=== PATIENT | female | born 1935 | race African-American/Black ===

== ENCOUNTER 2017-03-17 10:36 | Emergency (ER) | payer MEDICARE, MEDICAID ==
[2017-03-17] MEDS ORDERED: PREDNISONE 20 MG TABLET PO ONE (11:19)
[2017-03-17] MEDS ORDERED: IPRATROPIUM/ALBUTEROL 0.5-2.5 MG/3 ML AMPUL NEB ONE (11:19)
--- NOTE | 2017-03-17 11:47 | RADIOLOGY REPORT (SQ) ---
EXAM DESCRIPTION: CHEST SINGLE VIEW COMPLETED DATE/TIME: 03/17/2017 11:31 am REASON FOR STUDY: db bed 10 COMPARISON: AP chest 08/16/2015, 08/10/2015 EXAM PARAMETERS: NUMBER OF VIEWS: One view. TECHNIQUE: Single frontal radiographic view of the chest acquired. RADIATION DOSE: NA LIMITATIONS: Obese patient, lordotic portable technique, EKG leads over the chest FINDINGS: LUNGS AND PLEURA: No opacities, masses or pneumothorax. No pleural effusion. MEDIASTINUM AND HILAR STRUCTURES: No masses. Contour normal. HEART AND VASCULAR STRUCTURES: Stable cardiomegaly BONES: No acute findings. HARDWARE: None in the chest. OTHER: No other significant finding. IMPRESSION: Cardiomegaly without acute infiltrates, pneumothorax, or pleural effusion TECHNICAL DOCUMENTATION: JOB ID: [id number] [employer]- All Rights Reserved
[2017-03-17 12:32] LABS: VENOUS BLOOD BASE EXCESS -0.6 mmol/L; VENOUS BLOOD HCO3 25.2 mmol/L (20-32); VENOUS BLOOD PH 7.36 (7.30-7.42)
[2017-03-17 12:34] LABS: ABSOLUTE LYMPHOCYTES (AUTO) 0.5 10^3/uL (0.5-4.7); ABSOLUTE MONOCYTES (AUTO) 0.2 10^3/uL (0.1-1.4); ABSOLUTE NEUT (AUTO) 2.3 10^3/uL (1.7-8.2); BASOPHILS % (AUTO) 0.2 % (0-2); EOSINOPHILS % (AUTO) 0.2 % (0-6); HEMATOCRIT 37.9 % (36.0-47.0); HEMOGLOBIN 12.3 g/dL (12.0-15.5); LYMPHOCYTES % (AUTO) 16.3 % (13-45); MEAN CORPUSCULAR HEMOGLOBIN 29.3 pg (27.0-33.4); MEAN CORPUSCULAR HGB CONC 32.6 g/dL (32.0-36.0); MEAN CORPUSCULAR VOLUME 90 fl (80-97); PLATELET COUNT 102 10^3/uL (150-450); RED BLOOD COUNT 4.22 10^6/uL (3.72-5.28); RED CELL DISTRIBUTION WIDTH 15.8 % (11.5-14.0); SEGMENTED NEUTROPHILS % (AUTO) 75.3 % (42-78); TOTAL CELLS COUNTED % (AUTO) 100 %; WHITE BLOOD COUNT 3.1 10^3/uL (4.0-10.5)
[2017-03-17 12:50] LABS: ALANINE AMINOTRANSFERASE 28 U/L (9-52); ALBUMIN 3.6 g/dL (3.5-5.0); ALKALINE PHOSPHATASE 166 U/L (38-126); ANION GAP 14 (5-19); ASPARTATE AMINO TRANSFERASE 30 U/L (14-36); BILIRUBIN,DIRECT 0.5 mg/dL (0.0-0.4); BILIRUBIN,TOTAL 0.8 mg/dL (0.2-1.3); BLOOD UREA NITROGEN 33 mg/dL (7-20); CALCIUM 8.8 mg/dL (8.4-10.2); CARBON DIOXIDE 22 mmol/L (22-30); CHLORIDE 104 mmol/L (98-107); CREATINE KINASE 210 U/L (30-135); GLUCOSE 117 mg/dL (75-110); SODIUM 140.4 mmol/L (137-145); TOTAL PROTEIN 7.2 g/dL (6.3-8.2)
[2017-03-17 13:02] LABS: CREATINE KINASE MB 1.74 ng/mL (<4.55); TROPONIN I 0.02 ng/mL
--- NOTE | 2017-03-17 13:13 | EKG REPORT ---
SEVERITY:- ABNORMAL ECG - ATRIAL FLUTTER, A-RATE 294 NONSPECIFIC T ABNORMALITIES, INFERIOR LEADS : Confirmed by: Brionna Vallecillo MD 17-Mar-2017 13:12:19
--- NOTE | 2017-03-17 14:09 | ER Document Report ---
ED General - General Chief Complaint: Shortness Of Breath Stated Complaint: SHORTNESS OF BREATH Time Seen by Provider: 03/17/17 10:48 TRAVEL OUTSIDE OF THE [place] IN LAST 30 DAYS: No - HPI Patient complains to provider of: Shortness of breath Notes: Patient coming in from [facility] facility for shortness of breath. Patient had wheezing the facility patient currently is on Tamiflu. Patient states she was not diagnosed with flu. Denies fever chills nausea vomiting diarrhea denies any cough. Patient resting company upon my evaluation on oxygen no signs of hypoxia. - Related Data Allergies/Adverse Reactions: morphine [Morphine] Adverse Reaction (Mild, Verified 04/20/13 11:42) Dizziness Past Medical History - Social History Smoking Status: Unknown if Ever Smoked Family History: Reviewed & Not Pertinent Patient has suicidal ideation: No Patient has homicidal ideation: No - Past Medical History Cardiac Medical History: Reports: Hx Hypertension, Hx Peripheral Vascular Disease Denies: Hx Coronary Artery Disease, Hx Heart Attack Pulmonary Medical History: Denies: Hx Asthma, Hx Bronchitis, Hx COPD, Hx Pneumonia, Hx Tuberculosis Neurological Medical History: Denies: Hx Cerebrovascular Accident, Hx Seizures Endocrine Medical History: Reports: Hx Diabetes Mellitus Type 2 Renal/ Medical History: Reports: Hx Kidney Stones, Hx Renal Insufficiency. Denies: Hx Peritoneal Dialysis GI Medical History: Reports: Hx Gastroesophageal Reflux Disease. Denies: Hx Hepatitis, Hx Hiatal Hernia, Hx Ulcer Musculoskeltal Medical History: Denies Hx Arthritis Skin Medical History: Reports Hx Cellulitis Infectious Medical History: Denies: Hx Hepatitis Past Surgical History: Reports: Hx Cholecystectomy, Hx Genitourinary Surgery - bladder. Denies: Hx Mastectomy, Hx Open Heart Surgery, Hx Pacemaker - Immunizations Hx Diphtheria, Pertussis, Tetanus Vaccination: Yes Hx Pneumococcal Vaccination: 11/24/11 Review of Systems - Review of Systems Constitutional: No symptoms reported EENT: No symptoms reported Cardiovascular: No symptoms reported Respiratory: Short of breath, Wheezing Gastrointestinal: No symptoms reported Genitourinary: No symptoms reported Female Genitourinary: No symptoms reported Musculoskeletal: No symptoms reported Skin: No symptoms reported Hematologic/Lymphatic: No symptoms reported Neurological/Psychological: No symptoms reported Physical Exam - Vital signs Vitals: BP Pulse Ox 126/69 H 98 03/17/17 11:04 03/17/17 11:04 Interpretation: Normal - General General appearance: Appears well, Alert - HEENT Head: Normocephalic, Atraumatic Eyes: Normal Pupils: PERRL - Respiratory Respiratory status: No respiratory distress Chest status: Nontender Breath sounds: Wheezing Chest palpation: Normal - Cardiovascular Rhythm: Regular Heart sounds: Normal auscultation Murmur: No - Abdominal Inspection: Normal Distension: No distension Bowel sounds: Normal Tenderness: Nontender Organomegaly: No organomegaly - Back Back: Normal, Nontender - Extremities General upper extremity: Normal inspection, Nontender, Normal color, Normal ROM , Normal temperature General lower extremity: Normal inspection, Nontender, Normal color, Normal ROM , Normal temperature, Normal weight bearing. No: Torin's sign - Neurological Neuro grossly intact: Yes Cognition: Normal Orientation: AAOx4 [place] Coma Scale Eye Opening: Spontaneous [place] Coma Scale Verbal: Oriented Gem Coma Scale Motor: Obeys Commands Gem Coma Scale Total: 15 Speech: Normal Motor strength normal: LUE, RUE, LLE, RLE Sensory: Normal - Psychological Associated symptoms: Normal affect, Normal mood - Skin Skin Temperature: Warm Skin Moisture: Dry Skin Color: Normal Course - Re-evaluation Re-evalutation: 03/17/17 15:38 Laboratory studies not show acute pathology. Patient's wheezing resolved with nebulous treatments. Patient refused her flu testing here in the ER. Patient has remained off oxygen so no signs of hypoxia. Chest x-ray is negative for infection will discharge patient home follow-up with her PCP. - Vital Signs Vital signs: Temp Pulse Resp BP Pulse Ox 97.9 F 18 142/84 H 98 03/17/17 14:47 03/17/17 14:02 03/17/17 14:02 03/17/17 14:02 - Laboratory Result Diagrams: 03/17/17 12:16 03/17/17 12:16 Laboratory results interpreted by me: 03/17/17 03/17/17 12:16 12:16 WBC 3.1 L RDW 15.8 H Plt Count 102 L BUN 33 H Creatinine 2.66 H Est GFR ( Amer) 21 L Est GFR (Non-Af Amer) 17 L Glucose 117 H Direct Bilirubin 0.5 H Alkaline Phosphatase 166 H Creatine Kinase 210 H Discharge - Discharge Clinical Impression: Bronchitis Disposition: HOME-SNF (ED ONLY) Instructions: Bronchitis With Bronchospasm (Wheezing) (OM) Additional Instructions: Patient was seen and evaluated for shortness of breath. No hypoxia while here in the ER. Patient is not requiring oxygen. Chest x-ray does not show any signs of pneumonia. Wheezing improved with breathing treatments will continue steroids recommend albuterol treatments every 2-4 hours for shortness of breath patient should follow-up with physician in 3-5 days Prescriptions: Prednisone [Deltasone 20 mg Tablet] 2 tab PO DAILY 5 Days tablet
[2017-03-17 14:20] VITALS: BP 142/84
[2017-03-17 14:57] LABS: A TYPE INFLUENZA AG NEGATIVE (NEGATIVE); B INFLUENZA AG NEGATIVE (NEGATIVE)
== END 2017-03-17 14:47 ==
LOC: ER 10:36
DX: J40 Bronchitis, not specified as acute or chronic (principal); R06.02 Shortness of breath; R06.2 Wheezing
CPT/HCPCS: 93005; 94640; 99285; 36415; 82553; 82550; 85025; 80053; 84484; 82803; 87804; 71045; 93010; A9270 ×2; J7512; J7620

== ENCOUNTER 2017-03-18 18:59 | Inpatient (IN) | payer MEDICARE, MEDICAID ==
[2017-03-18] MEDS ORDERED: ONDANSETRON HCL INJ/PF 4 MG/2 ML SDV IV ONE (19:43)
[2017-03-18] MEDS ORDERED: IPRATROPIUM/ALBUTEROL 0.5-2.5 MG/3 ML AMPUL NEB ONE ×2 (19:44→20:58)
[2017-03-18] MEDS ORDERED: FUROSEMIDE INJ/PF 40 MG/4 ML SDV IV ONE ×2 (19:44→20:58)
--- NOTE | 2017-03-18 19:47 | ER Document Report ---
ED General - General Chief Complaint: Respiratory Distress Stated Complaint: WEAKNESS Time Seen by Provider: 03/18/17 19:34 Mode of Arrival: Medic Information source: Patient, Transfer Record Notes: This is an 81-year-old female with a history of morbid obesity, chronic kidney disease, hypertension, VT E (on Coumadin), diabetes. The patient was brought in by EMS because of shortness of breath. The patient was apparently in the ER yesterday for similar symptoms. It was reported that she has been treated for Tamiflu but it is had a negative flu test. TRAVEL OUTSIDE OF THE [place] IN LAST 30 DAYS: No - HPI Onset: Just prior to arrival Onset/Duration: Gradual Quality of pain: No pain Severity: None Associated symptoms: Shortness of breath. denies: Chest pain, Fever Exacerbated by: Denies Relieved by: Denies Similar symptoms previously: Yes Recently seen / treated by doctor: Yes - Related Data Allergies/Adverse Reactions: morphine [Morphine] Adverse Reaction (Mild, Verified 04/20/13 11:42) Dizziness Past Medical History - General Information source: Patient - Social History Smoking Status: Never Smoker Cigarette use (# per day): No Chew tobacco use (# tins/day): No Frequency of alcohol use: None Drug Abuse: None Lives with: Family Family History: Reviewed & Not Pertinent Patient has suicidal ideation: No Patient has homicidal ideation: No - Past Medical History Cardiac Medical History: Reports: Hx Hypertension, Hx Peripheral Vascular Disease Denies: Hx Coronary Artery Disease, Hx Heart Attack Pulmonary Medical History: Denies: Hx Asthma, Hx Bronchitis, Hx COPD, Hx Pneumonia, Hx Tuberculosis Neurological Medical History: Denies: Hx Cerebrovascular Accident, Hx Seizures Endocrine Medical History: Reports: Hx Diabetes Mellitus Type 2 Renal/ Medical History: Reports: Hx Kidney Stones, Hx Renal Insufficiency. Denies: Hx Peritoneal Dialysis GI Medical History: Reports: Hx Gastroesophageal Reflux Disease. Denies: Hx Hepatitis, Hx Hiatal Hernia, Hx Ulcer Musculoskeltal Medical History: Denies Hx Arthritis Skin Medical History: Reports Hx Cellulitis Infectious Medical History: Denies: Hx Hepatitis Past Surgical History: Reports: Hx Cholecystectomy, Hx Genitourinary Surgery - bladder. Denies: Hx Mastectomy, Hx Open Heart Surgery, Hx Pacemaker - Immunizations Hx Diphtheria, Pertussis, Tetanus Vaccination: Yes Hx Pneumococcal Vaccination: 11/24/11 Review of Systems - Review of Systems Constitutional: denies: Chills, Fever EENT: No symptoms reported Cardiovascular: No symptoms reported Respiratory: See HPI Gastrointestinal: No symptoms reported Genitourinary: No symptoms reported Female Genitourinary: No symptoms reported Musculoskeletal: No symptoms reported Skin: No symptoms reported Hematologic/Lymphatic: No symptoms reported Neurological/Psychological: No symptoms reported Physical Exam - Vital signs Vitals: Resp Pulse Ox 24 H 97 03/18/17 19:07 03/18/17 19:07 Notes: Physical exam: GENERAL: 81-year-old female, alert and oriented 3, appears tachypneic. She is morbidly obese. HEAD: Atraumatic, normocephalic. EYES: Pupils equal round and reactive to light, extraocular movements intact, sclera anicteric, conjunctiva are normal. ENT: TMs normal, nares patent, oropharynx clear without exudates. Moist mucous membranes. NECK: Normal range of motion, supple without obvious mass or JVD. LUNGS: She has wheezing bilaterally, with audible crackles HEART: Regular rate and rhythm without murmurs, rubs or gallops. ABDOMEN: Soft, normoactive bowel sounds. No tenderness to palpation. No guarding, no rebound. No masses appreciated. EXTREMITIES: She has chronic edema to the upper and lower extremities NEUROLOGICAL: Cranial nerves II through XII grossly intact. Normal speech, moving all extremities. PSYCH: Normal mood, normal affect. SKIN: Warm, Dry, normal turgor, no rashes or lesions noted. Course - Vital Signs Vital signs: Temp Pulse Resp BP Pulse Ox 98.9 F 115 H 19 159/105 H 98 03/19/17 02:01 03/18/17 23:40 03/19/17 02:01 03/19/17 02:01 03/19/17 02:01 - Laboratory Result Diagrams: 03/18/17 19:15 03/18/17 19:15 Laboratory results interpreted by me: 03/18/17 03/18/17 03/18/17 19:15 19:15 19:15 RDW 16.0 H Plt Count 116 L Seg Neutrophils % 81.4 H Lymphocytes % 8.9 L PT 30.3 H Carbon Dioxide 20 L BUN 41 H Creatinine 2.53 H Est GFR ( Amer) 22 L Est GFR (Non-Af Amer) 18 L Glucose 143 H Direct Bilirubin 0.5 H Alkaline Phosphatase 159 H Creatine Kinase 218 H NT-Pro-B Natriuret Pep Urine Blood Urine Urobilinogen Ur Leukocyte Esterase 03/18/17 03/18/17 19:15 20:50 RDW Plt Count Seg Neutrophils % Lymphocytes % PT Carbon Dioxide BUN Creatinine Est GFR ( Amer) Est GFR (Non-Af Amer) Glucose Direct Bilirubin Alkaline Phosphatase Creatine Kinase NT-Pro-B Natriuret Pep 4730 H Urine Blood MODERATE H Urine Urobilinogen 2.0 H Ur Leukocyte Esterase LARGE H - Diagnostic Test Radiology reviewed: Image reviewed - Cardiomegaly with cephalization - EKG Interpretation by Me Rate: Normal Rhythm: A.Fib - EKG shows atrial fibrillation with a ventricular rate of 101, no acute ST-T wave changes Critical Care Note - Critical Care Note Total time excluding time spent on procedures (mins): 60 Discharge - Discharge Clinical Impression: CHF, Reactive airway disease, Vomiting with nausea Condition: Stable Disposition: ADMITTED INPATIENT Admitting Provider: Hospitalist - Dr. Murry Unit Admitted: Telemetry
[2017-03-18 20:12] LABS: ALANINE AMINOTRANSFERASE 31 U/L (9-52); ALBUMIN 3.8 g/dL (3.5-5.0); ALKALINE PHOSPHATASE 159 U/L (38-126); ANION GAP 14 (5-19); ASPARTATE AMINO TRANSFERASE 36 U/L (14-36); BILIRUBIN,DIRECT 0.5 mg/dL (0.0-0.4); BILIRUBIN,TOTAL 0.8 mg/dL (0.2-1.3); BLOOD UREA NITROGEN 41 mg/dL (7-20); CALCIUM 9.5 mg/dL (8.4-10.2); CARBON DIOXIDE 20 mmol/L (22-30); CHLORIDE 106 mmol/L (98-107); CREATINE KINASE 218 U/L (30-135); GLUCOSE 143 mg/dL (75-110); POTASSIUM 4.6 mmol/L (3.6-5.0); SODIUM 139.5 mmol/L (137-145); TOTAL PROTEIN 7.6 g/dL (6.3-8.2)
[2017-03-18 20:16] LABS: INTERNATIONAL RATION (INR) 2.73; PROTHROMBIN TIME 30.3 SEC (11.4-15.4)
--- NOTE | 2017-03-18 20:18 | RADIOLOGY REPORT (SQ) ---
EXAM DESCRIPTION: CHEST SINGLE VIEW COMPLETED DATE/TIME: 03/18/2017 8:08 pm REASON FOR STUDY: sob COMPARISON: 03/17/2017 EXAM PARAMETERS: NUMBER OF VIEWS: One view. TECHNIQUE: Single frontal radiographic view of the chest acquired. RADIATION DOSE: NA LIMITATIONS: None. FINDINGS: LUNGS AND PLEURA: No acute opacities, masses or pneumothorax. No pleural effusion. MEDIASTINUM AND HILAR STRUCTURES: Stable. HEART AND VASCULAR STRUCTURES: Stable. BONES: No acute findings. HARDWARE: None in the chest. OTHER: No other significant finding. IMPRESSION: NO ACUTE RADIOGRAPHIC FINDING IN THE CHEST. TECHNICAL DOCUMENTATION: JOB ID: [id number] [id number] [employer]- All Rights Reserved
[2017-03-18 20:19] LABS: ABSOLUTE LYMPHOCYTES (AUTO) 0.6 10^3/uL (0.5-4.7); ABSOLUTE MONOCYTES (AUTO) 0.6 10^3/uL (0.1-1.4); ABSOLUTE NEUT (AUTO) 5.5 10^3/uL (1.7-8.2); BASOPHILS % (AUTO) 0.1 % (0-2); HEMATOCRIT 39.8 % (36.0-47.0); HEMOGLOBIN 13.1 g/dL (12.0-15.5); LYMPHOCYTES % (AUTO) 8.9 % (13-45); MEAN CORPUSCULAR HEMOGLOBIN 29.5 pg (27.0-33.4); MEAN CORPUSCULAR VOLUME 89 fl (80-97); MONOCYTES % (AUTO) 9.6 % (3-13); PLATELET COUNT 116 10^3/uL (150-450); RED BLOOD COUNT 4.46 10^6/uL (3.72-5.28); SEGMENTED NEUTROPHILS % (AUTO) 81.4 % (42-78); TOTAL CELLS COUNTED % (AUTO) 100 %
[2017-03-18 20:20] LABS: WHITE BLOOD COUNT 6.8 10^3/uL (4.0-10.5)
[2017-03-18 20:23] LABS: CREATINE KINASE MB 3.34 ng/mL (<4.55); TROPONIN I 0.026 ng/mL
[2017-03-18 21:11] LABS: APPEARANCE,URINE SLIGHTLY-CLOUDY; BILIRUBIN,URINE NEGATIVE (NEGATIVE); COLOR,URINE YELLOW; GLUCOSE, URINE NEGATIVE (NEGATIVE); KETONES,URINE NEGATIVE (NEGATIVE); LEUKOCYTE ESTERASE,URINE LARGE (NEGATIVE); NITRITE,URINE NEGATIVE (NEGATIVE); PROTEIN,URINE NEGATIVE (NEGATIVE); URINE SPECIFIC GRAVITY 1.011
[2017-03-18 21:40] LABS: A TYPE INFLUENZA AG NEGATIVE (NEGATIVE); B INFLUENZA AG NEGATIVE (NEGATIVE)
[2017-03-18] MEDS ORDERED: ONDANSETRON HCL INJ/PF 4 MG/2 ML SDV IV PRN (22:48)
[2017-03-18] MEDS ORDERED: ZOLPIDEM TARTRATE 5 MG TABLET PO PRN (22:48)
[2017-03-18] MEDS ORDERED: ALBUTEROL SULFATE 0.083% NEB 2.5 MG/3 ML AMPUL NEB PRN (22:48)
[2017-03-18 23:33] LABS: ARTERIAL BLOOD H2CO3 1.06 mmol/L (1.05-1.35); ARTERIAL BLOOD HCO3 21.9 mmol/L (20-26); ARTERIAL BLOOD O2 SATURATION 98.2 % (94-98); ARTERIAL BLOOD PCO2 35.1 mmHg (35-45); ARTERIAL BLOOD PH 7.41 (7.35-7.45); ARTERIAL BLOOD PO2 113.2 mmHg (80-100)
--- NOTE | 2017-03-18 23:57 | PDOC H&P ---
History of Present Illness Admission Date/PCP: 03/18/17 21:22 Patient complains of: Not feeling well History of Present Illness: ANTHONY PELLETIER is a 81 year old femaleWho had been seen in our emergency room yesterday. At that time she was felt to have an exacerbation of underlying COPD andWas discharged back to her long-term care facility with the addition of prednisone. Apparently the prednisone was not started and the patient did not feel well and she requested that she be sent back to the emergency room for reevaluation. Evaluation today reveals the presence the patient to be in atrial flutter with 3 -1 block. She also has significant pyuria. Patient will be started on antibiotics and admitted for further management Past Medical History Cardiac Medical History: Reports: Hypertension, Peripheral Vascular Disease Denies: Coronary Artery Disease, Myocardial Infarction Pulmonary Medical History: Denies: Asthma, Bronchitis, Chronic Obstructive Pulmonary Disease (COPD), Pneumonia, Tuberculosis Neurological Medical History: Denies: Seizures Endocrine Medical History: Reports: Obesity Renal/ Medical History: Reports: Chronic Kidney Disease GI Medical History: Reports: Gastroesophageal Reflux Disease Denies: Hepatitis, Hiatal Hernia Musculoskeltal Medical History: Denies: Arthritis Hematology: Denies: Anemia, Sickle Cell Disease Past Surgical History Past Surgical History: Reports: Cholecystectomy Denies: Amputation, Mastectomy, Pacemaker Social History Information Source: Patient Lives with: Long Term Smoking Status: Never Smoker Frequency of Alcohol Use: None Hx Recreational Drug Use: No Hx Prescription Drug Abuse: No - Advance Directive Resuscitation Status: Full Code Family History Family History: Reviewed & Not Pertinent Parental Family History Reviewed: Yes Children Family History Reviewed: Yes Sibling(s) Family History Reviewed.: Yes Medication/Allergy Home Medications: Allopurinol [Zyloprim 100 mg Tablet] 100 mg PO DAILY 03/18/17 Furosemide [Lasix 40 mg Tablet] 40 mg PO QAM 03/18/17 Ipratropium/Albuterol Sulfate [Duoneb 3 ml Ampul] 3 ml NEB [id number] PRN 03/18/17 Midodrine HCl [Proamatine 5 Mg Tablet] 5 mg PO DAILY 03/18/17 Omeprazole 20 mg PO DAILY 03/18/17 Polyethylene Glycol 3350 [Miralax Powder 17 gm/Packet] 1 packet PO DAILY Sennosides [Senna] 8.6 mg PO DAILY 03/18/17 Sodium Bicarbonate [Sodium Bicarbonate 650 mg Tablet] 650 mg PO BID 03/18/17 Warfarin Sodium [Coumadin 1 mg Tablet] 3.5 mg PO WE@219903/18/17 Warfarin Sodium [Coumadin 3 mg Tablet] 3 mg PO OZ@219903/18/17 Allergies/Adverse Reactions: morphine [Morphine] Adverse Reaction (Mild, Verified 04/20/13 11:42) Dizziness Review of Systems Constitutional: PRESENT: weakness. ABSENT: chills, fatigue, night sweats Eyes: ABSENT: visual disturbances Ears: ABSENT: hearing changes Nose, Mouth, and Throat: ABSENT: mouth pain, sore throat Cardiovascular: ABSENT: chest pain, orthropnea, palpitations Respiratory: ABSENT: cough, hemoptysis Gastrointestinal: PRESENT: constipation. ABSENT: abdominal pain Genitourinary: PRESENT: difficulty urinating, other - Chronic indwelling Arambula Integumentary: PRESENT: rash - Stasis dermatitis both lower extremities Neurological: ABSENT: convulsions, focal weakness, syncope Psychiatric: ABSENT: depression, hallucinations, suicidal ideation Physical Exam Vital Signs: Temp Pulse Resp BP Pulse Ox 98.8 F 22 H 168/148 H 98 03/18/17 23:01 03/18/17 23:01 03/18/17 23:01 03/18/17 23:01 Intake & Output 03/17/17 03/18/17 03/19/17 06:59 06:59 06:59 Output Total 200 Balance -200 General appearance: PRESENT: no acute distress, cooperative, morbidly obese Head exam: PRESENT: atraumatic, normocephalic Eye exam: PRESENT: EOMI, PERRLA. ABSENT: nystagmus Ear exam: PRESENT: normal external ear exam Teeth exam: PRESENT: poor dentation Neck exam: ABSENT: carotid bruit, JVD, meningismus Respiratory exam: PRESENT: clear to auscultation mariama, decreased breath sounds, symmetrical, unlabored. ABSENT: accessory muscle use, chest wall tenderness Cardiovascular exam: PRESENT: tachycardia. ABSENT: diastolic murmur, irregular rhythm, systolic murmur GI/Abdominal exam: PRESENT: normal bowel sounds, soft. ABSENT: organolmegaly Rectal exam: PRESENT: deferred Gentrourinary exam: PRESENT: indwelling catheter Extremities exam: PRESENT: +1 edema Musculoskeletal exam: ABSENT: ambulatory Neurological exam: PRESENT: alert, awake, oriented to person, oriented to place , oriented to time, oriented to situation, other - Dysarthric Skin exam: PRESENT: dry, intact, warm, other - Hyperkeratosis of both lower extremities. ABSENT: cyanosis, rash Results Laboratory Results: 03/18/17 03/18/17 03/18/17 19:15 19:15 19:15 WBC 6.8 D Hgb 13.1 Hct 39.8 Plt Count 116 L PT 30.3 H INR 2.73 BUN 41 H Creatinine 2.53 H Glucose 143 H Creatine Kinase 218 H CK-MB (CK-2) Troponin I NT-Pro-B Natriuret Pep Albumin 3.8 Ur Leukocyte Esterase Influenza A (Rapid) Influenza B (Rapid) 03/18/17 03/18/17 03/18/17 19:15 20:50 21:05 WBC Hgb Hct Plt Count PT INR BUN Creatinine Glucose Creatine Kinase CK-MB (CK-2) 3.34 Troponin I 0.026 NT-Pro-B Natriuret Pep 4730 H Albumin Ur Leukocyte Esterase LARGE H Influenza A (Rapid) NEGATIVE Influenza B (Rapid) NEGATIVE EKG Comments: Atrial flutter Impressions: Chest X-Ray 03/18/17 19:42 IMPRESSION: NO ACUTE RADIOGRAPHIC FINDING IN THE CHEST. Assessment & Plan - Diagnosis (1) Atrial flutter Qualifiers: Atrial flutter type: typical Qualified Code(s): I48.3 - Typical atrial flutter Is this a current diagnosis for this admission?: Yes (2) COPD (chronic obstructive pulmonary disease) with acute bronchitis Is this a current diagnosis for this admission?: Yes (3) UTI (urinary tract infection) Qualifiers: Urinary tract infection type: site unspecified Hematuria presence: without hematuria Qualified Code(s): N39.0 - Urinary tract infection, site not specified Is this a current diagnosis for this admission?: Yes (4) Anticoagulated on Coumadin Is this a current diagnosis for this admission?: Yes (5) CKD (chronic kidney disease), stage IV Is this a current diagnosis for this admission?: Yes - Time Time Spent: 30 to 50 Minutes - Inpatient Certification Based on my medical assessment, after consideration of the patient's comorbidities, presenting symptoms, or acuity I expect that the services needed warrant INPATIENT care.: Yes I certify that my determination is in accordance with my understanding of Medicare's requirements for reasonable and necessary INPATIENT services [42 CFR 412.3e].: Yes Medical Necessity: Need For Continuous Telemetry Monitoring, Need for IV Antibiotics - Plan Summary Plan Summary: Patient will be admitted to our service and started on intravenous antibiotics. Urine culture will be obtained. Patient is already anticoagulated and therefore does not need DVT prophylaxis. She will continue Coumadin. We will consult with cardiology about possible cardioversion. She will need thyroid studies and a repeat echo as well prior to this Her chronic kidney disease has remained stable. Anticipated length of stay is greater than 2 midnights
[2017-03-18] MEDS ORDERED: DOCUSATE SODIUM 100 MG CAPSULE PO ONE (23:59)
[2017-03-18] MEDS ORDERED: CEFTRIAXONE 1 GM/D5W RTU 1 GM/50 ML RTUPB IV ONE (23:59)
[2017-03-18] MEDS ORDERED: CEFTRIAXONE INJ 1000 MG VIAL ONE (23:59)
[2017-03-19] MEDS ORDERED: IPRATROPIUM/ALBUTEROL 0.5-2.5 MG/3 ML AMPUL NEB SCH
[2017-03-19 00:02] LABS: ARTERIAL BLOOD FIO2 2L
[2017-03-19 00:26] LABS: CREATINE KINASE MB 3.09 ng/mL (<4.55); TROPONIN I 0.024 ng/mL
[2017-03-19 05:24] LABS: ABSOLUTE LYMPHOCYTES (AUTO) 0.6 10^3/uL (0.5-4.7); ABSOLUTE MONOCYTES (AUTO) 0.8 10^3/uL (0.1-1.4); ABSOLUTE NEUT (AUTO) 7.2 10^3/uL (1.7-8.2); HEMATOCRIT 40.6 % (36.0-47.0); HEMOGLOBIN 13.4 g/dL (12.0-15.5); INTERNATIONAL RATION (INR) 2.89; LYMPHOCYTES % (AUTO) 6.4 % (13-45); MEAN CORPUSCULAR HEMOGLOBIN 29.5 pg (27.0-33.4); MEAN CORPUSCULAR HGB CONC 33.1 g/dL (32.0-36.0); MEAN CORPUSCULAR VOLUME 89 fl (80-97); MONOCYTES % (AUTO) 9.5 % (3-13); PLATELET COUNT 131 10^3/uL (150-450); PROTHROMBIN TIME 31.7 SEC (11.4-15.4); RED BLOOD COUNT 4.55 10^6/uL (3.72-5.28); RED CELL DISTRIBUTION WIDTH 15.8 % (11.5-14.0); SEGMENTED NEUTROPHILS % (AUTO) 84.1 % (42-78); TOTAL CELLS COUNTED % (AUTO) 100 %; WHITE BLOOD COUNT 8.6 10^3/uL (4.0-10.5)
[2017-03-19 05:53] LABS: ANION GAP 17 (5-19); BLOOD UREA NITROGEN 45 mg/dL (7-20); CALCIUM 9.3 mg/dL (8.4-10.2); CARBON DIOXIDE 19 mmol/L (22-30); CHLORIDE 108 mmol/L (98-107); CHOLESTEROL 144.55 mg/dL (0-200); CREATINE KINASE 187 U/L (30-135); GLUCOSE 137 mg/dL (75-110); MAGNESIUM 2.1 mg/dL (1.6-2.3); PHOSPHORUS 4.5 mg/dL (2.5-4.5); POTASSIUM 4.7 mmol/L (3.6-5.0); SODIUM 143.7 mmol/L (137-145); TRIGLYCERIDES 83 mg/dL (<150)
[2017-03-19 06:04] LABS: CREATINE KINASE MB 2.84 ng/mL (<4.55); TROPONIN I 0.028 ng/mL
[2017-03-19 06:05] LABS: DIRECT LDL 55 mg/dL (<100)
[2017-03-19 06:53] LABS: FREE T3 2.93 pg/mL (2.77-5.27); FREE T4 (FREE THYROXINE) 2.24 ng/dL (0.78-2.19)
[2017-03-19 07:07] LABS: THYROID STIMULATING HORMONE 1.11 uIU/mL (0.47-4.68)
[2017-03-19] MEDS ORDERED: FUROSEMIDE INJ/PF 40 MG/4 ML SDV IV ONE (09:01)
--- NOTE | 2017-03-19 09:46 | PROGRESS NOTE E ---
Progress Note NAME: ANTHONY PELLETIER : 1935 AGE: 81Y DATE: 03/19/2017 ROOM: ED16 SUBJECTIVE: The patient is lying in bed. The patient states that she feels a little better compared to yesterday. The patient still admits to shortness of breath. She denies any nausea or vomiting. No diarrhea, dizziness, or chest pain. The patient also admits to some wheezing. The patient has been afebrile. Blood pressure has been in a good range. The patient remains in AFib/flutter, and the patient does not voice any other concerns at this time. REVIEW OF SYSTEMS: Rest of the review of systems negative. MEDICATIONS: Have been reviewed. OBJECTIVE: GENERAL: The patient is an 81-year-old -[place] female who is awake, alert, and oriented to person, place, time, and situation. She is verbal, conversational, and does not appear to be in any acute distress. VITAL SIGNS: Temperature 98.6, pulse 103, respirations 15, blood pressure is 157/96, oxygen saturation is 99% on room air. SKIN: Warm and dry. No rash. She is not diaphoretic. HEENT: Pupils equal, round, reactive to light and accommodation. Conjunctivae are pink. There is no evidence of JVP. CARDIOVASCULAR: Heart is irregularly irregular. No rub. CHEST: The patient does have bilateral crackles, symmetrical, mildly labored. ABDOMEN: Obese, soft. Bowel sounds are present. EXTREMITIES: The patient does have chronic changes of lymphedema and peripheral vascular disease. PSYCHIATRIC: Appropriate affect. Pleasant mood. GENITOURINARY: Arambula is draining clear yellow urine. DIAGNOSTICS: Lab values are as follows: Hematology obtained on 03/19/2017: WBCs are 8.6, hemoglobin is 13.4, hematocrit is 40.6, platelet count is 131,000. Coagulation obtained on 03/19/2017: PT is 31.7, INR is 2.89. Chemistry obtained on 03/19/2017: Sodium is 142, potassium 4.7, chloride is 108, carbon dioxide 92, BUN 45, creatinine is 2.64, glucose 137, lactic acid 0.9, calcium is 9.3, phosphorus 4.5, magnesium is 2.1. Triglycerides are 83, cholesterol 144, LDL 55, VLDL of 17,HDL of 56. IMPRESSION AND PLAN: 1. AFIB/ATRIAL FLUTTER. Will consult Cardiology. Cannot find any documentation as to this as it does appear the patient has a 3:1 block. Will continue current medications. The patient is anticoagulated with Coumadin. Will obtain echocardiogram to monitor for evidence of change. 2. 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 The patient's INR is therapeutic. 3. CHRONIC OBSTRUCTIVE PULMONARY DISEASE WITH ACUTE BRONCHITIS. Continue the patient's home medication. 4. ABNORMAL URINALYSIS. Will await for culture and sensitivity. Continue antibiotics in the interim given the patient does have a new arrhythmia. 5. CHRONIC KIDNEY DISEASE STAGE 4. The patient's creatinine does not appear to be too far from baseline. 6. MORBID OBESITY WITH A BMI OF 62. Have encouraged weight reduction. DISPOSITION: The patient is a DO NOT RESUSCITATE/DO NOT INTUBATE. Pending patient's symptomatology and diagnostic findings, will reevaluate in the a.m. Time spent on this followup including assessment, plan, physical examination, patient education, and review of records is 25 minutes. ADVANCED CARE PLANNING: Did have a discussion with the patient regarding advanced care planning. 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 The patient does require chronic Arambula as well and has had episodes of DVT as well as COPD. The patient has had multiple hospital contacts due to her chronic disease. In discussing the patient's medical condition, the patient states that "I don't want to ." Did discuss the process of natural versus all life support measures. The patient states that she does not feel she is about to , am agreeable to this. The patient feels relieved that this does not appear imminent for her, however, the patient elaborates that if the time should come she would want a peaceful passing, a natural and would not want measures that include heroic measures such as being fully resuscitated. Will proceed with a DO NOT RESUSCITATE order as this appears to be the patient's final decision. Did reach out to the patient's son, Stephen, to discuss this with him as well, however, he was unavailable. Time spent on this advanced care planning visit is 25 minutes. DICTATING PHYSICIAN: JOB LEWIS NP [id number] PHY#: [id number] ID: [id number] JOB#: [id number] ACCT: [id number] cc: >
[2017-03-19] MEDS ORDERED: (PENDING PHARMACY ID) (Sennosides [Senna] 8.6 MG) PO SCH (10:00)
[2017-03-19] MEDS ORDERED: FAMOTIDINE 20 MG TABLET PO SCH (10:00)
[2017-03-19] MEDS: POLYETHYLENE GLYCOL 3350 POWDER 17 GM/1 PACKET PO SCH (10:56)
[2017-03-19] MEDS: FUROSEMIDE 40 MG TABLET PO SCH (10:57)
[2017-03-19] MEDS: ALLOPURINOL 100 MG TABLET PO SCH (10:57)
[2017-03-19] MEDS: SODIUM BICARBONATE 650 MG TABLET PO SCH ×2 (10:57→17:46)
[2017-03-19] MEDS: DOCUSATE SODIUM 100 MG CAPSULE PO SCH (10:58)
[2017-03-19] MEDS: MIDODRINE HCL 5 MG TABLET PO SCH (10:58)
[2017-03-19] MEDS: FAMOTIDINE 20 MG TABLET PO SCH (10:58)
[2017-03-19] MEDS: SENNOSIDES/DOCUSATE 8.6-50 MG 1 EACH TABLET PO SCH (10:58)
--- NOTE | 2017-03-19 11:54 | EKG REPORT ---
SEVERITY:- ABNORMAL ECG - ATRIAL FLUTTER, A-RATE 306 NONSPECIFIC T ABNORMALITIES, LATERAL LEADS : Confirmed by: Chacorta Garland 19-Mar-2017 11:54:02
--- NOTE | 2017-03-19 11:54 | EKG REPORT ---
SEVERITY:- ABNORMAL ECG - ATRIAL FLUTTER/FIBRILLATION, A-RATE 306 VENTRICULAR PREMATURE COMPLEX BORDERLINE PROLONGED QT INTERVAL : Confirmed by: Chacorta Garland 19-Mar-2017 11:53:46
[2017-03-19 12:27] LABS: CREATINE KINASE MB 2.98 ng/mL (<4.55)
[2017-03-19 12:32] LABS: TROPONIN I 0.038 ng/mL
[2017-03-19] MEDS: CEFTRIAXONE SODIUM 1,000 MG in NORMAL SALINE 50 ML IV SCH (21:41)
[2017-03-19] MEDS ORDERED: WARFARIN SODIUM 3 MG TABLET PO SCH (22:00)
[2017-03-19] MEDS ORDERED: CEFTRIAXONE 1 GM/D5W RTU 1 GM/50 ML RTUPB IV SCH (22:00)
[2017-03-20 06:39] LABS: ABSOLUTE LYMPHOCYTES (AUTO) 0.6 10^3/uL (0.5-4.7); ABSOLUTE MONOCYTES (AUTO) 0.7 10^3/uL (0.1-1.4); ABSOLUTE NEUT (AUTO) 7.9 10^3/uL (1.7-8.2); HEMATOCRIT 38.4 % (36.0-47.0); HEMOGLOBIN 12.5 g/dL (12.0-15.5); LYMPHOCYTES % (AUTO) 6.1 % (13-45); MEAN CORPUSCULAR HEMOGLOBIN 29.3 pg (27.0-33.4); MEAN CORPUSCULAR HGB CONC 32.7 g/dL (32.0-36.0); MEAN CORPUSCULAR VOLUME 90 fl (80-97); PLATELET COUNT 109 10^3/uL (150-450); RED BLOOD COUNT 4.28 10^6/uL (3.72-5.28); RED CELL DISTRIBUTION WIDTH 16.1 % (11.5-14.0); SEGMENTED NEUTROPHILS % (AUTO) 85.9 % (42-78); TOTAL CELLS COUNTED % (AUTO) 100 %; WHITE BLOOD COUNT 9.2 10^3/uL (4.0-10.5)
[2017-03-20 06:41] LABS: INTERNATIONAL RATION (INR) 3.76; PROTHROMBIN TIME 38.8 SEC (11.4-15.4)
[2017-03-20 06:57] LABS: ANION GAP 15 (5-19); BLOOD UREA NITROGEN 47 mg/dL (7-20); CALCIUM 8.9 mg/dL (8.4-10.2); CARBON DIOXIDE 20 mmol/L (22-30); CHLORIDE 106 mmol/L (98-107); GLUCOSE 97 mg/dL (75-110); POTASSIUM 4.4 mmol/L (3.6-5.0); SODIUM 141.2 mmol/L (137-145)
--- NOTE | 2017-03-20 07:37 | EKG REPORT ---
SEVERITY:- ABNORMAL ECG - ECTOPIC ATRIAL TACHYCARDIA NONSPECIFIC T ABNORMALITIES, DIFFUSE LEADS : Confirmed by: Brionna Vallecillo MD 20-Mar-2017 07:37:29
[2017-03-20] MEDS: POLYETHYLENE GLYCOL 3350 POWDER 17 GM/1 PACKET PO SCH (09:42)
[2017-03-20] MEDS: DOCUSATE SODIUM 100 MG CAPSULE PO SCH (09:42)
[2017-03-20] MEDS: SENNOSIDES/DOCUSATE 8.6-50 MG 1 EACH TABLET PO SCH (09:43)
[2017-03-20] MEDS: MIDODRINE HCL 5 MG TABLET PO SCH (09:43)
[2017-03-20] MEDS: FAMOTIDINE 20 MG TABLET PO SCH (09:43)
[2017-03-20] MEDS: ALLOPURINOL 100 MG TABLET PO SCH (09:45)
[2017-03-20] MEDS: SODIUM BICARBONATE 650 MG TABLET PO SCH ×2 (09:45→18:30)
[2017-03-20] MEDS ORDERED: PROMETHAZINE HCL 25 MG TABLET PO PRN (09:55)
--- NOTE | 2017-03-20 11:11 | PDOC CONSULTATION ---
Consultation Consult Date: 03/19/17 Attending physician:: CHANA ZHU Consult reason:: Atrial flutter fibrillation and CHF History of Present Illness Admission Date/PCP: 03/18/17 21:22 Patient complains of: Shortness of breath and leg swelling History of Present Illness: ANTHONY PELLETIER is a 81 year old female, Who had been seen in our emergency room yesterday. At that time she was felt to have an exacerbation of underlying COPD and Was discharged back to her long-term care facility with the addition of prednisone. Apparently the prednisone was not started and the patient did not feel well and she requested that she be sent back to the emergency room for reevaluation. Evaluation today reveals the presence the patient to be in atrial flutter with 3 -1 block. She also has significant pyuria. Patient will be started on antibiotics and admitted for further management. This history was reviewed and confirmed. Patient has also noted some shortness of breath and some chronic pedal edema. She was noted to be congested by the family. Patient was therefore brought to the emergency room. I was consulted because of atrial flutter fibrillation being noted. Past Medical History Cardiac Medical History: Reports: Hypertension, Peripheral Vascular Disease Denies: Coronary Artery Disease, Myocardial Infarction Pulmonary Medical History: Denies: Asthma, Bronchitis, Chronic Obstructive Pulmonary Disease (COPD), Pneumonia, Tuberculosis Neurological Medical History: Denies: Seizures Endocrine Medical History: Reports: Diabetes Mellitus Type 2, Obesity Renal/ Medical History: Reports: Chronic Kidney Disease GI Medical History: Reports: Gastroesophageal Reflux Disease Denies: Hepatitis, Hiatal Hernia Musculoskeltal Medical History: Denies: Arthritis Hematology: Denies: Anemia, Sickle Cell Disease Past Surgical History Past Surgical History: Reports: Cholecystectomy Denies: Amputation, Mastectomy, Pacemaker Social History Information Source: Relative Lives with: Family Smoking Status: Never Smoker Frequency of Alcohol Use: None Hx Recreational Drug Use: No Drugs: None Hx Prescription Drug Abuse: No - Advance Directive Resuscitation Status: Do Not Resuscitate Surrogate healthcare decision maker:: Patient's 2 sons at the surrogate decision-maker Family History Family History: Hypertension Parental Family History Reviewed: Yes Children Family History Reviewed: Yes Sibling(s) Family History Reviewed.: Yes Medication/Allergy Home Medications: Allopurinol [Zyloprim 100 mg Tablet] 100 mg PO DAILY 03/18/17 Furosemide [Lasix 40 mg Tablet] 40 mg PO QAM 03/18/17 Ipratropium/Albuterol Sulfate [Duoneb 3 ml Ampul] 3 ml NEB [id number] PRN 03/18/17 Midodrine HCl [Proamatine 5 Mg Tablet] 5 mg PO DAILY 03/18/17 Omeprazole 20 mg PO DAILY 03/18/17 Polyethylene Glycol 3350 [Miralax Powder 17 gm/Packet] 1 packet PO DAILY Sennosides [Senna] 8.6 mg PO DAILY 03/18/17 Sodium Bicarbonate [Sodium Bicarbonate 650 mg Tablet] 650 mg PO BID 03/18/17 Warfarin Sodium [Coumadin 1 mg Tablet] 3.5 mg PO WE@219903/18/17 Warfarin Sodium [Coumadin 3 mg Tablet] 3 mg PO SUMOTUTHFRSA@219903/18/17 Allergies/Adverse Reactions: morphine [Morphine] Adverse Reaction (Mild, Verified 03/19/17 04:36) Dizziness Review of Systems Review of Systems: Please see history of present illness and past medical history as wall. Constitutional: Low-grade fever reported. Head : No recent chronic headaches, recent head injury. Eyes: No recent eye pain, diplopia, redness, discharge, acute visual changes. Ears: No recent chronic ear pain, acute hearing loss, ear discharge. Oral cavity: No recent ulcerations, bleeding, oral cavity discomfort. Neck: No recent acute neck pain reported. Hematologic: No recent easy bruising or bleeding or hematologic malignancy reported. Lymphatic: No recent lymphatic malignancy, chronic lymphadenopathy reported yet Cardiovascular system review: See history of present illness. No chest pain, sustained palpitations, syncope, near syncope. Patient on chronic Coumadin therapy. Respiratory system review: No recent chronic cough, hemoptysis, blood clots in the lungs reported. Shortness of breath on exertion Gastrointestinal system review: Negative for any recent acute or chronic abdominal pain, hematemesis, melena, recent change in bowel habits. Genitourinary system review: No recent acute or chronic hematuria, flank pain, UTI etc. reported. Patient was actually noted to have UTI by test. Skin system review: Negative for any recent abnormal bruising, no rash, no pruritus reported. Neurologic: No prior history of strokes, mini strokes, seizure disorder. Psychologic: No history of major psychosis or major depression reported. Musculoskeletal: Minor aches and pains reported. No acute joint swelling reported. Patient's mobility is limited. Endocrine: No recent polyuria, polydipsia, recent heat or cold intolerance. Physical Exam Vital Signs: Temp Pulse Resp BP Pulse Ox 98.5 F 104 H 14 131/83 H 100 03/19/17 12:00 03/19/17 15:00 03/19/17 15:00 03/19/17 15:00 03/19/17 17:29 Intake & Output 03/18/17 03/19/17 03/20/17 06:59 06:59 06:59 Intake Total 243 Output Total 925 950 Balance -925 -707 Weight 165.2 kg 160.4 kg Exam: GENERAL: well-nourished and in no acute distress. Alert and oriented x3 HEAD: Atraumatic, normocephalic. EYES: Pupils equal round and reactive to light, extraocular movements intact, sclera anicteric, conjunctiva are normal. ENT: TMs normal, nares patent, oropharynx clear without exudates. Moist mucous membranes. No oral ulcerations or bleeding gums noted NECK: supple without lymphadenopathy. Trachea is central. No cervical or axillary lymphadenopathy noted. Carotids are 2+, JVD 8-10 cm LUNGS: Respiration seems nonlabored, no significant accessory muscle action noted. Bibasilar fine crackles noted no significant dullness noted on percussion. CHEST: Palpation of the chest wall shows no significant chest wall tenderness. No other significant abnormalities noted. 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 ABDOMEN: Soft, no significant tenderness appreciated, normoactive bowel sounds. No guarding, no rebound. No rigidity noted . No masses appreciated. EXTREMITIES: Pedal pulses are 1-2+, no calf tenderness noted. No clubbing or cyanosis. Bilateral 1-2 + pedal edema noted. Chronic dermatitis changes noted. NEUROLOGICAL: Focused neurological exam showed no significant neurologic deficit. Normal speech, no focal weakness appreciated. PSYCH: Normal mood, normal affect. Judgment and insight within normal limits. SKIN: No significant ecchymosis, rash, chronic dermatitis changes noted. No active pruritus noted. MUSCULOSKELETAL EXAM: No significant joint swelling noted. Results Laboratory Results: 03/19/17 04:55 03/19/17 04:55 03/18/17 03/19/17 03/19/17 23:13 00:15 04:55 WBC RBC Hgb Hct MCV MCH MCHC RDW Plt Count Seg Neutrophils % Lymphocytes % Monocytes % Eosinophils % Basophils % Absolute Neutrophils Absolute Lymphocytes Absolute Monocytes Absolute Eosinophils Absolute Basophils Carbonic Acid 1.06 HCO3/H2CO3 Ratio 20:1 ABG pH 7.41 ABG pCO2 35.1 ABG pO2 113.2 H ABG HCO3 21.9 ABG O2 Saturation 98.2 H ABG Base Excess -2.0 FiO2 2L Sodium 143.7 Potassium 4.7 Chloride 108 H Carbon Dioxide 19 L Anion Gap 17 BUN 45 H Creatinine 2.64 H Est GFR ( Amer) 21 L Est GFR (Non-Af Amer) 17 L Glucose 137 H Lactic Acid 0.9 Calcium 9.3 Phosphorus 4.5 Magnesium 2.1 Triglycerides 83 Cholesterol 144.55 LDL Cholesterol Direct 55 VLDL Cholesterol 17.0 HDL Cholesterol 56 TSH Free T4 Free T3 pg/mL 03/19/17 03/19/17 04:55 04:55 WBC 8.6 RBC 4.55 Hgb 13.4 Hct 40.6 MCV 89 MCH 29.5 MCHC 33.1 RDW 15.8 H Plt Count 131 L Seg Neutrophils % 84.1 H Lymphocytes % 6.4 L Monocytes % 9.5 Eosinophils % 0.0 Basophils % 0.0 Absolute Neutrophils 7.2 Absolute Lymphocytes 0.6 Absolute Monocytes 0.8 Absolute Eosinophils 0.0 Absolute Basophils 0.0 Carbonic Acid HCO3/H2CO3 Ratio ABG pH ABG pCO2 ABG pO2 ABG HCO3 ABG O2 Saturation ABG Base Excess FiO2 Sodium Potassium Chloride Carbon Dioxide Anion Gap BUN Creatinine Est GFR ( Amer) Est GFR (Non-Af Amer) Glucose Lactic Acid Calcium Phosphorus Magnesium Triglycerides Cholesterol LDL Cholesterol Direct VLDL Cholesterol HDL Cholesterol TSH 1.11 Free T4 2.24 H Free T3 pg/mL 2.93 03/18/17 03/18/17 03/19/17 23:20 23:20 04:55 Creatine Kinase 204 H 187 H CK-MB (CK-2) 3.09 Troponin I 0.024 03/19/17 03/19/17 03/19/17 04:55 11:47 11:47 Creatine Kinase 159 H CK-MB (CK-2) 2.84 2.98 Troponin I 0.028 0.038 EKG Comments: Twelve-lead EKG reviewed. Shows atrial fibrillation, minor nonspecific T-wave changes but no acute ST-T wave changes noted. Impressions: Chest X-Ray 03/18/17 19:42 IMPRESSION: NO ACUTE RADIOGRAPHIC FINDING IN THE CHEST. Assessment & Plan - Diagnosis (1) Atrial fibrillation and flutter Is this a current diagnosis for this admission?: Yes (2) CHF, chronic Qualifiers: Congestive heart failure type: unspecified Qualified Code(s): I50.9 - Heart failure, unspecified Is this a current diagnosis for this admission?: Yes (3) COPD (chronic obstructive pulmonary disease) with acute bronchitis Is this a current diagnosis for this admission?: Yes (4) UTI (urinary tract infection) Qualifiers: Urinary tract infection type: site unspecified Hematuria presence: without hematuria Qualified Code(s): N39.0 - Urinary tract infection, site not specified Is this a current diagnosis for this admission?: Yes (5) Anticoagulated on Coumadin Is this a current diagnosis for this admission?: Yes (6) CKD (chronic kidney disease), stage IV Is this a current diagnosis for this admission?: Yes - Notes Notes: Atrial fibrillation/flutter: Duration not known. Previous EKGs from 2016 had shown sinus rhythm. Last E[facility] in [facility] records shows atrial fibrillation on the of this month. At this point will recommend rate control and chronic anticoagulation. Patient already on chronic Coumadin therapy which would need to be continued. INR range recommended is 2-3. CHF: Patient seems to have chronic CHF. There may be some fluid overload. Continue Lasix therapy. A 2D echo is being obtained to evaluate CHF further and further adjustment in medication will be made at that point. COPD: Patient has known history of COPD. Patient does have lung findings indicative of ongoing acute bronchitis. Continue antibiotic therapy and bronchodilator therapy as noted. UTI: Currently stable continue antibiotic therapy. Chronic kidney disease: Patient being adequately managed. Will continue to follow patient. - Time Time Spent: 30 to 50 Minutes - CODE STATUS : was discussed, patient remains DO NOT RESUSCITATE. Surrogate decision-maker unchanged. Multiple medical problems were addressed. More than 50% of the time spent coordinating care, discussing management plans with involved caregivers. Management plans discussed with involved personnels. Medical decision making was of moderate to high complexity, patient's has multiple comorbidities. Medications reviewed and adjusted accordingly: Yes
--- NOTE | 2017-03-20 11:54 | PROGRESS NOTE E ---
Progress Note NAME: ANTHONY PELLETIER : 1935 AGE: 81Y DATE: 03/20/2017 ROOM: 405 SUBJECTIVE: The patient is currently lying in bed. The patient states that she feels ok. The patient is quite sleepy and groggy today, but is able to answer simple questions and goes right back to sleep. The patient denies any nausea. The patient has had no reported episodes of vomiting nor diarrhea. The patient has been afebrile. Her blood pressure has been in a good range. She remains in flutter and the patient does not voice any other concerns at this time. REVIEW OF SYSTEMS: The rest of the review of systems is negative. MEDICATIONS: Medications have been reviewed. OBJECTIVE: GENERAL: The patient is an 81-year-old, -[place] female who is awake, alert, but sleepy, does not appear to be in distress. VITAL SIGNS: As follows: Temperature is 98.3, pulse 104, respirations 20, blood pressure 142/79, oxygen saturation 99% on room air. SKIN: Warm and dry. She is not diaphoretic. HEENT: Pupils are reactive. No evidence of JVP. CHEST: Diminished. Very difficult to auscultate given body habitus, symmetrical, unlabored. ABDOMEN: Obese. No area of focal tenderness. EXTREMITIES: The patient has chronic, bilateral lower extremity lymphedema. GENITOURINARY: Arambula is draining clear, yellow urine. PSYCHIATRIC: The patient is sleepy at this time. DIAGNOSTICS: Lab values are as follows: Hematology obtained on 03/20/2017: WBCs 9.3, hemoglobin 12.5, hematocrit 38.4, platelet count 109,000. Coagulation obtained on 03/20/2017: Posterior tibial 38.8, INR 3.76. Chemistry obtained on 03/20/2017: Sodium 141, potassium 4.1, chloride 106, carbon dioxide 20, BUN 47, creatinine 2.67, glucose 97. Calcium is 8.9. IMPRESSION AND PLAN: 1. A FIB/A FLUTTER. The patient appears to have episodes of 3:1. Do appreciate Cardiology's input on this. The patient does have a decent blood pressure. Will start the patient on metoprolol. She is already anticoagulated with Coumadin. 2. 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 The patient's INR is supratherapeutic. Will hold tonight's dose of Coumadin. Overall, adjust the dose to 3 and follow. 3. CHRONIC OBSTRUCTIVE PULMONARY DISEASE WITH ACUTE BRONCHITIS. Continue home medication. 4. ABNORMAL URINALYSIS. Will continue Rocephin for now, but do believe that this may be colonization, given the patient has a chronic Arambula. 5. CHRONIC KIDNEY DISEASE, STAGE 4. The patient's creatinine appears to be at baseline. 6. MORBID OBESITY WITH BODY MASS INDEX OF 47. Encouraged weight reduction. DISPOSITION: 1. The patient is DO NOT RESUSCITATE, DO NOT INTUBATE. Pending patient's symptomatology and diagnostic findings, will reevaluate in the a.m. TIME SPENT: On this followup including assessment, plan, physical examination, patient education, and review of records, was 25 minutes. DICTATING PHYSICIAN: JOB [place]IS [id number] PHY#: [id number] ID: [id number] JOB#: [id number] ACCT: [id number] cc: > MTDD
[2017-03-20] MEDS ORDERED: METOPROLOL SUCCINATE 50 MG TAB.SR.24H PO ONE (12:00)
[2017-03-20] MEDS ORDERED: PREDNISONE 20 MG TABLET PO ONE (12:00)
[2017-03-20] MEDS: PREDNISONE 20 MG TABLET PO SCH (18:29)
[2017-03-20] MEDS: ACETAMINOPHEN 325 MG TABLET PO PRN (20:01)
--- NOTE | 2017-03-20 20:07 | XCELERA REPORT ---
[address] [address] Transthoracic Echocardiogram Report Name: ANTHONY PELLETIER Age: 81 yrs Gender: Female : 1935 Patient Status: Inpatient Patient Location: [address] [place], [place] [address]A Study Date: 03/20/2017 10:04 AM Height: 60 in Weight: 320 lb BSA: 2.3 m2 Procedure: A two-dimensional transthoracic echocardiogram with color flow and Doppler was performed in limited views only. The study was technically limited with all images being suboptimal in quality. Reason For Study: Sepsis, endocarditis Ordering Physician: CHACORTA GLEZ Performed By: Abigail Morris Interpretation Summary The study was technically limited with all images being suboptimal in quality. Consider additional methods to assess LVEF such as MUGA scan, CTA heart, cardiac MRI, FRANCA, etc. if clinically indicated. The left ventricular ejection fraction is probably well preserved. LV diastolic function not assessed. The left ventricle is not well visualized. Not all wall segments were well visualized. The right ventricle is not well visualized secondary to technical limitations Right atrium not well visualized secondary to technical limitations The left atrium is not well visualized secondary to technical limitations There is no mitral valve stenosis. can not comment on mitral regurgitation. There is no aortic valve stenosis can not comment on aortic regurgitation is present. The tricuspid valve is not well visualized secondary to technical limitations The aortic root is not well visualized. The inferior vena cava was not well visualized There is no significant pericardial effusion. Consider alternative methods to evaluate LVEF such as MUGA scan, cardiac MRI, or cardiac CTA. Doppler Measurements & Calculations PA V2 max: 95.8 cm/sec PA max P.7 mmHg Left Ventricle The left ventricle is not well visualized. Consider additional methods to assess LVEF such as MUGA scan, CTA heart, cardiac MRI, FRANCA, etc. if clinically indicated. The left ventricular ejection fraction is preserved. LV diastolic function not assessed. Not all wall segments were well visualized. Right Ventricle The right ventricle is not well visualized secondary to technical limitations. Atria Right atrium not well visualized secondary to technical limitations. The left atrium is not well visualized secondary to technical limitations. Mitral Valve There is no mitral valve stenosis. Aortic Valve The aortic valve opens well. There is no aortic valve stenosis. No aortic regurgitation is present. Tricuspid Valve The tricuspid valve is not well visualized secondary to technical limitations. Pulmonic Valve The pulmonic valve is not well visualized. Great Vessels The aortic root is not well visualized. The inferior vena cava was not well visualized. Effusions There is no pericardial effusion. Incidental Findings Consider alternative methods to evaluate LVEF such as MUGA scan, cardiac MRI, or cardiac CTA. : CHACORTA GLEZ > Chacorta Glez
--- NOTE | 2017-03-20 20:32 | PDOC PROGRESS REPORT ---
Subjective Progress Note for:: 03/20/17 Subjective:: Patient seems to be doing better with gradual improvement. Pt is denying any chest arm or neck discomfort. Patient denying any PND, orthopnea. Patient denied any sustained palpitations, dizziness, syncope, near syncope. Patient denying any fever chills. Patient denying any other significant discomfort. Patient is maintaining atrial flutter fibrillation with predominantly 3-1 conduction. Heart rate around 100. Review of systems: Rest review of systems negative. Medications: Medications have been reviewed. Reason For Visit: A FLUTTER,UTI Physical Exam Vital Signs: Temp Pulse Resp BP Pulse Ox 97.4 F 102 H 20 144/97 H 100 03/20/17 15:35 03/20/17 15:35 03/20/17 15:35 03/20/17 15:35 03/20/17 16:15 Intake & Output 03/19/17 03/20/17 03/21/17 06:59 06:59 06:59 Intake Total 731 505 Output Total 925 1800 650 Balance -925 -1069 -145 Weight 165.2 kg 1060.9 kg 160.9 kg Exam: GENERAL: well-nourished and in no acute distress. Alert and oriented x3 HEAD: Atraumatic, normocephalic. EYES: Pupils equal round and reactive to light, extraocular movements intact, sclera anicteric, conjunctiva are normal. ENT: TMs normal, nares patent, oropharynx clear without exudates. Moist mucous membranes. No oral ulcerations or bleeding gums noted NECK: supple without lymphadenopathy. Trachea is central. No cervical or axillary lymphadenopathy noted. Carotids are 2+, JVD 8-10 cm LUNGS: Respiration seems nonlabored, no significant accessory muscle action noted. Bibasilar fine crackles noted no significant dullness noted on percussion. CHEST: Palpation of the chest wall shows no significant chest wall tenderness. No other significant abnormalities noted. 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 ABDOMEN: Soft, no significant tenderness appreciated, normoactive bowel sounds. No guarding, no rebound. No rigidity noted . No masses appreciated. EXTREMITIES: Pedal pulses are 1-2+, no calf tenderness noted. No clubbing or cyanosis. Bilateral 1-2 + pedal edema noted. Chronic dermatitis changes noted. NEUROLOGICAL: Focused neurological exam showed no significant neurologic deficit. Normal speech, no focal weakness appreciated. PSYCH: Normal mood, normal affect. Judgment and insight within normal limits. SKIN: No significant ecchymosis, rash, chronic dermatitis changes noted. No active pruritus noted. MUSCULOSKELETAL EXAM: No significant joint swelling noted. Results Laboratory Results: 03/20/17 05:31 03/20/17 05:31 03/20/17 03/20/17 05:31 05:31 WBC 9.2 RBC 4.28 Hgb 12.5 Hct 38.4 MCV 90 MCH 29.3 MCHC 32.7 RDW 16.1 H Plt Count 109 L Seg Neutrophils % 85.9 H Lymphocytes % 6.1 L Monocytes % 8.0 Eosinophils % 0.0 Basophils % 0.0 Absolute Neutrophils 7.9 Absolute Lymphocytes 0.6 Absolute Monocytes 0.7 Absolute Eosinophils 0.0 Absolute Basophils 0.0 Sodium 141.2 Potassium 4.4 Chloride 106 Carbon Dioxide 20 L Anion Gap 15 BUN 47 H Creatinine 2.69 H Est GFR ( Amer) 21 L Est GFR (Non-Af Amer) 17 L Glucose 97 Calcium 8.9 03/18/17 03/18/17 03/19/17 23:20 23:20 04:55 Creatine Kinase 204 H 187 H CK-MB (CK-2) 3.09 Troponin I 0.024 03/19/17 03/19/17 03/19/17 04:55 11:47 11:47 Creatine Kinase 159 H CK-MB (CK-2) 2.84 2.98 Troponin I 0.028 0.038 EKG Comments: Shows atrial flutter fibrillation with heart rate around 100. No significant ventricular dysrhythmia noted. Impressions: Chest X-Ray 03/18/17 19:42 IMPRESSION: NO ACUTE RADIOGRAPHIC FINDING IN THE CHEST. Assessment & Plan - Diagnosis (1) Atrial fibrillation and flutter Is this a current diagnosis for this admission?: Yes (2) CHF, chronic Qualifiers: Congestive heart failure type: unspecified Qualified Code(s): I50.9 - Heart failure, unspecified Is this a current diagnosis for this admission?: Yes (3) COPD (chronic obstructive pulmonary disease) with acute bronchitis Is this a current diagnosis for this admission?: Yes (4) UTI (urinary tract infection) Qualifiers: Urinary tract infection type: site unspecified Hematuria presence: without hematuria Qualified Code(s): N39.0 - Urinary tract infection, site not specified Is this a current diagnosis for this admission?: Yes (5) Anticoagulated on Coumadin Is this a current diagnosis for this admission?: Yes (6) CKD (chronic kidney disease), stage IV Is this a current diagnosis for this admission?: Yes - Notes Notes: 2D echo was noted to be technically difficult but LVEF is felt to be relatively well-preserved. No significant stenotic or regurgitant lesions noted. Atrial fibrillation/flutter: Duration not known. Previous EKGs from 2016 had shown sinus rhythm. Last EKG in [facility] records shows atrial fibrillation on the of this month. At this point will recommend rate control and chronic anticoagulation. Patient already on chronic Coumadin therapy which would need to be continued. INR range recommended is 2-3. CHF: Patient seems to have chronic CHF. There may be some fluid overload. Continue Lasix therapy. 2D echo results reviewed. Recommend continuation of diuretic therapy and other rate related agents. COPD: Patient has known history of COPD. Patient does have lung findings indicative of ongoing acute bronchitis. Continue antibiotic therapy and bronchodilator therapy as noted. UTI: Currently stable continue antibiotic therapy. Chronic kidney disease: Patient being adequately managed. Will continue to follow patient. - Time Time with patient: 15-25 minutes - CODE STATUS : was discussed, patient remains DO NOT RESUSCITATE. Surrogate decision-maker unchanged. Multiple medical problems were addressed. More than 50% of the time spent coordinating care, discussing management plans with involved caregivers. Management plans discussed with involved personnels. Medical decision making was of moderate to high complexity, patient's has multiple comorbidities.
[2017-03-20] MEDS: CEFTRIAXONE SODIUM 1,000 MG in NORMAL SALINE 50 ML IV SCH (21:03)
[2017-03-20] MEDS: WARFARIN SODIUM 3 MG TABLET PO SCH (21:03)
[2017-03-21 07:09] LABS: ABSOLUTE LYMPHOCYTES (AUTO) 0.7 10^3/uL (0.5-4.7); ABSOLUTE MONOCYTES (AUTO) 0.4 10^3/uL (0.1-1.4); ABSOLUTE NEUT (AUTO) 6.4 10^3/uL (1.7-8.2); HEMATOCRIT 37.6 % (36.0-47.0); HEMOGLOBIN 12.3 g/dL (12.0-15.5); LYMPHOCYTES % (AUTO) 9.5 % (13-45); MEAN CORPUSCULAR HEMOGLOBIN 29.2 pg (27.0-33.4); MEAN CORPUSCULAR HGB CONC 32.7 g/dL (32.0-36.0); MEAN CORPUSCULAR VOLUME 89 fl (80-97); MONOCYTES % (AUTO) 5.7 % (3-13); PLATELET COUNT 113 10^3/uL (150-450); RED BLOOD COUNT 4.21 10^6/uL (3.72-5.28); RED CELL DISTRIBUTION WIDTH 15.6 % (11.5-14.0); SEGMENTED NEUTROPHILS % (AUTO) 84.8 % (42-78); TOTAL CELLS COUNTED % (AUTO) 100 %; WHITE BLOOD COUNT 7.6 10^3/uL (4.0-10.5)
[2017-03-21 07:18] LABS: INTERNATIONAL RATION (INR) 3.57; PROTHROMBIN TIME 37.3 SEC (11.4-15.4)
[2017-03-21 07:30] LABS: ANION GAP 17 (5-19); BLOOD UREA NITROGEN 55 mg/dL (7-20); CALCIUM 8.7 mg/dL (8.4-10.2); CARBON DIOXIDE 19 mmol/L (22-30); CHLORIDE 105 mmol/L (98-107); GLUCOSE 90 mg/dL (75-110); POTASSIUM 4.6 mmol/L (3.6-5.0); SODIUM 141.3 mmol/L (137-145)
[2017-03-21] MEDS: FUROSEMIDE 40 MG TABLET PO SCH (08:54)
[2017-03-21] MEDS: DOCUSATE SODIUM 100 MG CAPSULE PO SCH (09:38)
[2017-03-21] MEDS: SENNOSIDES/DOCUSATE 8.6-50 MG 1 EACH TABLET PO SCH (09:38)
[2017-03-21] MEDS: METOPROLOL SUCCINATE 50 MG TAB.SR.24H PO SCH (09:38)
[2017-03-21] MEDS: SODIUM BICARBONATE 650 MG TABLET PO SCH ×2 (09:38→17:53)
[2017-03-21] MEDS: PREDNISONE 20 MG TABLET PO SCH ×2 (09:38→17:53)
[2017-03-21] MEDS: POLYETHYLENE GLYCOL 3350 POWDER 17 GM/1 PACKET PO SCH (09:39)
[2017-03-21] MEDS: FAMOTIDINE 20 MG TABLET PO SCH (09:39)
[2017-03-21] MEDS: ALLOPURINOL 100 MG TABLET PO SCH (09:39)
[2017-03-21] MEDS: MIDODRINE HCL 5 MG TABLET PO SCH (09:43)
[2017-03-21] MEDS: ERTAPENEM SODIUM 0.5 GM in NORMAL SALINE 50 ML IV SCH (12:54)
--- NOTE | 2017-03-21 13:15 | PDOC PROGRESS REPORT ---
Subjective Progress Note for:: 03/21/17 Subjective:: Patient seems to be doing better with gradual improvement. Pt is denying any chest arm or neck discomfort. Patient denying any PND, orthopnea. Patient denied any sustained palpitations, dizziness, syncope, near syncope. Patient denying any fever chills. Patient denying any other significant discomfort. Patient is maintaining atrial flutter fibrillation with predominantly 3-1 conduction. Heart rate around 100. Review of systems: Rest review of systems negative. Medications: Medications have been reviewed. Reason For Visit: A FLUTTER,UTI Physical Exam Vital Signs: Temp Pulse Resp BP Pulse Ox 98.1 F 99 21 H 126/76 H 100 03/21/17 11:39 03/21/17 11:39 03/21/17 11:39 03/21/17 11:39 03/21/17 11:39 Intake & Output 03/20/17 03/21/17 03/22/17 06:59 06:59 06:59 Intake Total 731 805 Output Total 1800 1050 Balance -1069 -245 Weight 1060.9 kg 167.5 kg Exam: GENERAL: well-nourished and in no acute distress. Alert and oriented x3 HEAD: Atraumatic, normocephalic. EYES: Pupils equal round and reactive to light, extraocular movements intact, sclera anicteric, conjunctiva are normal. ENT: TMs normal, nares patent, oropharynx clear without exudates. Moist mucous membranes. No oral ulcerations or bleeding gums noted NECK: supple without lymphadenopathy. Trachea is central. No cervical or axillary lymphadenopathy noted. Carotids are 2+, JVD WNL LUNGS: Respiration seems nonlabored, no significant accessory muscle action noted. Breath sounds clear to auscultation bilaterally and equal noted. No wheezes rales or rhonchi noted. No significant dullness noted on percussion. CHEST: Palpation of the chest wall shows no significant chest wall tenderness. No other significant abnormalities noted. 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 ABDOMEN: Soft, no significant tenderness appreciated, normoactive bowel sounds. No guarding, no rebound. No rigidity noted . No masses appreciated. EXTREMITIES: Pedal pulses are 1-2+, no calf tenderness noted. No clubbing or cyanosis.1+ pedal edema noted NEUROLOGICAL: Focused neurological exam showed no significant neurologic deficit. Normal speech, no focal weakness appreciated. PSYCH: Normal mood, normal affect. Judgment and insight within normal limits. SKIN: No significant ecchymosis, chronic dermatitis changes noted both lower extremity. MUSCULOSKELETAL EXAM: No significant joint swelling noted. Results Laboratory Results: 03/21/17 06:10 03/21/17 06:10 03/21/17 03/21/17 06:10 06:10 WBC 7.6 RBC 4.21 Hgb 12.3 Hct 37.6 MCV 89 MCH 29.2 MCHC 32.7 RDW 15.6 H Plt Count 113 L Seg Neutrophils % 84.8 H Lymphocytes % 9.5 L Monocytes % 5.7 Eosinophils % 0.0 Basophils % 0.0 Absolute Neutrophils 6.4 Absolute Lymphocytes 0.7 Absolute Monocytes 0.4 Absolute Eosinophils 0.0 Absolute Basophils 0.0 Sodium 141.3 Potassium 4.6 Chloride 105 Carbon Dioxide 19 L Anion Gap 17 BUN 55 H Creatinine 2.66 H Est GFR ( Amer) 21 L Est GFR (Non-Af Amer) 17 L Glucose 90 Calcium 8.7 03/18/17 03/18/17 03/19/17 23:20 23:20 04:55 Creatine Kinase 204 H 187 H CK-MB (CK-2) 3.09 Troponin I 0.024 03/19/17 03/19/17 03/19/17 04:55 11:47 11:47 Creatine Kinase 159 H CK-MB (CK-2) 2.84 2.98 Troponin I 0.028 0.038 Impressions: Chest X-Ray 03/18/17 19:42 IMPRESSION: NO ACUTE RADIOGRAPHIC FINDING IN THE CHEST. Assessment & Plan - Diagnosis (1) Atrial fibrillation and flutter Is this a current diagnosis for this admission?: Yes (2) CHF, chronic Qualifiers: Congestive heart failure type: unspecified Qualified Code(s): I50.9 - Heart failure, unspecified Is this a current diagnosis for this admission?: Yes (3) COPD (chronic obstructive pulmonary disease) with acute bronchitis Is this a current diagnosis for this admission?: Yes (4) UTI (urinary tract infection) Qualifiers: Urinary tract infection type: site unspecified Hematuria presence: without hematuria Qualified Code(s): N39.0 - Urinary tract infection, site not specified Is this a current diagnosis for this admission?: Yes (5) Anticoagulated on Coumadin Is this a current diagnosis for this admission?: Yes (6) CKD (chronic kidney disease), stage IV Is this a current diagnosis for this admission?: Yes - Notes Notes: Atrial fibrillation/flutter: Duration not known. At this point will recommend rate control and chronic anticoagulation. Patient already on chronic Coumadin therapy which would need to be continued. INR range recommended is 2-3. CHF: Patient seems to have chronic CHF. There may be some fluid overload. Continue Lasix therapy. 2D echocardiogram shows well-preserved LVEF but the study was technically difficult and limited. COPD: Patient has known history of COPD. Patient does have lung findings indicative of ongoing acute bronchitis. Continue antibiotic therapy and bronchodilator therapy as noted. UTI: Currently stable continue antibiotic therapy. Chronic kidney disease: Patient being adequately managed. Will continue to follow this patient. - Time Time with patient: 15-25 minutes - CODE STATUS : was discussed, patient remains DO NOT RESUSCITATE. Surrogate decision-maker unchanged. Multiple medical problems were addressed. More than 50% of the time spent coordinating care, discussing management plans with involved caregivers. Management plans discussed with involved personnels. Medical decision making was of moderate to high complexity, patient's has multiple comorbidities. Medications reviewed and adjusted accordingly: Yes
--- NOTE | 2017-03-21 16:54 | PROGRESS NOTE E ---
Progress Note NAME: ANTHONY PELLETIER : 1935 AGE: 81Y DATE: 03/21/2017 ROOM: 405 SUBJECTIVE: The patient is lying in bed. The patient is awake and alert, appears much more alert in comparison to previous contacts. The patient states that she feels great today. She denies any nausea or vomiting. No diarrhea, shortness of breath, dizziness, chest pain. No fevers, chills. The patient has been afebrile. Her blood pressures have been in a good range, and the patient does not voice any other concerns at this time. REVIEW OF SYSTEMS: Rest of review of systems is negative. MEDICATIONS: Medications have been reviewed. OBJECTIVE: GENERAL: The patient is an 81-year-old -[place] female who is awake, alert and oriented to person, place, time and situation, just a little delayed. She does not appear to be distressed. VITAL SIGNS FOLLOWS: Temperature is 98.1. Pulse 99. Respirations 21. Blood pressure is 126/76. Oxygen saturation is 100% on room air. SKIN: Warm and dry. No rash. She is not diaphoretic. HEENT: Pupils equal, round and reactive to light and accommodation. Conjunctivae are pink. NECK: No evidence of JVP. CARDIOVASCULAR SYSTEM: Heart is irregularly irregular. No rub. CHEST: Diminished. Symmetrical. Unlabored. ABDOMEN: Obese. Soft. No area of focal tenderness. EXTREMITIES: The patient has chronic bilateral lower extremity lymphedema. DIAGNOSTICS: Lab values are as follows. Hematology obtained on 03/21/2017: WBCs are 7.6; hemoglobin is 12.5; hematocrit 37.6; platelet count is 113,000. Chemistry obtained on 03/21/2017: Sodium is 141, potassium 4.6, chloride is 105, carbon dioxide 19. BUN 55, creatinine is 2.66, glucose 90. Calcium is 8.7. IMPRESSION AND PLAN: 1. ESBL URINARY TRACT INFECTION SECONDARY TO INDWELLING URINARY CATHETER. The patient has been covered with ertapenem, and the patient's mentation improved significantly after this. Therefore do not believe this is a colonization but active infection. The patient has been quite responsive. 2. AFIB/A-FLUTTER. This may have been triggered by underlying infection. Do appreciate Cardiology's input. The patient's rate is very well controlled. She is already anticoagulated with Coumadin. 3. CHRONIC ANTICOAGULATION DUE TO THROMBOEMBOLISM AND PERIPHERAL VASCULAR DISEASE. The patient's INR is slightly supratherapeutic. Will hold tonight's dose of Coumadin and follow. 4. CHRONIC OBSTRUCTIVE PULMONARY DISEASE WITH ACUTE BRONCHITIS. Continue current regimen. 5. CHRONIC KIDNEY DISEASE STAGE 4. The patient's creatinine is at baseline. 6. MORBID OBESITY WITH A BMI OF 41. Encourage weight reduction. DISPOSITION: The patient is a DNR/DNI. Pending patient's symptomatology and diagnostic findings, will reevaluate in the a.m. for possible discharge. TIME SPENT: Time spent on this followup including assessment, plan, physical examination, patient education, review of records was 25 minutes. DICTATING PHYSICIAN: JOB LEWIS NP [id number] PHY#: [id number] ID: [id number] JOB#: [id number] ACCT: [id number] cc: >
[2017-03-22] MEDS: LEVALBUTEROL HCL NEB 1.25 MG/3 ML AMPUL NEB PRN ×2 (06:18→12:38)
[2017-03-22] MEDS: FUROSEMIDE 40 MG TABLET PO SCH (08:34)
[2017-03-22] MEDS: FAMOTIDINE 20 MG TABLET PO SCH (09:48)
[2017-03-22] MEDS: DOCUSATE SODIUM 100 MG CAPSULE PO SCH (09:48)
[2017-03-22] MEDS: SODIUM BICARBONATE 650 MG TABLET PO SCH ×2 (09:48→17:19)
[2017-03-22] MEDS: PREDNISONE 20 MG TABLET PO SCH ×2 (09:48→17:19)
[2017-03-22] MEDS: SENNOSIDES/DOCUSATE 8.6-50 MG 1 EACH TABLET PO SCH (09:48)
[2017-03-22] MEDS: METOPROLOL SUCCINATE 50 MG TAB.SR.24H PO SCH (09:48)
[2017-03-22] MEDS: MIDODRINE HCL 5 MG TABLET PO SCH (09:48)
[2017-03-22] MEDS: ALLOPURINOL 100 MG TABLET PO SCH (09:49)
[2017-03-22] MEDS: POLYETHYLENE GLYCOL 3350 POWDER 17 GM/1 PACKET PO SCH (09:50)
--- NOTE | 2017-03-22 11:52 | EKG REPORT ---
SEVERITY:- ABNORMAL ECG - ATRIAL FLUTTER, A-RATE 294 NONSPECIFIC T ABNORMALITIES, LATERAL LEADS : Confirmed by: Brionna Vallecillo MD 22-Mar-2017 11:51:57
--- NOTE | 2017-03-22 11:53 | EKG REPORT ---
SEVERITY:- OTHERWISE NORMAL ECG - SINUS OR ECTOPIC ATRIAL TACHYCARDIA : Confirmed by: Brionna Vallecillo MD 22-Mar-2017 11:52:00
[2017-03-22] MEDS: ERTAPENEM SODIUM 0.5 GM in NORMAL SALINE 50 ML IV SCH (12:22)
--- NOTE | 2017-03-22 12:40 | PDOC PROGRESS REPORT ---
Subjective Progress Note for:: 03/22/17 Subjective:: Patient seems to be doing better with gradual improvement. Pt is denying any chest arm or neck discomfort. Patient denying any PND, orthopnea. Patient denied any sustained palpitations, dizziness, syncope, near syncope. Patient denying any fever chills. Patient denying any other significant discomfort. Patient is maintaining atrial flutter fibrillation with predominantly 3-1 alternating 4-1 conduction. Review of systems: Rest review of systems negative. Medications: Medications have been reviewed. Reason For Visit: A FLUTTER,UTI Physical Exam Vital Signs: Temp Pulse Resp BP Pulse Ox 98.2 F 81 18 118/67 99 03/22/17 04:20 03/22/17 07:00 03/22/17 06:20 03/22/17 04:20 03/22/17 04:20 Intake & Output 03/21/17 03/22/17 03/23/17 06:59 06:59 06:59 Intake Total 805 1159 Output Total 1050 1200 Balance -245 -41 Weight 167.5 kg 167.5 kg Exam: GENERAL: well-nourished and in no acute distress. Alert and oriented x3 HEAD: Atraumatic, normocephalic. EYES: Pupils equal round and reactive to light, extraocular movements intact, sclera anicteric, conjunctiva are normal. ENT: TMs normal, nares patent, oropharynx clear without exudates. Moist mucous membranes. No oral ulcerations or bleeding gums noted NECK: supple without lymphadenopathy. Trachea is central. No cervical or axillary lymphadenopathy noted. Carotids are 2+, JVD WNL LUNGS: Respiration seems nonlabored, no significant accessory muscle action noted. Breath sounds clear to auscultation bilaterally and equal noted. No wheezes rales or rhonchi noted. No significant dullness noted on percussion. CHEST: Palpation of the chest wall shows no significant chest wall tenderness. No other significant abnormalities noted. 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 ABDOMEN: Soft, no significant tenderness appreciated, normoactive bowel sounds. No guarding, no rebound. No rigidity noted . No masses appreciated. EXTREMITIES: Pedal pulses are 1-2+, no calf tenderness noted. No clubbing or cyanosis.1+ pedal edema noted NEUROLOGICAL: Focused neurological exam showed no significant neurologic deficit. Normal speech, no focal weakness appreciated. PSYCH: Normal mood, normal affect. Judgment and insight within normal limits. SKIN: No significant ecchymosis, chronic dermatitis changes noted both lower extremity. MUSCULOSKELETAL EXAM: No significant joint swelling noted. Results Laboratory Results: 03/21/17 06:10 03/21/17 06:10 03/18/17 03/18/17 03/19/17 23:20 23:20 04:55 Creatine Kinase 204 H 187 H CK-MB (CK-2) 3.09 Troponin I 0.024 03/19/17 03/19/17 03/19/17 04:55 11:47 11:47 Creatine Kinase 159 H CK-MB (CK-2) 2.84 2.98 Troponin I 0.028 0.038 EKG Comments: Shows atrial flutter with controlled ventricular response. Impressions: Chest X-Ray 03/18/17 19:42 IMPRESSION: NO ACUTE RADIOGRAPHIC FINDING IN THE CHEST. Assessment & Plan - Diagnosis (1) Atrial fibrillation and flutter Is this a current diagnosis for this admission?: Yes (2) CHF, chronic Qualifiers: Congestive heart failure type: unspecified Qualified Code(s): I50.9 - Heart failure, unspecified Is this a current diagnosis for this admission?: Yes (3) COPD (chronic obstructive pulmonary disease) with acute bronchitis Is this a current diagnosis for this admission?: Yes (4) UTI (urinary tract infection) Qualifiers: Urinary tract infection type: site unspecified Hematuria presence: without hematuria Qualified Code(s): N39.0 - Urinary tract infection, site not specified Is this a current diagnosis for this admission?: Yes (5) Anticoagulated on Coumadin Is this a current diagnosis for this admission?: Yes (6) CKD (chronic kidney disease), stage IV Is this a current diagnosis for this admission?: Yes - Notes Notes: Atrial fibrillation/flutter: Duration not known, heart rate currently well controlled.. At this point will recommend rate control and chronic anticoagulation. Patient already on chronic Coumadin therapy which would need to be continued. INR range recommended is 2-3. CHF: Patient seems to have chronic CHF. There may be some fluid overload. Continue Lasix therapy. 2D echocardiogram shows well-preserved LVEF but the study was technically difficult and limited. Currently seems adequately compensated. COPD: Patient has known history of COPD. Patient does have lung findings indicative of ongoing acute bronchitis. Continue antibiotic therapy and bronchodilator therapy as noted. Patient is improved. UTI: Currently stable continue antibiotic therapy. Chronic kidney disease: Patient being adequately managed. - Time Time with patient: 15-25 minutes - CODE STATUS : was discussed, patient remains DO NOT RESUSCITATE. Surrogate decision-maker unchanged. Multiple medical problems were addressed. More than 50% of the time spent coordinating care, discussing management plans with involved caregivers. Management plans discussed with involved personnels. Medical decision making was of moderate to high complexity, patient's has multiple comorbidities. Medications reviewed and adjusted accordingly: Yes
--- NOTE | 2017-03-22 12:44 | PROGRESS NOTE E ---
Progress Note NAME: ANTHONY PELLETIER : 1935 AGE: 81Y DATE: 03/22/2017 ROOM: 405 SUBJECTIVE: The patient is lying in bed. She states that she feels better today. She has improved throughout the week. She denies any nausea, vomiting, diarrhea. The patient does admit to some wheezing but no shortness of breath, dizziness, chest pain. No fevers, chills. The patient has been afebrile. Blood pressures has been in a good range, and the patient does not voice any other concerns at this time. BRIEF HISTORY: The patient is an 81-year-old -[place] female that is chronically debilitated, bedbound and resides at a [facility] with a chronic Arambula. The patient presented to the emergency department where she was found to be wheezing, shortness of breath and with new findings of AFib/aflutter. The patient has been rate controlled. She was chronically anticoagulated to begin with with Coumadin and her INR was therapeutic. She is anticoagulated for previous DVT and then significant peripheral vascular disease. The patient has been afebrile. Her blood pressures have been in a good range. The patient's urine culture did reveal and ESBL E. coli. Fortunately, it is sensitive to tetracycline; therefore will treat with 3 days of IV ertapenem and then transition to oral tetracycline as the patient's symptoms are significantly improved. REVIEW OF SYSTEMS: Rest of review of systems is negative. MEDICATIONS: Medications have been reviewed. OBJECTIVE: GENERAL: The patient is an 81-year-old -[place] female who is awake, alert. She is oriented to person, place, not fully oriented to situation, just a little delayed. She does not appear to be distressed. VITAL SIGNS FOLLOWS: Temperature is 98.2. Pulse 100. Respirations 17. Blood pressure is 118/67. Oxygen saturation is 99% on room air. SKIN: Warm and dry. No rash. She is not diaphoretic. HEENT: Pupils equal, round and reactive to light and accommodation. Conjunctivae are pink. NECK: There is no evidence of JVP. CARDIOVASCULAR SYSTEM: Heart is irregularly irregular. No rub. CHEST: Symmetrical. Unlabored. Patient does have some upper airway wheezing. It does improve with cough. ABDOMEN: Obese. EXTREMITIES: The patient has changes of chronic lymphedema and peripheral vascular disease. GENITOURINARY: Arambula is draining clear, yellow urine. PSYCHIATRIC: The patient is at her baseline. Appropriate and pleasant. DIAGNOSTICS: Lab values are as follows. Hematology obtained on 03/21/2017: WBCs are 7.6; hemoglobin is 12.3; hematocrit 37.6; platelet count is 113,000. Chemistry obtained on 03/21/2017: Sodium is 141, potassium 4.6, chloride is 105, carbon dioxide 19. BUN 55, creatinine is 2.66, glucose 90. Calcium is 8.7. IMPRESSION AND PLAN: 1. ESBL URINARY TRACT INFECTION SECONDARY TO INDWELLING URINARY CATHETER. The patient has been covered with ertapenem. Tomorrow will make day number 3. Patient's mentation has improved significantly and given the patient's mental status changes I have treated as an active infection versus a colonization. The patient fortunately is able to tolerate doxycycline and this is sensitive to this. 2. AFIB/A-FLUTTER. May be it was triggered by underlying infection. Regardless, the patient is now rate controlled. She is already chronically anticoagulated with Coumadin. 3. CHRONIC ANTICOAGULATION DUE TO THROMBOEMBOLISM AND PERIPHERAL VASCULAR DISEASE. The patient's INR is just slightly supratherapeutic. The patient's Coumadin has been held. Overall decreased her dose from 3.5 to 3. 4. CHRONIC OBSTRUCTIVE PULMONARY DISEASE WITH ACUTE BRONCHITIS. Continue current regimen. 5. CHRONIC KIDNEY DISEASE STAGE 4. The patient's creatinine is at baseline. 6. MORBID OBESITY WITH A BMI OF 41. Encourage weight reduction. 7. METABOLIC ENCEPHALOPATHY. Resolved. DISPOSITION: The patient is a DNR/DNI. Pending patient's symptomatology and diagnostic findings, will reevaluate in the a.m. for possible transfer back to [facility]. TIME SPENT: Time spent on this followup including assessment, plan, physical examination, patient education, review of records was 25 minutes. DICTATING PHYSICIAN: JOB LEWIS NP [id number] PHY#: [id number] ID: [id number] JOB#: [id number] ACCT: [id number] cc: > MTDD
[2017-03-23 05:50] LABS: HEMATOCRIT 37.9 % (36.0-47.0); HEMOGLOBIN 12.6 g/dL (12.0-15.5); MEAN CORPUSCULAR HEMOGLOBIN 29.1 pg (27.0-33.4); MEAN CORPUSCULAR HGB CONC 33.1 g/dL (32.0-36.0); MEAN CORPUSCULAR VOLUME 88 fl (80-97); PLATELET COUNT 111 10^3/uL (150-450); RED BLOOD COUNT 4.31 10^6/uL (3.72-5.28); RED CELL DISTRIBUTION WIDTH 15.6 % (11.5-14.0); WHITE BLOOD COUNT 6.2 10^3/uL (4.0-10.5)
[2017-03-23 05:57] LABS: ANION GAP 14 (5-19); BLOOD UREA NITROGEN 59 mg/dL (7-20); CALCIUM 8.6 mg/dL (8.4-10.2); CARBON DIOXIDE 22 mmol/L (22-30); CHLORIDE 102 mmol/L (98-107); GLUCOSE 152 mg/dL (75-110); MAGNESIUM 2.1 mg/dL (1.6-2.3); POTASSIUM 4.5 mmol/L (3.6-5.0); SODIUM 137.9 mmol/L (137-145)
[2017-03-23 06:08] LABS: INTERNATIONAL RATION (INR) 3.47; PROTHROMBIN TIME 36.5 SEC (11.4-15.4)
[2017-03-23] MEDS: LEVALBUTEROL HCL NEB 1.25 MG/3 ML AMPUL NEB PRN (10:08)
[2017-03-23] MEDS: POLYETHYLENE GLYCOL 3350 POWDER 17 GM/1 PACKET PO SCH (10:39)
[2017-03-23] MEDS: PREDNISONE 20 MG TABLET PO SCH ×2 (10:40→17:26)
[2017-03-23] MEDS: SODIUM BICARBONATE 650 MG TABLET PO SCH ×2 (10:40→17:26)
[2017-03-23] MEDS: METOPROLOL SUCCINATE 50 MG TAB.SR.24H PO SCH (10:40)
[2017-03-23] MEDS: FAMOTIDINE 20 MG TABLET PO SCH (10:40)
[2017-03-23] MEDS: SENNOSIDES/DOCUSATE 8.6-50 MG 1 EACH TABLET PO SCH (10:40)
[2017-03-23] MEDS: DOCUSATE SODIUM 100 MG CAPSULE PO SCH (10:41)
[2017-03-23] MEDS: ALLOPURINOL 100 MG TABLET PO SCH (10:41)
[2017-03-23] MEDS: FUROSEMIDE 40 MG TABLET PO SCH (10:41)
[2017-03-23] MEDS: ERTAPENEM SODIUM 0.5 GM in NORMAL SALINE 50 ML IV SCH (14:00)
[2017-03-23] MEDS: MIDODRINE HCL 5 MG TABLET PO SCH (14:00)
--- NOTE | 2017-03-23 15:20 | PDOC PROGRESS REPORT ---
Subjective Progress Note for:: 03/23/17 Subjective:: The patient is resting in her bed. She states that overall she is slowly improving. She denies fever chills overnight. No chest pain, shortness of breath or heart palpitations. She remains in atrial fibrillation but her rate is controlled. She is already on chronic anticoagulation for DVT. She has had no nausea, vomiting or diarrhea. In fact she had eaten her entire lunch tray. She has no voiding complaints. Reason For Visit: A FLUTTER,UTI Physical Exam Vital Signs: Temp Pulse Resp BP Pulse Ox 97.6 F 74 16 148/88 H 95 03/23/17 04:00 03/23/17 10:08 03/23/17 10:08 03/23/17 04:00 03/23/17 10:08 Intake & Output 03/22/17 03/23/17 03/24/17 06:59 06:59 06:59 Intake Total 1159 960 Output Total 1200 1475 Balance -41 -515 Weight 167.5 kg 167.8 kg General appearance: PRESENT: no acute distress, morbidly obese, well-developed, well-nourished Head exam: PRESENT: atraumatic, normocephalic Mouth exam: PRESENT: moist, tongue midline Respiratory exam: PRESENT: clear to auscultation mariama, decreased breath sounds - She is diminished in the lower bases bilaterally. ABSENT: rales, rhonchi, wheezes Cardiovascular exam: PRESENT: irregular rhythm, other - She is rate controlled Pulses: PRESENT: normal dorsalis pedis pul GI/Abdominal exam: PRESENT: normal bowel sounds, soft, other - I could not assess for organomegaly due to the patient's body habitus. ABSENT: distended, guarding, mass, rebound, tenderness Rectal exam: PRESENT: deferred Extremities exam: PRESENT: full ROM. ABSENT: calf tenderness, clubbing, pedal edema Musculoskeletal exam: ABSENT: ambulatory Neurological exam: PRESENT: alert, awake, oriented to person, oriented to place , oriented to time, oriented to situation, CN II-XII grossly intact. ABSENT: motor sensory deficit Psychiatric exam: PRESENT: appropriate affect, normal mood. ABSENT: homicidal ideation, suicidal ideation Skin exam: PRESENT: other - She has venous stasis changes to both of her lower extremities bilaterally Results Laboratory Results: 03/23/17 04:42 03/23/17 04:42 03/23/17 03/23/17 04:42 04:42 WBC 6.2 RBC 4.31 Hgb 12.6 Hct 37.9 MCV 88 MCH 29.1 MCHC 33.1 RDW 15.6 H Plt Count 111 L Sodium 137.9 Potassium 4.5 Chloride 102 Carbon Dioxide 22 Anion Gap 14 BUN 59 H Creatinine 2.14 H Est GFR ( Amer) 27 L Est GFR (Non-Af Amer) 22 L Glucose 152 H Calcium 8.6 Magnesium 2.1 03/18/17 03/18/17 03/19/17 23:20 23:20 04:55 Creatine Kinase 204 H 187 H CK-MB (CK-2) 3.09 Troponin I 0.024 03/19/17 03/19/17 03/19/17 04:55 11:47 11:47 Creatine Kinase 159 H CK-MB (CK-2) 2.84 2.98 Troponin I 0.028 0.038 Impressions: Chest X-Ray 03/18/17 19:42 IMPRESSION: NO ACUTE RADIOGRAPHIC FINDING IN THE CHEST. Assessment & Plan - Diagnosis (1) UTI (urinary tract infection) Qualifiers: Urinary tract infection type: site unspecified Hematuria presence: without hematuria Qualified Code(s): N39.0 - Urinary tract infection, site not specified Is this a current diagnosis for this admission?: Yes Plan: She has an ESBL E. coli urinary tract infection. She will continue IV meropenem. Fortunately there are some oral choices for antibiotics when she improves. (2) Atrial fibrillation with rapid ventricular response Is this a current diagnosis for this admission?: Yes Plan: She is now rate controlled. Continue anticoagulation. Cardiology is following and we certainly appreciate their assistance. (3) Anticoagulated on Coumadin Is this a current diagnosis for this admission?: Yes Plan: According to Dr. Garland her INR goal is 2-3. Currently 3.47. Pharmacy is dosing her Coumadin. She will have an INR drawn in the morning. (4) History of DVT (deep vein thrombosis) Is this a current diagnosis for this admission?: Yes Plan: Continue Coumadin (5) CKD (chronic kidney disease), stage IV Is this a current diagnosis for this admission?: Yes Plan: Stable (6) Morbid obesity Is this a current diagnosis for this admission?: Yes Plan: Dietary discretion is advised. (7) Do not resuscitate Is this a current diagnosis for this admission?: Yes - Time Time Spent with patient: 25-34 minutes - Inpatient Certification Medical Necessity: Other - Inpatient hospitalization remains necessary. Patient has an ESBL E. coli urinary tract infection requiring parenteral antibiotics. She has had issues with atrial fibrillation with rapid rates and continues to need monitoring in the hospital. Fortunately after she receives a few days of parenteral antibiotics there are some oral choices for antibiotics she could go back to her facility with.
--- NOTE | 2017-03-23 18:57 | PDOC PROGRESS REPORT ---
Subjective Progress Note for:: 03/23/17 Subjective:: Patient seems to be doing better with gradual improvement. Pt is denying any chest arm or neck discomfort. Patient denying any PND, orthopnea. Patient denied any sustained palpitations, dizziness, syncope, near syncope. Patient denying any fever chills. Patient denying any other significant discomfort. Patient noted to have good appetite. Patient is maintaining atrial flutter fibrillation with predominantly 3-1 alternating 4-1 conduction. Predominantly 4-1 conduction noted. Review of systems: Rest review of systems negative. Medications: Medications have been reviewed. Reason For Visit: A FLUTTER,UTI Physical Exam Vital Signs: Temp Pulse Resp BP Pulse Ox 98.2 F 74 20 124/67 100 03/23/17 16:14 03/23/17 16:14 03/23/17 13:06 03/23/17 16:14 03/23/17 16:14 Intake & Output 03/22/17 03/23/17 03/24/17 06:59 06:59 06:59 Intake Total 1159 960 113 Output Total 1200 1475 Balance -41 -515 113 Weight 167.5 kg 167.8 kg Results Laboratory Results: 03/23/17 04:42 03/23/17 04:42 03/23/17 03/23/17 04:42 04:42 WBC 6.2 RBC 4.31 Hgb 12.6 Hct 37.9 MCV 88 MCH 29.1 MCHC 33.1 RDW 15.6 H Plt Count 111 L Sodium 137.9 Potassium 4.5 Chloride 102 Carbon Dioxide 22 Anion Gap 14 BUN 59 H Creatinine 2.14 H Est GFR ( Amer) 27 L Est GFR (Non-Af Amer) 22 L Glucose 152 H Calcium 8.6 Magnesium 2.1 03/18/17 03/18/17 03/19/17 23:20 23:20 04:55 Creatine Kinase 204 H 187 H CK-MB (CK-2) 3.09 Troponin I 0.024 03/19/17 03/19/17 03/19/17 04:55 11:47 11:47 Creatine Kinase 159 H CK-MB (CK-2) 2.84 2.98 Troponin I 0.028 0.038 Impressions: Chest X-Ray 03/18/17 19:42 IMPRESSION: NO ACUTE RADIOGRAPHIC FINDING IN THE CHEST. Assessment & Plan - Diagnosis (1) Atrial fibrillation and flutter Is this a current diagnosis for this admission?: Yes (2) CHF, chronic Qualifiers: Congestive heart failure type: unspecified Qualified Code(s): I50.9 - Heart failure, unspecified Is this a current diagnosis for this admission?: Yes (3) COPD (chronic obstructive pulmonary disease) with acute bronchitis Is this a current diagnosis for this admission?: Yes (4) UTI (urinary tract infection) Qualifiers: Urinary tract infection type: site unspecified Hematuria presence: without hematuria Qualified Code(s): N39.0 - Urinary tract infection, site not specified Is this a current diagnosis for this admission?: Yes (5) Anticoagulated on Coumadin Is this a current diagnosis for this admission?: Yes (6) CKD (chronic kidney disease), stage IV Is this a current diagnosis for this admission?: Yes - Notes Notes: Atrial fibrillation/flutter: Duration not known, heart rate currently well controlled.. At this point will recommend rate control and chronic anticoagulation. Patient already on chronic Coumadin therapy which would need to be continued. INR range recommended is 2-3. CHF: Patient seems to have chronic CHF. There may be some fluid overload. Continue Lasix therapy. 2D echocardiogram shows well-preserved LVEF but the study was technically difficult and limited. Currently seems adequately compensated. COPD: Patient has known history of COPD. Patient does have lung findings indicative of ongoing acute bronchitis. Continue antibiotic therapy and bronchodilator therapy as noted. Patient is improved. UTI: Currently stable continue antibiotic therapy. Chronic kidney disease: Patient being adequately managed. Patient has remained stable from cardiovascular standpoint for last several days. At this point will sign off. Please reconsult if needed. - Time Time with patient: 15-25 minutes - CODE STATUS : was discussed, patient remains DO NOT RESUSCITATE. Surrogate decision-maker unchanged. Multiple medical problems were addressed. More than 50% of the time spent coordinating care, discussing management plans with involved caregivers. Management plans discussed with involved personnels. Medical decision making was of moderate to high complexity, patient's has multiple comorbidities. Medications reviewed and adjusted accordingly: Yes
[2017-03-23] MEDS: WARFARIN SODIUM 3 MG TABLET PO SCH (23:27)
[2017-03-24 04:35] LABS: HEMOGLOBIN 13.2 g/dL (12.0-15.5); MEAN CORPUSCULAR HEMOGLOBIN 29.2 pg (27.0-33.4); MEAN CORPUSCULAR HGB CONC 32.9 g/dL (32.0-36.0); MEAN CORPUSCULAR VOLUME 89 fl (80-97); PLATELET COUNT 119 10^3/uL (150-450); RED BLOOD COUNT 4.51 10^6/uL (3.72-5.28); RED CELL DISTRIBUTION WIDTH 15.6 % (11.5-14.0); WHITE BLOOD COUNT 6.9 10^3/uL (4.0-10.5)
[2017-03-24 04:54] LABS: ANION GAP 11 (5-19); BLOOD UREA NITROGEN 53 mg/dL (7-20); CALCIUM 9.1 mg/dL (8.4-10.2); CARBON DIOXIDE 24 mmol/L (22-30); CHLORIDE 101 mmol/L (98-107); GLUCOSE 139 mg/dL (75-110); MAGNESIUM 2.2 mg/dL (1.6-2.3); POTASSIUM 4.9 mmol/L (3.6-5.0)
[2017-03-24 05:08] LABS: ABSOLUTE LYMPHOCYTES# (MANUAL) 0.8 10^3/uL (0.5-4.7); ABSOLUTE MONOCYTES # (MANUAL) 0.3 10^3/uL (0.1-1.4); ABSOLUTE NEUTROPHILS# (MANUAL) 5.9 10^3/uL (1.7-8.2); BAND NEUTROPHILS % (MANUAL) 1 % (3-5); BASOPHILS % (MANUAL) 0 % (0-2); EOSINOPHILS % (MANUAL) 0 % (0-6); LYMPHOCYTES % (MANUAL) 11 % (13-45); MONOCYTES % (MANUAL) 4 % (3-13); SEGMENTED NEUTROPHILS % (MAN) 84 % (42-78); TOTAL CELLS COUNTED 100; TOXIC VACUOLATION PRESENT
[2017-03-24 05:09] LABS: ANISOCYTOSIS SLIGHT; POLYCHROMASIA SLIGHT
[2017-03-24 05:10] LABS: OVALOCYTES 1+
[2017-03-24 05:13] LABS: PLATELET COMMENT ADEQUATE; PLATELET LARGE PRESENT
[2017-03-24] MEDS: FUROSEMIDE 40 MG TABLET PO SCH (08:56)
[2017-03-24] MEDS: SENNOSIDES/DOCUSATE 8.6-50 MG 1 EACH TABLET PO SCH (09:00)
[2017-03-24] MEDS: SODIUM BICARBONATE 650 MG TABLET PO SCH ×2 (09:00→17:18)
[2017-03-24] MEDS: MIDODRINE HCL 5 MG TABLET PO SCH (09:01)
[2017-03-24] MEDS: PREDNISONE 20 MG TABLET PO SCH ×2 (09:01→17:18)
[2017-03-24] MEDS: DOCUSATE SODIUM 100 MG CAPSULE PO SCH (09:01)
[2017-03-24] MEDS: ALLOPURINOL 100 MG TABLET PO SCH (09:01)
[2017-03-24] MEDS: METOPROLOL SUCCINATE 50 MG TAB.SR.24H PO SCH (09:01)
[2017-03-24] MEDS: FAMOTIDINE 20 MG TABLET PO SCH (09:01)
[2017-03-24] MEDS: POLYETHYLENE GLYCOL 3350 POWDER 17 GM/1 PACKET PO SCH (09:02)
[2017-03-24 12:05] LABS: HEMATOCRIT 38.2 % (36.0-47.0); HEMOGLOBIN 12.8 g/dL (12.0-15.5); MEAN CORPUSCULAR HEMOGLOBIN 29.6 pg (27.0-33.4); MEAN CORPUSCULAR HGB CONC 33.6 g/dL (32.0-36.0); MEAN CORPUSCULAR VOLUME 88 fl (80-97); PLATELET COUNT 124 10^3/uL (150-450); RED BLOOD COUNT 4.34 10^6/uL (3.72-5.28); RED CELL DISTRIBUTION WIDTH 15.1 % (11.5-14.0); WHITE BLOOD COUNT 6.7 10^3/uL (4.0-10.5)
[2017-03-24] MEDS: ERTAPENEM SODIUM 0.5 GM in NORMAL SALINE 50 ML IV SCH (12:11)
[2017-03-24] MEDS ORDERED: FUROSEMIDE INJ/PF 20 MG/2 ML SDV IV ONE (14:16)
--- NOTE | 2017-03-24 14:32 | PDOC PROGRESS REPORT ---
Subjective Progress Note for:: 03/24/17 Subjective:: The patient is an 81-year-old -[place] female who is chronically debilitated and bedbound. She resides at a local group home with a chronic indwelling Arambula catheter. Patient presented to the emergency room with shortness of breath and wheezing. She was found to have new onset atrial fibrillation/flutter. The patient has been rate controlled. She was already chronically anticoagulated with Coumadin and her INR was therapeutic. She was anticoagulated for previous DVT and then significant peripheral vascular disease. Overall the patient has been doing well. Her urine culture did reveal an ESBL E. coli. Currently on IV ertapenem and then she can be transitioned over to an oral regimen at discharge. Initially I was considering discharging her today. However when I went into the room she told me that her chest feels tight and she feels like she is having a hard time breathing. On exam the patient is wheezing. She is not the best at describing her symptoms but states that her breathing just is not right. She denies fever chills. She states that she is not having chest pain. No nausea vomiting or diarrhea. She is tolerating her diet. She remains with a Arambula catheter in place. Reason For Visit: A FLUTTER,UTI Physical Exam Vital Signs: Temp Pulse Resp BP Pulse Ox 97.7 F 59 L 20 121/70 98 03/24/17 11:02 03/24/17 11:02 03/24/17 11:02 03/24/17 11:02 03/24/17 11:02 Intake & Output 03/23/17 03/24/17 03/25/17 06:59 06:59 06:59 Intake Total 960 1332 Output Total 1475 1625 Balance -515 -293 Weight 167.8 kg 168.6 kg General appearance: PRESENT: no acute distress, morbidly obese Head exam: PRESENT: atraumatic, normocephalic Mouth exam: PRESENT: moist, tongue midline Respiratory exam: PRESENT: crackles, wheezes Cardiovascular exam: PRESENT: irregular rhythm. ABSENT: diastolic murmur, rubs , systolic murmur GI/Abdominal exam: PRESENT: normal bowel sounds, soft. ABSENT: distended, guarding, mass, organolmegaly, rebound, tenderness Rectal exam: PRESENT: deferred Neurological exam: PRESENT: alert, awake, oriented to person, oriented to place , oriented to time, oriented to situation, CN II-XII grossly intact. ABSENT: motor sensory deficit Psychiatric exam: PRESENT: appropriate affect, normal mood. ABSENT: homicidal ideation, suicidal ideation Skin exam: PRESENT: dry, intact, warm. ABSENT: cyanosis, rash Results Laboratory Results: 03/24/17 11:58 03/24/17 04:12 03/24/17 03/24/17 03/24/17 04:12 04:12 09:20 WBC 6.9 Cancelled RBC 4.51 Cancelled Hgb 13.2 Cancelled Hct 40.0 Cancelled MCV 89 Cancelled MCH 29.2 Cancelled MCHC 32.9 Cancelled RDW 15.6 H Cancelled Plt Count 119 L Cancelled Seg Neutrophils % Not Reportable Lymphocytes % Not Reportable Monocytes % Not Reportable Eosinophils % Not Reportable Basophils % Not Reportable Absolute Neutrophils Not Reportable Absolute Lymphocytes Not Reportable Absolute Monocytes Not Reportable Absolute Eosinophils Not Reportable Absolute Basophils Not Reportable Sodium 136.0 L Potassium 4.9 Chloride 101 Carbon Dioxide 24 Anion Gap 11 BUN 53 H Creatinine 2.08 H Est GFR ( Amer) 28 L Est GFR (Non-Af Amer) 23 L Glucose 139 H Calcium 9.1 Magnesium 2.2 03/24/17 11:58 WBC 6.7 RBC 4.34 Hgb 12.8 Hct 38.2 MCV 88 MCH 29.6 MCHC 33.6 RDW 15.1 H Plt Count 124 L Seg Neutrophils % Lymphocytes % Monocytes % Eosinophils % Basophils % Absolute Neutrophils Absolute Lymphocytes Absolute Monocytes Absolute Eosinophils Absolute Basophils Sodium Potassium Chloride Carbon Dioxide Anion Gap BUN Creatinine Est GFR ( Amer) Est GFR (Non-Af Amer) Glucose Calcium Magnesium 03/19/17 02:03 Blood Blood Culture - Final NO GROWTH IN 5 DAYS 03/19/17 00:15 Blood Blood Culture - Final NO GROWTH IN 5 DAYS 03/18/17 03/18/17 03/19/17 23:20 23:20 04:55 Creatine Kinase 204 H 187 H CK-MB (CK-2) 3.09 Troponin I 0.024 03/19/17 03/19/17 03/19/17 04:55 11:47 11:47 Creatine Kinase 159 H CK-MB (CK-2) 2.84 2.98 Troponin I 0.028 0.038 Impressions: Chest X-Ray 03/18/17 19:42 IMPRESSION: NO ACUTE RADIOGRAPHIC FINDING IN THE CHEST. Assessment & Plan - Diagnosis (1) UTI (urinary tract infection) Qualifiers: Urinary tract infection type: site unspecified Hematuria presence: without hematuria Qualified Code(s): N39.0 - Urinary tract infection, site not specified Is this a current diagnosis for this admission?: Yes Plan: She has an ESBL E. coli urinary tract infection. She will continue IV meropenem while she is in the hospital. Fortunately there are some oral choices for antibiotics when she improves. (2) Acute on chronic diastolic (congestive) heart failure Is this a current diagnosis for this admission?: Yes Plan: At the time of admission the patient had an echocardiogram which was of very poor quality. Cardiology believe she has preserved LV function. I do believe she is volume overloaded today. I am going to get a stat BNP added on to this morning's blood work. I also going to give her a dose of IV Lasix and we will obtain a chest x-ray. She is having a sensation of tightness in her chest and the sensation that she is wheezing. We will follow up with all of these results. (3) Atrial fibrillation with rapid ventricular response Is this a current diagnosis for this admission?: Yes Plan: She is now rate controlled. Continue anticoagulation. Cardiology is following and we certainly appreciate their assistance. (4) Anticoagulated on Coumadin Is this a current diagnosis for this admission?: Yes Plan: According to Dr. Garland her INR goal is 2-3. Currently 3.47. I was under the impression that pharmacy was dosing her Coumadin but realized that she has not had an INR in a couple of days. I am going to get an INR stat today. We will see if we need to make any adjustments to her regimen. (5) History of DVT (deep vein thrombosis) Is this a current diagnosis for this admission?: Yes (6) CKD (chronic kidney disease), stage IV Is this a current diagnosis for this admission?: Yes Plan: Stable (7) Morbid obesity Is this a current diagnosis for this admission?: Yes Plan: Dietary discretion is advised. (8) Do not resuscitate Is this a current diagnosis for this admission?: Yes - Time Time Spent with patient: 15-24 minutes - Inpatient Certification Medical Necessity: Other - Inpatient hospitalization remains necessary. I believe the patient has some mild volume overload requiring parenteral diuresis today. I am hopeful that she will respond quite well to this and hopefully can be sent back to her facility within the next couple of days.
--- NOTE | 2017-03-24 15:43 | RADIOLOGY REPORT (SQ) ---
EXAM DESCRIPTION: CHEST SINGLE VIEW COMPLETED DATE/TIME: 03/24/2017 2:55 pm REASON FOR STUDY: sob COMPARISON: 03/18/2017. NUMBER OF VIEWS: One view. TECHNIQUE: Single frontal radiographic view of the chest acquired. LIMITATIONS: None. FINDINGS: LUNGS AND PLEURA: Low lung volumes. No opacities. No evidence of pneumonia or failure. MEDIASTINUM AND HILAR STRUCTURES: No masses. Contour normal. HEART AND VASCULAR STRUCTURES: Heart size is likely accentuated by technique and low volumes. Stable appearance, however. BONES: No acute findings. HARDWARE: None in the chest. OTHER: No other significant finding. IMPRESSION: Stable chest, findings as above. TECHNICAL DOCUMENTATION: JOB ID: [id number] [employer]- All Rights Reserved
[2017-03-24] MEDS: WARFARIN SODIUM 3 MG TABLET PO SCH (22:39)
[2017-03-25 05:33] LABS: ANION GAP 12 (5-19); BLOOD UREA NITROGEN 57 mg/dL (7-20); CARBON DIOXIDE 25 mmol/L (22-30); CHLORIDE 100 mmol/L (98-107); GLUCOSE 121 mg/dL (75-110); MAGNESIUM 2.1 mg/dL (1.6-2.3); POTASSIUM 5.2 mmol/L (3.6-5.0); SODIUM 136.5 mmol/L (137-145)
[2017-03-25] MEDS: ACETAMINOPHEN 325 MG TABLET PO PRN (08:54)
[2017-03-25] MEDS: FUROSEMIDE 40 MG TABLET PO SCH (08:55)
[2017-03-25] MEDS: SODIUM BICARBONATE 650 MG TABLET PO SCH ×2 (09:13→17:16)
[2017-03-25] MEDS: FAMOTIDINE 20 MG TABLET PO SCH (09:14)
[2017-03-25] MEDS: METOPROLOL SUCCINATE 50 MG TAB.SR.24H PO SCH (09:14)
[2017-03-25] MEDS: PREDNISONE 20 MG TABLET PO SCH ×2 (09:14→17:17)
[2017-03-25] MEDS: MIDODRINE HCL 5 MG TABLET PO SCH (09:14)
[2017-03-25] MEDS: ALLOPURINOL 100 MG TABLET PO SCH (09:14)
[2017-03-25] MEDS: DOCUSATE SODIUM 100 MG CAPSULE PO SCH (09:41)
[2017-03-25] MEDS: POLYETHYLENE GLYCOL 3350 POWDER 17 GM/1 PACKET PO SCH (09:41)
[2017-03-25] MEDS: SENNOSIDES/DOCUSATE 8.6-50 MG 1 EACH TABLET PO SCH (09:41)
[2017-03-25] MEDS: ERTAPENEM SODIUM 0.5 GM in NORMAL SALINE 50 ML IV SCH (12:12)
--- NOTE | 2017-03-25 17:49 | EKG REPORT ---
SEVERITY:- ABNORMAL ECG - ATRIAL FLUTTER, A-RATE 294 NONSPECIFIC T ABNORMALITIES INFEROLATERAL LEADS : Confirmed by: Sher Sharif MD 25-Mar-2017 17:49:07
--- NOTE | 2017-03-25 17:50 | EKG REPORT ---
SEVERITY:- ABNORMAL ECG - ATRIAL FIB / FLUTTER W CVR NONSPECIFIC ST-T CHANGES- INFERIOR-LATERAL LEADS : Confirmed by: Sher Sharif MD 25-Mar-2017 17:50:39
--- NOTE | 2017-03-25 18:32 | PDOC PROGRESS REPORT ---
Subjective Progress Note for:: 03/25/17 Subjective:: Was admitted with difficult breathing and shortness of breath. She has an indwelling Arambula catheter, chronic. She was found to have atrial fibrillation/flutter. She is currently rate controlled. She had been on Coumadin with a therapeutic INR due to a previous DVT. Patient currently denies any chest pain. She feels better today and breathing better. Reason For Visit: A FLUTTER,UTI Physical Exam Vital Signs: Temp Pulse Resp BP Pulse Ox 97.5 F 72 18 109/62 100 03/25/17 16:19 03/25/17 16:19 03/25/17 16:19 03/25/17 16:19 03/25/17 16:19 Intake & Output 03/24/17 03/25/17 03/26/17 06:59 06:59 06:59 Intake Total 1332 1116 100 Output Total 1625 2770 Balance -293 -1654 100 Weight 168.6 kg 166.7 kg General appearance: PRESENT: no acute distress, well-developed, well-nourished Head exam: PRESENT: atraumatic, normocephalic Eye exam: PRESENT: conjunctiva pink, EOMI, PERRLA. ABSENT: scleral icterus Ear exam: PRESENT: normal external ear exam Mouth exam: PRESENT: moist, tongue midline Neck exam: ABSENT: carotid bruit, JVD, lymphadenopathy, thyromegaly Respiratory exam: PRESENT: clear to auscultation mariama. ABSENT: rales, rhonchi, wheezes Cardiovascular exam: PRESENT: RRR. ABSENT: diastolic murmur, rubs, systolic murmur Pulses: PRESENT: normal dorsalis pedis pul Vascular exam: PRESENT: normal capillary refill GI/Abdominal exam: PRESENT: normal bowel sounds, soft. ABSENT: distended, guarding, mass, organolmegaly, rebound, tenderness Rectal exam: PRESENT: deferred Extremities exam: PRESENT: full ROM. ABSENT: calf tenderness, clubbing, pedal edema Neurological exam: PRESENT: alert, awake, oriented to person, oriented to place , oriented to time, oriented to situation, CN II-XII grossly intact. ABSENT: motor sensory deficit Psychiatric exam: PRESENT: appropriate affect, normal mood. ABSENT: homicidal ideation, suicidal ideation Skin exam: PRESENT: dry, intact, warm. ABSENT: cyanosis, rash Results Laboratory Results: 03/24/17 11:58 03/25/17 04:31 03/25/17 04:31 Sodium 136.5 L Potassium 5.2 H Chloride 100 Carbon Dioxide 25 Anion Gap 12 BUN 57 H Creatinine 1.96 H Est GFR ( Amer) 30 L Est GFR (Non-Af Amer) 24 L Glucose 121 H Calcium 9.0 Magnesium 2.1 03/18/17 03/18/17 03/19/17 23:20 23:20 04:55 Creatine Kinase 204 H 187 H CK-MB (CK-2) 3.09 Troponin I 0.024 NT-Pro-B Natriuret Pep 03/19/17 03/19/17 03/19/17 04:55 11:47 11:47 Creatine Kinase 159 H CK-MB (CK-2) 2.84 2.98 Troponin I 0.028 0.038 NT-Pro-B Natriuret Pep 03/24/17 15:34 Creatine Kinase CK-MB (CK-2) Troponin I NT-Pro-B Natriuret Pep 4630 H Impressions: Chest X-Ray 03/24/17 00:00 IMPRESSION: Stable chest, findings as above. Assessment & Plan - Time Time Spent with patient: 15-24 minutes - Inpatient Certification Medical Necessity: Need Close Monitoring Due to Risk of Patient Decompensation - Plan Summary Plan Summary: Patient admitted with difficulty with an shortness of breath. She apparently has influenza. She has been started on Tamiflu. Patient reports feeling somewhat better today. Assessment and plan Current diagnosis being treated during this admission influenza A infection-she is currently on Tamiflu. Patient states that she feels symptomatically better. #2 COPD with acute exacerbation currently on parenteral steroids as well as empiric Levaquin. Will taper Solu-Medrol as per her clinical response. 3. Anxiety-we will set unconscious benzodiazepines . 4 history of anal fissure-she apparently had some bleeding from it. Hemoglobin remained stable #4 Stable coronary artery disease status post stent placement #5 hypertension stable she is currently on verapamil 6. Type 2 diabetes mellitus we will continue sliding scale insulin #7 dyslipidemia currently on statin 8. Tobacco abuse disorder patient has been counseled on need to stop smoking
[2017-03-25] MEDS ORDERED: WARFARIN SODIUM 1 MG TABLET PO SCH (22:00)
[2017-03-25] MEDS ORDERED: WARFARIN SODIUM 2.5 MG TABLET PO SCH (22:00)
[2017-03-26 06:57] LABS: INTERNATIONAL RATION (INR) 2.94; PROTHROMBIN TIME 32.1 SEC (11.4-15.4)
[2017-03-26 07:06] LABS: ANION GAP 11 (5-19); BLOOD UREA NITROGEN 59 mg/dL (7-20); CALCIUM 8.8 mg/dL (8.4-10.2); CARBON DIOXIDE 24 mmol/L (22-30); CHLORIDE 100 mmol/L (98-107); GLUCOSE 112 mg/dL (75-110); POTASSIUM 4.9 mmol/L (3.6-5.0); SODIUM 134.9 mmol/L (137-145)
[2017-03-26] MEDS: FUROSEMIDE 40 MG TABLET PO SCH (08:47)
[2017-03-26] MEDS: DOCUSATE SODIUM 100 MG CAPSULE PO SCH (09:21)
[2017-03-26] MEDS: METOPROLOL SUCCINATE 50 MG TAB.SR.24H PO SCH (09:21)
[2017-03-26] MEDS: POLYETHYLENE GLYCOL 3350 POWDER 17 GM/1 PACKET PO SCH (09:21)
[2017-03-26] MEDS: FAMOTIDINE 20 MG TABLET PO SCH (09:22)
[2017-03-26] MEDS: SODIUM BICARBONATE 650 MG TABLET PO SCH ×2 (09:22→17:41)
[2017-03-26] MEDS: ALLOPURINOL 100 MG TABLET PO SCH (09:22)
[2017-03-26] MEDS: PREDNISONE 20 MG TABLET PO SCH (09:22)
[2017-03-26] MEDS: SENNOSIDES/DOCUSATE 8.6-50 MG 1 EACH TABLET PO SCH (09:22)
[2017-03-26] MEDS: MIDODRINE HCL 5 MG TABLET PO SCH (09:23)
[2017-03-26] MEDS: ERTAPENEM SODIUM 0.5 GM in NORMAL SALINE 50 ML IV SCH (11:08)
--- NOTE | 2017-03-26 18:10 | PDOC PROGRESS REPORT ---
Subjective Progress Note for:: 03/26/17 Subjective:: Was admitted with difficult breathing and shortness of breath. She has an indwelling Arambula catheter, chronic. She was found to have atrial fibrillation/flutter. She is currently rate controlled. She had been on Coumadin with a therapeutic INR due to a previous DVT. Patient currently denies any chest pain. She feels better today and breathing better. Reason For Visit: A FLUTTER,UTI Physical Exam Vital Signs: Temp Pulse Resp BP Pulse Ox 97.4 F 72 20 127/70 H 100 03/26/17 13:08 03/26/17 14:00 03/26/17 13:08 03/26/17 13:08 03/26/17 13:08 Intake & Output 03/25/17 03/26/17 03/27/17 06:59 06:59 06:59 Intake Total 1116 2412 Output Total 2770 1775 Balance -1654 637 Weight 166.7 kg 168.4 kg General appearance: PRESENT: no acute distress, well-developed, well-nourished Head exam: PRESENT: atraumatic, normocephalic Eye exam: PRESENT: conjunctiva pink, EOMI, PERRLA. ABSENT: scleral icterus Ear exam: PRESENT: normal external ear exam Mouth exam: PRESENT: moist, tongue midline Neck exam: ABSENT: carotid bruit, JVD, lymphadenopathy, thyromegaly Respiratory exam: PRESENT: clear to auscultation mariama. ABSENT: rales, rhonchi, wheezes Cardiovascular exam: PRESENT: RRR. ABSENT: diastolic murmur, rubs, systolic murmur Pulses: PRESENT: normal dorsalis pedis pul Vascular exam: PRESENT: normal capillary refill GI/Abdominal exam: PRESENT: normal bowel sounds, soft. ABSENT: distended, guarding, mass, organolmegaly, rebound, tenderness Rectal exam: PRESENT: deferred Extremities exam: PRESENT: full ROM. ABSENT: calf tenderness, clubbing, pedal edema Neurological exam: PRESENT: alert, awake, oriented to person, oriented to place , oriented to time, oriented to situation, CN II-XII grossly intact. ABSENT: motor sensory deficit Psychiatric exam: PRESENT: appropriate affect, normal mood. ABSENT: homicidal ideation, suicidal ideation Skin exam: PRESENT: dry, intact, warm. ABSENT: cyanosis, rash Results Laboratory Results: 03/24/17 11:58 03/26/17 06:38 03/26/17 06:38 Sodium 134.9 L Potassium 4.9 Chloride 100 Carbon Dioxide 24 Anion Gap 11 BUN 59 H Creatinine 1.91 H Est GFR ( Amer) 30 L Est GFR (Non-Af Amer) 25 L Glucose 112 H Calcium 8.8 03/18/17 03/18/17 03/19/17 23:20 23:20 04:55 Creatine Kinase 204 H 187 H CK-MB (CK-2) 3.09 Troponin I 0.024 NT-Pro-B Natriuret Pep 03/19/17 03/19/17 03/19/17 04:55 11:47 11:47 Creatine Kinase 159 H CK-MB (CK-2) 2.84 2.98 Troponin I 0.028 0.038 NT-Pro-B Natriuret Pep 03/24/17 03/26/17 15:34 06:38 Creatine Kinase CK-MB (CK-2) Troponin I NT-Pro-B Natriuret Pep 4630 H 3700 H Impressions: Chest X-Ray 03/24/17 00:00 IMPRESSION: Stable chest, findings as above. Assessment & Plan - Time Time Spent with patient: 15-24 minutes - Inpatient Certification Medical Necessity: Need Close Monitoring Due to Risk of Patient Decompensation - Plan Summary Plan Summary: Assessment and plan Urinary tract infection secondary to ESBL E. coli. Continue current, Carbapenem #2 acute on chronic diastolic congestive heart failure currently on Lasix. We will continue to diurese as indicated 3. Atrial fibrillation with rapid ventricular response currently rate controlled. She is on anticoagulation. 4. Anticoagulated on Coumadin with goal INR of 2.3. Coumadin was held yesterday as her INR was 3.57 5. History of DVT currently on anticoagulant 6. Chronic kidney disease stage IV kidney function is stable 7. Morbid obesity chronic 8. Patient is a DO NOT RESUSCITATE
[2017-03-27] MEDS: PREDNISONE 20 MG TABLET PO SCH (10:51)
[2017-03-27] MEDS: SODIUM BICARBONATE 650 MG TABLET PO SCH ×2 (10:51→18:50)
[2017-03-27] MEDS: ALLOPURINOL 100 MG TABLET PO SCH (10:51)
[2017-03-27] MEDS: FAMOTIDINE 20 MG TABLET PO SCH (10:51)
[2017-03-27] MEDS: METOPROLOL SUCCINATE 50 MG TAB.SR.24H PO SCH (10:53)
[2017-03-27] MEDS: FUROSEMIDE 40 MG TABLET PO SCH (10:53)
[2017-03-27] MEDS: MIDODRINE HCL 5 MG TABLET PO SCH (10:54)
[2017-03-27] MEDS: DOCUSATE SODIUM 100 MG CAPSULE PO SCH (10:55)
[2017-03-27] MEDS: SENNOSIDES/DOCUSATE 8.6-50 MG 1 EACH TABLET PO SCH (10:55)
[2017-03-27] MEDS: POLYETHYLENE GLYCOL 3350 POWDER 17 GM/1 PACKET PO SCH (10:55)
[2017-03-27] MEDS ORDERED: PREDNISONE 20 MG TABLET PO SCH (14:05)
--- NOTE | 2017-03-27 14:10 | PDOC PROGRESS REPORT ---
Subjective Progress Note for:: 03/27/17 Subjective:: Was admitted with difficult breathing and shortness of breath. She has an indwelling Arambula catheter, chronic. She was found to have atrial fibrillation/flutter. She is currently rate controlled. She had been on Coumadin with a therapeutic INR due to a previous DVT. Patient currently denies any chest pain. Patient is a little subdued today Reason For Visit: A FLUTTER,UTI Physical Exam Vital Signs: Temp Pulse Resp BP Pulse Ox 98.2 F 70 18 138/86 H 100 03/27/17 11:44 03/27/17 11:44 03/27/17 11:44 03/27/17 11:44 03/27/17 11:44 Intake & Output 03/26/17 03/27/17 03/28/17 06:59 06:59 06:59 Intake Total 2412 1908 Output Total 1775 1630 Balance 637 278 Weight 168.4 kg 170 kg General appearance: PRESENT: no acute distress Head exam: PRESENT: atraumatic Ear exam: PRESENT: normal external ear exam Mouth exam: PRESENT: moist, tongue midline Neck exam: ABSENT: carotid bruit, JVD, lymphadenopathy, thyromegaly Respiratory exam: PRESENT: decreased breath sounds, rhonchi Cardiovascular exam: PRESENT: RRR. ABSENT: diastolic murmur, rubs, systolic murmur Pulses: PRESENT: normal dorsalis pedis pul Musculoskeletal exam: PRESENT: other - Bilat skin changes, lower extremities swelling Neurological exam: PRESENT: alert, awake, oriented to person, oriented to place Psychiatric exam: PRESENT: flat affect Results Laboratory Results: 03/24/17 11:58 03/26/17 06:38 03/18/17 03/18/17 03/19/17 23:20 23:20 04:55 Creatine Kinase 204 H 187 H CK-MB (CK-2) 3.09 Troponin I 0.024 NT-Pro-B Natriuret Pep 03/19/17 03/19/17 03/19/17 04:55 11:47 11:47 Creatine Kinase 159 H CK-MB (CK-2) 2.84 2.98 Troponin I 0.028 0.038 NT-Pro-B Natriuret Pep 03/24/17 03/26/17 15:34 06:38 Creatine Kinase CK-MB (CK-2) Troponin I NT-Pro-B Natriuret Pep 4630 H 3700 H Impressions: Chest X-Ray 03/24/17 00:00 IMPRESSION: Stable chest, findings as above. Assessment & Plan - Plan Summary Plan Summary: Assessment and plan Urinary tract infection secondary to ESBL E. coli. Continue Ertapenem until tomorrow. #2 acute on chronic diastolic congestive heart failure currently on Lasix. We will continue to diurese as indicated. She is compensated 3. Atrial fibrillation with rapid ventricular response currently rate controlled. She is on anticoagulation. Will check INR in am. 4. Anticoagulated on Coumadin with goal INR of 2-3. 5. History of DVT currently on anticoagulant 6. Chronic kidney disease stage IV kidney function is stable 7. Morbid obesity chronic 8. Patient is a DO NOT RESUSCITATE 9. Chronic kidney disease stage III. Kidney function is actually improving. We will continue judicious Lasix. 10. Acidosis presumed from acute infection and admission. She is still on oral bicarb we may need to discontinue that once her CO2 is acceptable. It is currently about 24.
[2017-03-27] MEDS: ERTAPENEM SODIUM 0.5 GM in NORMAL SALINE 50 ML IV SCH (14:26)
[2017-03-28] MEDS: POLYETHYLENE GLYCOL 3350 POWDER 17 GM/1 PACKET PO SCH (09:31)
[2017-03-28] MEDS: METOPROLOL SUCCINATE 50 MG TAB.SR.24H PO SCH (09:31)
[2017-03-28] MEDS: SENNOSIDES/DOCUSATE 8.6-50 MG 1 EACH TABLET PO SCH (09:31)
[2017-03-28] MEDS: SODIUM BICARBONATE 650 MG TABLET PO SCH ×2 (09:31→17:20)
[2017-03-28] MEDS: MIDODRINE HCL 5 MG TABLET PO SCH (09:31)
[2017-03-28] MEDS: FUROSEMIDE 40 MG TABLET PO SCH (09:31)
[2017-03-28] MEDS: DOCUSATE SODIUM 100 MG CAPSULE PO SCH (09:31)
[2017-03-28] MEDS: PREDNISONE 10 MG TABLET PO SCH (09:31)
[2017-03-28] MEDS: ALLOPURINOL 100 MG TABLET PO SCH (09:31)
[2017-03-28] MEDS: FAMOTIDINE 20 MG TABLET PO SCH (09:31)
--- NOTE | 2017-03-28 15:34 | PDOC PROGRESS REPORT ---
Subjective Progress Note for:: 03/28/17 Subjective:: Was admitted with difficult breathing and shortness of breath. She has an indwelling Arambula catheter, chronic. She was found to have atrial fibrillation/flutter. She is currently rate controlled. She had been on Coumadin with a therapeutic INR due to a previous DVT. Patient currently denies any chest pain. Patient is a little subdued today Reason For Visit: A FLUTTER,UTI Physical Exam Vital Signs: Temp Pulse Resp BP Pulse Ox 98.8 F 63 16 123/62 100 03/28/17 11:38 03/28/17 14:00 03/28/17 11:38 03/28/17 11:38 03/28/17 11:38 Intake & Output 03/27/17 03/28/17 03/29/17 06:59 06:59 06:59 Intake Total 1908 1285 Output Total 1630 3400 Balance 278 -2115 Weight 170 kg 170.5 kg General appearance: PRESENT: no acute distress, well-developed, well-nourished Head exam: PRESENT: atraumatic, normocephalic Eye exam: PRESENT: conjunctiva pink, EOMI, PERRLA. ABSENT: scleral icterus Ear exam: PRESENT: normal external ear exam Mouth exam: PRESENT: moist, tongue midline Neck exam: ABSENT: carotid bruit, JVD, lymphadenopathy, thyromegaly Respiratory exam: PRESENT: decreased breath sounds, rhonchi. ABSENT: rales, tachypnea, wheezes Cardiovascular exam: PRESENT: RRR. ABSENT: diastolic murmur, rubs, systolic murmur Pulses: PRESENT: normal dorsalis pedis pul Vascular exam: PRESENT: normal capillary refill GI/Abdominal exam: PRESENT: normal bowel sounds, soft. ABSENT: distended, guarding, mass, organolmegaly, rebound, tenderness Rectal exam: PRESENT: deferred Extremities exam: PRESENT: full ROM. ABSENT: calf tenderness, clubbing, pedal edema Neurological exam: PRESENT: alert, awake, oriented to person, oriented to place , oriented to time, oriented to situation, CN II-XII grossly intact. ABSENT: motor sensory deficit Psychiatric exam: PRESENT: appropriate affect, normal mood. ABSENT: homicidal ideation, suicidal ideation Skin exam: PRESENT: dry, intact, warm. ABSENT: cyanosis, rash Results Laboratory Results: 03/24/17 11:58 03/26/17 06:38 03/18/17 03/18/17 03/19/17 23:20 23:20 04:55 Creatine Kinase 204 H 187 H CK-MB (CK-2) 3.09 Troponin I 0.024 NT-Pro-B Natriuret Pep 03/19/17 03/19/17 03/19/17 04:55 11:47 11:47 Creatine Kinase 159 H CK-MB (CK-2) 2.84 2.98 Troponin I 0.028 0.038 NT-Pro-B Natriuret Pep 03/24/17 03/26/17 15:34 06:38 Creatine Kinase CK-MB (CK-2) Troponin I NT-Pro-B Natriuret Pep 4630 H 3700 H Impressions: Chest X-Ray 03/24/17 00:00 IMPRESSION: Stable chest, findings as above. Assessment & Plan - Time Time Spent with patient: 15-24 minutes Medications reviewed and adjusted accordingly: Yes Within: within 72 hours - Inpatient Certification Medical Necessity: Need for IV Antibiotics, Risk of Complication if Not Cared For in Hospital - Plan Summary Plan Summary: Urinary tract infection secondary to ESBL E. coli. Continue Ertapenem through today #2 acute on chronic diastolic congestive heart failure currently on Lasix. We will continue to diurese as indicated. 3. Atrial fibrillation with rapid ventricular response currently rate controlled. She is on anticoagulation. Check INR in am 4. Anticoagulated on Coumadin with goal INR of 2-3. 5. History of DVT currently on anticoagulant 6. Chronic kidney disease stage IV kidney function is stable 7. Morbid obesity chronic 8. Patient is a DO NOT RESUSCITATE 9. Acidosis presumed from acute infection and admission. She is still on oral bicarb we may need to discontinue that once her CO2 is acceptable. It is currently about 24.
[2017-03-29 09:17] LABS: INTERNATIONAL RATION (INR) 1.78; PROTHROMBIN TIME 21.7 SEC (11.4-15.4)
[2017-03-29] MEDS: ALLOPURINOL 100 MG TABLET PO SCH (09:19)
[2017-03-29] MEDS: MIDODRINE HCL 5 MG TABLET PO SCH (09:19)
[2017-03-29] MEDS: FUROSEMIDE 40 MG TABLET PO SCH (09:19)
[2017-03-29] MEDS: SODIUM BICARBONATE 650 MG TABLET PO SCH ×2 (09:20→17:16)
[2017-03-29] MEDS: METOPROLOL SUCCINATE 50 MG TAB.SR.24H PO SCH (09:20)
[2017-03-29] MEDS: PREDNISONE 10 MG TABLET PO SCH (09:20)
[2017-03-29] MEDS: FAMOTIDINE 20 MG TABLET PO SCH (09:21)
[2017-03-29] MEDS: SENNOSIDES/DOCUSATE 8.6-50 MG 1 EACH TABLET PO SCH (09:21)
[2017-03-29] MEDS: POLYETHYLENE GLYCOL 3350 POWDER 17 GM/1 PACKET PO SCH (09:21)
[2017-03-29] MEDS: DOCUSATE SODIUM 100 MG CAPSULE PO SCH (09:21)
[2017-03-29 09:32] LABS: ANION GAP 9 (5-19); BLOOD UREA NITROGEN 59 mg/dL (7-20); CALCIUM 9.2 mg/dL (8.4-10.2); CARBON DIOXIDE 25 mmol/L (22-30); CHLORIDE 101 mmol/L (98-107); GLUCOSE 109 mg/dL (75-110); POTASSIUM 4.6 mmol/L (3.6-5.0)
[2017-03-29 09:55] LABS: ABSOLUTE LYMPHOCYTES (AUTO) 1.6 10^3/uL (0.5-4.7); ABSOLUTE MONOCYTES (AUTO) 0.9 10^3/uL (0.1-1.4); ABSOLUTE NEUT (AUTO) 4.5 10^3/uL (1.7-8.2); BASOPHILS % (AUTO) 0.3 % (0-2); EOSINOPHILS % (AUTO) 0.2 % (0-6); HEMOGLOBIN 13.2 g/dL (12.0-15.5); LYMPHOCYTES % (AUTO) 22.4 % (13-45); MEAN CORPUSCULAR HEMOGLOBIN 29.4 pg (27.0-33.4); MEAN CORPUSCULAR VOLUME 89 fl (80-97); MONOCYTES % (AUTO) 12.9 % (3-13); PLATELET COUNT 124 10^3/uL (150-450); RED BLOOD COUNT 4.48 10^6/uL (3.72-5.28); RED CELL DISTRIBUTION WIDTH 16.4 % (11.5-14.0); SEGMENTED NEUTROPHILS % (AUTO) 64.2 % (42-78); TOTAL CELLS COUNTED % (AUTO) 100 %
--- NOTE | 2017-03-29 16:10 | PDOC PROGRESS REPORT ---
Subjective Progress Note for:: 03/29/17 Subjective:: Was admitted with difficult breathing and shortness of breath. She has an indwelling Arambula catheter, chronic. She was found to have atrial fibrillation/flutter. She is currently rate controlled. She had been on Coumadin with a therapeutic INR due to a previous DVT. Patient currently denies any chest pain. Patient says she feels well andwants to know when to be dc Reason For Visit: A FLUTTER,UTI Physical Exam Vital Signs: Temp Pulse Resp BP Pulse Ox 97.4 F 70 20 112/62 100 03/29/17 11:37 03/29/17 14:00 03/29/17 11:37 03/29/17 11:37 03/29/17 11:37 Intake & Output 03/28/17 03/29/17 03/30/17 06:59 06:59 06:59 Intake Total 1285 995 Output Total 3400 3400 Balance -2115 -2405 Weight 170.5 kg 167.2 kg General appearance: PRESENT: no acute distress, well-developed, well-nourished Head exam: PRESENT: atraumatic, normocephalic Eye exam: PRESENT: conjunctiva pink, EOMI, PERRLA. ABSENT: scleral icterus Ear exam: PRESENT: normal external ear exam Mouth exam: PRESENT: tongue midline Neck exam: ABSENT: carotid bruit, JVD, lymphadenopathy, thyromegaly Respiratory exam: PRESENT: clear to auscultation mariama. ABSENT: rales, rhonchi, wheezes Cardiovascular exam: PRESENT: RRR. ABSENT: diastolic murmur, rubs, systolic murmur Pulses: PRESENT: normal dorsalis pedis pul Vascular exam: PRESENT: normal capillary refill GI/Abdominal exam: PRESENT: normal bowel sounds, soft. ABSENT: distended, guarding, mass, organolmegaly, rebound, tenderness Rectal exam: PRESENT: deferred Extremities exam: PRESENT: calf tenderness, clubbing, full ROM, pedal edema, +2 edema - Chronic venous stasis and dermatitis lower extremities Neurological exam: PRESENT: alert, awake, oriented to place, motor sensory deficit Psychiatric exam: PRESENT: appropriate affect. ABSENT: homicidal ideation, suicidal ideation Skin exam: PRESENT: dry, rash - lower extremities, warm. ABSENT: cyanosis Results Laboratory Results: 03/29/17 09:00 03/29/17 09:00 03/29/17 03/29/17 09:00 09:00 WBC 7.0 RBC 4.48 Hgb 13.2 Hct 40.0 MCV 89 MCH 29.4 MCHC 33.0 RDW 16.4 H Plt Count 124 L Seg Neutrophils % 64.2 Lymphocytes % 22.4 Monocytes % 12.9 Eosinophils % 0.2 Basophils % 0.3 Absolute Neutrophils 4.5 Absolute Lymphocytes 1.6 Absolute Monocytes 0.9 Absolute Eosinophils 0.0 Absolute Basophils 0.0 Sodium 135.0 L Potassium 4.6 Chloride 101 Carbon Dioxide 25 Anion Gap 9 BUN 59 H Creatinine 1.82 H Est GFR ( Amer) 32 L Est GFR (Non-Af Amer) 27 L Glucose 109 Calcium 9.2 03/18/17 03/18/17 03/19/17 23:20 23:20 04:55 Creatine Kinase 204 H 187 H CK-MB (CK-2) 3.09 Troponin I 0.024 NT-Pro-B Natriuret Pep 03/19/17 03/19/17 03/19/17 04:55 11:47 11:47 Creatine Kinase 159 H CK-MB (CK-2) 2.84 2.98 Troponin I 0.028 0.038 NT-Pro-B Natriuret Pep 03/24/17 03/26/17 15:34 06:38 Creatine Kinase CK-MB (CK-2) Troponin I NT-Pro-B Natriuret Pep 4630 H 3700 H Impressions: Chest X-Ray 03/24/17 00:00 IMPRESSION: Stable chest, findings as above. Assessment & Plan - Time Time Spent with patient: 15-24 minutes Medications reviewed and adjusted accordingly: Yes Anticipated discharge: SNF Within: within 24 hours - Inpatient Certification Medical Necessity: Need for IV Antibiotics - Plan Summary Plan Summary: Urinary tract infection secondary to ESBL E. coli. Completed course of Ertapenem #2 acute on chronic diastolic congestive heart failure currently on Lasix. continue to diurese as indicated. 3. Atrial fibrillation with rapid ventricular response currently rate controlled. She is on anticoagulation. INR 1.78, increase Coumadin, recheck in am 4. Anticoagulated on Coumadin with goal INR of 2-3. 5. History of DVT currently on anticoagulant 6. Chronic kidney disease stage IV kidney function is stable 7. Morbid obesity chronic 8. Patient is a DO NOT RESUSCITATE 9. Acidosis presumed from acute infection and admission. She is still on oral bicarb. CO2 is 25 10. Possible dc in am if stable.
[2017-03-29] MEDS ORDERED: WARFARIN SODIUM 5 MG TABLET PO SCH (22:00)
[2017-03-29] MEDS: ACETAMINOPHEN 325 MG TABLET PO PRN (22:24)
[2017-03-30] MEDS: FUROSEMIDE 40 MG TABLET PO SCH (09:23)
[2017-03-30] MEDS: METOPROLOL SUCCINATE 50 MG TAB.SR.24H PO SCH (09:23)
[2017-03-30] MEDS: DOCUSATE SODIUM 100 MG CAPSULE PO SCH (09:23)
[2017-03-30] MEDS: POLYETHYLENE GLYCOL 3350 POWDER 17 GM/1 PACKET PO SCH (09:23)
[2017-03-30] MEDS: ALLOPURINOL 100 MG TABLET PO SCH (09:23)
[2017-03-30] MEDS: SODIUM BICARBONATE 650 MG TABLET PO SCH ×2 (09:24→17:35)
[2017-03-30] MEDS: FAMOTIDINE 20 MG TABLET PO SCH (09:24)
[2017-03-30] MEDS: SENNOSIDES/DOCUSATE 8.6-50 MG 1 EACH TABLET PO SCH (09:24)
[2017-03-30] MEDS: MIDODRINE HCL 5 MG TABLET PO SCH (09:24)
[2017-03-30 11:29] LABS: INTERNATIONAL RATION (INR) 1.73; PROTHROMBIN TIME 21.3 SEC (11.4-15.4)
[2017-03-30 11:46] LABS: ANION GAP 11 (5-19); BLOOD UREA NITROGEN 58 mg/dL (7-20); CALCIUM 9.1 mg/dL (8.4-10.2); CARBON DIOXIDE 24 mmol/L (22-30); CHLORIDE 100 mmol/L (98-107); GLUCOSE 127 mg/dL (75-110); POTASSIUM 4.4 mmol/L (3.6-5.0); SODIUM 135.2 mmol/L (137-145)
--- NOTE | 2017-03-30 13:45 | PDOC DISCHARGE SUMMARY ---
General - Admit/Disc Date/PCP Admission Date/Primary Care Provider: 03/18/17 21:22 Discharge Date: 03/30/17 - Discharge Diagnosis (1) Atrial fibrillation and flutter Is this a current diagnosis for this admission?: Yes (2) History of DVT (deep vein thrombosis) Is this a current diagnosis for this admission?: Yes (3) Morbid obesity Is this a current diagnosis for this admission?: Yes (4) UTI (urinary tract infection) Is this a current diagnosis for this admission?: Yes Summary: Secondary to ESBL E. coli. 10 day treatment of intravenous antibiotics has been completed (5) Anticoagulated on Coumadin Is this a current diagnosis for this admission?: Yes (6) Acute on chronic diastolic (congestive) heart failure Is this a current diagnosis for this admission?: Yes (7) COPD (chronic obstructive pulmonary disease) with acute bronchitis Is this a current diagnosis for this admission?: Yes Summary: Patient was treated with bronchodilators and steroids which has been tapered off (8) Do not resuscitate Is this a current diagnosis for this admission?: Yes (9) CKD (chronic kidney disease), stage IV Is this a current diagnosis for this admission?: Yes - Additional Information Resuscitation Status: Do Not Resuscitate Discharge Diet: Cardiac Discharge Activity: Activity As Tolerated Prescriptions: Metoprolol Succinate [Toprol Xl 50 mg Tab.sr] 50 mg PO DAILY #30 tab.sr.24h Home Medications: Allopurinol [Zyloprim 100 mg Tablet] 100 mg PO DAILY 03/18/17 Furosemide [Lasix 40 mg Tablet] 40 mg PO QAM 03/18/17 Ipratropium/Albuterol Sulfate [Duoneb 3 ml Ampul] 3 ml NEB [id number] PRN 03/18/17 Midodrine HCl [Proamatine 5 mg Tablet] 5 mg PO DAILY 03/18/17 Omeprazole 20 mg PO DAILY 03/18/17 Polyethylene Glycol 3350 [Miralax Powder 17 gm/Packet] 1 packet PO DAILY Sennosides [Senna] 8.6 mg PO DAILY 03/18/17 Sodium Bicarbonate [Sodium Bicarbonate 650 mg Tablet] 650 mg PO BID 03/18/17 Docusate Sodium [Colace 100 mg Capsule] 100 mg PO DAILY capsule 03/30/17 Metoprolol Succinate [Toprol Xl 50 mg Tab.sr] 50 mg PO DAILY #30 tab.sr.24h 07/10 Warfarin Sodium [Coumadin 5 mg Tablet] 5 mg PO QHS tablet 03/30/17 History of Present Illness History of Present Illness: ANTHONY PELLETIER is a 81 year old female was admitted with generalized malaise and not feeling well and found to have a a urinary tract infection in addition to atrial flutter fibrillation with a rapid ventricular response. She was seen by the optician manager to help manage the atrial flutter Hospital Course Hospital Course: Coumadin was continued with INR range advised to be between 2-3. It is currently 1.7 and has Coumadin has been slightly adjusted up but follow-up PT and INR suggested with further Coumadin adjustments as needed. Patient was continued on oral bicarb due to acidosis and I will suggest follow- up of the BMP and adjustment of discontinuing the BiPAP if indicated. She was also treated with Lasix due to a slightly decompensated CHF. Echocardiogram revealed probably well-preserved left ventricular ejection fraction although the study was technically limited due to suboptimal quality. She was started on intravenous antibiotics for the urinary tract infection and subsequent urine culture did not yield ESBL E. coli. Patient has completed her antibiotics in hospital. She has been hemodynamically stable with no further interventions then planned with her continue antibiotics as she has been discharged back to [facility] Patient is on ProAmatine but she was also started on metoprolol for atrial fibrillation. Currently her blood pressure is acceptable but I would suggest reevaluation of the combination and adjustment as needed. Physical Exam Vital Signs: Temp Pulse Resp BP Pulse Ox 97.6 F 68 18 103/59 L 100 03/30/17 11:56 03/30/17 11:56 03/30/17 11:56 03/30/17 11:56 03/30/17 11:56 Intake & Output 03/29/17 03/30/17 03/31/17 06:59 06:59 06:59 Intake Total 995 1165 Output Total 3400 2650 Balance -2405 -1485 Weight 167.2 kg 163.2 kg General appearance: PRESENT: no acute distress, well-developed, well-nourished Head exam: PRESENT: atraumatic, normocephalic Eye exam: PRESENT: conjunctiva pink, EOMI, PERRLA. ABSENT: scleral icterus Ear exam: PRESENT: normal external ear exam Mouth exam: PRESENT: moist, tongue midline Neck exam: ABSENT: carotid bruit, JVD, lymphadenopathy, thyromegaly Respiratory exam: PRESENT: clear to auscultation mariama. ABSENT: rales, rhonchi, wheezes Cardiovascular exam: PRESENT: RRR. ABSENT: diastolic murmur, rubs, systolic murmur Pulses: PRESENT: normal dorsalis pedis pul Vascular exam: PRESENT: normal capillary refill GI/Abdominal exam: PRESENT: normal bowel sounds, soft. ABSENT: distended, guarding, mass, organolmegaly, rebound, tenderness Rectal exam: PRESENT: deferred Extremities exam: PRESENT: full ROM. ABSENT: calf tenderness, clubbing, pedal edema Musculoskeletal exam: PRESENT: other - Chronic bilat venous stasis with skin changes Neurological exam: PRESENT: alert, awake, oriented to person, oriented to place. ABSENT: motor sensory deficit Psychiatric exam: PRESENT: appropriate affect, normal mood. ABSENT: homicidal ideation, suicidal ideation Skin exam: PRESENT: dry, intact, warm. ABSENT: cyanosis, rash Results Laboratory Results: 03/29/17 09:00 03/30/17 10:59 03/30/17 10:59 Sodium 135.2 L Potassium 4.4 Chloride 100 Carbon Dioxide 24 Anion Gap 11 BUN 58 H Creatinine 1.82 H Est GFR ( Amer) 32 L Est GFR (Non-Af Amer) 27 L Glucose 127 H Calcium 9.1 03/18/17 03/18/17 03/19/17 23:20 23:20 04:55 Creatine Kinase 204 H 187 H CK-MB (CK-2) 3.09 Troponin I 0.024 NT-Pro-B Natriuret Pep 03/19/17 03/19/17 03/19/17 04:55 11:47 11:47 Creatine Kinase 159 H CK-MB (CK-2) 2.84 2.98 Troponin I 0.028 0.038 NT-Pro-B Natriuret Pep 03/24/17 03/26/17 03/30/17 15:34 06:38 10:59 Creatine Kinase CK-MB (CK-2) Troponin I NT-Pro-B Natriuret Pep 4630 H 3700 H 1960 H Impressions: Chest X-Ray 03/24/17 00:00 IMPRESSION: Stable chest, findings as above.
[2017-03-30 16:53] VITALS: BP 96/58
== END 2017-03-30 20:00 | DRG 308 ==
LOC: ER 18:59 → EH 21:22 → 4N 03-19 13:50
PROVIDERS: ADMIT Internal Medicine; ATTEND Internal Medicine
PROC: 3E0F73Z Introduction of Anti-inflammatory into Respiratory Tract, Via Natural or Artificial Opening (ICD-10-PCS; principal; 2017-03-18)
PROC: 5A09457 Assistance with Respiratory Ventilation, 24-96 Consecutive Hours, Continuous Positive Airway Pressure (ICD-10-PCS; 2017-03-22)
DX: I48.92 Unspecified atrial flutter (principal); I50.33 Acute on chronic diastolic (congestive) heart failure; J44.0 Chronic obstructive pulmonary disease with (acute) lower respiratory infection; T83.511A Infection and inflammatory reaction due to indwelling urethral catheter, initial encounter; I13.0 Hypertensive heart and chronic kidney disease with heart failure and stage 1 through stage 4 chronic kidney disease, or unspecified chronic kidney disease; N18.4 Chronic kidney disease, stage 4 (severe); E87.2 Acidosis; Z68.41 Body mass index [BMI] 40.0-44.9, adult; N39.0 Urinary tract infection, site not specified; I48.91 Unspecified atrial fibrillation; J20.9 Acute bronchitis, unspecified; E66.01 Morbid (severe) obesity due to excess calories; B96.6 Bacteroides fragilis [B. fragilis] as the cause of diseases classified elsewhere; B96.20 Unspecified Escherichia coli [E. coli] as the cause of diseases classified elsewhere; E11.22 Type 2 diabetes mellitus with diabetic chronic kidney disease; E11.51 Type 2 diabetes mellitus with diabetic peripheral angiopathy without gangrene; K21.9 Gastro-esophageal reflux disease without esophagitis; L30.9 Dermatitis, unspecified; Y84.6 Urinary catheterization as the cause of abnormal reaction of the patient, or of later complication, without mention of misadventure at the time of the procedure; Z66 Do not resuscitate; Z90.49 Acquired absence of other specified parts of digestive tract; Z88.6 Allergy status to analgesic agent; Z79.01 Long term (current) use of anticoagulants; Z74.01 Bed confinement status; Z86.718 Personal history of other venous thrombosis and embolism
CPT/HCPCS: 36415; 51702; 71045; 80048; 80053; 80061; 81001; 82550; 82553; 82803; 82962; 83605; 83735; 83880; 84100; 84439; 84443; 84481; 84484; 85025; 85027; 85610; 87040; 87077; 87086; 87088; 87186; 87804; 93005; 93010; 93306; 94640; 94667; 94668; 94799; 96374; 96375; 99291; J0696; J1335; J1940; J2405; J3490; J7512; J7620

== ENCOUNTER 2017-06-28 10:32 | Emergency (ER) | payer MEDICARE, MEDICAID ==
--- NOTE | 2017-06-28 11:06 | ER Document Report ---
ED General - General Chief Complaint: Leg Swelling Stated Complaint: BILATERAL LEG SWELLING Time Seen by Provider: 06/28/17 10:45 Notes: Patient is an 81-year-old female who presents from her long-term nursing facility with a chief complaint of bilateral knee pain. Patient is nonambulatory due to severe obesity as well as dementia, generalized muscle weakness. Per documentation from the facility her pain is new and located on both knees. While speaking with the patient she states that it is from her knees down to her feet. Documentation also suggests swelling and redness but review of the chart shows that she has chronic edema due to CHF as well as peripheral vascular disease. No evidence of fever. Patient denies any chest pain, shortness of breath, dyspnea, orthopnea. History of a flutter/A. fib on Coumadin, end-stage renal disease, diabetes, previous DVT, hypertension, history of gout Primary care is with Dr. Lara TRAVEL OUTSIDE OF THE [place] IN LAST 30 DAYS: No - Related Data Allergies/Adverse Reactions: morphine [Morphine] Adverse Reaction (Mild, Verified 03/19/17 04:36) Dizziness Past Medical History - Social History Smoking Status: Never Smoker Chew tobacco use (# tins/day): No Frequency of alcohol use: None Drug Abuse: None Family History: Hypertension Patient has suicidal ideation: No Patient has homicidal ideation: No - Past Medical History Cardiac Medical History: Reports: Hx Hypertension, Hx Peripheral Vascular Disease Denies: Hx Coronary Artery Disease, Hx Heart Attack Pulmonary Medical History: Reports: Hx Asthma, Hx Bronchitis Denies: Hx COPD, Hx Pneumonia, Hx Tuberculosis Neurological Medical History: Denies: Hx Cerebrovascular Accident, Hx Seizures Endocrine Medical History: Reports: Hx Diabetes Mellitus Type 2 Renal/ Medical History: Reports: Hx End Stage Renal Disease, Hx Kidney Stones , Hx Renal Insufficiency. Denies: Hx Peritoneal Dialysis GI Medical History: Reports: Hx Gastroesophageal Reflux Disease. Denies: Hx Hepatitis, Hx Hiatal Hernia, Hx Ulcer Musculoskeltal Medical History: Reports Hx Arthritis Skin Medical History: Reports Hx Cellulitis Infectious Medical History: Denies: Hx Hepatitis Past Surgical History: Reports: Hx Cholecystectomy, Hx Genitourinary Surgery - bladder. Denies: Hx Mastectomy, Hx Open Heart Surgery, Hx Pacemaker - Immunizations Hx Diphtheria, Pertussis, Tetanus Vaccination: Yes Hx Pneumococcal Vaccination: 11/24/11 Review of Systems - Review of Systems Constitutional: No symptoms reported Cardiovascular: No symptoms reported Respiratory: No symptoms reported Gastrointestinal: No symptoms reported Musculoskeletal: See HPI Skin: See HPI -: Yes All other systems reviewed and negative Physical Exam - Vital signs Vitals: Temp Pulse Resp BP Pulse Ox 97.6 F 61 18 118/68 100 06/28/17 10:39 06/28/17 10:39 06/28/17 10:39 06/28/17 10:39 06/28/17 10:39 - Notes Notes: PHYSICAL EXAM GENERAL: Alert, interacts well. HEAD: Normocephalic, atraumatic. EYES: Pupils equal, round, and reactive to light. Extraocular movements intact. ENT: Oral mucosa moist, tongue midline. NECK: Full range of motion. Supple. Trachea midline. LUNGS: Clear to auscultation bilaterally, no evidence of wheezes, rales with presence of rhonchi. No respiratory distress. HEART: Regular rate and rhythm. No murmurs, gallops, or rubs. ABDOMEN: Obese, soft, nondistended, nontender. No guarding, rebound, or rigidity.. Bowel sounds present in all 4 quadrants. EXTREMITIES: Edema noted in bilateral lower extremities with chronic vascular changes nontender to palpation., radial pulses 2/4 bilaterally. No cyanosis. NEUROLOGICAL: Alert and oriented x4. Normal speech. PSYCH: Normal affect, normal mood. SKIN: Warm, dry, normal turgor. No rashes or lesions noted. Course - Re-evaluation Re-evalutation: 06/28/17 13:38 Patient is an 81-year-old female is hemodynamically stable, no acute distress and afebrile presentation of bilateral knee pain. Patient without evidence of cellulitis, gout. Dopplers of bilateral lower extremities negative for underlying DVT. Patient's presentation is consistent with her dependent edema due to underlying CHF and CKD. will give a dose of lasix. No evidence of a septic joint, gout flare, dislocation, on exam Vitals wnl. At this time, I do not see an indication for labs or further imaging. Will discharge with conservative measures, return precautions, and follow-up recommendations. - Vital Signs Vital signs: Temp Pulse Resp BP Pulse Ox 97.6 F 61 16 128/97 H 97 06/28/17 10:39 06/28/17 10:39 06/28/17 12:36 06/28/17 12:36 06/28/17 12:36 - Laboratory Result Diagrams: 06/28/17 11:30 06/28/17 11:30 Laboratory results interpreted by me: 06/28/17 06/28/17 06/28/17 11:30 11:30 11:30 WBC 3.6 L Hgb 11.5 L Hct 35.3 L RDW 15.9 H Plt Count 110 L PT 21.0 H APTT 45.9 H BUN 41 H Creatinine 2.27 H Est GFR ( Amer) 25 L Est GFR (Non-Af Amer) 21 L Alkaline Phosphatase 144 H NT-Pro-B Natriuret Pep Albumin 3.4 L 06/28/17 12:52 WBC Hgb Hct RDW Plt Count PT APTT BUN Creatinine Est GFR ( Amer) Est GFR (Non-Af Amer) Alkaline Phosphatase NT-Pro-B Natriuret Pep 4510 H Albumin - Diagnostic Test Radiology reviewed: Reports reviewed - EKG Interpretation by Me Rhythm: A.Fib When compared to previous EKG there are: No significant change Discharge - Discharge Clinical Impression: CHF, chronic, Morbid obesity, Edema Condition: Good Disposition: HOME-SNF (ED ONLY) Instructions: Edema, Peripheral ([facility]), Congestive Heart Failure ([facility]) Additional Instructions: As long as urine output is at her baseline, double up dose of lasix to BID for 3 days Referrals: GUNJAN LARA MD [ACTIVE STAFF] - Follow up as needed
--- NOTE | 2017-06-28 11:23 | RADIOLOGY REPORT (SQ) ---
EXAM DESCRIPTION: CHEST SINGLE VIEW COMPLETED DATE/TIME: 06/28/2017 11:13 am REASON FOR STUDY: rhonchi COMPARISON: 03/24/2017 EXAM PARAMETERS: NUMBER OF VIEWS: One view. TECHNIQUE: Single frontal radiographic view of the chest acquired. RADIATION DOSE: NA LIMITATIONS: None. FINDINGS: LUNGS AND PLEURA: No opacities, masses or pneumothorax. No pleural effusion. MEDIASTINUM AND HILAR STRUCTURES: No masses. Contour normal. HEART AND VASCULAR STRUCTURES: Heart stable in size. Normal vasculature. BONES: No acute findings. HARDWARE: None in the chest. OTHER: No other significant finding. IMPRESSION: STABLE CARDIOMEGALY. NO ACUTE CARDIOPULMONARY PROCESS. TECHNICAL DOCUMENTATION: JOB ID: [id number] [employer]- All Rights Reserved Reading location - IP/workstation name: [email or web address]
[2017-06-28 11:44] LABS: ABSOLUTE LYMPHOCYTES (AUTO) 1.1 10^3/uL (0.5-4.7); ABSOLUTE MONOCYTES (AUTO) 0.4 10^3/uL (0.1-1.4); BASOPHILS % (AUTO) 0.7 % (0-2); EOSINOPHILS % (AUTO) 0.9 % (0-6); HEMATOCRIT 35.3 % (36.0-47.0); HEMOGLOBIN 11.5 g/dL (12.0-15.5); LYMPHOCYTES % (AUTO) 30.2 % (13-45); MEAN CORPUSCULAR HEMOGLOBIN 29.9 pg (27.0-33.4); MEAN CORPUSCULAR HGB CONC 32.7 g/dL (32.0-36.0); MEAN CORPUSCULAR VOLUME 91 fl (80-97); MONOCYTES % (AUTO) 11.5 % (3-13); PLATELET COUNT 110 10^3/uL (150-450); RED BLOOD COUNT 3.86 10^6/uL (3.72-5.28); RED CELL DISTRIBUTION WIDTH 15.9 % (11.5-14.0); SEGMENTED NEUTROPHILS % (AUTO) 56.7 % (42-78); TOTAL CELLS COUNTED % (AUTO) 100 %; WHITE BLOOD COUNT 3.6 10^3/uL (4.0-10.5)
[2017-06-28 11:57] LABS: INTERNATIONAL RATION (INR) 1.72
[2017-06-28 11:58] LABS: PARTIAL THROMBOPLASTIN TIME 45.9 SEC (23.5-35.8)
[2017-06-28 12:02] LABS: ALANINE AMINOTRANSFERASE 15 U/L (9-52); ALBUMIN 3.4 g/dL (3.5-5.0); ALKALINE PHOSPHATASE 144 U/L (38-126); ANION GAP 11 (5-19); ASPARTATE AMINO TRANSFERASE 19 U/L (14-36); BILIRUBIN,DIRECT 0.4 mg/dL (0.0-0.4); BILIRUBIN,TOTAL 0.8 mg/dL (0.2-1.3); BLOOD UREA NITROGEN 41 mg/dL (7-20); CALCIUM 8.8 mg/dL (8.4-10.2); CARBON DIOXIDE 27 mmol/L (22-30); CHLORIDE 105 mmol/L (98-107); GLUCOSE 98 mg/dL (75-110); POTASSIUM 4.8 mmol/L (3.6-5.0); SODIUM 142.5 mmol/L (137-145); TOTAL PROTEIN 6.8 g/dL (6.3-8.2); URIC ACID 6.2 mg/dL (2.5-7.5)
--- NOTE | 2017-06-28 12:21 | RADIOLOGY REPORT (SQ) ---
EXAM DESCRIPTION: VENOUS BILATERAL LOWER COMPLETED DATE/TIME: 06/28/2017 12:10 pm REASON FOR STUDY: edema, pain COMPARISON: 04/20/2013 TECHNIQUE: Dynamic and static lovett scale and color images acquired of both lower extremity venous sy stems. Selected spectral images acquired with additional compression and augmentation maneuvers. Imag es stored on PACS. LIMITATIONS: BODY WALL ACOUSTICS. Right saphenous femoral junction, bilateral mid and distal superf icial femoral veins, bilateral peroneal veins, and bilateral small saphenous veins not visualized. FINDINGS: RIGHT LEG COMMON FEMORAL AND FEMORAL: Normal phasicity, compression and augmentation. No visualized echogenic m aterial on lovett scale. No defects on color images. POPLITEAL: Normal compression and augmentation. No visualized echogenic material on lovett scale. No de fects on color images. CALF VESSELS: Normal compression and augmentation. No visualized echogenic material on lovett scale. No defects on color image. GSV AND SSV: Normal compression. No visualized echogenic material on lovett scale. No defects on color images. ANY DEEP VENOUS INSUFFICIENCY: Not evaluated. ANY EVIDENCE OF POPLITEAL CYST: No. OTHER: No other significant finding. LEFT LEG COMMON FEMORAL AND FEMORAL: Normal phasicity, compression and augmentation. No visualized echogenic m aterial on lovett scale. No defects on color images. POPLITEAL: Normal compression and augmentation. No visualized echogenic material on lovett scale. No de fects on color images. CALF VESSELS: Normal compression and augmentation. No visualized echogenic material on lovett scale. No defects on color images. GSV AND SSV: Normal compression. No visualized echogenic material on lovett scale. No defects on color images. ANY DEEP VENOUS INSUFFICIENCY: Not evaluated. ANY EVIDENCE POPLITEAL CYST: No. OTHER: No other significant finding. IMPRESSION: NO EVIDENCE DVT OR SVT IN EITHER LEG. LIMITATIONS ABOVE. TECHNICAL DOCUMENTATION: JOB ID: [id number] [employer]- All Rights Reserved Reading location - IP/workstation name: [email or web address]
[2017-06-28 13:26] LABS: NT PRO BNP 4510 pg/mL (<450)
[2017-06-28 13:32] LABS: TROPONIN I < 0.012 ng/mL
[2017-06-28] MEDS ORDERED: FUROSEMIDE 40 MG TABLET PO ONE ×2 (13:38→19:50)
--- NOTE | 2017-06-28 19:07 | EKG REPORT ---
SEVERITY:- ABNORMAL ECG - ATRIAL FLUTTER, A-RATE 254 : Confirmed by: Chacrota Garland 28-Jun-2017 19:06:27
[2017-06-28 19:40] VITALS: BP 146/95
== END 2017-06-28 19:56 ==
LOC: ER 10:32
DX: I13.2 Hypertensive heart and chronic kidney disease with heart failure and with stage 5 chronic kidney disease, or end stage renal disease (principal); I50.9 Heart failure, unspecified; E11.22 Type 2 diabetes mellitus with diabetic chronic kidney disease; N18.6 End stage renal disease; E66.01 Morbid (severe) obesity due to excess calories; E11.51 Type 2 diabetes mellitus with diabetic peripheral angiopathy without gangrene; M25.561 Pain in right knee; M25.562 Pain in left knee; F03.90 Unspecified dementia, unspecified severity, without behavioral disturbance, psychotic disturbance, mood disturbance, and anxiety; R53.1 Weakness; I48.91 Unspecified atrial fibrillation; Z79.01 Long term (current) use of anticoagulants; Z86.718 Personal history of other venous thrombosis and embolism; J45.909 Unspecified asthma, uncomplicated
CPT/HCPCS: 93005; 99284; 36415; 84550; 85025; 85610; 85730; 80053; 84484; 83880; 93970; 71045; 93010; A9270

== ENCOUNTER 2018-08-07 12:04 | Emergency (ER) | payer MEDICARE, MEDICAID ==
[2018-08-07 12:55] LABS: ABSOLUTE LYMPHOCYTES (AUTO) 0.8 10^3/uL (0.5-4.7); ABSOLUTE MONOCYTES (AUTO) 0.4 10^3/uL (0.1-1.4); ABSOLUTE NEUT (AUTO) 3.1 10^3/uL (1.7-8.2); BASOPHILS % (AUTO) 0.5 % (0-2); EOSINOPHILS % (AUTO) 0.1 % (0-6); HEMOGLOBIN 15.8 g/dL (12.0-15.5); LYMPHOCYTES % (AUTO) 18.4 % (13-45); MEAN CORPUSCULAR HEMOGLOBIN 30.2 pg (27.0-33.4); MEAN CORPUSCULAR HGB CONC 32.8 g/dL (32.0-36.0); MEAN CORPUSCULAR VOLUME 92 fl (80-97); MONOCYTES % (AUTO) 9.3 % (3-13); RED BLOOD COUNT 5.22 10^6/uL (3.72-5.28); SEGMENTED NEUTROPHILS % (AUTO) 71.7 % (42-78); TOTAL CELLS COUNTED % (AUTO) 100 %; WHITE BLOOD COUNT 4.3 10^3/uL (4.0-10.5)
[2018-08-07 13:07] LABS: ALANINE AMINOTRANSFERASE 19 U/L (9-52); ALBUMIN 4.6 g/dL (3.5-5.0); ALKALINE PHOSPHATASE 143 U/L (38-126); ANION GAP 19 (5-19); ASPARTATE AMINO TRANSFERASE 31 U/L (14-36); BILIRUBIN,DIRECT 0.7 mg/dL (0.0-0.4); BILIRUBIN,TOTAL 1.4 mg/dL (0.2-1.3); BLOOD UREA NITROGEN 86 mg/dL (7-20); CARBON DIOXIDE 23 mmol/L (22-30); CHLORIDE 95 mmol/L (98-107); GLUCOSE 125 mg/dL (75-110); POTASSIUM 3.8 mmol/L (3.6-5.0); SODIUM 136.5 mmol/L (137-145); TOTAL PROTEIN 8.8 g/dL (6.3-8.2)
[2018-08-07 13:16] LABS: PLATELET COUNT 94 10^3/uL (150-450)
[2018-08-07] MEDS ORDERED: NORMAL SALINE 1000 ML 1,000 ML IV ONE ×2 (14:35→16:29)
[2018-08-07 14:43] LABS: AMORPHOUS SEDIMENT,URINE TRACE /HPF; APPEARANCE,URINE CLOUDY; BILIRUBIN,URINE NEGATIVE (NEGATIVE); COLOR,URINE YELLOW; GLUCOSE, URINE NEGATIVE (NEGATIVE); KETONES,URINE NEGATIVE (NEGATIVE); LEUKOCYTE ESTERASE,URINE LARGE (NEGATIVE); NITRITE,URINE NEGATIVE (NEGATIVE); PROTEIN,URINE NEGATIVE (NEGATIVE); URINE SPECIFIC GRAVITY 1.009; UROBILINOGEN,URINE NEGATIVE mg/dL (<2.0)
--- NOTE | 2018-08-07 16:09 | ER Document Report ---
ED GI/ - General Chief Complaint: Abdominal Pain Stated Complaint: ABDOMINAL PAIN Time Seen by Provider: 08/07/18 13:02 Primary Care Provider: GUNJAN LARA MD [Primary Care Provider] - Follow up as needed Notes: 82-year-old female patient emergency for chief complaint of abdominal pain and not feeling well. Patient is a longterm patient. States that she is having some achy lower abdominal pain. No fever. No other major issues. Uncertain whether she is having any pain with urination. TRAVEL OUTSIDE OF THE [place] IN LAST 30 DAYS: No - HPI Patient complains to provider of: Abdominal pain Timing/Duration: Gradual Quality of pain: Achy Severity at maximum: Mild Severity in ED: Mild - Related Data Allergies/Adverse Reactions: morphine [Morphine] Adverse Reaction (Mild, Verified 03/19/17 04:36) Dizziness Past Medical History - General Information source: Patient, Transfer Record - Social History Smoking Status: Former Smoker Frequency of alcohol use: None Drug Abuse: None Lives with: Retirement Family History: Hypertension Patient has suicidal ideation: No Patient has homicidal ideation: No - Past Medical History Cardiac Medical History: Reports: Hx Atrial Fibrillation - flutter, Hx Conge stive Heart Failure, Hx Hypertension, Hx Peripheral Vascular Disease Denies: Hx Coronary Artery Disease, Hx Heart Attack Pulmonary Medical History: Reports: Hx Asthma, Hx Bronchitis, Hx COPD Denies: Hx Pneumonia, Hx Tuberculosis Neurological Medical History: Denies: Hx Cerebrovascular Accident, Hx Seizures Endocrine Medical History: Reports: Hx Diabetes Mellitus Type 2 Renal/ Medical History: Reports: Hx End Stage Renal Disease, Hx Kidney Stones, Hx Renal Insufficiency. Denies: Hx Peritoneal Dialysis GI Medical History: Reports: Hx Gastroesophageal Reflux Disease. Denies: Hx Hepatitis, Hx Hiatal Hernia, Hx Ulcer Musculoskeletal Medical History: Reports Hx Arthritis Skin Medical History: Reports Hx Cellulitis Infectious Medical History: Denies: Hx Hepatitis Past Surgical History: Reports: Hx Cholecystectomy, Hx Genitourinary Surgery - bladder. Denies: Hx Mastectomy, Hx Open Heart Surgery, Hx Pacemaker - Immunizations Hx Diphtheria, Pertussis, Tetanus Vaccination: Yes Hx Pneumococcal Vaccination: 11/24/11 Review of Systems - Review of Systems Notes: Constitutional: denies: Chills, Diaphoresis, Fever, Malaise, Weakness EENT: denies: Eye discharge, Blurred vision, Tearing, Double vision, Nose congestion, Nose discharge, Throat swelling, Mouth pain Cardiovascular: denies: Palpitations, Heart racing, Orthopnea, Dyspnea, Chest pain Respiratory: denies: Cough, Hurts to breathe, Wheezing, Shortness of breath Gastrointestinal: +Abdominal pain, -Diarrhea, +Nausea, -Vomiting, Black stools, bright red blood in stool Genitourinary: denies: Burning, Dysuria, Discharge, Frequency, Flank pain, Hematuria Musculoskeletal: denies: Joint pain, Joint swelling, Muscle pain, Muscle stiffness, back pain Hematologic/Lymphatic: denies: Anemia, Easy bleeding, Easy bruising, Blood clots Neurological/Psychological: denies: Confusion, Dementia, Depression, Loss of consciousness Skin: No lesions, no masses, no skin breakdown, no abscesses Physical Exam - Vital signs Vitals: Temp Resp BP Pulse Ox 97.5 F 16 112/65 96 08/07/18 12:14 08/07/18 12:14 08/07/18 12:14 08/07/18 12:14 Interpretation: Normal - Notes Notes: Large morbidly obese -[place] female. - General General appearance: Appears well, Alert - HEENT Head: Normocephalic, Atraumatic Eyes: Normal Pupils: PERRL - Respiratory Respiratory status: No respiratory distress Chest status: Nontender Breath sounds: Normal Chest palpation: Normal - Cardiovascular Rhythm: Regular Heart sounds: Normal auscultation Murmur: No - Abdominal Inspection: Normal Distension: No distension Bowel sounds: Normal Tenderness: Nontender Organomegaly: No organomegaly - Back Back: Normal, Nontender - Extremities General upper extremity: Normal inspection, Nontender, Normal color, Normal ROM, Normal temperature General lower extremity: Normal inspection, Nontender, Edema, Normal color, Normal ROM, Normal temperature. No: Torin's sign - Neurological Neuro grossly intact: Yes Cognition: Normal Orientation: AAOx4 [place] Coma Scale Eye Opening: Spontaneous Gem Coma Scale Verbal: Oriented Gem Coma Scale Motor: Obeys Commands [place] Coma Scale Total: 15 Speech: Normal Motor strength normal: LUE, RUE, LLE, RLE Sensory: Normal - Psychological Associated symptoms: Normal affect, Normal mood - Skin Skin Temperature: Warm Skin Moisture: Dry Skin Color: Normal Course - Re-evaluation Re-evalutation: 08/07/18 16:13 Laboratory 08/07/18 08/07/18 08/07/18 12:30 12:30 12:30 WBC 4.3 RBC 5.22 Hgb 15.8 H Hct 48.0 H MCV 92 MCH 30.2 MCHC 32.8 RDW 16.0 H Plt Count 94 L Seg Neutrophils % 71.7 Lymphocytes % 18.4 Monocytes % 9.3 Eosinophils % 0.1 Basophils % 0.5 Absolute Neutrophils 3.1 Absolute Lymphocytes 0.8 Absolute Monocytes 0.4 Absolute Eosinophils 0.0 Absolute Basophils 0.0 Sodium 136.5 L Potassium 3.8 Chloride 95 L Carbon Dioxide 23 Anion Gap 19 BUN 86 H Creatinine 2.69 H Est GFR ( Amer) 20 L Est GFR (Non-Af Amer) 17 L Glucose 125 H Calcium 10.0 Total Bilirubin 1.4 H Direct Bilirubin 0.7 H Neonat Total Bilirubin Not Reportable Neonat Direct Bilirubin Not Reportable Neonat Indirect Bili Not Reportable AST 31 ALT 19 Alkaline Phosphatase 143 H Total Protein 8.8 H Albumin 4.6 Lipase 328.9 H Urine Color Urine Appearance Urine pH Ur Specific [place] Urine Protein Urine Glucose (UA) Urine Ketones Urine Blood Urine Nitrite Urine Bilirubin Urine Urobilinogen Ur Leukocyte Esterase Urine WBC (Auto) Urine RBC (Auto) Urine Bacteria (Auto) Urine WBC Clumps Squamous Epi Cells Auto Amorphous Sediment Auto Urine Ascorbic Acid 08/07/18 14:11 WBC RBC Hgb Hct MCV MCH MCHC RDW Plt Count Seg Neutrophils % Lymphocytes % Monocytes % Eosinophils % Basophils % Absolute Neutrophils Absolute Lymphocytes Absolute Monocytes Absolute Eosinophils Absolute Basophils Sodium Potassium Chloride Carbon Dioxide Anion Gap BUN Creatinine Est GFR ( Amer) Est GFR (Non-Af Amer) Glucose Calcium Total Bilirubin Direct Bilirubin Neonat Total Bilirubin Neonat Direct Bilirubin Neonat Indirect Bili AST ALT Alkaline Phosphatase Total Protein Albumin Lipase Urine Color YELLOW Urine Appearance CLOUDY Urine pH 6.0 Ur Specific [place] 1.009 Urine Protein NEGATIVE Urine Glucose (UA) NEGATIVE Urine Ketones NEGATIVE Urine Blood MODERATE H Urine Nitrite NEGATIVE Urine Bilirubin NEGATIVE Urine Urobilinogen NEGATIVE Ur Leukocyte Esterase LARGE H Urine WBC (Auto) 91 Urine RBC (Auto) 3 Urine Bacteria (Auto) 3+ Urine WBC Clumps MANY Squamous Epi Cells Auto 3 Amorphous Sediment Auto TRACE Urine Ascorbic Acid NEGATIVE She has evidence of UTI but no other pathology seen. Eating and drinking. Feels quite well. I did give her some oral liquid as her creatinine was up a little bit but she is able to tolerate p.o.'s and did not feel compelled to start an IV. Looking back at her urine cultures she has grown out Klebsiella as well as E. coli. Both of these are actually sensitive to Augmentin so we will discharge her on that. At this time for comfortable discharge in stable condition. 08/07/18 16:13 - Vital Signs Vital signs: Temp Pulse Resp BP Pulse Ox 97.5 F 16 112/65 96 08/07/18 12:14 08/07/18 12:14 08/07/18 12:14 08/07/18 12:14 - Laboratory Result Diagrams: 08/07/18 12:30 08/07/18 12:30 Laboratory results interpreted by me: 08/07/18 08/07/18 08/07/18 12:30 12:30 12:30 Hgb 15.8 H Hct 48.0 H RDW 16.0 H Plt Count 94 L Sodium 136.5 L Chloride 95 L BUN 86 H Creatinine 2.69 H Est GFR ( Amer) 20 L Est GFR (Non-Af Amer) 17 L Glucose 125 H Total Bilirubin 1.4 H Direct Bilirubin 0.7 H Alkaline Phosphatase 143 H Total Protein 8.8 H Lipase 328.9 H Urine Blood Ur Leukocyte Esterase 08/07/18 14:11 Hgb Hct RDW Plt Count Sodium Chloride BUN Creatinine Est GFR ( Amer) Est GFR (Non-Af Amer) Glucose Total Bilirubin Direct Bilirubin Alkaline Phosphatase Total Protein Lipase Urine Blood MODERATE H Ur Leukocyte Esterase LARGE H Discharge - Discharge Clinical Impression: UTI (urinary tract infection) Qualifiers: Urinary tract infection type: site unspecified Hematuria presence: without hematuria Qualified Code(s): N39.0 - Urinary tract infection, site not specified Condition: Good Disposition: HOME, SELF-CARE Instructions: Urinary Tract Infection ([facility]) Additional Instructions: Continue take in plenty of liquids. It appears that you may have a bladder infection. We are starting you on antibiotics at this time. If symptoms are getting worse than please return. Please follow-up with your primary care doctor for further evaluation. Prescriptions: Amox Tr/Potassium Clavulanate [Augmentin 875-125 Tablet] 1 tab PO BID 7 Days #14 tablet Referrals: GUNJAN LARA MD [Primary Care Provider] - Follow up as needed
[2018-08-07] MEDS ORDERED: AMOXICILLIN TR/POT CLAVULANATE 500-125 MG TAB PO ONE (16:16)
[2018-08-07 18:26] VITALS: BP 123/78
== END 2018-08-07 19:30 | disposition home or self-care (01) ==
LOC: ER 12:04
DX: N39.0 Urinary tract infection, site not specified (principal); R10.9 Unspecified abdominal pain; R30.9 Painful micturition, unspecified; Z87.891 Personal history of nicotine dependence; I50.9 Heart failure, unspecified; I11.0 Hypertensive heart disease with heart failure; J44.9 Chronic obstructive pulmonary disease, unspecified; E11.9 Type 2 diabetes mellitus without complications
CPT/HCPCS: 99284; 96360; 36415; 83690; 85025; 80053; 81001; A9270; J7030

== ENCOUNTER 2018-09-29 10:33 | Emergency (ER) | payer MEDICARE, MEDICAID ==
[2018-09-29 11:40] LABS: ABSOLUTE LYMPHOCYTES (AUTO) 1.1 10^3/uL (0.5-4.7); ABSOLUTE MONOCYTES (AUTO) 0.5 10^3/uL (0.1-1.4); ABSOLUTE NEUT (AUTO) 2.3 10^3/uL (1.7-8.2); BASOPHILS % (AUTO) 0.3 % (0-2); EOSINOPHILS % (AUTO) 0.1 % (0-6); HEMATOCRIT 41.6 % (36.0-47.0); LYMPHOCYTES % (AUTO) 28.3 % (13-45); MEAN CORPUSCULAR HEMOGLOBIN 30.9 pg (27.0-33.4); MEAN CORPUSCULAR HGB CONC 33.6 g/dL (32.0-36.0); MEAN CORPUSCULAR VOLUME 92 fl (80-97); MONOCYTES % (AUTO) 11.7 % (3-13); RED BLOOD COUNT 4.51 10^6/uL (3.72-5.28); RED CELL DISTRIBUTION WIDTH 16.2 % (11.5-14.0); SEGMENTED NEUTROPHILS % (AUTO) 59.6 % (42-78); TOTAL CELLS COUNTED % (AUTO) 100 %; WHITE BLOOD COUNT 3.9 10^3/uL (4.0-10.5)
[2018-09-29 11:45] LABS: INTERNATIONAL RATION (INR) 2.33
[2018-09-29 11:56] LABS: ALBUMIN 4.5 g/dL (3.5-5.0); ALKALINE PHOSPHATASE 121 U/L (38-126); ANION GAP 18 (5-19); ASPARTATE AMINO TRANSFERASE 46 U/L (14-36); BILIRUBIN,DIRECT 0.8 mg/dL (0.0-0.4); BILIRUBIN,TOTAL 1.5 mg/dL (0.2-1.3); BLOOD UREA NITROGEN 95 mg/dL (7-20); CALCIUM 9.9 mg/dL (8.4-10.2); CARBON DIOXIDE 23 mmol/L (22-30); CHLORIDE 90 mmol/L (98-107); GLUCOSE 127 mg/dL (75-110); POTASSIUM 3.6 mmol/L (3.6-5.0); TOTAL PROTEIN 8.1 g/dL (6.3-8.2)
--- NOTE | 2018-09-29 12:00 | ER Document Report ---
ED General - General Chief Complaint: Abnormal Lab Results Stated Complaint: ABNORMAL LABS Time Seen by Provider: 09/29/18 11:28 Primary Care Provider: GUNJAN LARA MD [Primary Care Provider] - Follow up as needed TRAVEL OUTSIDE OF THE [place] IN LAST 30 DAYS: No - HPI Notes: Patient is an 83-year-old female sent into the emergency department for evaluation of abnormal renal function. Patient cannot really offer me any history in regards to urine or other issues. She states that she has some pain in her left heel. She does not ambulate. She is unable to comment as to w hether or not she is urinating less than normal. Per EMS, patient's creatinine was 2.9 on September 20. Yesterday was found to be 4.02. - Related Data Allergies/Adverse Reactions: morphine [Morphine] Adverse Reaction (Mild, Verified 03/19/17 04:36) Dizziness Past Medical History - General Information source: Patient - Social History Smoking Status: Unknown if Ever Smoked Family History: Hypertension Patient has suicidal ideation: No Patient has homicidal ideation: No - Past Medical History Cardiac Medical History: Reports: Hx Atrial Fibrillation - flutter, Hx Congestive Heart Failure, Hx Hypertension, Hx Peripheral Vascular Disease Denies: Hx Coronary Artery Disease, Hx Heart Attack Pulmonary Medical History: Reports: Hx Asthma, Hx Bronchitis, Hx COPD Denies: Hx Pneumonia, Hx Tuberculosis Neurological Medical History: Denies: Hx Cerebrovascular Accident, Hx Seizures Endocrine Medical History: Reports: Hx Diabetes Mellitus Type 2 Renal/ Medical History: Reports: Hx End Stage Renal Disease, Hx Kidney Stones, Hx Renal Insufficiency. Denies: Hx Peritoneal Dialysis GI Medical History: Reports: Hx Gastroesophageal Reflux Disease. Denies: Hx Hepatitis, Hx Hiatal Hernia, Hx Ulcer Musculoskeletal Medical History: Reports Hx Arthritis Skin Medical History: Reports Hx Cellulitis Infectious Medical History: Denies: Hx Hepatitis Past Surgical History: Reports: Hx Cholecystectomy, Hx Genitourinary Surgery - bladder. Denies: Hx Mastectomy, Hx Open Heart Surgery, Hx Pacemaker - Immunizations Hx Diphtheria, Pertussis, Tetanus Vaccination: Yes Hx Pneumococcal Vaccination: 11/24/11 Physical Exam - Vital signs Vitals: Pulse Ox 97 09/29/18 11:21 Course - Re-evaluation Re-evalutation: 09/29/18 13:27 Patient presented to the emergency department for evaluation with a reported elevated creatinine. Laboratory investigations today revealed a mild increase in her creatinine, but not to the level that was reported. She is not uremic. Her electrolytes show signs of may be consistent with mild dehydration. She was given 500 cc of normal saline here. She does have large white blood cells in her urine, we will treat her for UTI. She is given a gram of Rocephin here. Her urine was sent for culture. We will send her back on Keflex. I spoke with Dr. Rueda. She agrees with some gentle hydration. She agrees that there is no need for more aggressive intervention by nephrology at this time, but does agree that she will require close follow-up with Dr. Sánchez. I will have a metabolic panel ordered as an outpatient for Thursday. She is to follow-up with Dr. Sánchez next week. Return to the ED with worsening or concerning symptoms of any sort. - Vital Signs Vital signs: Temp Pulse Resp BP Pulse Ox 97 09/29/18 11:21 - Laboratory Result Diagrams: 09/29/18 11:11 09/29/18 11:11 Laboratory results interpreted by me: 09/29/18 09/29/18 09/29/18 11:11 11:11 11:11 WBC 3.9 L RDW 16.2 H Plt Count 96 L PT 26.0 H Sodium 131.0 L Chloride 90 L BUN 95 H Creatinine 3.35 H Est GFR ( Amer) 16 L Est GFR (Non-Af Amer) 13 L Glucose 127 H Total Bilirubin 1.5 H Direct Bilirubin 0.8 H AST 46 H Urine Protein Urine Ketones Urine Blood Urine Urobilinogen Ur Leukocyte Esterase 09/29/18 12:49 WBC RDW Plt Count PT Sodium Chloride BUN Creatinine Est GFR ( Amer) Est GFR (Non-Af Amer) Glucose Total Bilirubin Direct Bilirubin AST Urine Protein 100 H Urine Ketones TRACE H Urine Blood LARGE H Urine Urobilinogen 2.0 H Ur Leukocyte Esterase LARGE H Discharge - Discharge Clinical Impression: UTI (urinary tract infection), Acute kidney injury superimposed on chronic kidney disease Condition: Stable Disposition: HOME-SNF (ED ONLY) Instructions: Cephalexin ([facility]), Kidney Function Abnormality ([facility]), Urinary Tract Infection ([facility]) Additional Instructions: Findings today were consistent with mild acute kidney injury as well as urinary tract infection. You were given IV antibiotics here, it is important that you take all the Keflex as directed until gone. Have metabolic panel repeated on October 04. Follow-up with Dr. Sánchez next week. Return to the emergency department with worsening or new concerning symptoms of any sort. Prescriptions: Cephalexin Monohydrate [Keflex 500 mg Capsule] 500 mg PO QID #20 capsule Referrals: GUNJAN LARA MD [Primary Care Provider] - Follow up as needed
[2018-09-29 12:07] LABS: PLATELET COUNT 96 10^3/uL (150-450)
[2018-09-29 13:03] LABS: APPEARANCE,URINE CLOUDY; BILIRUBIN,URINE NEGATIVE (NEGATIVE); COLOR,URINE AMBER; GLUCOSE, URINE NEGATIVE (NEGATIVE); KETONES,URINE TRACE mg/dL (NEGATIVE); LEUKOCYTE ESTERASE,URINE LARGE (NEGATIVE); NITRITE,URINE NEGATIVE (NEGATIVE); PROTEIN,URINE 100 mg/dL (NEGATIVE); URINE SPECIFIC GRAVITY 1.012
[2018-09-29] MEDS ORDERED: NORMAL SALINE 500 ML IV ONE (13:25)
[2018-09-29] MEDS ORDERED: CEFTRIAXONE 1 GM/D5W RTU 1 GM/50 ML RTUPB IV ONE (14:00)
[2018-09-29 19:51] VITALS: BP 151/99
== END 2018-09-29 20:31 ==
LOC: ER 10:33
DX: N39.0 Urinary tract infection, site not specified (principal); N17.9 Acute kidney failure, unspecified; I48.91 Unspecified atrial fibrillation; E11.22 Type 2 diabetes mellitus with diabetic chronic kidney disease; I13.2 Hypertensive heart and chronic kidney disease with heart failure and with stage 5 chronic kidney disease, or end stage renal disease; I50.9 Heart failure, unspecified; N18.6 End stage renal disease; Z88.6 Allergy status to analgesic agent; Z90.49 Acquired absence of other specified parts of digestive tract
CPT/HCPCS: 36415; 87086; 85025; 85610; 87088; 80053; 81001; J7040; J0696; 51702; 96360; 99284

== ENCOUNTER → 2018-10-12 | Outpatient (CLI) | payer MEDICARE, MEDICAID ==
--- NOTE | 2018-10-12 16:31 | RADIOLOGY REPORT (SQ) ---
EXAM DESCRIPTION: U/S NON-OB PELVIS W/O DOP COMPLETED DATE/TIME: 10/12/2018 4:21 pm REASON FOR STUDY: N85.8 OTHER SPECIFIED NONINFLAMMATORY DISORDERS OF UTERUS N85.8 OTHER SPECIFIED N ONINFLAMMATORY DISORDERS OF [id number] ENDOMETRIAL HYPERPLASIA, UNSPECIFIED COMPARISON: None. TECHNIQUE: Dynamic and static grayscale images acquired of the pelvis via transabdominal approach an d recorded on PACS. Additional selected color Doppler and spectral images recorded. LIMITATIONS: None. FINDINGS: UTERUS: Contour normal. No mass. ENDOMETRIAL STRIPE: No focal or generalized thickening. No masses. CERVIX: No nabothian cysts. RIGHT OVARY AND DOPPLER: Ovary not visualized. LEFT OVARY AND DOPPLER: Ovary not visualized. FREE FLUID: None noted. OTHER: No other significant finding. MEASUREMENTS: UTERUS: 8.0 x 4.8 x 3.5 cm. ENDOMETRIAL STRIPE: 2.0 mm. RIGHT OVARY: Not visualized. LEFT OVARY: Not visualized. IMPRESSION: Normal appearing uterus. The ovaries are not identified. TECHNICAL DOCUMENTATION: JOB ID: [id number] [employer] (now [employer])- All Rights Reserved Rev Reading location - IP/workstation name: [email or web address]
== END ==
LOC: RAD 15:27
PROVIDERS: ATTEND Internal Medicine
DX: N85.8 Other specified noninflammatory disorders of uterus (principal); N85.00 Endometrial hyperplasia, unspecified
CPT/HCPCS: 76856

== ENCOUNTER 2018-10-26 17:51 | Inpatient (IN) | payer MEDICARE, MEDICAID ==
[2018-10-26 18:25] LABS: ABSOLUTE LYMPHOCYTES (AUTO) 1.3 10^3/uL (0.5-4.7); ABSOLUTE MONOCYTES (AUTO) 0.4 10^3/uL (0.1-1.4); ABSOLUTE NEUT (AUTO) 2.5 10^3/uL (1.7-8.2); BASOPHILS % (AUTO) 0.7 % (0-2); EOSINOPHILS % (AUTO) 0.3 % (0-6); HEMATOCRIT 40.1 % (36.0-47.0); HEMOGLOBIN 13.4 g/dL (12.0-15.5); LYMPHOCYTES % (AUTO) 30.4 % (13-45); MEAN CORPUSCULAR HEMOGLOBIN 30.6 pg (27.0-33.4); MEAN CORPUSCULAR HGB CONC 33.3 g/dL (32.0-36.0); MEAN CORPUSCULAR VOLUME 92 fl (80-97); MONOCYTES % (AUTO) 9.9 % (3-13); PLATELET COUNT 100 10^3/uL (150-450); RED BLOOD COUNT 4.36 10^6/uL (3.72-5.28); SEGMENTED NEUTROPHILS % (AUTO) 58.7 % (42-78); TOTAL CELLS COUNTED % (AUTO) 100 %; WHITE BLOOD COUNT 4.2 10^3/uL (4.0-10.5)
[2018-10-26] MEDS ORDERED: NORMAL SALINE 1000 ML 1,000 ML IV ONE (18:40)
[2018-10-26 20:39] LABS: AMORPHOUS SEDIMENT,URINE TRACE /HPF; APPEARANCE,URINE CLOUDY; BILIRUBIN,URINE NEGATIVE (NEGATIVE); COLOR,URINE AMBER; GLUCOSE, URINE NEGATIVE (NEGATIVE); KETONES,URINE NEGATIVE (NEGATIVE); LEUKOCYTE ESTERASE,URINE LARGE (NEGATIVE); NITRITE,URINE NEGATIVE (NEGATIVE); PROTEIN,URINE NEGATIVE (NEGATIVE); URINE SPECIFIC GRAVITY 1.011
[2018-10-26 21:11] LABS: ALBUMIN 3.4 g/dL (3.5-5.0); ALKALINE PHOSPHATASE 144 U/L (38-126); ANION GAP 12 (5-19); ASPARTATE AMINO TRANSFERASE 22 U/L (14-36); BILIRUBIN,DIRECT 0.6 mg/dL (0.0-0.4); BILIRUBIN,TOTAL 0.9 mg/dL (0.2-1.3); BLOOD UREA NITROGEN 55 mg/dL (7-20); CALCIUM 9.2 mg/dL (8.4-10.2); CARBON DIOXIDE 19 mmol/L (22-30); CHLORIDE 100 mmol/L (98-107); GLUCOSE 108 mg/dL (75-110); POTASSIUM 3.9 mmol/L (3.6-5.0); TOTAL PROTEIN 6.6 g/dL (6.3-8.2)
[2018-10-26] MEDS ORDERED: CEFTRIAXONE 1 GM/D5W RTU 1 GM/50 ML RTUPB IV ONE (21:27)
--- NOTE | 2018-10-26 22:31 | ER Document Report ---
ED Dizziness/Weakness - General Chief Complaint: Altered Mental Status Stated Complaint: ABNORMAL LABS Time Seen by Provider: 10/26/18 18:28 Primary Care Provider: GUNJAN LARA MD [Primary Care Provider] - Follow up as needed Mode of Arrival: Medic Information source: Patient TRAVEL OUTSIDE OF THE [place] IN LAST 30 DAYS: No - HPI Notes: Patient is sent from [facility] with altered mental status. Apparently the altered mental status has been for today only. Most of the history was obtained from paramedics. Patient is oriented to place and name but is not a good historian. Patient does state that she felt confused this morning but does not feel confused now. Patient denies any pain. No shortness of ayla th. No known vomiting diarrhea or fevers. No known recent falls or trauma. Symptoms have been intermittent. Nothing known that makes them better or worse. No known radiation of the symptoms. Symptoms apparently have been moderate. - Related Data Allergies/Adverse Reactions: morphine [Morphine] Adverse Reaction (Mild, Verified 03/19/17 04:36) Dizziness Past Medical History - General Information source: Patient - Social History Smoking Status: Never Smoker Frequency of alcohol use: None Drug Abuse: None Family History: Reviewed & Not Pertinent, Hypertension Patient has suicidal ideation: No Patient has homicidal ideation: No - Past Medical History Cardiac Medical History: Reports: Hx Atrial Fibrillation - flutter, Hx Congestive Heart Failure, Hx Hypertension, Hx Peripheral Vascular Disease Denies: Hx Coronary Artery Disease, Hx Heart Attack Pulmonary Medical History: Reports: Hx Asthma, Hx Bronchitis, Hx COPD Denies: Hx Pneumonia, Hx Tuberculosis Neurological Medical History: Denies: Hx Cerebrovascular Accident, Hx Seizures Endocrine Medical History: Reports: Hx Diabetes Mellitus Type 2 Renal/ Medical History: Reports: Hx End Stage Renal Disease, Hx Kidney Stones, Hx Renal Insufficiency. Denies: Hx Peritoneal Dialysis GI Medical History: Reports: Hx Gastroesophageal Reflux Disease. Denies: Hx Hepatitis, Hx Hiatal Hernia, Hx Ulcer Musculoskeletal Medical History: Reports Hx Arthritis Skin Medical History: Reports Hx Cellulitis Infectious Medical History: Denies: Hx Hepatitis Past Surgical History: Reports: Hx Cholecystectomy, Hx Genitourinary Surgery - bladder. Denies: Hx Mastectomy, Hx Open Heart Surgery, Hx Pacemaker - Immunizations Hx Diphtheria, Pertussis, Tetanus Vaccination: Yes Hx Pneumococcal Vaccination: 11/24/11 Review of Systems - Review of Systems Constitutional: Malaise, Weakness Cardiovascular: denies: Chest pain, Palpitations Respiratory: denies: Cough, Short of breath Gastrointestinal: denies: Abdominal pain, Vomiting -: Yes All other systems reviewed and negative Physical Exam - Vital signs Vitals: Resp Pulse Ox 14 100 10/26/18 18:00 10/26/18 18:00 Interpretation: Normal - General General appearance: Appears well, Alert In distress: None - HEENT Head: Normocephalic, Atraumatic Eyes: Normal Pupils: PERRL - Respiratory Respiratory status: No respiratory distress Chest status: Nontender Breath sounds: Normal Chest palpation: Normal - Cardiovascular Rhythm: Regular Heart sounds: Normal auscultation Murmur: No - Abdominal Inspection: Normal Distension: No distension Bowel sounds: Normal Tenderness: Nontender Organomegaly: No organomegaly - Back Back: Normal, Nontender - Extremities General upper extremity: Normal inspection, Nontender, Normal color, Normal ROM, Normal temperature General lower extremity: Normal inspection, Nontender, Edema - 2+ pitting bilaterally, Normal color, Normal ROM, Normal temperature - Neurological Neuro grossly intact: Yes Cognition: Normal, Confused Orientation: Disoriented to time [place] Coma Scale Eye Opening: Spontaneous [place] Coma Scale Verbal: Confused [place] Coma Scale Motor: Obeys Commands [place] Coma Scale Total: 14 Speech: Normal Motor strength normal: LUE, RUE Sensory: Normal - Psychological Associated symptoms: Normal affect, Normal mood - Skin Skin Temperature: Warm Skin Moisture: Dry Skin Color: Normal Course - Vital Signs Vital signs: Temp Pulse Resp BP Pulse Ox 26 H 99/76 L 99 10/26/18 22:09 10/26/18 22:09 10/26/18 22:09 - Laboratory Result Diagrams: 10/26/18 18:08 10/26/18 19:58 Laboratory results interpreted by me: 10/26/18 10/26/18 10/26/18 18:08 19:58 20:12 RDW 17.0 H Plt Count 100 L Sodium 131.1 L Carbon Dioxide 19 L BUN 55 H Creatinine 2.21 H Est GFR ( Amer) 26 L Est GFR (MDRD) Non-Af 21 L Direct Bilirubin 0.6 H Alkaline Phosphatase 144 H Albumin 3.4 L Urine Blood SMALL H Urine Urobilinogen 2.0 H Ur Leukocyte Esterase LARGE H - EKG Interpretation by Me Rate: Normal - 90 Rhythm: A.Flutter [place]/QRS: No: RBBB, LBBB, IVCD Discharge - Discharge Clinical Impression: Altered mental status UTI (urinary tract infection) Qualifiers: Urinary tract infection type: acute cystitis Hematuria presence: without hematuria Qualified Code(s): N30.00 - Acute cystitis without hematuria Condition: Stable Disposition: ADMITTED INPATIENT Admitting Provider: Kaye (Hospitalist) Unit Admitted: Telemetry Referrals: GUNJAN LARA MD [Primary Care Provider] - Follow up as needed
[2018-10-26] MEDS ORDERED: NORMAL SALINE 1000 ML 1,000 ML IV PRN (22:39)
[2018-10-26] MEDS ORDERED: LEVALBUTEROL HCL NEB 0.63 MG/3 ML AMPUL NEB PRN (22:58)
[2018-10-26] MEDS ORDERED: ONDANSETRON HCL INJ/PF 4 MG/2 ML SDV IV PRN (22:58)
[2018-10-26] MEDS ORDERED: MAG HYDROX/AL HYDROX/SIMETH SUSP 30 ML UDCUP PO PRN (22:58)
[2018-10-26] MEDS ORDERED: MAGNESIUM HYDROXIDE SUSP 30 ML UDCUP PO PRN (22:58)
--- NOTE | 2018-10-26 23:03 | EKG REPORT ---
SEVERITY:- ABNORMAL ECG - A-FLUTTER W/ PREDOM 3:1 AV BLOCK, A-RATE 272 NONSPECIFIC T ABNORMALITIES, DIFFUSE LEADS : Confirmed by: Chacorta Garland 26-Oct-2018 23:03:04
[2018-10-26 23:40] LABS: FREE T3 2.1 pg/mL (2.77-5.27); FREE T4 (FREE THYROXINE) 1.24 ng/dL (0.78-2.19)
[2018-10-26 23:54] LABS: THYROID STIMULATING HORMONE 1.27 uIU/mL (0.47-4.68)
[2018-10-27 00:18] LABS: INTERNATIONAL RATION (INR) 1.24; PROTHROMBIN TIME 15.7 SEC (11.4-15.4)
[2018-10-27] MEDS ORDERED: WARFARIN SODIUM 5 MG TABLET PO ONE (00:45)
--- NOTE | 2018-10-27 01:25 | PDOC H&P ---
History of Present Illness Admission Date/PCP: 10/26/2018 22:28 GUNJAN LARA Patient complains of: Altered mental status History of Present Illness: ANTHONY PELLETIER is a 83 year old female who presented to the emergency room via EMS with acute changes in her mental status. Patient is a [place] [facility] resident and was transferred to the emergency room due to increased confusion. Patient is very pleasant and makes efforts at providing history but is not reliable due to her confusion. [facility] staff did not indicate any additional associated or accompanying signs or symptoms. Patient has suffered from similar symptoms in the past with infections. [facility] staff did not report any identified aggravating or ameliorating factors for patient's change in mental status. In the emergency room she was found to have pyuria consistent with a urinary tract infection and a slightly depressed serum bicarbonate at 19. Patient was subsequently admitted to hospital for further evaluation and treatment. Past Medical History Past Medical History: Past medical history, past surgical history, social history and family history are obtained from the best reliable sources due to the patient's confusion and unreliable answers. Cardiac Medical History: Reports: Atrial Fibrillation - flutter, Congestive Heart Failure, DVT, Hypertension, Peripheral Vascular Disease Denies: Coronary Artery Disease, Myocardial Infarction Pulmonary Medical History: Reports: Asthma, Bronchitis, Chronic Obstructive Pulmonary Disease (COPD) Denies: Pneumonia, Tuberculosis EENT Medical History: Denies: Cataracts, Ears - Hearing aids Neurological Medical History: Denies: Hemorrhagic CVA, Ischemic CVA, Seizures Endocrine Medical History: Reports: Diabetes Mellitus Type 2, Obesity Denies: Diabetes Mellitus Type 1 Renal/ Medical History: Reports: Chronic Kidney Disease Denies: Nephrolithiasis Malignancy Medical History: Reports: None GI Medical History: Reports: Gastroesophageal Reflux Disease, Other - Constipation Denies: Cirrhosis, Crohn's Disease, Hepatitis, Hiatal Hernia, Ulcerative Colitis Musculoskeltal Medical History: Reports: Arthritis, Gout Skin Medical History: Denies: Eczema, Psoriasis Psychiatric Medical History: Denies: Alcohol Dependency, Substance Abuse, Tobacco Dependency Traumatic Medical History: Reports: None Hematology: Reports: Anemia Denies: Bleeding Tendencies Infectious Medical History: Reports: None Past Surgical History Past Surgical History: Reports: Cholecystectomy Social History Information Source: Emergency Med Personnel, [facility], [facility] Records Lives with: Group Home Smoking Status: Never Smoker Frequency of Alcohol Use: None Hx Recreational Drug Use: No Drugs: None Hx Prescription Drug Abuse: No - Advance Directive Resuscitation Status: Full Code Surrogate healthcare decision maker:: Stephen Mikey Family History Family History: Hypertension Parental Family History Reviewed: Yes Children Family History Reviewed: No Sibling(s) Family History Reviewed.: Yes Medication/Allergy Home Medications: Allopurinol [Zyloprim 100 mg Tablet] 100 mg PO DAILY 03/18/17 Furosemide [Lasix 40 mg Tablet] 40 mg PO QAM 03/18/17 Ipratropium/Albuterol Sulfate [Duoneb 3 ml Ampul] 3 ml NEB [id number] PRN 03/18/17 Midodrine HCl [Proamatine 5 mg Tablet] 5 mg PO DAILY 03/18/17 Omeprazole 20 mg PO DAILY 03/18/17 Polyethylene Glycol 3350 [Miralax Powder 17 gm/Packet] 1 packet PO DAILY Sennosides [Senna] 8.6 mg PO DAILY 03/18/17 Sodium Bicarbonate [Sodium Bicarbonate 650 mg Tablet] 650 mg PO BID 03/18/17 Docusate Sodium [Colace 100 mg Capsule] 100 mg PO DAILY capsule 03/30/17 Metoprolol Succinate [Toprol Xl 50 mg Tab.sr] 50 mg PO DAILY #30 tab.sr.24h 03/30/17 Warfarin Sodium [Coumadin 5 mg Tablet] 5 mg PO QHS tablet 03/30/17 Amox Tr/Potassium Clavulanate [Augmentin 875-125 Tablet] 1 tab PO BID 7 Days #14 tablet 08/07/18 Cephalexin Monohydrate [Keflex 500 mg Capsule] 500 mg PO QID #20 capsule 09/29/18 Allergies/Adverse Reactions: morphine [Morphine] Adverse Reaction (Mild, Verified 03/19/17 04:36) Dizziness Review of Systems ROS unobtainable: Due to mental status Physical Exam Vital Signs: Temp Pulse Resp BP Pulse Ox 26 H 99/76 L 99 10/26/18 22:09 10/26/18 22:09 10/26/18 22:09 Intake & Output 10/24/18 10/25/18 10/26/18 23:59 23:59 23:59 Intake Total 1050 Balance 1050 General appearance: PRESENT: no acute distress, cooperative, morbidly obese Head exam: PRESENT: atraumatic, normocephalic Eye exam: PRESENT: conjunctiva pink. ABSENT: conjunctival injection, scleral icterus Ear exam: PRESENT: normal external ear exam. ABSENT: bleeding, drainage Mouth exam: PRESENT: dry mucosa, neck supple Teeth exam: PRESENT: poor dentation, other - chronic gingival disease Neck exam: ABSENT: JVD, thyromegaly, tracheal deviation Respiratory exam: PRESENT: clear to auscultation mariama, symmetrical, unlabored Cardiovascular exam: PRESENT: irregular rhythm - Rhythm is irregularly irregular with occasional longer periods of regularity followed by irregularly irregular rhythm.. ABSENT: clicks, gallop, rubs Pulses: PRESENT: normal radial pulses, normal dorsalis pedis pul GI/Abdominal exam: PRESENT: normal bowel sounds, soft Rectal exam: PRESENT: deferred Extremities exam: ABSENT: pedal edema, tenderness Musculoskeletal exam: ABSENT: deformity, dislocation Neurological exam: PRESENT: awake, oriented to person - Oriented only to self, CN II-XII grossly intact - Very limited exam. ABSENT: oriented to place, oriented to time, oriented to situation, motor sensory deficit - To gross exam only Psychiatric exam: PRESENT: appropriate affect, normal mood, other - Pleasant and affable but confused Skin exam: PRESENT: dry, intact, warm. ABSENT: jaundice, rash, urticaria Results Laboratory Results: 10/26/18 18:08 10/26/18 19:58 10/26/18 10/26/18 10/26/18 18:08 18:08 19:58 WBC 4.2 RBC 4.36 Hgb 13.4 Hct 40.1 MCV 92 MCH 30.6 MCHC 33.3 RDW 17.0 H Plt Count 100 L Seg Neutrophils % 58.7 Sodium Cancelled 131.1 L Potassium Cancelled 3.9 Chloride Cancelled 100 Carbon Dioxide Cancelled 19 L Anion Gap Cancelled 12 BUN Cancelled 55 H Creatinine Cancelled 2.21 H Est GFR ( Amer) Cancelled 26 L Est GFR (Non-Af Amer) Cancelled Glucose Cancelled 108 Calcium Cancelled 9.2 Total Bilirubin Cancelled 0.9 AST Cancelled 22 Alkaline Phosphatase Cancelled 144 H Total Protein Cancelled 6.6 Albumin Cancelled 3.4 L Urine Color Urine Appearance Urine pH Ur Specific [place] Urine Protein Urine Glucose (UA) Urine Ketones Urine Blood Urine Nitrite Ur Leukocyte Esterase Urine WBC (Auto) Urine RBC (Auto) 10/26/18 20:12 WBC RBC Hgb Hct MCV MCH MCHC RDW Plt Count Seg Neutrophils % Sodium Potassium Chloride Carbon Dioxide Anion Gap BUN Creatinine Est GFR ( Amer) Est GFR (Non-Af Amer) Glucose Calcium Total Bilirubin AST Alkaline Phosphatase Total Protein Albumin Urine Color HEATHER Urine Appearance CLOUDY Urine pH 5.0 Ur Specific [place] 1.011 Urine Protein NEGATIVE Urine Glucose (UA) NEGATIVE Urine Ketones NEGATIVE Urine Blood SMALL H Urine Nitrite NEGATIVE Ur Leukocyte Esterase LARGE H Urine WBC (Auto) 62 Urine RBC (Auto) 6 Assessment and Plan - Diagnosis (1) Acute metabolic encephalopathy Is this a current diagnosis for this admission?: Yes Plan: Patient's encephalopathy will be evaluated with close observation and neuro checks. As her urinary tract infection is treated it is expected that her encephalopathy will improve back to her baseline. (2) UTI (urinary tract infection) Qualifiers: Urinary tract infection type: acute cystitis Hematuria presence: without hematuria Qualified Code(s): N30.00 - Acute cystitis without hematuria Is this a current diagnosis for this admission?: Yes Plan: Patient's urinary tract infection will be treated with IV Rocephin 1 g IV every 24 hours. (3) CKD (chronic kidney disease), stage IV Is this a current diagnosis for this admission?: Yes Plan: Patient's renal status will be observed closely throughout her hospital stay with daily metabolic profiles and magnesium levels as well as CBCs. (4) Atrial fibrillation and flutter Is this a current diagnosis for this admission?: Yes Plan: Patient will be continued on her usual medication for rate control and treatment of her chronic atrial fibrillation/flutter. (5) Chronic diastolic congestive heart failure Is this a current diagnosis for this admission?: Yes Plan: Patient be continued on her usual medications during her hospital course. - Time Time Spent with patient: 15-24 minutes Anticipated discharge: SNF - Inpatient Certification Based on my medical assessment, after consideration of the patient's comorbidities, presenting symptoms, or acuity I expect that the services needed warrant INPATIENT care.: Yes I certify that my determination is in accordance with my understanding of Medicare's requirements for reasonable and necessary INPATIENT services [42 CFR 412.3e].: Yes Medical Necessity: Significant Comorbidiites Make Outpatient Treatment Too Risky, Need For IV Fluids, Need for Neurological Checks, Need for IV Antibiotics, Risk of Complication if Not Cared For in Hospital
[2018-10-27] MEDS: RINGERS SOLUTION,LACTATED 1,000 ML IV PRN ×2 (03:34→16:17)
[2018-10-27] MEDS ORDERED: WARFARIN SODIUM 5 MG TABLET ONE (05:23)
[2018-10-27] MEDS: PANTOPRAZOLE SODIUM 40 MG TABLET.DR PO SCH (05:34)
[2018-10-27] MEDS ORDERED: HEPARIN SOD (PORCINE) 5,000 UNIT/ML 1 ML VIAL SUBCUT SCH (06:00)
[2018-10-27 08:06] LABS: HEMATOCRIT 40.3 % (36.0-47.0); HEMOGLOBIN 13.3 g/dL (12.0-15.5); MEAN CORPUSCULAR HEMOGLOBIN 30.6 pg (27.0-33.4); MEAN CORPUSCULAR HGB CONC 32.9 g/dL (32.0-36.0); MEAN CORPUSCULAR VOLUME 93 fl (80-97); RED BLOOD COUNT 4.33 10^6/uL (3.72-5.28); RED CELL DISTRIBUTION WIDTH 16.9 % (11.5-14.0)
[2018-10-27 08:09] LABS: INTERNATIONAL RATION (INR) 1.24; PROTHROMBIN TIME 15.7 SEC (11.4-15.4)
[2018-10-27 08:27] LABS: ANION GAP 12 (5-19); BLOOD UREA NITROGEN 50 mg/dL (7-20); CALCIUM 8.9 mg/dL (8.4-10.2); CARBON DIOXIDE 18 mmol/L (22-30); CHLORIDE 102 mmol/L (98-107); GLUCOSE 109 mg/dL (75-110); POTASSIUM 3.4 mmol/L (3.6-5.0)
[2018-10-27 08:34] LABS: PLATELET COUNT 91 10^3/uL (150-450)
[2018-10-27 09:58] LABS: APPEARANCE,URINE SLIGHTLY-CLOUDY; BILIRUBIN,URINE NEGATIVE (NEGATIVE); COLOR,URINE YELLOW; GLUCOSE, URINE NEGATIVE (NEGATIVE); KETONES,URINE NEGATIVE (NEGATIVE); LEUKOCYTE ESTERASE,URINE LARGE (NEGATIVE); NITRITE,URINE NEGATIVE (NEGATIVE); PROTEIN,URINE NEGATIVE (NEGATIVE); URINE SPECIFIC GRAVITY 1.011; UROBILINOGEN,URINE NEGATIVE mg/dL (<2.0)
--- NOTE | 2018-10-27 10:54 | PDOC PROGRESS REPORT ---
Subjective Progress Note for:: 09/26/18 Subjective:: 83 year old female who presented to the emergency room via EMS with acute changes in her mental status. Patient is a [facility] resident and was transferred to the emergency room due to increased confusion. Patient is very pleasant and makes efforts at providing history but is not reliable due to her confusion. [facility] staff did not indicate any additional associated or accompanying signs or symptoms. Patient has suffered from similar symptoms in the past with infections. [facility] staff did not report any identified aggravating or ameliorating factors for patient's change in mental status. In the emergency room she was found to have pyuria consistent with a urinary tract infection and a slightly depressed serum bicarbonate at 19. Patient was subsequently admitted to hospital for further evaluation and treatment. 10/[id number]-kugi-old female admitted from the halfway for altered mental status. No acute events in the last 24 hours. Afebrile. Patient able to tell me she is in [facility] and she was able to give me her date of . Probably her mental status at baseline. Reason For Visit: ALTERED MENTAL STATUS Physical Exam Vital Signs: Temp Pulse Resp BP Pulse Ox 97.6 F 87 17 121/72 97 10/27/18 08:00 10/27/18 08:00 10/27/18 08:00 10/27/18 08:00 10/27/18 08:00 Intake & Output 10/26/18 10/27/18 10/28/18 06:59 06:59 06:59 Intake Total 2049 Balance 2049 Weight 128 kg General appearance: PRESENT: no acute distress, cooperative, morbidly obese Head exam: PRESENT: atraumatic Eye exam: PRESENT: PERRLA Mouth exam: PRESENT: neck supple Teeth exam: PRESENT: poor dentation Neck exam: ABSENT: carotid bruit, JVD, lymphadenopathy, thyromegaly Respiratory exam: PRESENT: decreased breath sounds Cardiovascular exam: PRESENT: RRR. ABSENT: diastolic murmur, rubs, systolic murmur GI/Abdominal exam: PRESENT: normal bowel sounds, soft. ABSENT: distended, guar ding, mass, organolmegaly, rebound, tenderness Rectal exam: PRESENT: deferred Gentrourinary exam: PRESENT: indwelling catheter Extremities exam: PRESENT: +2 edema Neurological exam: PRESENT: alert, awake, oriented to person, oriented to place, oriented to time, oriented to situation, CN II-XII grossly intact. ABSENT: motor sensory deficit Psychiatric exam: PRESENT: appropriate affect, normal mood. ABSENT: homicidal ideation, suicidal ideation Results Laboratory Results: 10/27/18 07:23 10/27/18 07:23 10/26/18 10/26/18 10/26/18 18:08 18:08 19:58 WBC 4.2 RBC 4.36 Hgb 13.4 Hct 40.1 MCV 92 MCH 30.6 MCHC 33.3 RDW 17.0 H Plt Count 100 L Seg Neutrophils % 58.7 Sodium Cancelled 131.1 L Potassium Cancelled 3.9 Chloride Cancelled 100 Carbon Dioxide Cancelled 19 L Anion Gap Cancelled 12 BUN Cancelled 55 H Creatinine Cancelled 2.21 H Est GFR ( Amer) Cancelled 26 L Est GFR (Non-Af Amer) Cancelled Glucose Cancelled 108 Calcium Cancelled 9.2 Magnesium Total Bilirubin Cancelled 0.9 AST Cancelled 22 Alkaline Phosphatase Cancelled 144 H Total Protein Cancelled 6.6 Albumin Cancelled 3.4 L TSH Free T4 Free T3 pg/mL Urine Color Urine Appearance Urine pH Ur Specific [place] Urine Protein Urine Glucose (UA) Urine Ketones Urine Blood Urine Nitrite Ur Leukocyte Esterase Urine WBC (Auto) Urine RBC (Auto) 10/26/18 10/26/18 10/27/18 19:58 20:12 07:23 WBC 3.0 L RBC 4.33 Hgb 13.3 Hct 40.3 MCV 93 MCH 30.6 MCHC 32.9 RDW 16.9 H Plt Count 91 L Seg Neutrophils % Sodium Potassium Chloride Carbon Dioxide Anion Gap BUN Creatinine Est GFR ( Amer) Est GFR (Non-Af Amer) Glucose Calcium Magnesium Total Bilirubin AST Alkaline Phosphatase Total Protein Albumin TSH 1.27 Free T4 1.24 Free T3 pg/mL 2.10 L Urine Color HEATHER Urine Appearance CLOUDY Urine pH 5.0 Ur Specific [place] 1.011 Urine Protein NEGATIVE Urine Glucose (UA) NEGATIVE Urine Ketones NEGATIVE Urine Blood SMALL H Urine Nitrite NEGATIVE Ur Leukocyte Esterase LARGE H Urine WBC (Auto) 62 Urine RBC (Auto) 6 10/27/18 10/27/18 07:23 09:35 WBC RBC Hgb Hct MCV MCH MCHC RDW Plt Count Seg Neutrophils % Sodium 132.1 L Potassium 3.4 L Chloride 102 Carbon Dioxide 18 L Anion Gap 12 BUN 50 H Creatinine 2.06 H Est GFR ( Amer) 28 L Est GFR (Non-Af Amer) Glucose 109 Calcium 8.9 Magnesium 2.4 H Total Bilirubin AST Alkaline Phosphatase Total Protein Albumin TSH Free T4 Free T3 pg/mL Urine Color YELLOW Urine Appearance SLIGHTLY-CLOUDY Urine pH 5.0 Ur Specific [place] 1.011 Urine Protein NEGATIVE Urine Glucose (UA) NEGATIVE Urine Ketones NEGATIVE Urine Blood SMALL H Urine Nitrite NEGATIVE Ur Leukocyte Esterase LARGE H Urine WBC (Auto) 39 Urine RBC (Auto) 3 Assessment and Plan - Diagnosis (1) Acute metabolic encephalopathy Is this a current diagnosis for this admission?: Yes Plan: Patient's encephalopathy will be evaluated with close observation and neuro checks. As her urinary tract infection is treated it is expected that her encephalopathy will improve back to her baseline. 10/[id number]-kbhm-old female admitted from the halfway for altered mental status. May be secondary to UTI. Looks like her mental status back to baseline. Plan is to continue to closely monitor her and probably may discharge her back to halfway tomorrow. (2) UTI (urinary tract infection) Qualifiers: Urinary tract infection type: acute cystitis Hematuria presence: without hematuria Qualified Code(s): N30.00 - Acute cystitis without hematuria Is this a current diagnosis for this admission?: Yes Plan: Patient's urinary tract infection will be treated with IV Rocephin 1 g IV every 24 hours. 10/27/2018-patient came in with abnormal urine culture is pending. On IV Rocephin 1 g daily. Waiting for the culture report. (3) Chronic diastolic congestive heart failure Is this a current diagnosis for this admission?: Yes Plan: Patient be continued on her usual medications during her hospital course. 10/27/2018-patient has a chronic diastolic heart failure. She has 2+ pedal edema present. Plan is to closely monitor her volume status. Blood pressure is 106/70. (4) Atrial fibrillation and flutter Is this a current diagnosis for this admission?: Yes Plan: Patient will be continued on her usual medication for rate control and treatment of her chronic atrial fibrillation/flutter. 10/27/2018-patient has history of chronic atrial fibrillation and atrial flutter. Presently on Coumadin at home. inr is 1.24. Plan is to recheck PT/INR tomorrow. (5) Morbid obesity Is this a current diagnosis for this admission?: Yes Plan: 10/27/2018-patient BMI is more than 47. Dietary complaints discussed with the patient. (6) CKD (chronic kidney disease), stage IV Is this a current diagnosis for this admission?: Yes Plan: Patient's renal status will be observed closely throughout her hospital stay with daily metabolic profiles and magnesium levels as well as CBCs. 10/27/2018-patient serum creatinine is 2.06. She has a stage IV kidney disease most likely secondary to hypertension. - Time Time Spent with patient: 25-34 minutes Medications reviewed and adjusted accordingly: Yes Anticipated discharge: SNF
[2018-10-27] MEDS: MIDODRINE HCL 5 MG TABLET PO SCH ×3 (11:18→18:40)
[2018-10-27] MEDS: DOCUSATE SODIUM 100 MG CAPSULE PO SCH ×2 (11:19→18:20)
[2018-10-27] MEDS: POTASSIUM CHLORIDE 10 MEQ CAPSULE.ER PO SCH (11:19)
[2018-10-27] MEDS: ALLOPURINOL 100 MG TABLET PO SCH (11:21)
[2018-10-27] MEDS: METOPROLOL SUCCINATE 50 MG TAB.SR.24H PO SCH (11:21)
[2018-10-27] MEDS: CALCITRIOL 0.25 MCG CAPSULE PO SCH (11:21)
[2018-10-27] MEDS: SENNOSIDES/DOCUSATE 8.6-50 MG 1 EACH TABLET PO SCH (14:31)
[2018-10-27] MEDS: PRENATAL VITAMIN W DHA CAPSULE PO SCH (16:22)
[2018-10-27] MEDS: SODIUM BICARBONATE 650 MG TABLET PO SCH (16:23)
[2018-10-27] MEDS ORDERED: WARFARIN SODIUM 5 MG TABLET PO SCH (22:00)
[2018-10-27] MEDS ORDERED: (PENDING PHARMACY ID) (Warfarin Sodium 2 MG) PO SCH (22:00)
[2018-10-27] MEDS: CEFTRIAXONE 1 GM/D5W RTU 1 GM/50 ML RTUPB IV SCH (23:35)
[2018-10-28] MEDS: MIRTAZAPINE 15 MG TABLET PO SCH ×2 (03:46→21:59)
[2018-10-28] MEDS: SODIUM BICARBONATE 650 MG TABLET PO SCH ×5 (03:48→21:59)
[2018-10-28] MEDS: WARFARIN SODIUM 3 MG TABLET PO SCH ×2 (05:59→21:58)
[2018-10-28] MEDS: PANTOPRAZOLE SODIUM 40 MG TABLET.DR PO SCH (06:00)
[2018-10-28 06:25] LABS: INTERNATIONAL RATION (INR) 1.33; PROTHROMBIN TIME 16.6 SEC (11.4-15.4)
[2018-10-28 06:43] LABS: ANION GAP 12 (5-19); BLOOD UREA NITROGEN 52 mg/dL (7-20); CALCIUM 8.9 mg/dL (8.4-10.2); CARBON DIOXIDE 19 mmol/L (22-30); CHLORIDE 102 mmol/L (98-107); GLUCOSE 102 mg/dL (75-110); POTASSIUM 3.4 mmol/L (3.6-5.0)
[2018-10-28 06:45] LABS: HEMATOCRIT 36.5 % (36.0-47.0); HEMOGLOBIN 12.2 g/dL (12.0-15.5); MEAN CORPUSCULAR HEMOGLOBIN 30.6 pg (27.0-33.4); MEAN CORPUSCULAR HGB CONC 33.4 g/dL (32.0-36.0); MEAN CORPUSCULAR VOLUME 92 fl (80-97); RED BLOOD COUNT 3.98 10^6/uL (3.72-5.28); RED CELL DISTRIBUTION WIDTH 16.5 % (11.5-14.0); WHITE BLOOD COUNT 4.3 10^3/uL (4.0-10.5)
[2018-10-28 07:15] LABS: PLATELET COUNT 80 10^3/uL (150-450)
[2018-10-28] MEDS ORDERED: (PENDING PHARMACY ID) (Sennosides [Senna] 8.6 MG) PO SCH (10:00)
[2018-10-28] MEDS ORDERED: (PENDING PHARMACY ID) (Multivitamin With Minerals [One Daily Plus Minerals] 1 EACH) PO SCH (10:00)
[2018-10-28] MEDS: DOCUSATE SODIUM 100 MG CAPSULE PO SCH ×2 (10:52→17:23)
[2018-10-28] MEDS: SENNOSIDES/DOCUSATE 8.6-50 MG 1 EACH TABLET PO SCH (10:52)
[2018-10-28] MEDS ORDERED: LORAZEPAM INJ 2 MG/1 ML VIAL IV PRN (10:53)
--- NOTE | 2018-10-28 10:58 | PDOC PROGRESS REPORT ---
Subjective Progress Note for:: 10/28/18 Subjective:: 83 year old female who presented to the emergency room via EMS with acute changes in her mental status. Patient is a [facility] resident and was transferred to the emergency room due to increased confusion. Patient is very pleasant and makes efforts at providing history but is not reliable due to her confusion. [facility] staff did not indicate any additional associated or accompanying signs or symptoms. Patient has suffered from similar symptoms in the past with infections. [facility] staff did not report any identified aggravating or ameliorating factors for patient's change in mental status. In the emergency room she was found to have pyuria consistent with a urinary tract infection and a slightly depressed serum bicarbonate at 19. Patient was subsequently admitted to hospital for further evaluation and treatment. 10/[id number]-mazq-old female admitted from the [facility] for altered mental status. No acute events in the last 24 hours. Afebrile. Patient able to tell me she is in [facility] and she was able to give me her date of . Probably her mental status at baseline. 10/28/[id number]-msuu-old female admitted from the [facility] for altered mental status most likely secondary to underlying dementia. Patient able to take her breakfast this morning but getting more agitated and not cooperative with staff and she is refusing to take her medications. To start her on Ativan 1 mg IV every 6 PRN for agitation. Reason For Visit: ALTERED MENTAL STATUS Physical Exam Vital Signs: Temp Pulse Resp BP Pulse Ox 97.4 F 75 17 143/51 H 100 10/28/18 07:52 10/28/18 07:52 10/28/18 07:52 10/28/18 07:52 10/28/18 07:52 Intake & Output 10/27/18 10/28/18 10/29/18 06:59 06:59 06:59 Intake Total 2049 241 Output Total 800 Balance 2049 161 Weight 128 kg 130.2 kg General appearance: PRESENT: no acute distress, cooperative, morbidly obese Head exam: PRESENT: atraumatic Eye exam: PRESENT: PERRLA Mouth exam: PRESENT: neck supple Teeth exam: PRESENT: poor dentation Neck exam: ABSENT: carotid bruit, JVD, lymphadenopathy, thyromegaly Respiratory exam: PRESENT: decreased breath sounds Cardiovascular exam: PRESENT: RRR. ABSENT: diastolic murmur, rubs, systolic murmur GI/Abdominal exam: PRESENT: normal bowel sounds, soft. ABSENT: distended, guarding, mass, organolmegaly, rebound, tenderness Rectal exam: PRESENT: deferred Gentrourinary exam: PRESENT: indwelling catheter Extremities exam: PRESENT: +2 edema Neurological exam: PRESENT: alert, awake, CN II-XII grossly intact. ABSENT: motor sensory deficit Psychiatric exam: PRESENT: agitated Results Laboratory Results: 10/28/18 05:59 10/28/18 05:59 10/28/18 10/28/18 05:59 05:59 WBC 4.3 RBC 3.98 Hgb 12.2 Hct 36.5 MCV 92 MCH 30.6 MCHC 33.4 RDW 16.5 H Plt Count 80 L Sodium 132.9 L Potassium 3.4 L Chloride 102 Carbon Dioxide 19 L Anion Gap 12 BUN 52 H Creatinine 2.24 H Est GFR ( Amer) 25 L Glucose 102 Calcium 8.9 Magnesium 2.3 Assessment and Plan - Diagnosis (1) Acute metabolic encephalopathy Is this a current diagnosis for this admission?: Yes Plan: Patient's encephalopathy will be evaluated with close observation and neuro checks. As her urinary tract infection is treated it is expected that her encephalopathy will improve back to her baseline. 10/27/[id number]-vkyo-old female admitted [facility] the [facility] for altered mental status. May be secondary to UTI. Looks like her mental status back to baseline. Plan is to continue to closely monitor her and probably may discharge her back to [facility] tomorrow. 10/28/2018-altered mental status/acute encephalopathy most likely secondary to underlying UTI and underlying advanced dementia. To start her on Ativan 1 mg IV every 6 PRN for agitation. Urine culture is positive for gram-positive cocci in chains. On ceftriaxone plan is to continue the antibiotic at this moment. (2) UTI (urinary tract infection) Qualifiers: Urinary tract infection type: acute cystitis Hematuria presence: without hematuria Qualified Code(s): N30.00 - Acute cystitis without hematuria Is this a current diagnosis for this admission?: Yes Plan: Patient's urinary tract infection will be treated with IV Rocephin 1 g IV every 24 hours. 10/27/2018-patient came in with abnormal urine culture is pending. On IV Rocephin 1 g daily. Waiting for the culture report. 10/28/2018-urine culture is positive for gram-positive cocci in chains on IV ceftriaxone plan is to continue the present management. (3) Chronic diastolic congestive heart failure Is this a current diagnosis for this admission?: Yes Plan: Patient be continued on her usual medications during her hospital course. 10/27/2018-patient has a chronic diastolic heart failure. She has 2+ pedal edema present. Plan is to closely monitor her volume status. Blood pressure is 106/70. 10/28/2018-patient has history of chronic diastolic heart failure she has 2+ pedal edema plan is to discontinue her IV fluids. To watch for the fluid overload. Latest blood pressure is 143/60. (4) Atrial fibrillation and flutter Is this a current diagnosis for this admission?: Yes Plan: Patient will be continued on her usual medication for rate control and treatment of her chronic atrial fibrillation/flutter. 10/27/2018-patient has history of chronic atrial fibrillation and atrial flutter. Presently on Coumadin at home. inr is 1.24. Plan is to recheck PT/INR tomorrow. 10/28/2018-patient has history of chronic atrial fibrillation on Coumadin. INR is 1.33 subtherapeutic. Coumadin dose is managed by the pharmacy. (5) Morbid obesity Is this a current diagnosis for this admission?: Yes Plan: 10/27/2018-patient BMI is more than 47. Dietary complaints discussed with the patient. (6) CKD (chronic kidney disease), stage IV Is this a current diagnosis for this admission?: Yes Plan: Patient's renal status will be observed closely throughout her hospital stay with daily metabolic profiles and magnesium levels as well as CBCs. 10/27/2018-patient serum creatinine is 2.06. She has a stage IV kidney disease most likely secondary to hypertension. 10/28/2018-patient has history of stage IV kidney disease most likely secondary to chronic hypertension creatinine today is 2.24. Plan is to continue to closely monitor the labs. - Time Time Spent with patient: 25-34 minutes Medications reviewed and adjusted accordingly: Yes Anticipated discharge: SNF
[2018-10-28] MEDS: ALLOPURINOL 100 MG TABLET PO SCH (10:59)
[2018-10-28] MEDS: PRENATAL VITAMIN W DHA CAPSULE PO SCH (10:59)
[2018-10-28] MEDS: METOPROLOL SUCCINATE 50 MG TAB.SR.24H PO SCH (10:59)
[2018-10-28] MEDS: CALCITRIOL 0.25 MCG CAPSULE PO SCH (10:59)
[2018-10-28] MEDS: POTASSIUM CHLORIDE 10 MEQ CAPSULE.ER PO SCH (10:59)
[2018-10-28] MEDS: MIDODRINE HCL 5 MG TABLET PO SCH ×4 (10:59→18:53)
[2018-10-28] MEDS ORDERED: NORMAL SALINE 1000 ML 1,000 ML IV PRN (12:45)
--- NOTE | 2018-10-28 13:55 | Progress Note ---
Provider Note Provider Note: 10/28/[id number]-vutx-old female admitted for altered mental status now the blood pressures are running low she received 1 L of normal saline bolus not on antihypertensives still systolic blood pressure in the 80s heart rates dropped to 40s. She did not receive any beta-blockers today. Plan is to move her to IMCU and started her on dopamine drip. Patient is still full code. If the patient's condition is not improved, to move her to ICU. I am going to get in touch with the family members and give them an update.
--- NOTE | 2018-10-28 14:28 | EKG REPORT ---
SEVERITY:- ABNORMAL ECG - ATRIAL FIBRILLATION NONSPECIFIC INTRAVENTRICULAR CONDUCTION DELAY : Confirmed by: Chacorta Garland 28-Oct-2018 14:28:08
[2018-10-28] MEDS ORDERED: DOPAMINE HCL/DEXTROSE 5%-WATER 800 MG/250 ML RTUINJ IV PRN (15:00)
[2018-10-28 20:19] LABS: TROPONIN I 0.025 ng/mL
[2018-10-28 20:23] LABS: CREATINE KINASE MB < 0.22 ng/mL (<4.55)
[2018-10-28] MEDS: CEFTRIAXONE 1 GM/D5W RTU 1 GM/50 ML RTUPB IV SCH (22:01)
[2018-10-29 02:24] LABS: TROPONIN I 0.029 ng/mL
[2018-10-29 02:29] LABS: CREATINE KINASE MB < 0.22 ng/mL (<4.55)
[2018-10-29] MEDS: PANTOPRAZOLE SODIUM 40 MG TABLET.DR PO SCH (05:13)
[2018-10-29] MEDS: SODIUM BICARBONATE 650 MG TABLET PO SCH ×4 (05:13→21:23)
[2018-10-29 08:09] LABS: ABSOLUTE LYMPHOCYTES (AUTO) 1.3 10^3/uL (0.5-4.7); ABSOLUTE MONOCYTES (AUTO) 0.4 10^3/uL (0.1-1.4); ABSOLUTE NEUT (AUTO) 2.4 10^3/uL (1.7-8.2); BASOPHILS % (AUTO) 0.4 % (0-2); EOSINOPHILS % (AUTO) 0.3 % (0-6); HEMATOCRIT 39.2 % (36.0-47.0); HEMOGLOBIN 12.9 g/dL (12.0-15.5); INTERNATIONAL RATION (INR) 1.31; LYMPHOCYTES % (AUTO) 31.8 % (13-45); MEAN CORPUSCULAR HEMOGLOBIN 30.4 pg (27.0-33.4); MEAN CORPUSCULAR VOLUME 92 fl (80-97); MONOCYTES % (AUTO) 9.2 % (3-13); PROTHROMBIN TIME 16.4 SEC (11.4-15.4); RED BLOOD COUNT 4.25 10^6/uL (3.72-5.28); RED CELL DISTRIBUTION WIDTH 16.9 % (11.5-14.0); SEGMENTED NEUTROPHILS % (AUTO) 58.3 % (42-78); TOTAL CELLS COUNTED % (AUTO) 100 %; WHITE BLOOD COUNT 4.1 10^3/uL (4.0-10.5)
[2018-10-29 08:26] LABS: ALBUMIN 3.3 g/dL (3.5-5.0); ALKALINE PHOSPHATASE 133 U/L (38-126); ANION GAP 13 (5-19); ASPARTATE AMINO TRANSFERASE 25 U/L (14-36); BILIRUBIN,DIRECT 0.5 mg/dL (0.0-0.4); BILIRUBIN,TOTAL 0.9 mg/dL (0.2-1.3); BLOOD UREA NITROGEN 51 mg/dL (7-20); CALCIUM 9.3 mg/dL (8.4-10.2); CARBON DIOXIDE 16 mmol/L (22-30); CHLORIDE 104 mmol/L (98-107); GLUCOSE 90 mg/dL (75-110); POTASSIUM 4.1 mmol/L (3.6-5.0); TOTAL PROTEIN 6.3 g/dL (6.3-8.2)
[2018-10-29 08:37] LABS: PLATELET COUNT 90 10^3/uL (150-450)
--- NOTE | 2018-10-29 08:52 | PDOC PROGRESS REPORT ---
Subjective Progress Note for:: 10/29/18 Subjective:: 83 year old female who presented to the emergency room via EMS with acute changes in her mental status. Patient is a assisted resident and was transferred to the emergency room due to increased confusion. Patient is very pleasant and makes efforts at providing history but is not reliable due to her confusion. intermediate staff did not indicate any additional associated or accompanying signs or symptoms. Patient has suffered from similar symptoms in the past with infections. intermediate staff did not report any identified aggravating or ameliorating factors for patient's change in mental status. In the emergency room she was found to have pyuria consistent with a urinary tract infection and a slightly depressed serum bicarbonate at 19. Patient was subsequently admitted to hospital for further evaluation and treatment. 10/27/[id number]-bmpt-old female admitted from the assisted for altered mental status. No acute events in the last 24 hours. Afebrile. Patient able to tell me she is in [facility] and she was able to give me her date of . Probably her mental status at baseline. 10/28/[id number]-vcok-old female admitted from the assisted for altered mental status most likely secondary to underlying dementia. Patient able to take her breakfast this morning but getting more agitated and not cooperative with staff and she is refusing to take her medications. To start her on Ativan 1 mg IV every 6 PRN for agitation. 10/29/[id number]-ixit-old female transferred from medical floor him to [facility] for hypotension and bradycardia. Initially on dopamine drip and blood pressure is improved heart rate went up to 130s dopamine drip was discontinued IV fluids are discontinued blood pressure this morning is 117/80. Mental status at her baseline. Heart rate is 88. Plan is to continue to closely monitor her in the IM. I spoke to the patient's son Stephen yesterday he is requesting for a full code. Reason For Visit: ALTERED MENTAL STATUS Physical Exam Vital Signs: Temp Pulse Resp BP Pulse Ox 97.5 F 87 12 117/79 98 10/29/18 03:28 10/29/18 07:00 10/29/18 03:28 10/29/18 03:28 10/29/18 03:28 Intake & Output 10/28/18 10/29/18 10/30/18 06:59 06:59 06:59 Intake Total 2410 1055 Output Total 800 265 Balance 1610 790 Weight 130.2 kg 130.4 kg General appearance: PRESENT: no acute distress, cooperative, morbidly obese Head exam: PRESENT: atraumatic Eye exam: PRESENT: PERRLA Mouth exam: PRESENT: moist, tongue midline Teeth exam: PRESENT: poor dentation Neck exam: ABSENT: carotid bruit, JVD, lymphadenopathy, thyromegaly Respiratory exam: PRESENT: decreased breath sounds Cardiovascular exam: PRESENT: irregular rhythm, RRR, systolic murmur. ABSENT: diastolic murmur, rubs GI/Abdominal exam: PRESENT: normal bowel sounds, soft. ABSENT: distended, guarding, mass, organolmegaly, rebound, tenderness Rectal exam: PRESENT: deferred Extremities exam: PRESENT: full ROM, +2 edema. ABSENT: calf tenderness, clubbing, pedal edema Neurological exam: PRESENT: alert, awake Psychiatric exam: PRESENT: appropriate affect, normal mood. ABSENT: homicidal ideation, suicidal ideation Results Laboratory Results: 10/29/18 07:53 10/29/18 07:53 10/28/18 10/29/18 10/29/18 12:43 07:53 07:53 WBC 4.1 RBC 4.25 Hgb 12.9 Hct 39.2 MCV 92 MCH 30.4 MCHC 33.0 RDW 16.9 H Plt Count 90 L Seg Neutrophils % 58.3 Sodium 133.4 L Potassium 4.1 Chloride 104 Carbon Dioxide 16 L Anion Gap 13 BUN 51 H Creatinine 2.19 H Est GFR ( Amer) 26 L Glucose 90 Lactic Acid 1.4 Calcium 9.3 Magnesium 2.4 H Total Bilirubin 0.9 AST 25 Alkaline Phosphatase 133 H Total Protein 6.3 Albumin 3.3 L 10/28/18 10/28/18 10/28/18 12:43 12:43 12:43 Creatine Kinase 27 L CK-MB (CK-2) < 0.22 Troponin I 0.026 Cancelled 10/28/18 10/28/18 10/29/18 19:45 19:45 01:46 Creatine Kinase 26 L 30 CK-MB (CK-2) < 0.22 Troponin I 0.025 10/29/18 01:46 Creatine Kinase CK-MB (CK-2) < 0.22 Troponin I 0.029 Assessment and Plan - Diagnosis (1) Acute metabolic encephalopathy Is this a current diagnosis for this admission?: Yes Plan: Patient's encephalopathy will be evaluated with close observation and neuro checks. As her urinary tract infection is treated it is expected that her encephalopathy will improve back to her baseline. 10/27/[id number]-ysly-old female admitted from the assisted for altered mental status. May be secondary to UTI. Looks like her mental status back to baseline. Plan is to continue to closely monitor her and probably may discharge her back to assisted tomorrow. 10/28/2018-altered mental status/acute encephalopathy most likely secondary to underlying UTI and underlying advanced dementia. To start her on Ativan 1 mg IV every 6 PRN for agitation. Urine culture is positive for gram-positive cocci in chains. On ceftriaxone plan is to continue the antibiotic at this moment. 10/29/2018-patient is alert and awake communicating okay in my opinion her mental status at baseline. (2) UTI (urinary tract infection) Qualifiers: Urinary tract infection type: acute cystitis Hematuria presence: without hematuria Qualified Code(s): N30.00 - Acute cystitis without hematuria Is this a current diagnosis for this admission?: Yes Plan: Patient's urinary tract infection will be treated with IV Rocephin 1 g IV every 24 hours. 10/27/2018-patient came in with abnormal urine culture is pending. On IV Rocephin 1 g daily. Waiting for the culture report. 10/28/2018-urine culture is positive for gram-positive cocci in chains on IV ceftriaxone plan is to continue the present management. 10/29/2018-urine culture is positive for gram-positive cocci in chains on IV Rocephin. Waiting for the sensitivity report. (3) Chronic diastolic congestive heart failure Is this a current diagnosis for this admission?: Yes Plan: Patient be continued on her usual medications during her hospital course. 10/27/2018-patient has a chronic diastolic heart failure. She has 2+ pedal edema present. Plan is to closely monitor her volume status. Blood pressure is 106/70. 10/28/2018-patient has history of chronic diastolic heart failure she has 2+ pedal edema plan is to discontinue her IV fluids. To watch for the fluid overload. Latest blood pressure is 143/60. 10/29/2018-patient has a chronic diastolic heart failure. She has a 2+ pedal edema with chronic skin changes. Blood pressure is 170/80 plan is to closely monitor her blood pressures and fluid status. (4) Atrial fibrillation and flutter Is this a current diagnosis for this admission?: Yes Plan: Patient will be continued on her usual medication for rate control and treatment of her chronic atrial fibrillation/flutter. 10/27/2018-patient has history of chronic atrial fibrillation and atrial flutter. Presently on Coumadin at home. inr is 1.24. Plan is to recheck PT/INR tomorrow. 10/28/2018-patient has history of chronic atrial fibrillation on Coumadin. INR is 1.33 subtherapeutic. Coumadin dose is managed by the pharmacy. 10/29/2018-patient has a chronic history of atrial fibrillation on Coumadin INR is 1.31. Pharmacy is managing the Coumadin doses. (5) Morbid obesity Is this a current diagnosis for this admission?: Yes (6) CKD (chronic kidney disease), stage IV Is this a current diagnosis for this admission?: Yes Plan: Patient's renal status will be observed closely throughout her hospital stay with daily metabolic profiles and magnesium levels as well as CBCs. 10/27/2018-patient serum creatinine is 2.06. She has a stage IV kidney disease most likely secondary to hypertension. 10/28/2018-patient has history of stage IV kidney disease most likely secondary to chronic hypertension creatinine today is 2.24. Plan is to continue to closely monitor the labs. 10/29/2018-serum creatinine today 2.19 stable. Nonoliguric. - Time Time Spent with patient: 25-34 minutes Medications reviewed and adjusted accordingly: Yes Anticipated discharge: SNF
[2018-10-29] MEDS: POTASSIUM CHLORIDE 10 MEQ CAPSULE.ER PO SCH (10:05)
[2018-10-29] MEDS: CALCITRIOL 0.25 MCG CAPSULE PO SCH (10:05)
[2018-10-29] MEDS: DOCUSATE SODIUM 100 MG CAPSULE PO SCH ×2 (10:05→17:27)
[2018-10-29] MEDS: SENNOSIDES/DOCUSATE 8.6-50 MG 1 EACH TABLET PO SCH (10:06)
[2018-10-29] MEDS: PRENATAL VITAMIN W DHA CAPSULE PO SCH (10:06)
[2018-10-29] MEDS: MIDODRINE HCL 5 MG TABLET PO SCH ×3 (10:06→17:35)
[2018-10-29] MEDS: CEFTRIAXONE 1 GM/D5W RTU 1 GM/50 ML RTUPB IV SCH (21:15)
[2018-10-29] MEDS: MIRTAZAPINE 15 MG TABLET PO SCH ×2 (21:18→21:21)
[2018-10-29] MEDS: WARFARIN SODIUM 5 MG TABLET PO SCH ×2 (21:18→21:21)
[2018-10-29] MEDS ORDERED: WARFARIN SODIUM 3 MG TABLET PO SCH (22:00)
[2018-10-30] MEDS: SODIUM BICARBONATE 650 MG TABLET PO SCH ×3 (05:08→21:20)
[2018-10-30] MEDS: PANTOPRAZOLE SODIUM 40 MG TABLET.DR PO SCH (05:08)
[2018-10-30 08:22] LABS: ABSOLUTE LYMPHOCYTES (AUTO) 1.3 10^3/uL (0.5-4.7); ABSOLUTE MONOCYTES (AUTO) 0.4 10^3/uL (0.1-1.4); ABSOLUTE NEUT (AUTO) 2.6 10^3/uL (1.7-8.2); BASOPHILS % (AUTO) 0.2 % (0-2); EOSINOPHILS % (AUTO) 0.2 % (0-6); HEMATOCRIT 39.9 % (36.0-47.0); HEMOGLOBIN 13.1 g/dL (12.0-15.5); LYMPHOCYTES % (AUTO) 29.1 % (13-45); MEAN CORPUSCULAR HEMOGLOBIN 30.8 pg (27.0-33.4); MEAN CORPUSCULAR HGB CONC 32.9 g/dL (32.0-36.0); MEAN CORPUSCULAR VOLUME 94 fl (80-97); MONOCYTES % (AUTO) 9.6 % (3-13); RED BLOOD COUNT 4.26 10^6/uL (3.72-5.28); RED CELL DISTRIBUTION WIDTH 16.7 % (11.5-14.0); SEGMENTED NEUTROPHILS % (AUTO) 60.9 % (42-78); TOTAL CELLS COUNTED % (AUTO) 100 %; WHITE BLOOD COUNT 4.3 10^3/uL (4.0-10.5)
[2018-10-30 08:24] LABS: INTERNATIONAL RATION (INR) 1.37
[2018-10-30 08:26] LABS: PLATELET COUNT 85 10^3/uL (150-450)
[2018-10-30 08:31] LABS: ALBUMIN 3.3 g/dL (3.5-5.0); ALKALINE PHOSPHATASE 134 U/L (38-126); ANION GAP 12 (5-19); ASPARTATE AMINO TRANSFERASE 24 U/L (14-36); BILIRUBIN,DIRECT 0.6 mg/dL (0.0-0.4); BLOOD UREA NITROGEN 53 mg/dL (7-20); CALCIUM 9.5 mg/dL (8.4-10.2); CARBON DIOXIDE 18 mmol/L (22-30); CHLORIDE 105 mmol/L (98-107); GLUCOSE 92 mg/dL (75-110); POTASSIUM 4.2 mmol/L (3.6-5.0); TOTAL PROTEIN 6.5 g/dL (6.3-8.2)
--- NOTE | 2018-10-30 09:23 | PDOC PROGRESS REPORT ---
Subjective Progress Note for:: 10/30/18 Subjective:: 83 year old female who presented to the emergency room via EMS with acute changes in her mental status. Patient is a residential resident and was transferred to the emergency room due to increased confusion. Patient is very pleasant and makes efforts at providing history but is not reliable due to her confusion. care home staff did not indicate any additional associated or accompanying signs or symptoms. Patient has suffered from similar symptoms in the past with infections. care home staff did not report any identified aggravating or ameliorating factors for patient's change in mental status. In the emergency room she was found to have pyuria consistent with a urinary tract infection and a slightly depressed serum bicarbonate at 19. Patient was subsequently admitted to hospital for further evaluation and treatment. 10/27/[id number]-kzaa-old female admitted from the residential for altered mental status. No acute events in the last 24 hours. Afebrile. Patient able to tell me she is in [facility] and she was able to give me her date of . Probably her mental status at baseline. 10/28/[id number]-wzfg-old female admitted from the residential for altered mental status most likely secondary to underlying dementia. Patient able to take her breakfast this morning but getting more agitated and not cooperative with staff and she is refusing to take her medications. To start her on Ativan 1 mg IV every 6 PRN for agitation. 10/29/[id number]-pybq-old female transferred from medical floor him to [facility] for hypotension and bradycardia. Initially on dopamine drip and blood pressure is improved heart rate went up to 130s dopamine drip was discontinued IV fluids are discontinued blood pressure this morning is 117/80. Mental status at her baseline. Heart rate is 88. Plan is to continue to closely monitor her in the IM. I spoke to the patient's son Stephen yesterday he is requesting for a full code. 10/30/[id number]-bxyk-old female admitted for altered mental status now her mental status at baseline. Blood pressures are stable 80s per patient is 108/72. Pulse ox is 100% on room air. Heart rate is around 89. Patient is comfortably in the bed communicating reasonably. Patient is a full code. Plan is to continue the present management at this time. Urine cultures are positive for gram-positive cocci on IV Rocephin. Reason For Visit: ALTERED MENTAL STATUS Physical Exam Vital Signs: Temp Pulse Resp BP Pulse Ox 98.4 F 91 16 102/76 100 10/30/18 03:22 10/30/18 06:53 10/30/18 03:22 10/30/18 03:22 10/30/18 03:22 Intake & Output 10/29/18 10/30/18 10/31/18 06:59 06:59 06:59 Intake Total 1055 340 Output Total 265 250 Balance 790 90 Weight 130.4 kg 128.6 kg General appearance: PRESENT: no acute distress, cooperative, morbidly obese Head exam: PRESENT: atraumatic Eye exam: PRESENT: PERRLA Mouth exam: PRESENT: moist, tongue midline Neck exam: ABSENT: carotid bruit, JVD, lymphadenopathy, thyromegaly Respiratory exam: PRESENT: decreased breath sounds GI/Abdominal exam: PRESENT: normal bowel sounds, soft. ABSENT: distended, guarding, mass, organolmegaly, rebound, tenderness Rectal exam: PRESENT: deferred Extremities exam: PRESENT: full ROM, +2 edema. ABSENT: calf tenderness, clubbing, pedal edema Neurological exam: PRESENT: alert, awake. ABSENT: oriented to person, oriented to place, oriented to time, oriented to situation Results Laboratory Results: 10/30/18 07:43 10/30/18 07:43 10/30/18 10/30/18 07:43 07:43 WBC 4.3 RBC 4.26 Hgb 13.1 Hct 39.9 MCV 94 MCH 30.8 MCHC 32.9 RDW 16.7 H Plt Count 85 L Seg Neutrophils % 60.9 Sodium 134.7 L Potassium 4.2 Chloride 105 Carbon Dioxide 18 L Anion Gap 12 BUN 53 H Creatinine 2.42 H Est GFR ( Amer) 23 L Glucose 92 Calcium 9.5 Magnesium 2.4 H Total Bilirubin 1.0 AST 24 Alkaline Phosphatase 134 H Total Protein 6.5 Albumin 3.3 L 10/28/18 10/28/18 10/28/18 12:43 12:43 12:43 Creatine Kinase 27 L CK-MB (CK-2) < 0.22 Troponin I 0.026 Cancelled 10/28/18 10/28/18 10/29/18 19:45 19:45 01:46 Creatine Kinase 26 L 30 CK-MB (CK-2) < 0.22 Troponin I 0.025 10/29/18 01:46 Creatine Kinase CK-MB (CK-2) < 0.22 Troponin I 0.029 Assessment and Plan - Diagnosis (1) Acute metabolic encephalopathy Is this a current diagnosis for this admission?: Yes Plan: Patient's encephalopathy will be evaluated with close observation and neuro checks. As her urinary tract infection is treated it is expected that her encephalopathy will improve back to her baseline. 10/27/20182314-30-zjue-old female admitted from the residential for altered mental status. May be secondary to UTI. Looks like her mental status back to baseline. Plan is to continue to closely monitor her and probably may discharge her back to residential tomorrow. 10/28/2018-altered mental status/acute encephalopathy most likely secondary to underlying UTI and underlying advanced dementia. To start her on Ativan 1 mg IV every 6 PRN for agitation. Urine culture is positive for gram-positive cocci in chains. On ceftriaxone plan is to continue the antibiotic at this moment. 10/29/2018-patient is alert and awake communicating okay in my opinion her mental status at baseline. 10/30/2018-patient has history of dementia and acute metabolic encephalopathy is resolving. Mental status at her baseline. (2) UTI (urinary tract infection) Qualifiers: Urinary tract infection type: acute cystitis Hematuria presence: without hematuria Qualified Code(s): N30.00 - Acute cystitis without hematuria Is this a current diagnosis for this admission?: Yes Plan: Patient's urinary tract infection will be treated with IV Rocephin 1 g IV every 24 hours. 10/27/2018-patient came in with abnormal urine culture is pending. On IV Rocephin 1 g daily. Waiting for the culture report. 10/28/2018-urine culture is positive for gram-positive cocci in chains on IV ceftr iaxone plan is to continue the present management. 10/29/2018-urine culture is positive for gram-positive cocci in chains on IV Rocephin. Waiting for the sensitivity report. 08/2018-urine cultures are positive for gram-positive cocci in chains presently on IV Rocephin. Afebrile. plan is to continue the antibiotics. (3) Chronic diastolic congestive heart failure Is this a current diagnosis for this admission?: Yes Plan: Patient be continued on her usual medications during her hospital course. 10/27/2018-patient has a chronic diastolic heart failure. She has 2+ pedal edema present. Plan is to closely monitor her volume status. Blood pressure is 106/70. 10/28/2018-patient has history of chronic diastolic heart failure she has 2+ pedal edema plan is to discontinue her IV fluids. To watch for the fluid overload. Latest blood pressure is 143/60. 10/29/2018-patient has a chronic diastolic heart failure. She has a 2+ pedal edema with chronic skin changes. Blood pressure is 170/80 plan is to closely monitor her blood pressures and fluid status. 10/30/2018-patient has history of chronic diastolic heart failure presently off the IV fluids. Latest blood pressure is around 108/72. Plan is to closely monitor her blood pressures and fluid status. (4) Atrial fibrillation and flutter Is this a current diagnosis for this admission?: Yes Plan: Patient will be continued on her usual medication for rate control and treatment of her chronic atrial fibrillation/flutter. 10/27/2018-patient has history of chronic atrial fibrillation and atrial flutter. Presently on Coumadin at home. inr is 1.24. Plan is to recheck PT/INR tomorrow. 10/28/2018-patient has history of chronic atrial fibrillation on Coumadin. INR is 1.33 subtherapeutic. Coumadin dose is managed by the pharmacy. 10/29/2018-patient has a chronic history of atrial fibrillation on Coumadin INR is 1.31. Pharmacy is managing the Coumadin doses. 10/30/2018-patient has history of atrial fibrillation now rate controlled in the 80s. On Coumadin. Coumadin dose was increased to 5 mg yesterday her INR today is 1.37. Plan is to continue to closely monitor her labs on daily basis. (5) Morbid obesity Is this a current diagnosis for this admission?: Yes Plan: 10/27/2018-patient BMI is more than 47. Dietary complaints discussed with the patient. (6) CKD (chronic kidney disease), stage IV Is this a current diagnosis for this admission?: Yes Plan: Patient's renal status will be observed closely throughout her hospital stay with daily metabolic profiles and magnesium levels as well as CBCs. 10/27/2018-patient serum creatinine is 2.06. She has a stage IV kidney disease most likely secondary to hypertension. 10/28/2018-patient has history of stage IV kidney disease most likely secondary to chronic hypertension creatinine today is 2.24. Plan is to continue to closely monitor the labs. 10/29/2018-serum creatinine today 2.19 stable. Nonoliguric. 10/30/2018-patient's latest creatinine is 2.19 improved from 2.2. Plan is closely monitor the creatinine on daily basis.
[2018-10-30] MEDS: MIDODRINE HCL 5 MG TABLET PO SCH ×3 (09:29→17:29)
[2018-10-30] MEDS: POTASSIUM CHLORIDE 10 MEQ CAPSULE.ER PO SCH (09:30)
[2018-10-30] MEDS: SENNOSIDES/DOCUSATE 8.6-50 MG 1 EACH TABLET PO SCH (09:33)
[2018-10-30] MEDS: DOCUSATE SODIUM 100 MG CAPSULE PO SCH ×2 (09:33→17:53)
[2018-10-30] MEDS: CALCITRIOL 0.25 MCG CAPSULE PO SCH (09:35)
[2018-10-30] MEDS: PRENATAL VITAMIN W DHA CAPSULE PO SCH (09:35)
[2018-10-30] MEDS: MIRTAZAPINE 15 MG TABLET PO SCH (21:21)
[2018-10-30] MEDS: CEFTRIAXONE 1 GM/D5W RTU 1 GM/50 ML RTUPB IV SCH ×2 (21:21→21:47)
[2018-10-30] MEDS: WARFARIN SODIUM 5 MG TABLET PO SCH (21:28)
[2018-10-31] MEDS: SODIUM BICARBONATE 650 MG TABLET PO SCH ×3 (07:07→22:04)
[2018-10-31] MEDS: PANTOPRAZOLE SODIUM 40 MG TABLET.DR PO SCH (07:07)
[2018-10-31] MEDS ORDERED: NORMAL SALINE 1000 ML 1,000 ML IV PRN (07:54)
[2018-10-31] MEDS: DOCUSATE SODIUM 100 MG CAPSULE PO SCH ×2 (09:00→17:42)
[2018-10-31] MEDS: SENNOSIDES/DOCUSATE 8.6-50 MG 1 EACH TABLET PO SCH (09:00)
[2018-10-31 09:08] LABS: INTERNATIONAL RATION (INR) 1.49; PROTHROMBIN TIME 18.2 SEC (11.4-15.4)
[2018-10-31] MEDS: PRENATAL VITAMIN W DHA CAPSULE PO SCH (09:22)
[2018-10-31] MEDS: CALCITRIOL 0.25 MCG CAPSULE PO SCH (09:22)
[2018-10-31] MEDS: MIDODRINE HCL 5 MG TABLET PO SCH ×3 (09:22→17:43)
[2018-10-31] MEDS: POTASSIUM CHLORIDE 10 MEQ CAPSULE.ER PO SCH (09:22)
--- NOTE | 2018-10-31 09:39 | PDOC PROGRESS REPORT ---
Subjective Progress Note for:: 10/31/18 Subjective:: 83 year old female who presented to the emergency room via EMS with acute changes in her mental status. Patient is a group home resident and was transferred to the emergency room due to increased confusion. Patient is very pleasant and makes efforts at providing history but is not reliable due to her confusion. [facility] staff did not indicate any additional associated or accompanying signs or symptoms. Patient has suffered from similar symptoms in the past with infections. [facility] staff did not report any identified aggravating or ameliorating factors for patient's change in mental status. In the emergency room she was found to have pyuria consistent with a urinary tract infection and a slightly depressed serum bicarbonate at 19. Patient was subsequently admitted to hospital for further evaluation and treatment. 10/27/[id number]-wids-old female admitted from the group home for altered mental status. No acute events in the last 24 hours. Afebrile. Patient able to tell me she is in [facility] and she was able to give me her date of . Probably her mental status at baseline. 10/28/[id number]-lsfs-old female admitted from the group home for altered mental status most likely secondary to underlying dementia. Patient able to take her breakfast this morning but getting more agitated and not cooperative with staff and she is refusing to take her medications. To start her on Ativan 1 mg IV every 6 PRN for agitation. 10/29/[id number]-xnir-old female transferred from medical floor him to [facility] for hypotension and bradycardia. Initially on dopamine drip and blood pressure is improved heart rate went up to 130s dopamine drip was discontinued IV fluids are discontinued blood pressure this morning is 117/80. Mental status at her baseline. Heart rate is 88. Plan is to continue to closely monitor her in the IM. I spoke to the patient's son Stephen yesterday he is requesting for a full code. 10/30/[id number]-rwjb-old female admitted for altered mental status now her mental status at baseline. Blood pressures are stable 80s per patient is 108/72. Pulse ox is 100% on room air. Heart rate is around 89. Patient is comfortably in the bed communicating reasonably. Patient is a full code. Plan is to continue the present management at this time. Urine cultures are positive for gram-positive cocci on IV Rocephin. 10/31/[id number]-psuz-old female admitted for altered mental status found to have a UTI IV antibiotic therapy. She is getting more agitated and cooperative. He tried to start her on IV access today with her IV fluid therapy she pulled off her IV line refusing her medications. I tried to reach patient's son Stephen unable to do so because the phone was disconnected. Reason For Visit: ALTERED MENTAL STATUS Physical Exam Vital Signs: Temp Pulse Resp BP Pulse Ox 97.5 F 122 H 18 104/68 100 10/30/18 18:22 10/31/18 06:49 10/30/18 18:22 10/30/18 18:22 10/30/18 08:07 Intake & Output 10/30/18 10/31/18 11/01/18 06:59 06:59 06:59 Intake Total 340 240 Output Total 250 300 Balance 90 -60 Weight 128.6 kg 134.3 kg General appearance: PRESENT: no acute distress, morbidly obese, other - Not cooperative Head exam: PRESENT: atraumatic Eye exam: PRESENT: PERRLA Mouth exam: PRESENT: moist, tongue midline Teeth exam: PRESENT: poor dentation Neck exam: ABSENT: carotid bruit, JVD, lymphadenopathy, thyromegaly Respiratory exam: PRESENT: decreased breath sounds Cardiovascular exam: PRESENT: RRR. ABSENT: diastolic murmur, rubs, systolic murmur GI/Abdominal exam: PRESENT: normal bowel sounds, soft. ABSENT: distended, guarding, mass, organolmegaly, rebound, tenderness Rectal exam: PRESENT: deferred Gentrourinary exam: PRESENT: indwelling catheter Neurological exam: PRESENT: alert, awake, CN II-XII grossly intact. ABSENT: oriented to person, oriented to place, oriented to time, oriented to situation, motor sensory deficit Psychiatric exam: PRESENT: agitated, anxious Results Laboratory Results: 10/30/18 07:43 10/30/18 07:43 10/26/18 20:12 Catheterized Urine Urine Culture - Final Enterococcus Faecalis(Group D) 10/28/18 10/28/18 10/28/18 12:43 12:43 12:43 Creatine Kinase 27 L CK-MB (CK-2) < 0.22 Troponin I 0.026 Cancelled 10/28/18 10/28/18 10/29/18 19:45 19:45 01:46 Creatine Kinase 26 L 30 CK-MB (CK-2) < 0.22 Troponin I 0.025 10/29/18 01:46 Creatine Kinase CK-MB (CK-2) < 0.22 Troponin I 0.029 Assessment and Plan - Diagnosis (1) Acute metabolic encephalopathy Is this a current diagnosis for this admission?: Yes Plan: Patient's encephalopathy will be evaluated with close observation and neuro checks. As her urinary tract infection is treated it is expected that her encephalopathy will improve back to her baseline. 10/27/[id number]-bvqm-old female admitted from the group home for altered mental status. May be secondary to UTI. Looks like her mental status back to baseline. Plan is to continue to closely monitor her and probably may discharge her back to group home tomorrow. 10/28/2018-altered mental status/acute encephalopathy most likely secondary to underlying UTI and underlying advanced dementia. To start her on Ativan 1 mg IV every 6 PRN for agitation. Urine culture is positive for gram-positive cocci in chains. On ceftriaxone plan is to continue the antibiotic at this moment. 10/29/2018-patient is alert and awake communicating okay in my opinion her mental status at baseline. 10/30/2018-patient has history of dementia and acute metabolic encephalopathy is resolving. Mental status at her baseline. 10/31/2018-patient is agitated and abusive to the nurses pulled off the IV line refusing to take p.o. medications today. May be secondary to advanced dementia. (2) UTI (urinary tract infection) Qualifiers: Urinary tract infection type: acute cystitis Hematuria presence: without hematuria Qualified Code(s): N30.00 - Acute cystitis without hematuria Is this a current diagnosis for this admission?: Yes Plan: Patient's urinary tract infection will be treated with IV Rocephin 1 g IV every 24 hours. 10/27/2018-patient came in with abnormal urine culture is pending. On IV Rocephin 1 g daily. Waiting for the culture report. 10/28/2018-urine culture is positive for gram-positive cocci in chains on IV ceftriaxone plan is to continue the present management. 10/29/2018-urine culture is positive for gram-positive cocci in chains on IV Roce phin. Waiting for the sensitivity report. 08/2018-urine cultures are positive for gram-positive cocci in chains presently on IV Rocephin. Afebrile. plan is to continue the antibiotics. 10/31/2018-culture is growing Enterococcus faecalis started on ampicillin 500 mg IV every 6 hours. (3) Chronic diastolic congestive heart failure Is this a current diagnosis for this admission?: Yes Plan: Patient be continued on her usual medications during her hospital course. 10/27/2018-patient has a chronic diastolic heart failure. She has 2+ pedal edema present. Plan is to closely monitor her volume status. Blood pressure is 106/70. 10/28/2018-patient has history of chronic diastolic heart failure she has 2+ pedal edema plan is to discontinue her IV fluids. To watch for the fluid overload. Latest blood pressure is 143/60. 10/29/2018-patient has a chronic diastolic heart failure. She has a 2+ pedal edema with chronic skin changes. Blood pressure is 170/80 plan is to closely monitor her blood pressures and fluid status. 10/30/2018-patient has history of chronic diastolic heart failure presently off the IV fluids. Latest blood pressure is around 108/72. Plan is to closely monitor her blood pressures and fluid status. 10/31/2018-patient has history of chronic diastolic heart failure has chronic pedal edema, refusing p.o. medications. (4) Atrial fibrillation and flutter Is this a current diagnosis for this admission?: Yes Plan: Patient will be continued on her usual medication for rate control and treatment of her chronic atrial fibrillation/flutter. 10/27/2018-patient has history of chronic atrial fibrillation and atrial flutter. Presently on Coumadin at home. inr is 1.24. Plan is to recheck PT/INR tomorrow. 10/28/2018-patient has history of chronic atrial fibrillation on Coumadin. INR is 1.33 subtherapeutic. Coumadin dose is managed by the pharmacy. 10/29/2018-patient has a chronic history of atrial fibrillation on Coumadin INR is 1.31. Pharmacy is managing the Coumadin doses. 10/30/2018-patient has history of atrial fibrillation now rate controlled in the 80s. On Coumadin. Coumadin dose was increased to 5 mg yesterday her INR today is 1.37. Plan is to continue to closely monitor her labs on daily basis. 10/31/2018-patient has history of atrial fibrillation on Coumadin but the patient is refusing to take the p.o. warfarin. (5) Morbid obesity Is this a current diagnosis for this admission?: Yes (6) CKD (chronic kidney disease), stage IV Is this a current diagnosis for this admission?: Yes Plan: Patient's renal status will be observed closely throughout her hospital stay with daily metabolic profiles and magnesium levels as well as CBCs. 10/27/2018-patient serum creatinine is 2.06. She has a stage IV kidney disease most likely secondary to hypertension. 10/28/2018-patient has history of stage IV kidney disease most likely secondary to chronic hypertension creatinine today is 2.24. Plan is to continue to closely monitor the labs. 10/29/2018-serum creatinine today 2.19 stable. Nonoliguric. 10/30/2018-patient's latest creatinine is 2.19 improved from 2.2. Plan is closely monitor the creatinine on daily basis. 10/31/2018-patient creatinine is at 2.42 today worsening prior to start her on IV fluids this morning but the patient pulled off the IV access refusing to cooperate with the nurses and refusing to take her p.o. medications. - Time Time Spent with patient: 25-34 minutes Medications reviewed and adjusted accordingly: Yes Anticipated discharge: Home
[2018-10-31] MEDS ORDERED: AMPICILLIN SOD INJ 2 GM VIAL IV SCH (10:00)
[2018-10-31] MEDS: AMPICILLIN SODIUM 500 MG in NORMAL SALINE 25 ML IV SCH ×2 (10:10→17:42)
[2018-10-31] MEDS: MIRTAZAPINE 15 MG TABLET PO SCH (22:02)
[2018-10-31] MEDS: WARFARIN SODIUM 5 MG TABLET PO SCH (22:02)
[2018-11-01] MEDS: LORAZEPAM INJ 2 MG/1 ML VIAL IM PRN (02:47)
[2018-11-01] MEDS: AMPICILLIN SODIUM 500 MG in NORMAL SALINE 25 ML IV SCH ×3 (04:27→17:05)
[2018-11-01] MEDS: SODIUM BICARBONATE 650 MG TABLET PO SCH ×3 (06:34→21:16)
[2018-11-01] MEDS: PANTOPRAZOLE SODIUM 40 MG TABLET.DR PO SCH (06:34)
[2018-11-01 07:46] LABS: INTERNATIONAL RATION (INR) 1.38
[2018-11-01 07:48] LABS: ABSOLUTE LYMPHOCYTES (AUTO) 1.8 10^3/uL (0.5-4.7); ABSOLUTE MONOCYTES (AUTO) 0.6 10^3/uL (0.1-1.4); ABSOLUTE NEUT (AUTO) 3.1 10^3/uL (1.7-8.2); BASOPHILS % (AUTO) 0.2 % (0-2); EOSINOPHILS % (AUTO) 0.2 % (0-6); HEMATOCRIT 36.5 % (36.0-47.0); HEMOGLOBIN 12.2 g/dL (12.0-15.5); LYMPHOCYTES % (AUTO) 31.8 % (13-45); MEAN CORPUSCULAR HEMOGLOBIN 30.9 pg (27.0-33.4); MEAN CORPUSCULAR HGB CONC 33.4 g/dL (32.0-36.0); MEAN CORPUSCULAR VOLUME 93 fl (80-97); MONOCYTES % (AUTO) 10.6 % (3-13); RED BLOOD COUNT 3.94 10^6/uL (3.72-5.28); RED CELL DISTRIBUTION WIDTH 17.1 % (11.5-14.0); SEGMENTED NEUTROPHILS % (AUTO) 57.2 % (42-78); TOTAL CELLS COUNTED % (AUTO) 100 %; WHITE BLOOD COUNT 5.5 10^3/uL (4.0-10.5)
[2018-11-01 08:08] LABS: ALBUMIN 3.2 g/dL (3.5-5.0); ALKALINE PHOSPHATASE 140 U/L (38-126); ANION GAP 12 (5-19); ASPARTATE AMINO TRANSFERASE 21 U/L (14-36); BILIRUBIN,DIRECT 0.5 mg/dL (0.0-0.4); BILIRUBIN,TOTAL 0.8 mg/dL (0.2-1.3); BLOOD UREA NITROGEN 50 mg/dL (7-20); CALCIUM 9.7 mg/dL (8.4-10.2); CARBON DIOXIDE 20 mmol/L (22-30); CHLORIDE 105 mmol/L (98-107); GLUCOSE 96 mg/dL (75-110); POTASSIUM 4.3 mmol/L (3.6-5.0); TOTAL PROTEIN 6.2 g/dL (6.3-8.2)
[2018-11-01 08:45] LABS: PLATELET COUNT 81 10^3/uL (150-450)
--- NOTE | 2018-11-01 09:26 | PDOC PROGRESS REPORT ---
Subjective Progress Note for:: 11/01/18 Subjective:: 83 year old female who presented to the emergency room via EMS with acute changes in her mental status. Patient is a senior living resident and was transferred to the emergency room due to increased confusion. Patient is very pleasant and makes efforts at providing history but is not reliable due to her confusion. half-way staff did not indicate any additional associated or accompanying signs or symptoms. Patient has suffered from similar symptoms in the past with infections. half-way staff did not report any identified aggravating or ameliorating factors for patient's change in mental status. In the emergency room she was found to have pyuria consistent with a urinary tract infection and a slightly depressed serum bicarbonate at 19. Patient was subsequently admitted to hospital for further evaluation and treatment. 10/27/[id number]-yjgl-old female admitted from the senior living for altered mental status. No acute events in the last 24 hours. Afebrile. Patient able to tell me she is in [facility] and she was able to give me her date of . Probably her mental status at baseline. 10/28/[id number]-rfrd-old female admitted from the senior living for altered mental status most likely secondary to underlying dementia. Patient able to take her breakfast this morning but getting more agitated and not cooperative with staff and she is refusing to take her medications. To start her on Ativan 1 mg IV every 6 PRN for agitation. 10/29/[id number]-zzie-old female transferred from medical floor him to [facility] for hypotension and bradycardia. Initially on dopamine drip and blood pressure is improved heart rate went up to 130s dopamine drip was discontinued IV fluids are discontinued blood pressure this morning is 117/80. Mental status at her baseline. Heart rate is 88. Plan is to continue to closely monitor her in the IM. I spoke to the patient's son Stephen yesterday he is requesting for a full code. 10/30/[id number]-ooih-old female admitted for altered mental status now her mental status at baseline. Blood pressures are stable 80s per patient is 108/72. Pulse ox is 100% on room air. Heart rate is around 89. Patient is comfortably in the bed communicating reasonably. Patient is a full code. Plan is to continue the present management at this time. Urine cultures are positive for gram-positive cocci on IV Rocephin. 10/31/[id number]-ifjp-old female admitted for altered mental status found to have a UTI IV antibiotic therapy. She is getting more agitated and cooperative. He tried to start her on IV access today with her IV fluid therapy she pulled off her IV line refusing her medications. I tried to reach patient's son Stephen unable to do so because the phone was disconnected. 11/01/2018-is patient is refusing to cooperate with the nurses she pulled out the remedial reading teacher, pulled out the IV fluids refused to take the p.o. medications she is not even letting the nurses to touch her son and [id number] at the bedside we tried to explain to them that we are not doing anything at all unable to provide any services to the patient and IV discussed about CODE STATUS as per patient's son he wants everything to be done he wants CPR to be done. He understood that after the CPR quality of life may be poor but he wants to try it. We respect his wishes. Reason For Visit: ALTERED MENTAL STATUS Physical Exam Vital Signs: Temp Pulse Resp BP Pulse Ox 98.7 F 86 16 110/66 94 11/01/18 00:00 11/01/18 00:00 11/01/18 00:00 11/01/18 00:00 11/01/18 00:00 Intake & Output 10/31/18 11/01/18 11/02/18 06:59 06:59 06:59 Intake Total 240 710 Output Total 300 775 Balance -60 -65 Weight 134.3 kg 132.6 kg General appearance: PRESENT: no acute distress, morbidly obese, other - Not cooperative Head exam: PRESENT: atraumatic Eye exam: PRESENT: PERRLA Mouth exam: PRESENT: moist, tongue midline Teeth exam: PRESENT: poor dentation Neck exam: ABSENT: carotid bruit, JVD, lymphadenopathy, thyromegaly Respiratory exam: PRESENT: decreased breath sounds GI/Abdominal exam: PRESENT: normal bowel sounds, soft. ABSENT: distended, guarding, mass, organolmegaly, rebound, tenderness Rectal exam: PRESENT: deferred Gentrourinary exam: PRESENT: indwelling catheter Extremities exam: PRESENT: +2 edema Neurological exam: PRESENT: altered Psychiatric exam: PRESENT: agitated, anxious Results Laboratory Results: 11/01/18 07:26 11/01/18 07:26 11/01/18 11/01/18 07:26 07:26 WBC 5.5 RBC 3.94 Hgb 12.2 Hct 36.5 MCV 93 MCH 30.9 MCHC 33.4 RDW 17.1 H Plt Count 81 L Seg Neutrophils % 57.2 Sodium 137.4 Potassium 4.3 Chloride 105 Carbon Dioxide 20 L Anion Gap 12 BUN 50 H Creatinine 2.79 H Est GFR ( Amer) 20 L Glucose 96 Calcium 9.7 Magnesium 2.3 Total Bilirubin 0.8 AST 21 Alkaline Phosphatase 140 H Total Protein 6.2 L Albumin 3.2 L 10/28/18 10/28/18 10/28/18 12:43 12:43 12:43 Creatine Kinase 27 L CK-MB (CK-2) < 0.22 Troponin I 0.026 Cancelled NT-Pro-B Natriuret Pep 10/28/18 10/28/18 10/29/18 19:45 19:45 01:46 Creatine Kinase 26 L 30 CK-MB (CK-2) < 0.22 Troponin I 0.025 NT-Pro-B Natriuret Pep 10/29/18 11/01/18 01:46 07:26 Creatine Kinase CK-MB (CK-2) < 0.22 Troponin I 0.029 NT-Pro-B Natriuret Pep 2950 H Assessment and Plan - Diagnosis (1) Acute metabolic encephalopathy Is this a current diagnosis for this admission?: Yes Plan: Patient's encephalopathy will be evaluated with close observation and neuro checks. As her urinary tract infection is treated it is expected that her encephalopathy will improve back to her baseline. 10/27/[id number]-zxss-old female admitted from the senior living for altered mental status. May be secondary to UTI. Looks like her mental status back to baseline. Plan is to continue to closely monitor her and probably may discharge her back to senior living tomorrow. 10/28/2018-altered mental status/acute encephalopathy most likely secondary to underlying UTI and underlying advanced dementia. To start her on Ativan 1 mg IV every 6 PRN for agitation. Urine culture is positive for gram-positive cocci in chains. On ceftriaxone plan is to continue the antibiotic at this moment. 10/29/2018-patient is alert and awake communicating okay in my opinion her mental status at baseline. 10/30/2018-patient has history of dementia and acute metabolic encephalopathy is resolving. Mental status at her baseline. 10/31/2018-patient is agitated and abusive to the nurses pulled off the IV line refusing to take p.o. medications today. May be secondary to advanced dementia. 11/01/2018-patient was agitated and abusive to the staff. Pulled out the remedial reading teacher pulled out the IV lines refusing to take the medications. Most likely this acute on chronic encephalopathy most likely secondary to advanced dementia. (2) UTI (urinary tract infection) Qualifiers: Urinary tract infection type: acute cystitis Hematuria presence: without hematuria Qualified Code(s): N30.00 - Acute cystitis without hematuria Is this a current diagnosis for this admission?: Yes Plan: Patient's urinary tract infection will be treated with IV Rocephin 1 g IV every 24 hours. 10/27/2018-patient came in with abnormal urine culture is pending. On IV Rocephin 1 g daily. Waiting for the culture report. 10/28/2018-urine culture is positive for gram-positive cocci in chains on IV ceftriaxone plan is to continue the present management. 10/29/2018-urine culture is positive for gram-positive cocci in chains on IV Rocephin. Waiting for the sensitivity report. 08/2018-urine cultures are positive for gram-positive cocci in chains presently on IV Rocephin. Afebrile. plan is to continue the antibiotics. 10/31/2018-culture is growing Enterococcus faecalis started on ampicillin 500 mg IV every 6 hours. 11/01/2018-urine culture came back positive for Enterococcus faecalis patient was started on ampicillin 500 mg IV every 6 hours patient pulled out the IV line refusing further IV accesses. (3) Chronic diastolic congestive heart failure Is this a current diagnosis for this admission?: Yes Plan: Patient be continued on her usual medications during her hospital course. 10/27/2018-patient has a chronic diastolic heart failure. She has 2+ pedal edema present. Plan is to closely monitor her volume status. Blood pressure is 106/70. 10/28/2018-patient has history of chronic diastolic heart failure she has 2+ pedal edema plan is to discontinue her IV fluids. To watch for the fluid overload. Latest blood pressure is 143/60. 10/29/2018-patient has a chronic diastolic heart failure. She has a 2+ pedal edema with chronic skin changes. Blood pressure is 170/80 plan is to closely monitor her blood pressures and fluid status. 10/30/2018-patient has history of chronic diastolic heart failure presently off the IV fluids. Latest blood pressure is around 108/72. Plan is to closely monitor her blood pressures and fluid status. 10/31/2018-patient has history of chronic diastolic heart failure has chronic pedal edema, refusing p.o. medications. 10/01/2018-patient has history of chronic diastolic heart failure with 2+ pedal edema. Patient is refusing to take p.o. medications. (4) Atrial fibrillation and flutter Is this a current diagnosis for this admission?: Yes Plan: Patient will be continued on her usual medication for rate control and treatment of her chronic atrial fibrillation/flutter. 10/27/2018-patient has history of chronic atrial fibrillation and atrial flutter. Presently on Coumadin at home. inr is 1.24. Plan is to recheck PT/INR tomorrow. 10/28/2018-patient has history of chronic atrial fibrillation on Coumadin. INR is 1.33 subtherapeutic. Coumadin dose is managed by the pharmacy. 10/29/2018-patient has a chronic history of atrial fibrillation on Coumadin INR is 1.31. Pharmacy is managing the Coumadin doses. 10/30/2018-patient has history of atrial fibrillation now rate controlled in the 80s. On Coumadin. Coumadin dose was increased to 5 mg yesterday her INR today is 1.37. Plan is to continue to closely monitor her labs on daily basis. 10/31/2018-patient has history of atrial fibrillation on Coumadin but the patient is refusing to take the p.o. warfarin. 11/01/18-pt has history of chronic atrial fib on coumadin.. refusing to take po meds. (5) Morbid obesity Is this a current diagnosis for this admission?: Yes (6) CKD (chronic kidney disease), stage IV Is this a current diagnosis for this admission?: Yes Plan: Patient's renal status will be observed closely throughout her hospital stay with daily metabolic profiles and magnesium levels as well as CBCs. 10/27/2018-patient serum creatinine is 2.06. She has a stage IV kidney disease most likely secondary to hypertension. 10/28/2018-patient has history of stage IV kidney disease most likely secondary to chronic hypertension creatinine today is 2.24. Plan is to continue to closely monitor the labs. 10/29/2018-serum creatinine today 2.19 stable. Nonoliguric. 10/30/2018-patient's latest creatinine is 2.19 improved from 2.2. Plan is closely monitor the creatinine on daily basis. 10/31/2018-patient creatinine is at 2.42 today worsening prior to start her on IV fluids this morning but the patient pulled off the IV access refusing to cooperate with the nurses and refusing to take her p.o. medications. 11/01/18-latest serum creatinine is 2.73 patient is refusing to take most of the p.o. medications including the fluids. Her appetite is very poor. Overall prognosis poor condition is critical family is aware of the poor prognosis but they still want a full code. - Time Time Spent with patient: 25-34 minutes Medications reviewed and adjusted accordingly: Yes Anticipated discharge: SNF
[2018-11-01] MEDS: DOCUSATE SODIUM 100 MG CAPSULE PO SCH ×2 (09:51→17:04)
[2018-11-01] MEDS: MIDODRINE HCL 5 MG TABLET PO SCH ×3 (10:03→17:05)
[2018-11-01] MEDS: CALCITRIOL 0.25 MCG CAPSULE PO SCH (10:05)
[2018-11-01] MEDS: PRENATAL VITAMIN W DHA CAPSULE PO SCH (10:09)
[2018-11-01] MEDS: SENNOSIDES/DOCUSATE 8.6-50 MG 1 EACH TABLET PO SCH (10:09)
[2018-11-01] MEDS: POTASSIUM CHLORIDE 10 MEQ CAPSULE.ER PO SCH (10:09)
[2018-11-01 18:40] LABS: AMORPHOUS SEDIMENT,URINE TRACE /HPF; APPEARANCE,URINE SLIGHTLY-CLOUDY; BILIRUBIN,URINE NEGATIVE (NEGATIVE); COLOR,URINE YELLOW; GLUCOSE, URINE NEGATIVE (NEGATIVE); KETONES,URINE NEGATIVE (NEGATIVE); LEUKOCYTE ESTERASE,URINE LARGE (NEGATIVE); NITRITE,URINE NEGATIVE (NEGATIVE); PROTEIN,URINE 100 mg/dL (NEGATIVE); URINE SPECIFIC GRAVITY 1.013
[2018-11-01] MEDS: WARFARIN SODIUM 5 MG TABLET PO SCH (21:15)
[2018-11-01] MEDS: MIRTAZAPINE 15 MG TABLET PO SCH (21:16)
[2018-11-02] MEDS: LORAZEPAM INJ 2 MG/1 ML VIAL IM PRN (01:55)
[2018-11-02] MEDS: AMPICILLIN SODIUM 500 MG in NORMAL SALINE 25 ML IV SCH (01:57)
[2018-11-02 02:16] VITALS: BP 100/50
[2018-11-02] MEDS: PANTOPRAZOLE SODIUM 40 MG TABLET.DR PO SCH (05:28)
[2018-11-02] MEDS: SODIUM BICARBONATE 650 MG TABLET PO SCH ×2 (05:29→13:24)
[2018-11-02] MEDS ORDERED: BUSPIRONE HCL 10 MG TABLET PO SCH ×2 (08:30→22:00)
[2018-11-02] MEDS: MIDODRINE HCL 5 MG TABLET PO SCH ×2 (09:54→14:30)
[2018-11-02] MEDS: PRENATAL VITAMIN W DHA CAPSULE PO SCH (09:59)
[2018-11-02] MEDS: DOCUSATE SODIUM 100 MG CAPSULE PO SCH (09:59)
[2018-11-02] MEDS: POTASSIUM CHLORIDE 10 MEQ CAPSULE.ER PO SCH (09:59)
[2018-11-02] MEDS: SENNOSIDES/DOCUSATE 8.6-50 MG 1 EACH TABLET PO SCH (09:59)
[2018-11-02] MEDS: CALCITRIOL 0.25 MCG CAPSULE PO SCH (09:59)
[2018-11-02] MEDS ORDERED: DIVALPROEX SODIUM 250 MG TABLET.DR PO SCH (10:00)
[2018-11-02] MEDS ORDERED: APIXABAN 2.5 MG TABLET PO SCH (10:00)
[2018-11-02] MEDS ORDERED: DAPTOMYCIN 500 MG in NORMAL SALINE 50 ML IV SCH ×4 (10:00)
--- NOTE | 2018-11-02 13:37 | PDOC TRANSFER SUMMARY ---
General - Admit/Disc Date/PCP Admission Date/Primary Care Provider: 10/26/18 22:51 GUNJAN LARA Discharge Date: 11/02/18 - Discharge Diagnosis (1) Acute metabolic encephalopathy Is this a current diagnosis for this admission?: Yes Summary: Resolved; secondary to UTI. Acute worsening of patient's mental status has resolved; now at her baseline. Patient with advanced dementia; orientated to self only. She is conversational and at time of assessment is socially appropriate; however, has had periods of agitation and aggressive behaviors. She has frequently refused oral medications, though did take a.m. medications today. She continues to have a good appetite with adequate p.o. intake. (2) Chronic diastolic congestive heart failure Is this a current diagnosis for this admission?: Yes Summary: Stable and without exacerbation. Recommend continued cardiac diet with daily weights. Continue outpatient regiment. (3) UTI (urinary tract infection) Is this a current diagnosis for this admission?: Yes Summary: Urinalysis positive for UTI. Urine culture grew E. faecalis sensitive to penicillin. Patient initially was treated with IV Rocephin; changed to Ampicillin based on sensitivity results. Today patient is complaint with oral medication; therefore, she is transitioned to oral amoxicillin for completion of antibiotic therapy post discharge. (4) Atrial fibrillation and flutter Is this a current diagnosis for this admission?: Yes Summary: Patient with history of chronic atrial fibrillation; previously on Coumadin. Patient was subtherapeutic on arrival. She is transitioned to renally dosed Eliquis for discharge to home. Remains rate controlled on home dose Toprol XL (5) Morbid obesity Is this a current diagnosis for this admission?: Yes Summary: BMI 49.0 Recommend dietary discretion and increased mobility. (6) CKD (chronic kidney disease), stage IV Is this a current diagnosis for this admission?: Yes Summary: Stable. Creatinine/BUN at baseline; 2.7/50 - Additional Information Resuscitation Status: Full Code Discharge Diet: Cardiac Discharge Activity: Activity As Tolerated, Balance Activity w/Rest, Supervised Activity Prescriptions: RX: Amoxicillin Trihydrate [Amoxil 500 mg Capsule] 500 mg PO Q8 #15 capsule RX: Buspirone HCl [Buspar 10 mg Tablet] 10 mg PO QHS #30 tablet RX: Buspirone HCl [Buspar 10 mg Tablet] 5 mg PO QAM #30 tablet RX: Apixaban [Eliquis 2.5 mg Tablet] 2.5 mg PO BID #60 tablet Home Medications: RX: Midodrine HCl [Proamatine 5 mg Tablet] 10 mg PO Q8 03/18/17 RX: Omeprazole 20 mg PO DAILY 03/18/17 RX: Metoprolol Succinate [Toprol Xl 50 mg Tab.sr] 50 mg PO DAILY #30 tab.sr.24h 03/30/17 RX: Calcitriol [Rocaltrol 0.25 mcg Capsule] 0.25 mcg PO DAILY 10/27/18 RX: Docusate Sodium [Colace 100 mg Capsule] 100 mg PO DAILY 10/27/18 RX: Mirtazapine 7.5 mg PO QHS 10/27/18 RX: Multivitamin with Minerals [One Daily Plus Minerals] 1 each PO DAILY 06/11 RX: Polyethylene Glycol 3350 [Miralax Powder 17 gm/Packet] 1 packet PO DAILY 10/27/18 RX: Potassium Chloride [Klor-Con 10 Meq Capsule ER] 10 meq PO DAILY 10/27/18 RX: Sennosides [Senna] 8.6 mg PO DAILY 10/27/18 RX: Sodium Bicarbonate [Sodium Bicarbonate 650 mg Tablet] 650 mg PO Q8 10/27/18 RX: Amoxicillin Trihydrate [Amoxil 500 mg Capsule] 500 mg PO Q8 #15 capsule 11/02/18 RX: Apixaban [Eliquis 2.5 mg Tablet] 2.5 mg PO BID #60 tablet 11/02/18 RX: Buspirone HCl [Buspar 10 mg Tablet] 5 mg PO QAM #30 tablet 11/02/18 RX: Buspirone HCl [Buspar 10 mg Tablet] 10 mg PO QHS #30 tablet 11/02/18 History of Present Illness Admission Date/PCP: 10/26/18 22:51 GUNJAN LARA History of Present Illness: Per H&P by Dr. Restrepo: ANTHONY PELLETIER is a 83 year old female who presented to the emergency room via EMS with acute changes in her mental status. Patient is a [facility] resident and was transferred to the emergency room due to increased confusion. Patient is very pleasant and makes efforts at providing history but is not reliable due to her confusion. snf staff did not indicate any additional associated or accompanying signs or symptoms. Patient has suffered from similar symptoms in the past with infections. snf staff did not report any identified aggravating or ameliorating factors for patient's change in mental status. In the emergency room she was found to have pyuria consistent with a urinary tract infection and a slightly depressed serum bicarbonate at 19. Patient was subsequently admitted to hospital for further evaluation and treatment. Physical Exam Vital Signs: Temp Pulse Resp BP Pulse Ox 97.8 F 93 18 100/50 L 97 11/01/18 23:04 11/01/18 23:04 11/01/18 23:04 11/01/18 23:04 11/01/18 23:04 Intake & Output 11/01/18 11/02/18 11/03/18 06:59 06:59 06:59 Intake Total 710 237 240 Output Total 775 150 175 Balance -65 87 65 Weight 132.6 kg 133.6 kg General appearance: PRESENT: no acute distress, morbidly obese, well-developed, well-nourished Head exam: PRESENT: atraumatic, normocephalic Eye exam: PRESENT: conjunctiva pink, EOMI, PERRLA. ABSENT: scleral icterus Ear exam: PRESENT: normal external ear exam Mouth exam: PRESENT: moist, tongue midline Neck exam: ABSENT: carotid bruit, JVD, lymphadenopathy, thyromegaly Respiratory exam: PRESENT: clear to auscultation mariama, decreased breath sounds - bibasilar; secondary to body habitus, poor inspiratory effort and positioning, symmetrical, unlabored. ABSENT: rales, rhonchi, wheezes Cardiovascular exam: PRESENT: RRR, +S1, +S2. ABSENT: diastolic murmur, rubs, systolic murmur Pulses: PRESENT: normal dorsalis pedis pul Vascular exam: PRESENT: normal capillary refill GI/Abdominal exam: PRESENT: normal bowel sounds, soft. ABSENT: distended, guarding, mass, organolmegaly, rebound, tenderness Rectal exam: PRESENT: deferred Extremities exam: PRESENT: full ROM. ABSENT: calf tenderness, clubbing, pedal edema Neurological exam: PRESENT: alert, awake, oriented to person, CN II-XII grossly intact, other - Conversational but confused. Intermittent aggressive behaviors.. ABSENT: oriented to place, oriented to time, oriented to situation, motor sensory deficit Psychiatric exam: PRESENT: appropriate affect, normal mood. ABSENT: homicidal ideation, suicidal ideation Skin exam: PRESENT: dry, intact, warm. ABSENT: cyanosis, rash Results Laboratory Results: 11/01/18 07:26 11/01/18 07:26 11/01/18 17:44 Urine Color YELLOW Urine Appearance SLIGHTLY-CLOUDY Urine pH 5.0 Ur Specific Arab 1.013 Urine Protein 100 H Urine Glucose (UA) NEGATIVE Urine Ketones NEGATIVE Urine Blood MODERATE H Urine Nitrite NEGATIVE Ur Leukocyte Esterase LARGE H Urine WBC (Auto) 79 Urine RBC (Auto) 24 10/28/18 10/28/18 10/28/18 12:43 12:43 12:43 Creatine Kinase 27 L CK-MB (CK-2) < 0.22 Troponin I 0.026 Cancelled NT-Pro-B Natriuret Pep 10/28/18 10/28/18 10/29/18 19:45 19:45 01:46 Creatine Kinase 26 L 30 CK-MB (CK-2) < 0.22 Troponin I 0.025 NT-Pro-B Natriuret Pep 10/29/18 11/01/18 01:46 07:26 Creatine Kinase CK-MB (CK-2) < 0.22 Troponin I 0.029 NT-Pro-B Natriuret Pep 2950 H Transfer Plan - Disposition Transfer Plan: Discharge to [facility] where patient is an established resident. - Time Spent with Patient Time spent with patient: Less than 30 Minutes Qualifiers - * PATIENT BEING DISCHARGED WITH ANY OF THE FOLLOWING DIAGNOSIS: No Acute Heart Failure - Is this a Heart Failure Patient?: Yes Documentation of LVEF assessment?: No, Document reason LVEF < 40%?: No- if no continue to question #3 a) Discharged on ACEI?: No, document contraindications Reason(s) not discharge on ACEI: Impaied/worsening renal function b) Discharges on ARB?: No-document contraindications Reason(s) not discharged on ARB: Impaired/worsening renal functions c) Discharged on ARNI?: No-Document Contraindications Reason(s) not discharged on ARNI: Impaired/worsening renal functions d) Discharged on evidence-based Beta pedro(carvedilol, sustained release metoprolol succinate, or bisoprolol)?: Yes e) For LVEF <35%, discharged on Aldosterone antagonist?: No-document contraincations Reason(s) not discharged on Aldosterone antagonist for LVEF < 35%: Renal dysfunction (creatinine >2.5 mg/dL in men or 2.0 mg/dL in women) 3. Anticoagulant therapy for permanect/persistent/paraoxysmal Afib or Aflutter: Yes Follow-up Appointment scheduled within 7 days?: Yes Plan Discharge Plan: Discharge to [facility] where patient is an established resident. Time Spent: Greater than 30 Minutes
[2018-11-02] MEDS ORDERED: AMOXICILLIN TRIHYDRATE 500 MG CAPSULE PO SCH (14:00)
== END 2018-11-02 17:19 | DRG 689 ==
LOC: ER 17:51 → EH 22:51 → 4N 10-27 00:10 → 3W 10-28 15:48 → 4N 10-30 14:49 → 3W 10-30 18:34
PROVIDERS: ADMIT Emergency Medicine; ATTEND Emergency Medicine
DX: N39.0 Urinary tract infection, site not specified (principal); G93.41 Metabolic encephalopathy; I13.0 Hypertensive heart and chronic kidney disease with heart failure and stage 1 through stage 4 chronic kidney disease, or unspecified chronic kidney disease; N18.4 Chronic kidney disease, stage 4 (severe); I50.32 Chronic diastolic (congestive) heart failure; Z68.42 Body mass index [BMI] 45.0-49.9, adult; E11.22 Type 2 diabetes mellitus with diabetic chronic kidney disease; B95.2 Enterococcus as the cause of diseases classified elsewhere; E66.01 Morbid (severe) obesity due to excess calories; I73.9 Peripheral vascular disease, unspecified; F03.90 Unspecified dementia, unspecified severity, without behavioral disturbance, psychotic disturbance, mood disturbance, and anxiety; I48.91 Unspecified atrial fibrillation; I95.9 Hypotension, unspecified; R00.1 Bradycardia, unspecified; K21.9 Gastro-esophageal reflux disease without esophagitis; Z79.01 Long term (current) use of anticoagulants; Z86.718 Personal history of other venous thrombosis and embolism; Z90.49 Acquired absence of other specified parts of digestive tract; Z82.49 Family history of ischemic heart disease and other diseases of the circulatory system; Z88.6 Allergy status to analgesic agent
CPT/HCPCS: 36415; 51701; 80048; 80053; 81001; 82272; 82550; 82553; 82962; 83605; 83735; 83880; 84439; 84443; 84481; 84484; 85025; 85027; 85610; 87040; 87070; 87086; 87088; 87186; 93005; 93010; 96361; 96365; 99285; J0696; J1265; J2060; J3490; J7030; J7120

== ENCOUNTER 2019-05-04 11:29 | Emergency (ER) | payer MEDICARE, MEDICAID ==
[2019-05-04 14:46] LABS: ALBUMIN 3.2 g/dL (3.5-5.0); ALKALINE PHOSPHATASE 110 U/L (38-126); ANION GAP 13 (5-19); ASPARTATE AMINO TRANSFERASE 22 U/L (14-36); BILIRUBIN,DIRECT 0.3 mg/dL (0.0-0.4); BILIRUBIN,TOTAL 0.4 mg/dL (0.2-1.3); BLOOD UREA NITROGEN 96 mg/dL (7-20); CALCIUM 8.7 mg/dL (8.4-10.2); CARBON DIOXIDE 18 mmol/L (22-30); CHLORIDE 105 mmol/L (98-107); CREATINE KINASE 89 U/L (30-135); GLUCOSE 93 mg/dL (75-110); POTASSIUM 4.8 mmol/L (3.6-5.0); TOTAL PROTEIN 7.4 g/dL (6.3-8.2)
[2019-05-04 14:57] LABS: CREATINE KINASE MB 2.26 ng/mL (<4.55); TROPONIN I 0.014 ng/mL
[2019-05-04 16:09] LABS: HEMATOCRIT 29.7 % (36.0-47.0); HEMOGLOBIN 9.9 g/dL (12.0-15.5); MEAN CORPUSCULAR HEMOGLOBIN 29.7 pg (27.0-33.4); MEAN CORPUSCULAR HGB CONC 33.4 g/dL (32.0-36.0); MEAN CORPUSCULAR VOLUME 89 fl (80-97); RED BLOOD COUNT 3.34 10^6/uL (3.72-5.28); RED CELL DISTRIBUTION WIDTH 14.9 % (11.5-14.0); WHITE BLOOD COUNT 4.4 10^3/uL (4.0-10.5)
[2019-05-04 16:10] LABS: ABSOLUTE LYMPHOCYTES (AUTO) 0.9 10^3/uL (0.5-4.7); ABSOLUTE MONOCYTES (AUTO) 0.3 10^3/uL (0.1-1.4); ABSOLUTE NEUT (AUTO) 3.1 10^3/uL (1.7-8.2); BASOPHILS % (AUTO) 0.5 % (0-2); EOSINOPHILS % (AUTO) 0.5 % (0-6); LYMPHOCYTES % (AUTO) 20.6 % (13-45); MONOCYTES % (AUTO) 7.9 % (3-13); PLATELET COUNT 86 10^3/uL (150-450); SEGMENTED NEUTROPHILS % (AUTO) 70.5 % (42-78); TOTAL CELLS COUNTED % (AUTO) 100 %
--- NOTE | 2019-05-04 17:23 | EKG REPORT ---
SEVERITY:- BORDERLINE ECG - WANDERING PACEMAKER : Confirmed by: Chacorta Garland 04-May-2019 17:22:22
--- NOTE | 2019-05-04 17:32 | ER Document Report ---
ED General - General Chief Complaint: Other Stated Complaint: BLOOD PRESSURE ISSUES Time Seen by Provider: 05/04/19 16:13 Primary Care Provider: GUNJAN LARA MD [Primary Care Provider] - Follow up as needed TRAVEL OUTSIDE OF THE [place] IN LAST 30 DAYS: No - HPI Notes: Patient is an 83-year-old female who was sent into the emergency department for evaluation. Patient is a poor historian. Evidently, the patient has gained 60 pounds over approximately 1 month. The patient denies any chest pain or shortness of breath. She states she has gained weight. She states has been taking her medications as prescribed. - Related Data Allergies/Adverse Reactions: morphine [Morphine] Adverse Reaction (Mild, Verified 03/19/17 04:36) Dizziness Past Medical History - General Information source: Patient, Emergency Med Personnel, Outside Facility Records - Social History Smoking Status: Never Smoker Family History: Hypertension Patient has suicidal ideation: No Patient has homicidal ideation: No - Past Medical History Cardiac Medical History: Reports: Hx Atrial Fibrillation - flutter, Hx Congestive Heart Failure, Hx DVT, Hx Hypertension, Hx Peripheral Vascular Disease Denies: Hx Coronary Artery Disease, Hx Heart Attack Pulmonary Medical History: Reports: Hx Asthma, Hx Bronchitis, Hx COPD Denies: Hx Pneumonia, Hx Tuberculosis Neurological Medical History: Denies: Hx Cerebrovascular Accident, Hx Seizures Endocrine Medical History: Reports: Hx Diabetes Mellitus Type 2. Denies: Hx Diabetes Mellitus Type 1 Renal/ Medical History: Reports: Hx End Stage Renal Disease, Hx Kidney Stones, Hx Renal Insufficiency. Denies: Hx Peritoneal Dialysis GI Medical History: Reports: Hx Gastroesophageal Reflux Disease. Denies: Hx Cirrhosis, Hx Crohn's Disease, Hx Hepatitis, Hx Hiatal Hernia, Hx Ulcer, Hx Ulcerative Colitis Musculoskeletal Medical History: Reports Hx Arthritis, Reports Hx Gout Skin Medical History: Reports Hx Cellulitis, Denies Hx Eczema, Denies Hx Psoriasis Infectious Medical History: Denies: Hx Hepatitis Past Surgical History: Reports: Hx Cholecystectomy, Hx Genitourinary Surgery - bladder. Denies: Hx Mastectomy, Hx Open Heart Surgery, Hx Pacemaker - Immunizations Hx Diphtheria, Pertussis, Tetanus Vaccination: Yes Hx Pneumococcal Vaccination: 11/24/11 Review of Systems - Review of Systems Constitutional: See HPI -: Yes All other systems reviewed and negative Physical Exam - Vital signs Vitals: Resp BP Pulse Ox 15 117/63 100 05/04/19 11:42 05/04/19 11:42 05/04/19 11:42 - Notes Notes: This is a morbidly obese 83-year-old female who appears her stated age in no acute distress. Head is normocephalic and atraumatic, pupils are equal round, active to light. Onychosis moist. Heart is irregularly irregular, lungs are clear to oscillation bilaterally. Abdomen is obese, nontender, normoactive bowel sounds. Extremities show +1 pitting edema and lymphedema with marked obe sity. She has chronic appearing skin changes to the lower extremities, from the distal calf down. Pulses are palpable. Sensation is intact. Course - Re-evaluation Re-evalutation: 05/04/19 17:30 Patient presents emergency department for evaluation. She evidently has had a 60 pound weight gain over about a month. Her vitals are normal. Her labs are normal. I did add a TSH, but she is not showing any signs of myxedema coma. I do not see any reason that she needs to wait in the emergency department for this evaluation to be completed. She is in a senior living, she can go back to the senior living and her primary care provider can follow-up in regards to this lab value. Otherwise, patient is stable and will be discharged. She is to return to the ED with worsening. - Vital Signs Vital signs: Temp Pulse Resp BP Pulse Ox 97.3 F 13 113/63 100 05/04/19 11:50 05/04/19 16:01 05/04/19 16:00 05/04/19 16:01 - Laboratory Result Diagrams: 05/04/19 15:21 05/04/19 13:58 Laboratory results interpreted by me: 05/04/19 05/04/19 05/04/19 13:58 13:58 15:21 RBC 3.34 L Hgb 9.9 L Hct 29.7 L RDW 14.9 H Plt Count 86 L Sodium 136.4 L Carbon Dioxide 18 L BUN 96 H Creatinine 2.24 H Est GFR ( Amer) 25 L Est GFR (MDRD) Non-Af 21 L NT-Pro-B Natriuret Pep 2420 H Albumin 3.2 L - EKG Interpretation by Me Additional EKG results interpreted by me: 05/04/19 17:31 Wandering pacemaker at 63 bpm. First-degree AV block. Nonspecific ST changes, but no acute changes concerning for ischemia or infarction. Discharge - Discharge Clinical Impression: Weight gain Condition: Stable Disposition: HOME, SELF-CARE Additional Instructions: No emergent cause was found for your weight gain today. You are oxygenating well. Her vital signs are normal. Your labs actually show some mild improvement. You should follow-up with primary care and Dr. Sánchez. We do have a TSH pending at this time. Please be sure that primary care follows up in regards to this laboratory value. Return to the emergency department with worsening or concerning symptoms of any sort. Referrals: GUNJAN LARA MD [Primary Care Provider] - Follow up as needed
[2019-05-04 18:17] VITALS: BP 102/65
== END 2019-05-04 18:29 | disposition home or self-care (01) ==
LOC: ER 11:29
DX: R63.5 Abnormal weight gain (principal); I48.91 Unspecified atrial fibrillation; I44.0 Atrioventricular block, first degree; I50.9 Heart failure, unspecified; E11.22 Type 2 diabetes mellitus with diabetic chronic kidney disease; I13.2 Hypertensive heart and chronic kidney disease with heart failure and with stage 5 chronic kidney disease, or end stage renal disease; N18.6 End stage renal disease; Z88.6 Allergy status to analgesic agent; Z86.718 Personal history of other venous thrombosis and embolism; Z87.442 Personal history of urinary calculi
CPT/HCPCS: 36415; 80053; 82550; 82553; 82962; 83880; 84443; 84484; 85025; 93005; 93010; 99284

== ENCOUNTER 2019-05-20 19:58 | Emergency (ER) | payer MEDICARE, MEDICAID ==
[2019-05-20 20:55] LABS: ABSOLUTE LYMPHOCYTES (AUTO) 0.9 10^3/uL (0.5-4.7); ABSOLUTE MONOCYTES (AUTO) 0.4 10^3/uL (0.1-1.4); ABSOLUTE NEUT (AUTO) 2.7 10^3/uL (1.7-8.2); BASOPHILS % (AUTO) 0.4 % (0-2); EOSINOPHILS % (AUTO) 0.6 % (0-6); HEMATOCRIT 31.5 % (36.0-47.0); HEMOGLOBIN 10.4 g/dL (12.0-15.5); LYMPHOCYTES % (AUTO) 22.6 % (13-45); MEAN CORPUSCULAR HEMOGLOBIN 29.1 pg (27.0-33.4); MEAN CORPUSCULAR HGB CONC 32.9 g/dL (32.0-36.0); MEAN CORPUSCULAR VOLUME 88 fl (80-97); MONOCYTES % (AUTO) 9.3 % (3-13); PLATELET COUNT 107 10^3/uL (150-450); RED BLOOD COUNT 3.56 10^6/uL (3.72-5.28); RED CELL DISTRIBUTION WIDTH 14.5 % (11.5-14.0); SEGMENTED NEUTROPHILS % (AUTO) 67.1 % (42-78); TOTAL CELLS COUNTED % (AUTO) 100 %
[2019-05-20 20:59] LABS: ANION GAP 10 (5-19); BLOOD UREA NITROGEN 109 mg/dL (7-20); CALCIUM 8.6 mg/dL (8.4-10.2); CARBON DIOXIDE 22 mmol/L (22-30); CHLORIDE 101 mmol/L (98-107); GLUCOSE 116 mg/dL (75-110); POTASSIUM 4.6 mmol/L (3.6-5.0)
[2019-05-20] MEDS ORDERED: NORMAL SALINE 1000 ML 1,000 ML IV ONE (22:18)
[2019-05-20] MEDS ORDERED: NORMAL SALINE 500 ML IV ONE (22:26)
[2019-05-20 22:32] LABS: APPEARANCE,URINE SLIGHTLY-CLOUDY; BILIRUBIN,URINE NEGATIVE (NEGATIVE); COLOR,URINE YELLOW; GLUCOSE, URINE NEGATIVE (NEGATIVE); KETONES,URINE NEGATIVE (NEGATIVE); PROTEIN,URINE NEGATIVE (NEGATIVE); URINE SPECIFIC GRAVITY 1.009; UROBILINOGEN,URINE NEGATIVE mg/dL (<2.0)
[2019-05-20] MEDS ORDERED: NITROFURANTOIN MONOHYD/M-CRYST 100 MG CAPSULE PO ONE (23:03)
--- NOTE | 2019-05-21 00:29 | ER Document Report ---
ED General - General Chief Complaint: Medical Clearance Stated Complaint: ABNORMAL LABS Time Seen by Provider: 05/20/19 22:06 Primary Care Provider: GUNJAN LARA MD [Primary Care Provider] - Follow up as needed TRAVEL OUTSIDE OF THE [place] IN LAST 30 DAYS: No - HPI Notes: Patient is an 83-year-old female, morbidly obese, with multiple medical issues, who was sent into the emergency department for evaluation because her BUN is over 100. The patient denies any acute complaints or concerns. She states she has some left leg pain that is been ongoing for some weeks. She states is in her proximal leg. Otherwise she is been eating and drinking normally. She states she has been taking her medications as they are given to her, she is unaware of any recent changes in her medications. She denies any melena or hematochezia. The patient is not ambulatory, denies any shortness of breath. - Related Data Allergies/Adverse Reactions: morphine [Morphine] Adverse Reaction (Mild, Verified 03/19/17 04:36) Dizziness Past Medical History - General Information source: Patient, [facility] Records, Outside Facility Records - Not boggy and itching she - Social History Smoking Status: Unknown if Ever Smoked Chew tobacco use (# tins/day): No Frequency of alcohol use: None Drug Abuse: None Family History: Hypertension Patient has suicidal ideation: No Patient has homicidal ideation: No - Past Medical History Cardiac Medical History: Reports: Hx Atrial Fibrillation - flutter, Hx Congestive Heart Failure, Hx DVT, Hx Hypertension, Hx Peripheral Vascular Disease Denies: Hx Coronary Artery Disease, Hx Heart Attack Pulmonary Medical History: Reports: Hx Asthma, Hx Bronchitis, Hx COPD Denies: Hx Pneumonia, Hx Tuberculosis Neurological Medical History: Denies: Hx Cerebrovascular Accident, Hx Seizures Endocrine Medical History: Reports: Hx Diabetes Mellitus Type 2. Denies: Hx Diabetes Mellitus Type 1 Renal/ Medical History: Reports: Hx End Stage Renal Disease, Hx Kidney Stones, Hx Renal Insufficiency. Denies: Hx Peritoneal Dialysis GI Medical History: Reports: Hx Gastroesophageal Reflux Disease. Denies: Hx C irrhosis, Hx Crohn's Disease, Hx Hepatitis, Hx Hiatal Hernia, Hx Ulcer, Hx Ulcerative Colitis Musculoskeletal Medical History: Reports Hx Arthritis, Reports Hx Gout Skin Medical History: Reports Hx Cellulitis, Denies Hx Eczema, Denies Hx Psoriasis Infectious Medical History: Denies: Hx Hepatitis Past Surgical History: Reports: Hx Cholecystectomy, Hx Genitourinary Surgery - bladder. Denies: Hx Mastectomy, Hx Open Heart Surgery, Hx Pacemaker - Immunizations Hx Diphtheria, Pertussis, Tetanus Vaccination: Yes Hx Pneumococcal Vaccination: 11/24/11 Review of Systems - Review of Systems Musculoskeletal: See HPI -: Yes All other systems reviewed and negative Physical Exam - Vital signs Vitals: Temp Pulse Resp BP Pulse Ox 97.7 F 70 16 104/60 98 05/20/19 19:58 05/20/19 19:58 05/20/19 19:58 05/20/19 19:58 05/20/19 19:58 - Notes Notes: This is an 83-year-old female who appears her stated age, no acute distress. She is lying comfortably in the bed. Head is normocephalic and atraumatic, pupils are equal round, reactive to light. Oral mucosa is moist. Dentition is extremely poor with significant decay noted. Heart is regular rate and rhythm, lungs show diminished breath sounds, likely secondary to body habitus. Abdomen is obese, nontender. Extremities show bilateral lymphedema, with seeping trans udate of fluid from the left proximal thigh. Peripheral pulses are equal. She has chronic appearing skin thickening to bilateral pretibial regions. Patient is awake, alert, cooperative examiner. She moves all 4 extremities spontaneously. Course - Re-evaluation Re-evalutation: 05/21/19 00:27 Patient presents to the emergency department for evaluation. She has no acute complaints or concerns. The patient has a history of chronic kidney disease, her creatinine is actually near baseline. She does have an elevated BUN to cre atinine ratio. She is not showing any active signs of heart failure, she is oxygenating well. My suspicion is that she is intravascular lead depleted. She is given a small amount of IV fluids. She has a mild anemia, but it is no worse than it has been in the past. She is not showing any signs of significant GI bleeding. Certainly this will require further evaluation, but I do not see that it needs to be done as an inpatient. Her urinalysis did reveal signs of a possible urinary tract infection. She is given a dose of Macrobid here, she has a history of ESBL in the past. I will go ahead and start her on Macrobid at home. She is to follow-up with primary care, return to the emergency department with worsening or new concerning symptoms of any sort. - Vital Signs Vital signs: Temp Pulse Resp BP Pulse Ox 97.7 F 68 14 116/63 100 05/21/19 03:16 05/21/19 03:16 05/21/19 03:16 05/21/19 03:16 05/21/19 03:16 - Laboratory Result Diagrams: 05/20/19 20:12 05/20/19 20:12 Laboratory results interpreted by me: 05/20/19 05/20/19 05/20/19 20:12 20:12 21:59 RBC 3.56 L Hgb 10.4 L Hct 31.5 L RDW 14.5 H Plt Count 107 L Sodium 132.9 L BUN 109 H Creatinine 2.39 H Est GFR ( Amer) 23 L Est GFR (MDRD) Non-Af 19 L Glucose 116 H Leukocyte Esterase Rfl LARGE H Discharge - Discharge Clinical Impression: Elevated BUN UTI (urinary tract infection) Qualifiers: Urinary tract infection type: site unspecified Hematuria presence: without hematuria Qualified Code(s): N39.0 - Urinary tract infection, site not specified Condition: Stable Disposition: HOME, SELF-CARE Instructions: Urinary Tract Infection ([facility]) Additional Instructions: Your BUN is elevated here, but you are not showing signs of significant worsened renal failure, heart failure, sepsis. You were given a small amount of IV fluids. Your blood work should be rechecked. You do have a urinary tract infection. You are given first dose of Macrobid here, you are sent home with a prescription for the same. Please take this as directed. Return to the emergency department for worsening or new concerning symptoms of any sort. Prescriptions: Nitrofurantoin Monohyd/M-Cryst [Macrobid 100 mg Capsule] 100 mg PO BID #14 cap Referrals: GUNJAN LARA MD [Primary Care Provider] - Follow up as needed
[2019-05-21 03:19] VITALS: BP 116/63
== END 2019-05-21 03:16 | disposition home or self-care (01) ==
LOC: ER 19:58
DX: R79.89 Other specified abnormal findings of blood chemistry (principal); N39.0 Urinary tract infection, site not specified; E66.01 Morbid (severe) obesity due to excess calories; M79.605 Pain in left leg; I10 Essential (primary) hypertension; J44.9 Chronic obstructive pulmonary disease, unspecified; E11.51 Type 2 diabetes mellitus with diabetic peripheral angiopathy without gangrene; D64.9 Anemia, unspecified; K02.9 Dental caries, unspecified; I89.0 Lymphedema, not elsewhere classified; Z79.899 Other long term (current) drug therapy
CPT/HCPCS: 99284; 96360; 36415; 87086; 85025; 87088; 80048; 81001; 87186; J7040; A9270; J8499

== ENCOUNTER 2019-06-14 11:52 | Inpatient (IN) | payer MEDICARE, MEDICAID ==
[2019-06-14 12:38] LABS: APPEARANCE,URINE CLEAR; BILIRUBIN,URINE NEGATIVE (NEGATIVE); COLOR,URINE STRAW; GLUCOSE, URINE NEGATIVE (NEGATIVE); KETONES,URINE NEGATIVE (NEGATIVE); LEUKOCYTE ESTERASE,URINE SMALL (NEGATIVE); NITRITE,URINE NEGATIVE (NEGATIVE); PROTEIN,URINE NEGATIVE (NEGATIVE); URINE SPECIFIC GRAVITY 1.008; UROBILINOGEN,URINE NEGATIVE mg/dL (<2.0)
[2019-06-14 12:51] LABS: ALKALINE PHOSPHATASE 75 U/L (38-126); ANION GAP 9 (5-19); ASPARTATE AMINO TRANSFERASE 28 U/L (14-36); BILIRUBIN,TOTAL 0.4 mg/dL (0.2-1.3); BLOOD UREA NITROGEN 119 mg/dL (7-20); CALCIUM 8.3 mg/dL (8.4-10.2); CARBON DIOXIDE 22 mmol/L (22-30); CHLORIDE 100 mmol/L (98-107); GLUCOSE 115 mg/dL (75-110); POTASSIUM 4.8 mmol/L (3.6-5.0); TOTAL PROTEIN 6.6 g/dL (6.3-8.2)
--- NOTE | 2019-06-14 13:00 | ER Document Report ---
ED General - General Chief Complaint: Abnormal Lab Results Stated Complaint: ABNORMAL LABS Time Seen by Provider: 06/14/19 12:05 Notes: Patient is an 83-year-old obese female with chronic medical problems who presents to the ED with and elevated BUN per outside labs. Patient is unable to give me much detail about how she is feeling. TRAVEL OUTSIDE OF THE [place] IN LAST 30 DAYS: No - Related Data Allergies/Adverse Reactions: morphine [Morphine] Adverse Reaction (Mild, Verified 03/19/17 04:36) Dizziness Past Medical History - Social History Smoking Status: Unknown if Ever Smoked Family History: Hypertension - Past Medical History Cardiac Medical History: Reports: Hx Atrial Fibrillation - flutter, Hx Congestive Heart Failure, Hx DVT, Hx Hypertension, Hx Peripheral Vascular Disease Denies: Hx Coronary Artery Disease, Hx Heart Attack Pulmonary Medical History: Reports: Hx Asthma, Hx Bronchitis, Hx COPD Denies: Hx Pneumonia, Hx Tuberculosis Neurological Medical History: Denies: Hx Cerebrovascular Accident, Hx Seizures Endocrine Medical History: Reports: Hx Diabetes Mellitus Type 2. Denies: Hx Diabetes Mellitus Type 1 Renal/ Medical History: Reports: Hx End Stage Renal Disease, Hx Kidney Stones, Hx Renal Insufficiency. Denies: Hx Peritoneal Dialysis GI Medical History: Reports: Hx Gastroesophageal Reflux Disease. Denies: Hx Cirrhosis, Hx Crohn's Disease, Hx Hepatitis, Hx Hiatal Hernia, Hx Ulcer, Hx Ulcerative Colitis Musculoskeletal Medical History: Reports Hx Arthritis, Reports Hx Gout Skin Medical History: Reports Hx Cellulitis, Denies Hx Eczema, Denies Hx Psoriasis Infectious Medical History: Denies: Hx Hepatitis Past Surgical History: Reports: Hx Cholecystectomy, Hx Genitourinary Surgery - bladder. Denies: Hx Mastectomy, Hx Open Heart Surgery, Hx Pacemaker - Immunizations Hx Diphtheria, Pertussis, Tetanus Vaccination: Yes Hx Pneumococcal Vaccination: 11/24/11 Review of Systems - Review of Systems -: Yes ROS unobtainable due to patient's medical condition Physical Exam - Vital signs Vitals: Resp Pulse Ox 17 98 06/14/19 12:13 06/14/19 12:13 - Notes Notes: PHYSICAL EXAMINATION: GENERAL: Appears obese, no acute distress. HEAD: Normocephalic, atraumatic. EYES: PERRL, conjunctiva normal, all extraocular movements intact, sclera nonicteric ENT: Dry mucous membranes. NECK: Supple, no noticeable swelling, redness, rash. Normal range of motion. LUNGS: Equal breath sounds bilaterally and clear to auscultation. No wheezes rales or rhonchi. CARDIOVASCULAR: S1-S2, regular rate, regular rhythm. Radial pulses 2+, normal. ABDOMEN: Normoactive bowel sounds. Soft, nontender, no guarding, no rebound tenderness, and no masses palpated. EXTREMITIES: Normal strength and range of motion, no pitting or edema. No c yanosis. NEUROLOGICAL: Moves all extremities upon command. Strength 5/5 in all extremities. PSYCH: Normal mood, normal affect. SKIN: Warm, dry. No rash, lesions, ulcerations noted. Normal skin turgor. Course - Re-evaluation Re-evalutation: 06/14/19 13:[address] Diaz. She state she is not the patient's primary care provider, but Sachin Elena the PA. 06/14/19 13:15 I spoke with Sachin Elena, the PA, who states that the patient has been having elevated BUNs for the past few months and is requesting admission. He states that the patient is becoming more confused. He is requesting that I speak with Dr. Sánchez, the on-call rail filler to discuss the patient's case. 06/14/19 13:[address] Sánchez. Awaiting call back. 06/14/19 13:[address] Sánchez, the rail filler and he would like to have the patient admitted due to her BUN steadily rising over time. 06/14/19 14:[address] Hahn, who states ELISE Robles will manage the patient. She states that she would like a chest x-ray, renal ultrasound and rectal exam for further management. 06/14/19 15:42 Rectal exam done with ELISE Robles at bedside. Guiac stool was negative. ELISE Robles to assess the patient at bedside. Patient will be admitted to [facility]. - Vital Signs Vital signs: Temp Pulse Resp BP Pulse Ox 97.7 F 12 98/57 L 100 06/14/19 12:20 06/14/19 15:01 06/14/19 15:00 06/14/19 15:01 - Laboratory Result Diagrams: 06/14/19 13:35 06/14/19 11:58 Laboratory results interpreted by me: 06/14/19 06/14/19 06/14/19 11:58 11:58 12:18 RBC Hgb Hct RDW Plt Count Sodium 131.2 L BUN 119 H Creatinine 2.09 H Est GFR ( Amer) 27 L Est GFR (MDRD) Non-Af 23 L Glucose 115 H Calcium 8.3 L NT-Pro-B Natriuret Pep 1690 H Albumin 3.0 L Prealbumin Ur Leukocyte Esterase SMALL H 06/14/19 06/14/19 13:35 14:15 RBC 3.15 L Hgb 9.2 L Hct 27.0 L RDW 14.4 H Plt Count 93 L Sodium BUN Creatinine Est GFR ( Amer) Est GFR (MDRD) Non-Af Glucose Calcium NT-Pro-B Natriuret Pep Albumin Prealbumin 14.9 L Ur Leukocyte Esterase Discharge - Discharge Clinical Impression: Elevated BUN CHF (congestive heart failure) Qualifiers: Heart failure type: other Qualified Code(s): I50.9 - Heart failure, unspecified Condition: Stable Disposition: ADMITTED INPATIENT Admitting Provider: Jovani (Hospitalist) Unit Admitted: [facility]
[2019-06-14 14:19] LABS: HEMOGLOBIN 9.2 g/dL (12.0-15.5); RED BLOOD COUNT 3.15 10^6/uL (3.72-5.28); WHITE BLOOD COUNT 4.6 10^3/uL (4.0-10.5)
[2019-06-14 14:20] LABS: ABSOLUTE EOSINOPHILS # (AUTO) 0.1 10^3/uL (0.0-0.6); ABSOLUTE MONOCYTES (AUTO) 0.4 10^3/uL (0.1-1.4); ABSOLUTE NEUT (AUTO) 3.1 10^3/uL (1.7-8.2); BASOPHILS % (AUTO) 0.3 % (0-2); EOSINOPHILS % (AUTO) 1.4 % (0-6); LYMPHOCYTES % (AUTO) 21.8 % (13-45); MEAN CORPUSCULAR HEMOGLOBIN 29.1 pg (27.0-33.4); MEAN CORPUSCULAR VOLUME 86 fl (80-97); MONOCYTES % (AUTO) 9.5 % (3-13); RED CELL DISTRIBUTION WIDTH 14.4 % (11.5-14.0); TOTAL CELLS COUNTED % (AUTO) 100 %
[2019-06-14 14:25] LABS: PLATELET COUNT 93 10^3/uL (150-450)
--- NOTE | 2019-06-14 14:37 | RADIOLOGY REPORT (SQ) ---
EXAM DESCRIPTION: U/S RETROPERITON (RENAL/AORTA) IMAGES COMPLETED DATE/TIME: 06/14/2019 2:24 pm REASON FOR STUDY: elevated BUN COMPARISON: None. TECHNIQUE: Dynamic and static grayscale images acquired of the kidneys and bladder and recorded on P ACS. Additional selected color Doppler and spectral images recorded. LIMITATIONS: Limited due to body habitus. FINDINGS: RIGHT KIDNEY: Right kidney measures 8.0 cm. Limited evaluation. No hydronephrosis. LEFT KIDNEY: Nonvisualized due to body habitus. BLADDER: Decompressed with catheter. Non visualized. OTHER FINDINGS: No other significant finding. IMPRESSION: Limited exam secondary to body habitus. Left kidney nonvisualized. Right kidney without hydronephrosis. TECHNICAL DOCUMENTATION: JOB ID: [id number] 2010 [employer]- All Rights Reserved Reading location - IP/workstation name: [email or web address]
--- NOTE | 2019-06-14 15:10 | RADIOLOGY REPORT (SQ) ---
EXAM DESCRIPTION: CHEST SINGLE VIEW IMAGES COMPLETED DATE/TIME: 06/14/2019 2:51 pm REASON FOR STUDY: elevated BNP COMPARISON: 08/16/2015 EXAM PARAMETERS: NUMBER OF VIEWS: One view. TECHNIQUE: Single frontal radiographic view of the chest acquired. RADIATION DOSE: NA LIMITATIONS: None. FINDINGS: LUNGS AND PLEURA: Low lung volumes. Retrocardiac opacity, likely hiatal hernia, stable. No pleural effusion or pneumothorax. MEDIASTINUM AND HILAR STRUCTURES: No masses. Contour normal. HEART AND VASCULAR STRUCTURES: Enlarged, stable. Vascular calcifications. BONES: No acute findings. HARDWARE: None in the chest. OTHER: Likely hiatal hernia. IMPRESSION: Low lung volumes without evidence of acute cardiopulmonary process. Stable retrocardiac opacity, likely hiatal hernia. TECHNICAL DOCUMENTATION: JOB ID: [id number] 2010 [employer]- All Rights Reserved Reading location - IP/workstation name: [email or web address]
[2019-06-14] MEDS ORDERED: MAG HYDROX/AL HYDROX/SIMETH SUSP 30 ML UDCUP PO PRN (15:48)
[2019-06-14] MEDS ORDERED: ACETAMINOPHEN 325 MG TABLET PO PRN (15:48)
[2019-06-14] MEDS ORDERED: MAGNESIUM HYDROXIDE SUSP 30 ML UDCUP PO PRN (15:48)
[2019-06-14] MEDS ORDERED: DOBUTAMINE HCL/D5W 500 MG/250 ML RTUINJ IV PRN (16:02)
--- NOTE | 2019-06-14 16:30 | PDOC PROGRESS REPORT ---
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 Her BUN has been increasing over the last several weeks despite increased diuresis at SNF. Creatinine remained stable. Evaluation in the emergency department is essentially unremarkable with hypotension (98/57), anemia (Hgb 9.2), mild hyponatremia 131.2, Baseline creatinine 2.09, BUN 119, proBNP 1690 (actually improved from previous visits), albumin 3.0. Prealbumin is pending. Urinalysis is unremarkable. Guaiac negative. Chest x-ray shows chronic changes; no acute CHF. Renal ultrasound shows normal right kidney, unable to visualize left. Attempted abdominal CT; unable to complete test due to body habitus. Last echocardiogram from 2018 was poor quality study due to body habitus with recommendation for MUGA scan. Will ask nuclear medicine to attempt, although, I doubt they will be successful either as the patient could not fit in the CT imaging. Have spoken with cardiovascular lab and requested an echocardiogram if unable to complete MUGA. She is referred to the hospitalist service for admission and management of the above-stated complaints and findings. Reason For Visit: ABNORMAL LABS Physical Exam Vital Signs: Temp Pulse Resp BP Pulse Ox 97.7 F 12 98/57 L 100 06/14/19 12:20 06/14/19 15:01 06/14/19 15:00 06/14/19 15:01 General appearance: PRESENT: no acute distress, cooperative, hard of hearing, morbidly obese, well-developed, well-nourished, other - gross anasarca; pitting edema to posterior chest wall Head exam: PRESENT: atraumatic, normocephalic Eye exam: PRESENT: conjunctiva pink, EOMI, PERRLA. ABSENT: scleral icterus Ear exam: PRESENT: normal external ear exam Mouth exam: PRESENT: moist, tongue midline Teeth exam: PRESENT: poor dentation Respiratory exam: PRESENT: clear to auscultation mariama, decreased breath sounds - Throughout secondary to body habitus, positioning, poor inspiratory effort, symmetrical, unlabored. ABSENT: rales, rhonchi, wheezes Cardiovascular exam: PRESENT: RRR, +S1, +S2. ABSENT: diastolic murmur, rubs, systolic murmur Pulses: PRESENT: +1 pedal pulses bilateral Vascular exam: PRESENT: normal capillary refill GI/Abdominal exam: PRESENT: soft, other - Rotund, pendulous;exam limited secondary to body habitus. ABSENT: distended, guarding, mass, rebound, tenderness Rectal exam: PRESENT: deferred Gentrourinary exam: PRESENT: indwelling catheter Extremities exam: PRESENT: +2 edema - BLE, other. ABSENT: calf tenderness, clubbing, full ROM - Range of motion limited secondary to body habitus, pedal edema Neurological exam: PRESENT: alert, awake, oriented to person, CN II-XII grossly intact, other - Conversational socially appropriate present; at baseline mentation. ABSENT: motor sensory deficit Psychiatric exam: PRESENT: appropriate affect, normal mood. ABSENT: homicidal ideation, suicidal ideation Skin exam: PRESENT: dry, intact, warm. ABSENT: cyanosis, rash Results Laboratory Results: 06/14/19 13:35 06/14/19 11:58 06/14/19 06/14/19 06/14/19 11:58 11:58 12:18 WBC Cancelled RBC Cancelled Hgb Cancelled Hct Cancelled MCV Cancelled MCH Cancelled MCHC Cancelled RDW Cancelled Plt Count Cancelled Seg Neutrophils % Cancelled Sodium 131.2 L Potassium 4.8 Chloride 100 Carbon Dioxide 22 Anion Gap 9 BUN 119 H Creatinine 2.09 H Est GFR ( Amer) 27 L Glucose 115 H Calcium 8.3 L Total Bilirubin 0.4 AST 28 Alkaline Phosphatase 75 Total Protein 6.6 Albumin 3.0 L Urine Color STRAW Urine Appearance CLEAR Urine pH 5.0 Ur Specific [place] 1.008 Urine Protein NEGATIVE Urine Glucose (UA) NEGATIVE Urine Ketones NEGATIVE Urine Blood NEGATIVE Urine Nitrite NEGATIVE Ur Leukocyte Esterase SMALL H Urine WBC (Auto) 6 Urine RBC (Auto) 2 06/14/19 13:35 WBC 4.6 RBC 3.15 L Hgb 9.2 L Hct 27.0 L MCV 86 MCH 29.1 MCHC 34.0 RDW 14.4 H Plt Count 93 L Seg Neutrophils % 67.0 Sodium Potassium Chloride Carbon Dioxide Anion Gap BUN Creatinine Est GFR ( Amer) Glucose Calcium Total Bilirubin AST Alkaline Phosphatase Total Protein Albumin Urine Color Urine Appearance Urine pH Ur Specific [place] Urine Protein Urine Glucose (UA) Urine Ketones Urine Blood Urine Nitrite Ur Leukocyte Esterase Urine WBC (Auto) Urine RBC (Auto) 06/14/19 11:58 NT-Pro-B Natriuret Pep 1690 H Impressions: Renal Ultrasound 06/14/19 13:44 IMPRESSION: Limited exam secondary to body habitus. Left kidney nonvisualized. Right kidney without hydronephrosis. Chest X-Ray 06/14/19 14:28 IMPRESSION: Low lung volumes without evidence of acute cardiopulmonary process. Stable retrocardiac opacity, likely hiatal hernia. Assessment and Plan - Diagnosis (1) Anasarca Is this a current diagnosis for this admission?: Yes Plan: Gross anasarca; pitting edema to BLE, sacrum/buttocks, extending proximally to posterior chest wall (+1 pitting edema to chest wall). None to BUE. Renal function appears to be at baseline with 2.09 and excellent urinary output upon insertion of Arambula catheter today. Evaluation of diastolic CHF as below. LFTs are unremarkable. Albumin 3.0; prealbumin pending. We will provide IV albumin followed by furosemide for diuresis. Registered dietitian is consulted. Follow up chemistry. Discharge planning and palliative care consultation. (2) Chronic diastolic congestive heart failure Is this a current diagnosis for this admission?: Yes Plan: Chest x-ray clear. proBNP 1690; decreased from last visit of 2400. Last echocardiogram 2018 was poor quality study; unable to assess LVEF or diastolic function; recommended MUGA. MUGA scan is pending. Have asked the noninvasive cardiovascular lab to follow-up with echocardiogram if the patient is unable to have muga completed. She is admitted to [facility] on continuous cardiac telemetry. Have started low-dose Lisinopril. Continue home dose Toprol. Begin furosemide 40 mg twice daily. Dobutamine drip for renal perfusion. Cardiac diet. Fluid restricted to 1200 Low threshold for cardiology consultation. Daily weights, strict NOAM's (3) Elevated BUN Is this a current diagnosis for this admission?: Yes Plan: Unclear etiology. No gross evidence of acute worsening of her baseline renal function. Patient does not appear to be in heart failure extremis, although, she does have some evidence of acute worsening of her chronic diastolic failure. Evaluation and management as above. Occult stool is negative. Patient does have gross anasarca; will manage as above. Cardiac/low protein diet. Follow-up chemistry. (4) CKD (chronic kidney disease), stage IV Is this a current diagnosis for this admission?: Yes Plan: Followed by Dr. Sánchez. Low threshold for consultation. Creatinine 2.09; at baseline. Excellent urine output today in ED. Arambula in place for strict monitoring. Avoid nephrotoxic medications as able. She will be receiving furosemide for aggressive diuresis. Follow-up chemistry. (5) Chronic a-fib Is this a current diagnosis for this admission?: Yes Plan: Continue home dose Eliquis and metoprolol. (6) Do not resuscitate Is this a current diagnosis for this admission?: Yes - Time Time Spent with patient: 35 or more minutes Medications reviewed and adjusted accordingly: Yes Anticipated discharge: SNF Within: within 48 hours
[2019-06-14] MEDS ORDERED: ALBUMIN HUMAN 12.5 GM/50 ML RTUINJ IV SCH (17:00)
--- NOTE | 2019-06-14 17:16 | PDOC H&P ---
History of Present Illness Admission Date/PCP: 06/14/19 16:11 GUNJAN LARA Patient complains of: abnormal labs History of Present Illness: ANTHONY PELLETIER is an 83-year-old female with a past medical history significant for advanced dementia (oriented to self only), bedbound status, super morbid obesity, chronic CHF, CKD 4, atrial fibrillation, COPD who was sent to the emergency department today by her idea man for abnormal labs. Her BUN has been increasing over the last several weeks despite increased diuresis at SNF. Creatinine remained stable. Evaluation in the emergency department is essentially unremarkable with hypotension (98/57), anemia (Hgb 9.2), mild hyponatremia 131.2, Baseline creatinine 2.09, BUN 119, proBNP 1690 (actually improved from previous visits), albumin 3.0. Prealbumin is pending. Urinalysis is unremarkable. Guaiac negative. Chest x-ray shows chronic changes; no acute CHF. Renal ultrasound shows normal right kidney, unable to visualize left. Attempted abdominal CT; unable to complete test due to body habitus. Last echocardiogram from 2018 was poor quality study due to body habitus with recommendation for MUGA scan. Will ask nuclear medicine to attempt, although, I doubt they will be successful either as the patient could not fit in the CT imaging. Have spoken with cardiovascular lab and requested an echocardiogram if unable to complete MUGA. She is referred to the hospitalist service for admission and management of the above-stated complaints and findings. Past Medical History Cardiac Medical History: Reports: Atrial Fibrillation - flutter, Congestive Heart Failure, DVT, Hypertension, Peripheral Vascular Disease Denies: Coronary Artery Disease, Myocardial Infarction Pulmonary Medical History: Reports: Asthma, Bronchitis, Chronic Obstructive Pulmonary Disease (COPD) Denies: Pneumonia, Tuberculosis Neurological Medical History: Denies: Seizures Endocrine Medical History: Reports: Diabetes Mellitus Type 2 Denies: Diabetes Mellitus Type 1 Renal/ Medical History: Reports: End Stage Renal Disease GI Medical History: Reports: Gastroesophageal Reflux Disease Denies: Cirrhosis, Crohn's Disease, Hepatitis, Hiatal Hernia, Ulcerative Colitis Musculoskeltal Medical History: Reports: Arthritis, Gout Skin Medical History: Denies: Eczema, Psoriasis Psychiatric Medical History: Reports: Dementia Hematology: Reports: Anemia Denies: Sickle Cell Disease, Bleeding Tendencies Past Surgical History Past Surgical History: Reports: Cholecystectomy Denies: Amputation, Mastectomy, Pacemaker Social History Information Source: [facility] Records Lives with: [facility] Smoking Status: Unknown if Ever Smoked Electronic Cigarette use?: No Frequency of Alcohol Use: None Hx Recreational Drug Use: No Drugs: None Hx Prescription Drug Abuse: No - Advance Directive Resuscitation Status: Do Not Resuscitate Family History Family History: Hypertension Parental Family History Reviewed: No - unable r/t mental status Children Family History Reviewed: Unknown Sibling(s) Family History Reviewed.: Unknown Medication/Allergy Home Medications: Midodrine HCl [Proamatine 5 mg Tablet] 10 mg PO Q8 03/18/17 Omeprazole 20 mg PO DAILY 03/18/17 Metoprolol Succinate [Toprol Xl 50 mg Tab.sr] 50 mg PO DAILY #30 tab.sr.24h 03/30/17 Calcitriol [Rocaltrol 0.25 mcg Capsule] 0.25 mcg PO DAILY 10/27/18 Docusate Sodium [Colace 100 mg Capsule] 100 mg PO DAILY 10/27/18 Mirtazapine 7.5 mg PO QHS 10/27/18 Multivitamin with Minerals [One Daily Plus Minerals] 1 each PO DAILY 10/27/18 Polyethylene Glycol 3350 [Miralax Powder 17 gm/Packet] 1 packet PO DAILY 10/27/18 Potassium Chloride [Klor-Con 10 Meq Tablet ER] 10 meq PO DAILY 10/27/18 Sennosides [Senna] 8.6 mg PO DAILY 10/27/18 Sodium Bicarbonate [Sodium Bicarbonate 650 mg Tablet] 650 mg PO Q8 10/27/18 Amoxicillin Trihydrate [Amoxil 500 mg Capsule] 500 mg PO Q8 #15 capsule 11/02/18 Apixaban [Eliquis 2.5 mg Tablet] 2.5 mg PO BID #60 tablet 11/02/18 Buspirone HCl [Buspar 10 mg Tablet] 5 mg PO QAM #30 tablet 11/02/18 Buspirone HCl [Buspar 10 mg Tablet] 10 mg PO QHS #30 tablet 11/02/18 Nitrofurantoin Monohyd/M-Cryst [Macrobid 100 mg Capsule] 100 mg PO BID #14 cap 05/21/19 Allergies/Adverse Reactions: morphine [Morphine] Adverse Reaction (Mild, Verified 03/19/17 04:36) Dizziness Review of Systems ROS unobtainable: Due to mental status - advanced dementia; denies all complaints Physical Exam Vital Signs: Temp Pulse Resp BP Pulse Ox 97.7 F 14 105/61 100 06/14/19 12:20 06/14/19 17:01 06/14/19 17:01 06/14/19 17:01 General appearance: PRESENT: no acute distress, cooperative, hard of hearing, morbidly obese - super, well-developed, other - gross anasarca; pitting edema to posterior chest wall Head exam: PRESENT: atraumatic, normocephalic Eye exam: PRESENT: conjunctiva pink, EOMI, PERRLA. ABSENT: scleral icterus Ear exam: PRESENT: normal external ear exam Mouth exam: PRESENT: moist, tongue midline Teeth exam: PRESENT: poor dentation Respiratory exam: PRESENT: clear to auscultation mariama, decreased breath sounds, symmetrical, unlabored - Throughout secondary to body habitus, positioning, poor inspiratory effort. ABSENT: rales, rhonchi, wheezes Cardiovascular exam: PRESENT: RRR, +S1, +S2. ABSENT: diastolic murmur, rubs, systolic murmur Pulses: PRESENT: normal dorsalis pedis pul Vascular exam: PRESENT: normal capillary refill GI/Abdominal exam: PRESENT: normal bowel sounds, soft, other - Rotund, pen dulous;exam limited secondary to body habitus. ABSENT: distended, guarding, rebound, tenderness Rectal exam: PRESENT: deferred Gentrourinary exam: PRESENT: indwelling catheter Extremities exam: PRESENT: +2 edema - BLE, other - chronic venous stasis changes. ABSENT: calf tenderness, clubbing, full ROM - Range of motion limited secondary to body habitus, pedal edema Neurological exam: PRESENT: alert, awake, oriented to person, CN II-XII grossly intact, other - Conversational/socially appropriate present; at baseline mentation. ABSENT: motor sensory deficit Psychiatric exam: PRESENT: appropriate affect, normal mood. ABSENT: homicidal ideation, suicidal ideation Skin exam: PRESENT: dry, intact, warm. ABSENT: cyanosis, rash Results Laboratory Results: 06/14/19 13:35 06/14/19 11:58 06/14/19 06/14/19 06/14/19 11:58 11:58 11:58 WBC Cancelled RBC Cancelled Hgb Cancelled Hct Cancelled MCV Cancelled MCH Cancelled MCHC Cancelled RDW Cancelled Plt Count Cancelled Seg Neutrophils % Cancelled Sodium 131.2 L Potassium 4.8 Chloride 100 Carbon Dioxide 22 Anion Gap 9 BUN 119 H Creatinine 2.09 H Est GFR ( Amer) 27 L Glucose 115 H Calcium 8.3 L Magnesium 2.4 H Total Bilirubin 0.4 AST 28 Alkaline Phosphatase 75 Total Protein 6.6 Albumin 3.0 L Prealbumin Urine Color Urine Appearance Urine pH Ur Specific [place] Urine Protein Urine Glucose (UA) Urine Ketones Urine Blood Urine Nitrite Ur Leukocyte Esterase Urine WBC (Auto) Urine RBC (Auto) 06/14/19 06/14/19 06/14/19 12:18 13:35 14:15 WBC 4.6 RBC 3.15 L Hgb 9.2 L Hct 27.0 L MCV 86 MCH 29.1 MCHC 34.0 RDW 14.4 H Plt Count 93 L Seg Neutrophils % 67.0 Sodium Potassium Chloride Carbon Dioxide Anion Gap BUN Creatinine Est GFR ( Amer) Glucose Calcium Magnesium Total Bilirubin AST Alkaline Phosphatase Total Protein Albumin Prealbumin 14.9 L Urine Color STRAW Urine Appearance CLEAR Urine pH 5.0 Ur Specific [place] 1.008 Urine Protein NEGATIVE Urine Glucose (UA) NEGATIVE Urine Ketones NEGATIVE Urine Blood NEGATIVE Urine Nitrite NEGATIVE Ur Leukocyte Esterase SMALL H Urine WBC (Auto) 6 Urine RBC (Auto) 2 06/14/19 11:58 NT-Pro-B Natriuret Pep 1690 H Impressions: Renal Ultrasound 06/14/19 13:44 IMPRESSION: Limited exam secondary to body habitus. Left kidney nonvisualized. Right kidney without hydronephrosis. Chest X-Ray 06/14/19 14:28 IMPRESSION: Low lung volumes without evidence of acute cardiopulmonary process. Stable retrocardiac opacity, likely hiatal hernia. Assessment and Plan - Diagnosis (1) Anasarca Is this a current diagnosis for this admission?: Yes Plan: Gross anasarca; pitting edema to BLE, sacrum/buttocks, extending proximally to posterior chest wall (+1 pitting edema to chest wall). None to BUE. Renal function appears to be at baseline with 2.09 and excellent urinary output upon insertion of Arambula catheter today. Evaluation of diastolic CHF as below. LFTs are unremarkable. Albumin 3.0; prealbumin slightly low at 14.9 We will provide IV albumin followed by furosemide for diuresis. Registered dietitian is consulted. Follow up chemistry. Discharge planning and palliative care consultation. (2) Chronic diastolic congestive heart failure Is this a current diagnosis for this admission?: Yes Plan: Chest x-ray clear. proBNP 1690; decreased from last visit of 2400. Last echocardiogram 2018 was poor quality study; unable to assess LVEF or diastolic function; recommended MUGA. MUGA scan is pending. Have asked the noninvasive cardiovascular lab to follow-up with echocardiogram if the patient is unable to have muga completed. She is admitted to [facility] on continuous cardiac telemetry. Have started low-dose Lisinopril. Continue home dose Toprol. Begin furosemide 40 mg twice daily. Dobutamine drip for renal perfusion. Cardiac diet. Fluid restricted to 1200 Low threshold for cardiology consultation. Daily weights, strict NOAM's (3) Elevated BUN Is this a current diagnosis for this admission?: Yes Plan: Unclear etiology. No gross evidence of acute worsening of her baseline renal function. Patient does not appear to be in heart failure extremis, although, she does have some evidence of acute worsening of her chronic diastolic failure. Evaluation and management as above. Occult stool is negative. Patient does have gross anasarca; will manage as above. Cardiac/low protein diet. Follow-up chemistry. (4) CKD (chronic kidney disease), stage IV Is this a current diagnosis for this admission?: Yes Plan: Followed by Dr. Sánchez. Low threshold for consultation. Creatinine 2.09; at baseline. Excellent urine output today in ED. Arambula in place for strict monitoring. Avoid nephrotoxic medications as able. She will be receiving furosemide for aggressive diuresis. Follow-up chemistry. (5) Chronic a-fib Is this a current diagnosis for this admission?: Yes Plan: Continue home dose Eliquis and metoprolol. (6) Do not resuscitate Is this a current diagnosis for this admission?: Yes - Time Time Spent with patient: 35 or more minutes Medications reviewed and adjusted accordingly: Yes Anticipated discharge: SNF Within: within 48 hours
[2019-06-14] MEDS: APIXABAN 2.5 MG TABLET PO SCH (17:59)
[2019-06-14] MEDS: ALBUMIN HUMAN 12.5 GM/50 ML RTUINJ IV SCH ×3 (20:56→23:29)
[2019-06-14] MEDS: DOPAMINE HCL/DEXTROSE 5%-WATER 800 MG/250 ML RTUINJ IV PRN (20:59)
[2019-06-14] MEDS: FUROSEMIDE INJ/PF 40 MG/4 ML SDV IV SCH (22:16)
[2019-06-14] MEDS: METOPROLOL SUCCINATE 25 MG TAB.SR.24H PO SCH (22:16)
[2019-06-14] MEDS: FAMOTIDINE 20 MG TABLET PO SCH (22:16)
[2019-06-15] MEDS: ALBUMIN HUMAN 12.5 GM/50 ML RTUINJ IV SCH (00:21)
[2019-06-15 05:47] LABS: ANION GAP 14 (5-19); BLOOD UREA NITROGEN 113 mg/dL (7-20); CALCIUM 8.9 mg/dL (8.4-10.2); CARBON DIOXIDE 19 mmol/L (22-30); CHLORIDE 99 mmol/L (98-107); GLUCOSE 106 mg/dL (75-110); POTASSIUM 5.1 mmol/L (3.6-5.0)
[2019-06-15] MEDS: FAMOTIDINE 20 MG TABLET PO SCH ×2 (09:19→21:58)
[2019-06-15] MEDS: DOCUSATE SODIUM 100 MG CAPSULE PO SCH (09:19)
[2019-06-15] MEDS: APIXABAN 2.5 MG TABLET PO SCH ×2 (09:19→17:37)
[2019-06-15] MEDS: ASPIRIN 81 MG TABLET, ENT COATED PO SCH (09:19)
[2019-06-15] MEDS: FUROSEMIDE INJ/PF 40 MG/4 ML SDV IV SCH (09:20)
[2019-06-15] MEDS: METOPROLOL SUCCINATE 25 MG TAB.SR.24H PO SCH ×2 (09:20→21:58)
[2019-06-15] MEDS ORDERED: LISINOPRIL 5 MG TABLET PO SCH (10:00)
[2019-06-15] MEDS ORDERED: DOBUTAMINE HCL/D5W 500 MG/250 ML RTUINJ IV PRN ×3 (10:11→11:05)
--- NOTE | 2019-06-15 11:54 | PDOC PROGRESS REPORT ---
Subjective Progress Note for:: 06/15/19 Subjective:: Patient is an 83-year-old female with a past medical history significant for advanced dementia (oriented to self only), bedbound status, super morbid obesity, chronic CHF, CKD 4, atrial fibrillation, COPD who was admitted 06/14/2019 for abnormal lab (BUN 119) and profound anasarca. Patient was seen on morning rounds. She was found resting in bed, comfortably, on room air. She is alert and oriented to self today. She is pleasantly confused, but socially appropriate and conversational. She denies all symptoms; specifically chest pain, dyspnea, abdominal pain, n ausea and vomiting. Patient has no questions or concerns. Reviewed plan of care with nursing. Reason For Visit: CHF (CONGESTIVE HEART FAILURE), ELEVATED BUN Physical Exam Vital Signs: Temp Pulse Resp BP Pulse Ox 98.2 F 66 22 H 103/48 L 99 06/15/19 07:49 06/15/19 11:00 06/15/19 07:49 06/15/19 11:00 06/15/19 07:49 Intake & Output 06/14/19 06/15/19 06/16/19 06:59 06:59 06:59 Intake Total 453 Output Total 2775 Balance -2322 Weight 117.6 kg 171.2 kg General appearance: PRESENT: no acute distress, cooperative, morbidly obese, well-developed, well-nourished, other - Profound anasarca Head exam: PRESENT: atraumatic, normocephalic Eye exam: PRESENT: conjunctiva pink, EOMI, PERRLA. ABSENT: scleral icterus Mouth exam: PRESENT: moist, tongue midline Teeth exam: PRESENT: poor dentation Respiratory exam: PRESENT: clear to auscultation mariama, decreased breath sounds - Difficult to assess secondary to body habitus, position, inspiratory effort, symmetrical, unlabored. ABSENT: rales, rhonchi, wheezes Cardiovascular exam: PRESENT: RRR. ABSENT: diastolic murmur, rubs, systolic murmur Vascular exam: PRESENT: normal capillary refill GI/Abdominal exam: PRESENT: normal bowel sounds, soft, other - Rotund, pendulous;exam limited secondary to body habitus. Decreased hard edema to pannus.. ABSENT: distended, guarding, rebound, tenderness Rectal exam: PRESENT: deferred Extremities exam: PRESENT: +2 edema - BLE, other - chronic venous stasis changes. Decreased edema to thighs. ABSENT: calf tenderness, clubbing Neurological exam: PRESENT: alert, awake, oriented to person, CN II-XII grossly intact, other - At baseline. ABSENT: motor sensory deficit Psychiatric exam: PRESENT: appropriate affect, normal mood. ABSENT: homicidal ideation, suicidal ideation Skin exam: PRESENT: dry, intact, warm. ABSENT: cyanosis, rash Results Laboratory Results: 06/14/19 13:35 06/15/19 05:00 06/14/19 06/14/19 06/14/19 11:58 11:58 11:58 WBC Cancelled RBC Cancelled Hgb Cancelled Hct Cancelled MCV Cancelled MCH Cancelled MCHC Cancelled RDW Cancelled Plt Count Cancelled Seg Neutrophils % Cancelled Sodium 131.2 L Potassium 4.8 Chloride 100 Carbon Dioxide 22 Anion Gap 9 BUN 119 H Creatinine 2.09 H Est GFR ( Amer) 27 L Glucose 115 H Calcium 8.3 L Magnesium 2.4 H Total Bilirubin 0.4 AST 28 Alkaline Phosphatase 75 Total Protein 6.6 Albumin 3.0 L Prealbumin Urine Color Urine Appearance Urine pH Ur Specific [place] Urine Protein Urine Glucose (UA) Urine Ketones Urine Blood Urine Nitrite Ur Leukocyte Esterase Urine WBC (Auto) Urine RBC (Auto) 06/14/19 06/14/19 06/14/19 12:18 13:35 14:15 WBC 4.6 RBC 3.15 L Hgb 9.2 L Hct 27.0 L MCV 86 MCH 29.1 MCHC 34.0 RDW 14.4 H Plt Count 93 L Seg Neutrophils % 67.0 Sodium Potassium Chloride Carbon Dioxide Anion Gap BUN Creatinine Est GFR ( Amer) Glucose Calcium Magnesium Total Bilirubin AST Alkaline Phosphatase Total Protein Albumin Prealbumin 14.9 L Urine Color STRAW Urine Appearance CLEAR Urine pH 5.0 Ur Specific [place] 1.008 Urine Protein NEGATIVE Urine Glucose (UA) NEGATIVE Urine Ketones NEGATIVE Urine Blood NEGATIVE Urine Nitrite NEGATIVE Ur Leukocyte Esterase SMALL H Urine WBC (Auto) 6 Urine RBC (Auto) 2 06/15/19 05:00 WBC RBC Hgb Hct MCV MCH MCHC RDW Plt Count Seg Neutrophils % Sodium 131.8 L Potassium 5.1 H Chloride 99 Carbon Dioxide 19 L Anion Gap 14 BUN 113 H Creatinine 2.32 H Est GFR ( Amer) 24 L Glucose 106 Calcium 8.9 Magnesium 2.4 H Total Bilirubin AST Alkaline Phosphatase Total Protein Albumin Prealbumin Urine Color Urine Appearance Urine pH Ur Specific [place] Urine Protein Urine Glucose (UA) Urine Ketones Urine Blood Urine Nitrite Ur Leukocyte Esterase Urine WBC (Auto) Urine RBC (Auto) 06/14/19 06/15/19 11:58 05:00 NT-Pro-B Natriuret Pep 1690 H 1730 H Impressions: Renal Ultrasound 06/14/19 13:44 IMPRESSION: Limited exam secondary to body habitus. Left kidney nonvisualized. Right kidney without hydronephrosis. Chest X-Ray 06/14/19 14:28 IMPRESSION: Low lung volumes without evidence of acute cardiopulmonary process. Stable retrocardiac opacity, likely hiatal hernia. Assessment and Plan - Diagnosis (1) Anasarca Is this a current diagnosis for this admission?: Yes Plan: Slight improvement today Profound anasarca; pitting edema to BLE, sacrum/buttocks, extending proximally to posterior chest wall (+1 pitting edema to chest wall). None to BUE. Renal function appears to be at baseline with 2.09 and excellent urinary output upon insertion of Arambula catheter today. Evaluation of diastolic CHF as below. LFTs are unremarkable. Albumin 3.0; prealbumin slightly low at 14.9 Received IV albumin yesterday. Continue IV furosemide for diuresis. Have discussed with nephrology and cardiology; will continue dopamine drip and add dobutamine drip. Registered dietitian is consulted. Follow up chemistry. Discharge planning and palliative care consultation. (2) Chronic diastolic congestive heart failure Is this a current diagnosis for this admission?: Yes Plan: Chest x-ray clear. proBNP 1690; decreased from last visit of 2400. Last echocardiogram 2018 was poor quality study; unable to assess LVEF or diastolic function; recommended MUGA. Have asked the noninvasive cardiovascular lab attempt echocardiogram She is admitted to [facility] on continuous cardiac telemetry. Holding lisinopril r/t renal function. Continue home dose Toprol. Continue furosemide 20 mg three times daily. Contineu Dobutamine drip for renal perfusion. Start Dopamine gtt. Cardiac diet. Fluid restricted to 1200 Daily weights, strict I&O's Cardiology consultation; discussed with Dr. Melara. Appreciate his assistance. (3) Elevated BUN Is this a current diagnosis for this admission?: Yes Plan: Minimal improvement today. Unclear etiology. No gross evidence of acute worsening of her baseline renal function. Patient does not appear to be in heart failure extremis, although, she does have some evidence of acute worsening of her chronic diastolic failure. Evaluation and management as above. Occult stool is negative. Patient does have gross anasarca; will manage as above. Cardiac/low protein diet. Nephrology is consulted. Discussed with AFSHAN Herrera and Dr. Sánchez today. Follow-up chemistry. (4) CKD (chronic kidney disease), stage IV Is this a current diagnosis for this admission?: Yes Plan: Followed by Dr. Sánchez; have consulted Creatinine 2.09; at baseline. Excellent urine output; ~2.3L Arambula in place for strict monitoring. Avoid nephrotoxic medications as able. She will be receiving furosemide for aggressive diuresis. Follow-up chemistry. (5) Chronic a-fib Is this a current diagnosis for this admission?: Yes Plan: Continue home dose Eliquis and metoprolol. (6) Do not resuscitate Is this a current diagnosis for this admission?: Yes - Time Time Spent with patient: 35 or more minutes Medications reviewed and adjusted accordingly: Yes Anticipated discharge: SNF - LTC at [facility] - Inpatient Certification Based on my medical assessment, after consideration of the patient's comorbidities, presenting symptoms, or acuity I expect that the services needed warrant INPATIENT care.: Yes I certify that my determination is in accordance with my understanding of Medicare's requirements for reasonable and necessary INPATIENT services [42 CFR 412.3e].: Yes Medical Necessity: Failure to Improve With Outpatient Therapy, Significant Comorbidiites Make Outpatient Treatment Too Risky, Need Close Monitoring Due to Risk of Patient Decompensation, Need For IV Fluids, Need For Continuous Telemetry Monitoring, Risk of Complication if Not Cared For in Hospital, Risk of Diagnosis Which Will Require Inpatient Eval/Care/Monitoring
[2019-06-15 13:34] LABS: ARTERIAL BLOOD BASE EXCESS -3.8 mmol/L; ARTERIAL BLOOD H2CO3 1.13 mmol/L (1.05-1.35); ARTERIAL BLOOD HCO3 21.1 mmol/L (20-24); ARTERIAL BLOOD O2 SATURATION 97.5 % (94-98); ARTERIAL BLOOD PCO2 37.6 mmHg (35-45); ARTERIAL BLOOD PH 7.37 (7.35-7.45); ARTERIAL BLOOD PO2 100.7 mmHg (80-100); ARTERIAL BLOOD TOTAL CO2 22.3 mmol/L (21-25)
[2019-06-15 13:35] LABS: ARTERIAL BLOOD FIO2 21%
[2019-06-15] MEDS: FUROSEMIDE INJ/PF 20 MG/2 ML SDV IV SCH ×2 (15:32→21:58)
--- NOTE | 2019-06-15 15:58 | PDOC CONSULTATION ---
Consultation Consult Date: 06/15/19 Provider Consulted: Dima MENDENHALL Consult reason:: elevated BUN History of Present Illness Admission Date/PCP: 06/15/19 11:53 GUNJAN LARA History of Present Illness: ANTHONY PELLETIER is a 83 year old female with a past medical history significant for bedbound status, super morbid obesity, chronic CHF, CKD 4, advanced dementia, atrial fibrillation, COPD who was sent to the ER from her chcf at [facility]. She was sent due to an elevated BUN in the 110s. For the past month her BUN has been found to be in the 100s. She was sent to the ER twice before this visit. Both times she was seen deemed to be dehydrated. She was given fluids and then sent back to the facility with a BUN still in the 100s. The nursing facility at the same time was saying that she was fluid overloaded with a 60+ weight gain in a couple of months. Patient was start ed on furosemide 20mg PO BID and metolazone 2.5mg qd and her weight started to come down from the 390s. At that time labs were drawn that still showed an elevated bun in the 100s, creatinine at baseline. [facility] then asked that we see the patient for further evaluation and treatment since the ER kept turning her away. In my office it was found that she was a slight bit more altered than usual and she had 2+ pitting anasarca. At that time I had the facility keeps a closer watch on her weight draw a bmp weekly for two weeks. I also had them get a UA with a culture that showed ESBL for which I had them treat with ertapenem, which was chosen according to the cultures. Also shortly after starting the antibiotics I had them place a posadas catheter for stricter I's&O's. Due to the BUN still not coming down and the weight staying about the same my office had the SNF send the patient to the ER. In the ER it was found that the creatinine was around 2.0 with a BUN still in the 110s. Patient at the time was admitted to the hospital. A renal ultrasound was done that could only show a slightly decreased right kidney. Due to body habitus nothing further could be seen and she could not get a CT. She was started on furosemide 20mg q8, given 50g of albumin and started on dopamine at mcg/kg/min. This morning there was a slight improvement but not much. The scenery builder was consulted for further examination her heart and nephrology was consulted to help bring down the BUN and improve the anasarca. Today she is less altered than she was a couple weeks ago in the office. She no longer had asterixis. She claims to be feeling pretty well. She denies SOB, N/V, or decreased appetite. Past Medical History Cardiac Medical History: Reports: Atrial Fibrillation - flutter, DVT, Peripheral Vascular Disease Denies: Coronary Artery Disease, Myocardial Infarction Pulmonary Medical History: Reports: Asthma, Bronchitis, Chronic Obstructive Pulmonary Disease (COPD) Denies: Pneumonia, Tuberculosis Neurological Medical History: Denies: Seizures Endocrine Medical History: Reports: Diabetes Mellitus Type 2 Denies: Diabetes Mellitus Type 1 Renal/ Medical History: Reports: End Stage Renal Disease Denies: Hematuria GI Medical History: Reports: Gastroesophageal Reflux Disease Denies: Cirrhosis, Crohn's Disease, Hepatitis, Hiatal Hernia, Ulcerative Colitis Musculoskeltal Medical History: Reports: Arthritis, Gout Skin Medical History: Denies: Eczema, Psoriasis Psychiatric Medical History: Reports: Dementia Past Surgical History Past Surgical History: Reports: Cholecystectomy Denies: Mastectomy, Pacemaker Social History Lives with: [facility] Smoking Status: Unknown if Ever Smoked Electronic Cigarette use?: No Frequency of Alcohol Use: None Hx Recreational Drug Use: No Drugs: None Hx Prescription Drug Abuse: No - Advance Directive Resuscitation Status: Do Not Resuscitate Family History Parental Family History Reviewed: No - patient was unable to answer Children Family History Reviewed: Unknown Sibling(s) Family History Reviewed.: Unknown Medication/Allergy Home Medications: Midodrine HCl [Proamatine 5 mg Tablet] 10 mg PO Q8 03/18/17 Omeprazole 20 mg PO QHS 03/18/17 Metoprolol Succinate [Toprol Xl 50 mg Tab.sr] 50 mg PO DAILY #30 tab.sr.24h 03/30/17 Calcitriol [Rocaltrol 0.25 mcg Capsule] 0.25 mcg PO QAM 10/27/18 Docusate Sodium [Colace 100 mg Capsule] 100 mg PO QHS 10/27/18 Multivitamin with Minerals [One Daily Plus Minerals] 1 tab PO QAM 10/27/18 Polyethylene Glycol 3350 [Miralax Powder 17 gm/Packet] 17 gm PO QAM 10/27/18 Potassium Chloride [Klor-Con 10 Meq Tablet ER] 10 meq PO Q6AM 10/27/18 Sennosides [Senna] 8.6 mg PO QAM 10/27/18 Sodium Bicarbonate [Sodium Bicarbonate 650 mg Tablet] 1,300 mg PO Q8 10/27/18 Apixaban [Eliquis 2.5 mg Tablet] 2.5 mg PO Q12 06/14/19 Endit Cream 1 applic PO ASDIR MDD APPLY EVERY SHIFT 06/14/19 Ertapenem Sodium [Invanz] 500 mg IM QAM MDD X10 DAYS 06/14/19 Furosemide [Lasix 20 mg Tablet] 20 mg PO Q8 06/14/19 Guaifenesin/Dextromethorphan [Guaifenesin-Dm 100-10 mg/5 ml] 10 ml PO Q4HP PRN 06/14/19 Loperamide HCl [Imodium A-D] 2 mg PO Q2HP PRN 06/14/19 Loperamide HCl [Imodium A-D] 4 mg PO DAILYP PRN 06/14/19 Lorazepam [Ativan 0.5 mg Tablet] 0.5 mg PO Q12HP PRN 06/14/19 Metolazone [Zaroxolyn 5 mg Tablet] 5 mg PO QAM 06/14/19 Risperidone Microspheres [Risperdal Consta Inj 50 mg/2 ml Disp.syrin] 50 mg IM [id number] 06/14/19 Trazodone HCl 50 mg PO QHS 06/14/19 Allergies/Adverse Reactions: morphine [Morphine] Adverse Reaction (Mild, Verified 03/19/17 04:36) Dizziness Review of Systems Constitutional: ABSENT: chills, fatigue, fever(s), weakness Cardiovascular: PRESENT: edema. ABSENT: chest pain, dyspnea on exertion, orthropnea Respiratory: PRESENT: dyspnea. ABSENT: cough, sputum Gastrointestinal: ABSENT: abdominal pain, constipation, diarrhea, nausea, vomiting Genitourinary: ABSENT: difficulty urinating, dysuria Musculoskeletal: ABSENT: muscle weakness Neurological: PRESENT: numbness. ABSENT: dizziness, weakness Physical Exam Vital Signs: Temp Pulse Resp BP Pulse Ox 97.7 F 80 16 112/95 H 100 06/15/19 11:55 06/15/19 12:00 06/15/19 11:55 06/15/19 12:00 06/15/19 11:55 Intake & Output 06/14/19 06/15/19 06/16/19 06:59 06:59 06:59 Intake Total 453 260 Output Total 9740 825 Balance -2322 -565 Weight 117.6 kg 171.2 kg General appearance: PRESENT: no acute distress, morbidly obese, well-developed, well-nourished Eye exam: PRESENT: PERRLA. ABSENT: scleral icterus Mouth exam: PRESENT: moist, neck supple Neck exam: PRESENT: other - unable to tell due to body habitus Respiratory exam: PRESENT: crackles, rales, wheezes. ABSENT: accessory muscle use, clear to auscultation mariama, rhonchi Cardiovascular exam: PRESENT: +S1, +S2 GI/Abdominal exam: PRESENT: distended. ABSENT: tenderness Extremities exam: PRESENT: pedal edema, +1 edema. ABSENT: tenderness Musculoskeletal exam: PRESENT: normal inspection. ABSENT: tenderness Neurological exam: PRESENT: alert, awake, oriented to person, oriented to place. ABSENT: oriented to time, oriented to situation Psychiatric exam: PRESENT: appropriate affect Skin exam: PRESENT: dry, intact, warm Results Laboratory Results: 06/14/19 13:35 06/15/19 05:00 06/14/19 06/14/19 06/15/19 11:58 14:15 05:00 Carbonic Acid HCO3/H2CO3 Ratio ABG pH ABG pCO2 ABG pO2 ABG HCO3 ABG O2 Saturation ABG Base Excess FiO2 Sodium 131.8 L Potassium 5.1 H Chloride 99 Carbon Dioxide 19 L Anion Gap 14 BUN 113 H Creatinine 2.32 H Est GFR ( Amer) 24 L Glucose 106 Calcium 8.9 Magnesium 2.4 H 2.4 H Prealbumin 14.9 L 06/15/19 13:09 Carbonic Acid 1.13 HCO3/H2CO3 Ratio 18:1 ABG pH 7.37 ABG pCO2 37.6 ABG pO2 100.7 H ABG HCO3 21.1 ABG O2 Saturation 97.5 ABG Base Excess -3.8 FiO2 21% Sodium Potassium Chloride Carbon Dioxide Anion Gap BUN Creatinine Est GFR ( Amer) Glucose Calcium Magnesium Prealbumin 06/14/19 06/15/19 11:58 05:00 NT-Pro-B Natriuret Pep 1690 H 1730 H Impressions: Renal Ultrasound 06/14/19 13:44 IMPRESSION: Limited exam secondary to body habitus. Left kidney nonvisualized. Right kidney without hydronephrosis. Chest X-Ray 06/14/19 14:28 IMPRESSION: Low lung volumes without evidence of acute cardiopulmonary process. Stable retrocardiac opacity, likely hiatal hernia. Assessment & Plan - Diagnosis (1) Anasarca Is this a current diagnosis for this admission?: Yes Plan: Likely right sided heart failure and a slightly low albumin. Continue on albumin, furosemide at 20mg q8, dopimine. Dobutamin is being added to help with the cardiac output. Continue with strict I's&O's. (2) Elevated BUN Is this a current diagnosis for this admission?: Yes Plan: Looks to not be from a GI bleed since hemoglobin is stable and stool occult blood test was negative. Likely from prerenal with her anasarca, chronic hypotension and CHF. Continue on pressors, furosemide and albumin. Will reassess tomorrow. Patient may need a light amount of normal saline to help keep bp up and keep her hydrated but not pull her into further fluid overload. (3) CKD (chronic kidney disease), stage IV Is this a current diagnosis for this admission?: Yes Plan: At baseline, creatinine is expected to increase some from dilution. (4) Anemia Plan: will look to get labs. There is a good chance that as fluid is removed the hemoglobin should come up some. (5) Acute on chronic diastolic (congestive) heart failure Plan: see jose, cardiology consulted (6) COPD (chronic obstructive pulmonary disease) with acute bronchitis Plan: per hospitalist
--- NOTE | 2019-06-15 23:19 | PDOC CONSULTATION ---
Consultation-Blank Consultation: CARDIOLOGY CONSULTATION by Dr. Brionna Vallecillo on 06/15/2019. Patient seen at 10 AM on 06/15/2019. 60 minutes spent as patient more than 50% time spent in direct patient care. REASON FOR CONSULTATION: Heart failure, and hypotension. CONSULT REQUESTING PROVIDER: Ms. Minda Campbell, nurse practitioner, [facility]. HISTORY OF PRESENT ILLNESS: Patient not very good historian also has dementia. Hence not a very reliable historian. As per chart patient has a history of chronic kidney disease stage IV morbid obesity, and anasarca history of anasarca and history of atrial fibrillation who was treated as an outpatient for increasing anasarca and leg edema. She was also treated for ESBL urinary tract infection. She also at present was treated for bronchitis and acute exacerbation of COPD which she seems to have overcome. The patient has no history of coronary artery disease. The patient was brought into the hospital and was found to be hypotensive and the patient is on dopamine drip which has brought her blood pressure up into the 100. It is also suspected that the deb ent has chronic diastolic heart failure and severe pulmonary hypertension and systolic heart failure have not been ruled out. The patient is awaiting to get an echo. At present she is lying flat on her back with no shortness of breath and no complaints of chest pain or discomfort. The patient does seem to be in atrial fibrillation which seems to be chronic the patient is on Eliquis for this. There is no prior history of coronary artery disease. There is no history of TIA CVA. Past Medical History Cardiac Medical History: Reports: Atrial Fibrillation - flutter, DVT, Peripheral Vascular Disease Denies: Coronary Artery Disease, Myocardial Infarction Pulmonary Medical History: Reports: Asthma, Bronchitis, Chronic Obstructive Pulmonary Disease (COPD) Denies: Pneumonia, Tuberculosis Neurological Medical History: Denies: Seizures Endocrine Medical History: Reports: Diabetes Mellitus Type 2 Denies: Diabetes Mellitus Type 1 Renal/ Medical History: Reports: End Stage Renal Disease Denies: Hematuria GI Medical History: Reports: Gastroesophageal Reflux Disease Denies: Cirrhosis, Crohn's Disease, Hepatitis, Hiatal Hernia, Ulcerative Colitis Musculoskeltal Medical History: Reports: Arthritis, Gout Skin Medical History: Denies: Eczema, Psoriasis Psychiatric Medical History: Reports: Dementia Past Surgical History Past Surgical History: Reports: Cholecystectomy Denies: Mastectomy, Pacemaker Social History Lives with: Long-Term Smoking Status: Unknown if Ever Smoked Electronic Cigarette use?: No Frequency of Alcohol Use: None Hx Recreational Drug Use: No Drugs: None Hx Prescription Drug Abuse: No - Advance Directive Resuscitation Status: Do Not Resuscitate Family History Parental Family History Reviewed: No - patient was unable to answer Children Family History Reviewed: Unknown Sibling(s) Family History Reviewed.: Unknown Medication/Allergy Home Medications: Midodrine HCl [Proamatine 5 mg Tablet] 10 mg PO Q8 03/18/17 Omeprazole 20 mg PO QHS 03/18/17 Metoprolol Succinate [Toprol Xl 50 mg Tab.sr] 50 mg PO DAILY #30 tab.sr.24h 03/30/17 Calcitriol [Rocaltrol 0.25 mcg Capsule] 0.25 mcg PO QAM 10/27/18 Docusate Sodium [Colace 100 mg Capsule] 100 mg PO QHS 10/27/18 Multivitamin with Minerals [One Daily Plus Minerals] 1 tab PO QAM 10/27/18 Polyethylene Glycol 3350 [Miralax Powder 17 gm/Packet] 17 gm PO QAM 10/27/18 Potassium Chloride [Klor-Con 10 Meq Tablet ER] 10 meq PO Q6AM 10/27/18 Sennosides [Senna] 8.6 mg PO QAM 10/27/18 Sodium Bicarbonate [Sodium Bicarbonate 650 mg Tablet] 1,300 mg PO Q8 10/27/18 Apixaban [Eliquis 2.5 mg Tablet] 2.5 mg PO Q12 06/14/19 Endit Cream 1 applic PO ASDIR MDD APPLY EVERY SHIFT 06/14/19 Ertapenem Sodium [Invanz] 500 mg IM QAM MDD X10 DAYS 06/14/19 Furosemide [Lasix 20 mg Tablet] 20 mg PO Q8 06/14/19 Guaifenesin/Dextromethorphan [Guaifenesin-Dm 100-10 mg/5 ml] 10 ml PO Q4HP PRN 06/14/19 Loperamide HCl [Imodium A-D] 2 mg PO Q2HP PRN 06/14/19 Loperamide HCl [Imodium A-D] 4 mg PO DAILYP PRN 06/14/19 Lorazepam [Ativan 0.5 mg Tablet] 0.5 mg PO Q12HP PRN 06/14/19 Metolazone [Zaroxolyn 5 mg Tablet] 5 mg PO QAM 06/14/19 Risperidone Microspheres [Risperdal Consta Inj 50 mg/2 ml Disp.syrin] 50 mg IM [id number] 06/14/19 Trazodone HCl 50 mg PO QHS 06/14/19 Allergies/Adverse Reactions: morphine [Morphine] Adverse Reaction (Mild, Verified 03/19/17 04:36) Dizziness RESUSCITATION STATUS: The patient is DNR. Her daughter is her surrogate healthcare decision maker. Review of Systems Constitutional: ABSENT: chills, fatigue, fever(s), weakness Cardiovascular: PRESENT: edema. ABSENT: chest pain, dyspnea on exertion, orthropnea Respiratory: PRESENT: dyspnea. ABSENT: cough, sputum Gastrointestinal: ABSENT: abdominal pain, constipation, diarrhea, nausea, vomiting Genitourinary: ABSENT: difficulty urinating, dysuria Musculoskeletal: ABSENT: muscle weakness Neurological: PRESENT: numbness. ABSENT: dizziness, weakness Current Medications Generic Name Dose Route Start Last Admin Trade Name Freq PRN Reason Stop Dose Admin Acetaminophen 650 mg 06/14/19 15:48 Tylenol 325 Mg Tablet PO 07/14/19 15:47 Q4HP PRN pain or temp greater than 101F Al Hydrox/Mg Hydrox/Simethicone 30 ml 06/14/19 15:48 Maalox Plus Susp 30 Udcup PO 07/14/19 15:47 Q4HP PRN HEARTBURN Apixaban 2.5 mg 06/14/19 18:00 06/15/19 17:37 Eliquis 2.5 Mg Tablet PO 07/14/19 17:59 2.5 mg BID JESSICA Administration Aspirin 81 mg 06/15/19 10:00 06/15/19 09:19 Ecotrin 81 Mg Ec Tablet PO 07/15/19 09:59 81 mg DAILY JESSICA Administration Docusate Sodium 100 mg 06/15/19 10:00 06/15/19 09:19 Colace 100 Mg Capsule PO 07/15/19 09:59 100 mg DAILY JESSICA Administration Famotidine 20 mg 06/14/19 22:00 06/15/19 21:58 Pepcid 20 Mg Tablet PO 07/14/19 21:59 20 mg Q12 JESSICA Administration Furosemide 20 mg 06/15/19 14:00 06/15/19 21:58 Lasix Inj/Pf 20 Mg/2 Ml Sdv IV 07/15/19 13:59 20 mg Q8 JESSICA Administration Dopamine HCl/Dextrose 800 mg in 250 mls @ 6.204 mls/hr 06/14/19 19:28 06/14/19 20:59 Dopamine Rtu 800 Mg-D5w 250 Ml (Adult) Premix IV 07/14/19 19:27 0.003 mg/kg/min CONTINUOUS PRN 6.2 mls/hr THIS MED IS NOT "PRN" Administration 0.003 MG/KG/MIN Lisinopril 2.5 mg 06/15/19 10:00 06/15/19 09:48 Prinivil 5 Mg Tablet PO 07/15/19 09:59 Not Given DAILY JESSICA Magnesium Hydroxide 30 ml 06/14/19 15:48 Milk Of Magnesia 30 Ml Udcup PO 07/14/19 15:47 HSP PRN FOR CONSTIPATION Metoprolol Succinate 25 mg 06/14/19 22:00 06/15/19 21:58 Toprol Xl 25 Mg Tab.Sr PO 07/14/19 21:59 25 mg Q12 JESSICA Administration Sodium Chloride 2.5 ml 06/14/19 22:00 06/15/19 21:59 Saline Flush 2.5 Ml Monoject Prefil Syrin IV 07/14/19 21:59 2.5 ml Q8 JESSICA Administration Discontinued Medications Generic Name Dose Route Start Last Admin Trade Name Freq PRN Reason Stop Dose Admin Furosemide 40 mg 06/14/19 22:00 06/15/19 09:20 Lasix Inj/Pf 40 Mg/4 Ml Sdv IV 07/14/19 21:59 40 mg Q12 JESSICA Administration Albumin Human 12.5 gm in 50 mls @ 50 mls/hr 06/14/19 17:00 Albuminar-25 Rtu Inj 12.5 Gm/50 Ml Premix IV 06/14/19 20:59 Q1H JESSICA Dobutamine HCl/Dextrose 500 mg in 250 mls @ 0 mls/hr 06/14/19 16:02 Dobutrex Rtu 500 Mg-D5w 250 Ml Premixed Bag IV 07/14/19 16:01 CONTINUOUS PRN THIS MED IS NOT "PRN" Protocol Titrate Albumin Human 12.5 gm in 50 mls @ 50 mls/hr 06/14/19 19:00 06/15/19 01:30 Albuminar-25 Rtu Inj 12.5 Gm/50 Ml Premix IV 06/14/19 22:59 Infused Q1H JESSICA Infusion Dobutamine HCl/Dextrose 500 mg in 250 mls @ 0 mls/hr 06/15/19 10:11 Dobutrex Rtu 500 Mg-D5w 250 Ml Premixed Bag IV 07/15/19 10:10 CONTINUOUS PRN THIS MED IS NOT "PRN" Protocol Titrate Dobutamine HCl/Dextrose 500 mg in 250 mls @ 8.82 mls/hr 06/15/19 10:41 Dobutrex Rtu 500 Mg-D5w 250 Ml Premixed Bag IV 07/15/19 10:40 CONTINUOUS PRN THIS MED IS NOT "PRN" Protocol 2.5 MCG/KG/MIN Dobutamine HCl/Dextrose 500 mg in 250 mls @ 12.84 mls/hr 06/15/19 11:05 06/15/19 19:37 Dobutrex Rtu 500 Mg-D5w 250 Ml Premixed Bag IV 07/15/19 11:04 Infused CONTINUOUS PRN Titration THIS MED IS NOT "PRN" Protocol 2.5 MCG/KG/MIN PHYSICAL EXAMINATION: The patient is morbidly obese. But in no acute distress. She is asymptomatic lying flat on her back. She seems to be is confused. But does answer questions. Selected Entries 06/15/19 06/15/19 06/15/19 07:49 10:00 10:36 Temperature 98.2 F Temperature Oral Source Pulse Rate 74 Heart Rate ( 67 Monitors) Respiratory 22 H Rate Blood Pressure 98/46 L 92/48 L Blood Pressure 63 62 Mean BP Location Right Arm BP Position Supine O2 Sat by Pulse 99 Oximetry Oxygen Delivery Room Air Method 06/15/19 11:00 Temperature Temperature Source Pulse Rate Heart Rate ( Monitors) Respiratory Rate Blood Pressure 103/48 L Blood Pressure Mean BP Location BP Position O2 Sat by Pulse Oximetry Oxygen Delivery Method General appearance: PRESENT: no acute distress, morbidly obese, well-developed, well-nourished Eye exam: PRESENT: PERRLA. ABSENT: scleral icterus Mouth exam: PRESENT: moist, neck supple Neck exam: PRESENT: other - unable to tell due to body habitus Respiratory exam: PRESENT: crackles, rales, wheezes. ABSENT: accessory muscle use, clear to auscultation mariama, rhonchi Cardiovascular exam: PRESENT: +S1, +S2. S1 is of variable intensity. There is no S3 gallop. There is no S4 gallop. There is systolic murmur left sternal border and the apex. There is no rub. GI/Abdominal exam: PRESENT: distended. ABSENT: tenderness Extremities exam: PRESENT: pedal edema, +1 edema. ABSENT: tenderness Musculoskeletal exam: PRESENT: normal inspection. ABSENT: tenderness Neurological exam: PRESENT: alert, awake, oriented x2 ABSENT: oriented to time, oriented to situation. Moves all 4 extremities. Psychiatric exam: PRESENT: appropriate affect Skin exam: PRESENT: dry, intact, warm Labs- Entire Visit 06/14/19 06/14/19 06/14/19 11:58 11:58 11:58 WBC Cancelled RBC Cancelled Hgb Cancelled Hct Cancelled MCV Cancelled MCH Cancelled MCHC Cancelled RDW Cancelled Plt Count Cancelled Lymph % (Auto) Cancelled [place] % (Auto) Cancelled Eos % (Auto) Cancelled Baso % (Auto) Cancelled Absolute Neuts (auto) Cancelled Absolute Lymphs (auto) Cancelled Absolute Monos (auto) Cancelled Absolute Eos (auto) Cancelled Absolute Basos (auto) Cancelled Seg Neutrophils % Cancelled Platelet Estimate Cancelled Carbonic Acid HCO3/H2CO3 Ratio ABG pH ABG pCO2 ABG pO2 ABG HCO3 ABG Total CO2 ABG O2 Saturation ABG Base Excess FiO2 Sodium 131.2 L Potassium 4.8 Chloride 100 Carbon Dioxide 22 Anion Gap 9 BUN 119 H Creatinine 2.09 H Est GFR ( Amer) 27 L Est GFR (MDRD) Non-Af 23 L Glucose 115 H Calcium 8.3 L Magnesium Total Bilirubin 0.4 Direct Bilirubin 0.0 Neonat Total Bilirubin Not Reportable Neonat Direct Bilirubin Not Reportable Neonat Indirect Bili Not Reportable AST 28 ALT 22 Alkaline Phosphatase 75 NT-Pro-B Natriuret Pep 1690 H Total Protein 6.6 Albumin 3.0 L Prealbumin Urine Color Urine Appearance Urine pH Ur Specific [place] Urine Protein Urine Glucose (UA) Urine Ketones Urine Blood Urine Nitrite Urine Bilirubin Urine Urobilinogen Ur Leukocyte Esterase Urine WBC (Auto) Urine RBC (Auto) Urine Bacteria (Auto) Squamous Epi Cells Auto Urine Mucus (Auto) Urine Ascorbic Acid POC Stool Occult Blood Slides for Path Review Cancelled 06/14/19 06/14/19 06/14/19 11:58 12:18 13:35 WBC 4.6 RBC 3.15 L Hgb 9.2 L Hct 27.0 L MCV 86 MCH 29.1 MCHC 34.0 RDW 14.4 H Plt Count 93 L Lymph % (Auto) 21.8 [place] % (Auto) 9.5 Eos % (Auto) 1.4 Baso % (Auto) 0.3 Absolute Neuts (auto) 3.1 Absolute Lymphs (auto) 1.0 Absolute Monos (auto) 0.4 Absolute Eos (auto) 0.1 Absolute Basos (auto) 0.0 Seg Neutrophils % 67.0 Platelet Estimate Carbonic Acid HCO3/H2CO3 Ratio ABG pH ABG pCO2 ABG pO2 ABG HCO3 ABG Total CO2 ABG O2 Saturation ABG Base Excess FiO2 Sodium Potassium Chloride Carbon Dioxide Anion Gap BUN Creatinine Est GFR ( Amer) Est GFR (MDRD) Non-Af Glucose Calcium Magnesium 2.4 H Total Bilirubin Direct Bilirubin Neonat Total Bilirubin Neonat Direct Bilirubin Neonat Indirect Bili AST ALT Alkaline Phosphatase NT-Pro-B Natriuret Pep Total Protein Albumin Prealbumin Urine Color STRAW Urine Appearance CLEAR Urine pH 5.0 Ur Specific [place] 1.008 Urine Protein NEGATIVE Urine Glucose (UA) NEGATIVE Urine Ketones NEGATIVE Urine Blood NEGATIVE Urine Nitrite NEGATIVE Urine Bilirubin NEGATIVE Urine Urobilinogen NEGATIVE Ur Leukocyte Esterase SMALL H Urine WBC (Auto) 6 Urine RBC (Auto) 2 Urine Bacteria (Auto) 1+ Squamous Epi Cells Auto 3 Urine Mucus (Auto) RARE Urine Ascorbic Acid NEGATIVE POC Stool Occult Blood Slides for Path Review 06/14/19 06/14/19 06/15/19 14:15 16:54 05:00 WBC RBC Hgb Hct MCV MCH MCHC RDW Plt Count Lymph % (Auto) [place] % (Auto) Eos % (Auto) Baso % (Auto) Absolute Neuts (auto) Absolute Lymphs (auto) Absolute Monos (auto) Absolute Eos (auto) Absolute Basos (auto) Seg Neutrophils % Platelet Estimate Carbonic Acid HCO3/H2CO3 Ratio ABG pH ABG pCO2 ABG pO2 ABG HCO3 ABG Total CO2 ABG O2 Saturation ABG Base Excess FiO2 Sodium 131.8 L Potassium 5.1 H Chloride 99 Carbon Dioxide 19 L Anion Gap 14 BUN 113 H Creatinine 2.32 H Est GFR ( Amer) 24 L Est GFR (MDRD) Non-Af 20 L Glucose 106 Calcium 8.9 Magnesium 2.4 H Total Bilirubin Direct Bilirubin Neonat Total Bilirubin Neonat Direct Bilirubin Neonat Indirect Bili AST ALT Alkaline Phosphatase NT-Pro-B Natriuret Pep Total Protein Albumin Prealbumin 14.9 L Urine Color Urine Appearance Urine pH Ur Specific [place] Urine Protein Urine Glucose (UA) Urine Ketones Urine Blood Urine Nitrite Urine Bilirubin Urine Urobilinogen Ur Leukocyte Esterase Urine WBC (Auto) Urine RBC (Auto) Urine Bacteria (Auto) Squamous Epi Cells Auto Urine Mucus (Auto) Urine Ascorbic Acid POC Stool Occult Blood NEGATIVE Slides for Path Review 06/15/19 06/15/19 05:00 13:09 WBC RBC Hgb Hct MCV MCH MCHC RDW Plt Count Lymph % (Auto) [place] % (Auto) Eos % (Auto) Baso % (Auto) Absolute Neuts (auto) Absolute Lymphs (auto) Absolute Monos (auto) Absolute Eos (auto) Absolute Basos (auto) Seg Neutrophils % Platelet Estimate Carbonic Acid 1.13 HCO3/H2CO3 Ratio 18:1 ABG pH 7.37 ABG pCO2 37.6 ABG pO2 100.7 H ABG HCO3 21.1 ABG Total CO2 22.3 ABG O2 Saturation 97.5 ABG Base Excess -3.8 FiO2 21% Sodium Potassium Chloride Carbon Dioxide Anion Gap BUN Creatinine Est GFR ( Amer) Est GFR (MDRD) Non-Af Glucose Calcium Magnesium Total Bilirubin Direct Bilirubin Neonat Total Bilirubin Neonat Direct Bilirubin Neonat Indirect Bili AST ALT Alkaline Phosphatase NT-Pro-B Natriuret Pep 1730 H Total Protein Albumin Prealbumin Urine Color Urine Appearance Urine pH Ur Specific [place] Urine Protein Urine Glucose (UA) Urine Ketones Urine Blood Urine Nitrite Urine Bilirubin Urine Urobilinogen Ur Leukocyte Esterase Urine WBC (Auto) Urine RBC (Auto) Urine Bacteria (Auto) Squamous Epi Cells Auto Urine Mucus (Auto) Urine Ascorbic Acid POC Stool Occult Blood Slides for Path Review Renal Ultrasound 06/14/19 13:44 IMPRESSION: Limited exam secondary to body habitus. Left kidney nonvisualized. Right kidney without hydronephrosis. Chest X-Ray 06/14/19 14:28 IMPRESSION: Low lung volumes without evidence of acute cardiopulmonary process. Stable retrocardiac opacity, likely hiatal hernia. IMPRESSION/RECOMMENDATION: 1. Anasarca: Whether this is secondary to acute on chronic diastolic heart failure versus acute on chronic combined systolic and diastolic heart failure. Will order an echo. In the meantime we will start the patient on dobutamine along with dopamine to see if this will improve. 2. Chronic kidney disease stage IV: Nephrology following the patient. The patient's urine output is adequate on IV Lasix. Patient has been recommended to be started on IV Lasix infusion. The patient's BUN is disproportionately elevated compared to the creatinine. 3. Atrial fibrillation with controlled ventricular spots: Continue current medications and Eliquis at renal failure doses. 4. COPD: At present no definite evidence of bronchitis. Next. Morbid obesity Addendum: The patient's echocardiogram was very limited and only parasternal views obtained. There is no apical views obtained. In the parasternal views the patient's LV ejection fraction is normal at 65%. There is no severe valvular disease. There is only trace tricuspid regurgitation with no definite evidence of any significant pulmonary hypertension. Unfortunately the patient is morbidly obese and cannot have a MUGA scan . Hence in view of this we will continue the patient's dopamine. We will discontinue the patient's dobutamine. Continue her current other medication including IV infusion of Lasix. Medical decision making is of high complexity. Medical decision making and management plan and medication discussed with attending provider on the case and the retail sales professional. 60 minutes spent as patient more than 50% time spent in direct patient care. Will follow.
[2019-06-15] MEDS: DOPAMINE HCL/DEXTROSE 5%-WATER 800 MG/250 ML RTUINJ IV PRN (23:48)
[2019-06-16] MEDS: FUROSEMIDE INJ/PF 20 MG/2 ML SDV IV SCH (05:14)
[2019-06-16 05:37] LABS: HEMATOCRIT 29.5 % (36.0-47.0); HEMOGLOBIN 10.1 g/dL (12.0-15.5); MEAN CORPUSCULAR HEMOGLOBIN 29.2 pg (27.0-33.4); MEAN CORPUSCULAR HGB CONC 34.4 g/dL (32.0-36.0); MEAN CORPUSCULAR VOLUME 85 fl (80-97); PLATELET COUNT 102 10^3/uL (150-450); RED BLOOD COUNT 3.48 10^6/uL (3.72-5.28); RED CELL DISTRIBUTION WIDTH 14.7 % (11.5-14.0)
[2019-06-16 06:09] LABS: ANION GAP 13 (5-19); CALCIUM 8.9 mg/dL (8.4-10.2); CARBON DIOXIDE 21 mmol/L (22-30); CHLORIDE 97 mmol/L (98-107); GLUCOSE 103 mg/dL (75-110); POTASSIUM 4.7 mmol/L (3.6-5.0)
[2019-06-16 06:19] LABS: BLOOD UREA NITROGEN 117 mg/dL (7-20)
[2019-06-16] MEDS ORDERED: NORMAL SALINE 1000 ML 500 ML IV PRN (08:27)
[2019-06-16] MEDS: FAMOTIDINE 20 MG TABLET PO SCH (09:36)
[2019-06-16] MEDS: DOCUSATE SODIUM 100 MG CAPSULE PO SCH (09:36)
[2019-06-16] MEDS: APIXABAN 2.5 MG TABLET PO SCH ×2 (09:37→17:23)
[2019-06-16] MEDS: METOPROLOL SUCCINATE 25 MG TAB.SR.24H PO SCH ×2 (09:37→21:44)
[2019-06-16] MEDS: ASPIRIN 81 MG TABLET, ENT COATED PO SCH (09:37)
--- NOTE | 2019-06-16 09:52 | EKG REPORT ---
SEVERITY:- ABNORMAL ECG - SINUS RHYTHM FIRST DEGREE AV BLOCK : Confirmed by: Chacorta Garland 16-Jun-2019 09:52:26
--- NOTE | 2019-06-16 11:16 | PDOC PROGRESS REPORT ---
Subjective Progress Note for:: 06/16/19 Subjective:: Patient is an 83-year-old female with a past medical history significant for advanced dementia (oriented to self only), bedbound status, super morbid obesity, chronic CHF, CKD 4, atrial fibrillation, COPD who was admitted 06/14/2019 for abnormal lab (BUN 119) and profound anasarca. Patient was seen on morning rounds. She was found resting in bed, comfortably, on room air. She is alert and oriented to self today. She is pleasantly confused, but socially appropriate and conversational. Fatigued and quickly falls back to sleep. She appears comfortable and is not noted to be in any acute distress. Reviewed plan of care with nursing. Reason For Visit: A/CKD, A/C CHF, ANASARCA Physical Exam Vital Signs: Temp Pulse Resp BP Pulse Ox 97.6 F 70 19 116/55 L 100 06/16/19 07:32 06/16/19 08:00 06/16/19 03:15 06/16/19 08:00 06/16/19 07:32 Intake & Output 06/15/19 06/16/19 06/17/19 06:59 06:59 06:59 Intake Total 453 1455 Output Total 2775 3375 Balance -2322 -1920 Weight 117.6 kg 169.6 kg General appearance: PRESENT: no acute distress, cooperative, morbidly obese, well-developed, well-nourished, other - Anasarca Head exam: PRESENT: atraumatic, normocephalic Eye exam: PRESENT: conjunctiva pink, EOMI, PERRLA. ABSENT: scleral icterus Mouth exam: PRESENT: moist, tongue midline Teeth exam: PRESENT: poor dentation Respiratory exam: PRESENT: clear to auscultation mariama, symmetrical, unlabored, other - Room air; Difficult to assess secondary to body habitus, position, inspiratory effort. ABSENT: rales, rhonchi, wheezes Cardiovascular exam: PRESENT: RRR, +S1, +S2. ABSENT: diastolic murmur, rubs, systolic murmur Pulses: PRESENT: normal dorsalis pedis pul Vascular exam: PRESENT: normal capillary refill GI/Abdominal exam: PRESENT: normal bowel sounds, soft, other - Pannus.Exam limited secondary to body habitus.. ABSENT: distended, guarding, rebound, tenderness Rectal exam: PRESENT: deferred Extremities exam: PRESENT: full ROM, +2 edema - BLE, other - Chronic venous stasis changes. ABSENT: calf tenderness, clubbing, pedal edema Neurological exam: PRESENT: alert, awake, oriented to person, CN II-XII grossly intact, other - Baseline mentation. ABSENT: motor sensory deficit Psychiatric exam: PRESENT: appropriate affect, normal mood. ABSENT: homicidal ideation, suicidal ideation Skin exam: PRESENT: dry, intact, warm. ABSENT: cyanosis, rash Results Laboratory Results: 06/16/19 05:02 06/16/19 05:02 06/15/19 06/16/19 06/16/19 13:09 05:02 05:02 WBC 4.0 RBC 3.48 L Hgb 10.1 L Hct 29.5 L MCV 85 MCH 29.2 MCHC 34.4 RDW 14.7 H Plt Count 102 L Carbonic Acid 1.13 HCO3/H2CO3 Ratio 18:1 ABG pH 7.37 ABG pCO2 37.6 ABG pO2 100.7 H ABG HCO3 21.1 ABG O2 Saturation 97.5 ABG Base Excess -3.8 FiO2 21% Sodium 131.4 L Potassium 4.7 Chloride 97 L Carbon Dioxide 21 L Anion Gap 13 BUN 117 H Creatinine 2.33 H Est GFR ( Amer) 24 L Glucose 103 Calcium 8.9 06/14/19 06/15/19 11:58 05:00 NT-Pro-B Natriuret Pep 1690 H 1730 H Impressions: Renal Ultrasound 06/14/19 13:44 IMPRESSION: Limited exam secondary to body habitus. Left kidney nonvisualized. Right kidney without hydronephrosis. Chest X-Ray 06/14/19 14:28 IMPRESSION: Low lung volumes without evidence of acute cardiopulmonary process. Stable retrocardiac opacity, likely hiatal hernia. Assessment and Plan - Diagnosis (1) Anasarca Is this a current diagnosis for this admission?: Yes Plan: Improved; decreased lower extremity edema, upper extremity edema has resolved, decreased dense edema to pannus Renal function appears to be at baseline with 2.09 and excellent urinary output upon insertion of Arambula catheter today. Slight elevation with diuresis, though overall stable 2.32-2.33 Evaluation of diastolic CHF as below. LFTs are unremarkable. Albumin 3.0; prealbumin slightly low at 14.9 Full-time IV albumin 25 g prior to each furosemide dose Continue IV furosemide for diuresis. Have discussed with nephrology and cardiology; will continue dopamine drip and add dobutamine drip. Registered dietitian is consulted. Follow up chemistry. Discharge planning and palliative care consultation. (2) Chronic diastolic congestive heart failure Is this a current diagnosis for this admission?: Yes Plan: Chest x-ray clear. proBNP 1690; decreased from last visit of 2400. Last echocardiogram 2018 was poor quality study; unable to assess LVEF or diastolic function; recommended MUGA. Echocardiogram completed; formal report pending. Spoke with Dr. Vallecillo who states patient has normal ejection fraction. She is admitted to [facility] on continuous cardiac telemetry. Holding lisinopril r/t renal function. Continue home dose Toprol. Continue furosemide 20 mg three times daily. Dobutamine discontinued per cardiology Continue dopamine gtt. Cardiac diet. Fluid restricted to 1200 Daily weights, strict I&O's Cardiology consultation; discussed with Dr. Melara. Appreciate his assistance. (3) Elevated BUN Is this a current diagnosis for this admission?: Yes Plan: Unchanged; 119-> 113-> 117 Unclear etiology. No gross evidence of acute worsening of her baseline renal function. Less inclined to believe this is related to CHF exacerbation. Evaluation and management as above. Occult stool is negative. Cardiac/low protein diet. Nephrology is consulted. Discussed with AFSHAN Herrera and Dr. Sánchez today. Follow-up chemistry. (4) CKD (chronic kidney disease), stage IV Is this a current diagnosis for this admission?: Yes Plan: Followed by Dr. Sánchez; have consulted Creatinine 2.09; at baseline. Excellent urine output; net output ~4.2L Arambula in place for strict monitoring. Avoid nephrotoxic medications as able. She will be receiving furosemide for diuresis. Follow-up chemistry. (5) Chronic a-fib Is this a current diagnosis for this admission?: Yes Plan: Continue home dose Eliquis and metoprolol. (6) Do not resuscitate Is this a current diagnosis for this admission?: Yes - Time Time Spent with patient: 25-34 minutes Medications reviewed and adjusted accordingly: Yes Anticipated discharge: SNF
[2019-06-16] MEDS ORDERED: ALBUMIN HUMAN 25 GM/100 ML RTUINJ IV SCH (13:00)
--- NOTE | 2019-06-16 13:20 | PDOC PROGRESS REPORT ---
Subjective Progress Note for:: 06/16/19 Subjective:: Patient was seen laying in her bed about to eat breakfast. At the time she denied any chest pain or SOB. She continues to produce a good amount of urine. Anasarca has improved. Patient denies n/v/d/c or s/s of uremia. Reason For Visit: A/CKD, A/C CHF, ANASARCA Physical Exam Vital Signs: Temp Pulse Resp BP Pulse Ox 97.3 F 68 19 98/65 L 100 06/16/19 11:13 06/16/19 12:00 06/16/19 03:15 06/16/19 12:00 06/16/19 11:13 Intake & Output 06/15/19 06/16/19 06/17/19 06:59 06:59 06:59 Intake Total 453 1455 Output Total 2775 5225 Balance -2321 Weight 117.6 kg 169.6 kg General appearance: PRESENT: no acute distress, morbidly obese, well-developed, well-nourished Mouth exam: PRESENT: dry mucosa, neck supple Respiratory exam: PRESENT: crackles. ABSENT: accessory muscle use, clear to auscultation mariama, rhonchi, wheezes Cardiovascular exam: PRESENT: +S1, +S2 GI/Abdominal exam: PRESENT: distended. ABSENT: tenderness Extremities exam: PRESENT: +1 edema. ABSENT: tenderness, +2 edema Neurological exam: PRESENT: alert, awake, oriented to person, oriented to place. ABSENT: oriented to time, oriented to situation Skin exam: PRESENT: dry, intact, warm. ABSENT: cyanosis Results Laboratory Results: 06/16/19 05:02 06/16/19 05:02 06/15/19 06/16/19 06/16/19 13:09 05:02 05:02 WBC 4.0 RBC 3.48 L Hgb 10.1 L Hct 29.5 L MCV 85 MCH 29.2 MCHC 34.4 RDW 14.7 H Plt Count 102 L Carbonic Acid 1.13 HCO3/H2CO3 Ratio 18:1 ABG pH 7.37 ABG pCO2 37.6 ABG pO2 100.7 H ABG HCO3 21.1 ABG O2 Saturation 97.5 ABG Base Excess -3.8 FiO2 21% Sodium 131.4 L Potassium 4.7 Chloride 97 L Carbon Dioxide 21 L Anion Gap 13 BUN 117 H Creatinine 2.33 H Est GFR ( Amer) 24 L Glucose 103 Calcium 8.9 06/14/19 06/15/19 11:58 05:00 NT-Pro-B Natriuret Pep 1690 H 1730 H Impressions: Renal Ultrasound 06/14/19 13:44 IMPRESSION: Limited exam secondary to body habitus. Left kidney nonvisualized. Right kidney without hydronephrosis. Chest X-Ray 06/14/19 14:28 IMPRESSION: Low lung volumes without evidence of acute cardiopulmonary process. Stable retrocardiac opacity, likely hiatal hernia. Assessment & Plan - Diagnosis (1) Anasarca Is this a current diagnosis for this admission?: Yes Plan: looks to have resolved, hold furosemide for now. (2) Elevated BUN Is this a current diagnosis for this admission?: Yes Plan: Started normal saline this morning. Cardiology then increased it to 100mL and hour. Will need to cautiously monitor fluids to prevent from fluid overloading her. Continue with furosemide on hold for now. No need for WEB APPLICATIONS DEVELOPER. reassess BUN tomorrow. (3) CKD (chronic kidney disease), stage IV Is this a current diagnosis for this admission?: Yes Plan: at baseline creatinine (4) Anemia Plan: improved with fluid removal. Ordering labs (5) Acute on chronic diastolic (congestive) heart failure Plan: stable (6) COPD (chronic obstructive pulmonary disease) with acute bronchitis Plan: stable
[2019-06-16] MEDS: NORMAL SALINE 1000 ML 1,000 ML IV PRN ×2 (13:59→23:56)
--- NOTE | 2019-06-16 18:25 | Progress Note ---
Provider Note Provider Note: CARDIOLOGY PROGRESS NOTE by Dr. Brionna Vallecillo on 06/16/2019. OBJECTIVE: The patient appears to be asymptomatic lying down flat. She is oriented x2. But denies chest pain or discomfort. She continues to be in atrial fibrillation with controlled ventricular response. She denies any chest pain or discomfort there is no shortness of breath. There is no PND orthopnea. With the current regimen the patient's BUN is worsened and the patient looks dehydrated. PHYSICAL EXAMINATION: The patient is morbidly obese, but in no acute distress Selected Entries 06/16/19 06/16/19 06/16/19 09:54 10:00 11:13 Temperature 97.3 F Pulse Rate 66 Blood Pressure 100/45 L O2 Sat by Pulse 100 Oximetry Oxygen Delivery Room Air Method ( includes room air) 06/16/19 12:00 Temperature Pulse Rate Blood Pressure 98/65 L O2 Sat by Pulse Oximetry Oxygen Delivery Method ( includes room air) General appearance: PRESENT: no acute distress, morbidly obese, well-developed, well-nourished Eye exam: PRESENT: PERRLA. ABSENT: scleral icterus Mouth exam: Mucous membranes of mouth is very dry. Tongue is very dry. Neck exam: PRESENT: other - unable to tell due to body habitus no definite JVD. Neck is supple. Respiratory exam: PRESENT: crackles, rales, wheezes. ABSENT: accessory muscle use, clear to auscultation mariama, rhonchi Cardiovascular exam: PRESENT: +S1, +S2. S1 is of normal intensity. There is no S3 gallop. There is no S4 gallop. There is systolic murmur left sternal border and the apex. There is no rub. GI/Abdominal exam: PRESENT: distended. ABSENT: tenderness Extremities exam: PRESENT: pedal edema, +1 edema. ABSENT: tenderness Musculoskeletal exam: PRESENT: normal inspection. ABSENT: tenderness Neurological exam: PRESENT: alert, awake, oriented x2 ABSENT: oriented to time, oriented to situation. Moves all 4 extremities. Psychiatric exam: PRESENT: appropriate affect Skin exam: PRESENT: dry, intact, warm. The patient's 24-hour intake is 1445 mL, and 24-hour output is 3375 mL. The patient is EKG: Shows sinus rhythm. Right bundle branch block pattern and left anterior fascicular block. Renal Ultrasound 04/21/20 13:44 IMPRESSION: Limited exam secondary to body habitus. Left kidney nonvisualized. Right kidney without hydronephrosis. Chest X-Ray 06/14/19 14:28 IMPRESSION: Low lung volumes without evidence of acute cardiopulmonary process. Stable retrocardiac opacity, likely hiatal hernia. Labs- All tests 24 hr 06/16/19 06/16/19 05:02 05:02 WBC 4.0 RBC 3.48 L Hgb 10.1 L Hct 29.5 L MCV 85 MCH 29.2 MCHC 34.4 RDW 14.7 H Plt Count 102 L Sodium 131.4 L Potassium 4.7 Chloride 97 L Carbon Dioxide 21 L Anion Gap 13 BUN 117 H Creatinine 2.33 H Est GFR ( Amer) 24 L Est GFR (MDRD) Non-Af 20 L Glucose 103 Calcium 8.9 IMPRESSION/RECOMMENDATION: 1. Anasarca and lymphedema: This is unlikely secondary to heart failure, given the fact that all bite limited use the LV ejection fraction is about 65%. There is no significant tricuspid regurgitation in the parasternal short axis view and hence there is no significant pulmonary hypertension. Also the fact that the patient's BUN keeps increasing with diuretics. Hence most likely this is secondary to dehydration. 2. Dehydration: Patient clinically appears to be dry. We will stop the patient's diuretics continue the patient's dopamine to keep the blood pressure up and start the patient on IV fluids in the form of normal saline. This has been discussed with nephrology and the attending provider on the case. We will follow the patient closely and watch for any development of heart failure. 3. Chronic kidney disease stage IV: There is element of acute on chronic kidney disease. This is most likely due to overdiuresis. Nephrology following the patient. Would recommend stopping the patient's Lasix as mentioned earlier. 4. Paroxysmal atrial fibrillation. At present patient in sinus rhythm: Continue current medications and Eliquis at renal failure doses. 5. COPD: At present no definite evidence of bronchitis. 6. Morbid obesity. Medications reviewed medications adjusted. Management plan is of high complexity. Medical regimen and management plan discussed at length with attending provider and the lawn mower sharpener on the case. 40 minutes spent on the patient with more than 50% of time spent in direct patient care. Will follow.
--- NOTE | 2019-06-16 21:41 | XCELERA REPORT ---
[address] [address] Transthoracic Echocardiogram Report Name: ANTHONY PELLETIER Age: 83 yrs Gender: Female : 1935 Patient Status: Inpatient Patient Location: [address] [place] [address] Study Date: 06/15/2019 11:15 AM Height: 64 in Weight: 377 lb BSA: 2.6 m2 Procedure: A two-dimensional transthoracic echocardiogram with color flow and Doppler was performed. Images were not obtained from all of the standard acoustic windows due to the limited scope of the study. The apical views were not obtained due to patient non cooperation. Reason For Study: CHF; please obtain if unable to complete MUGA History: CHF. Ordering Physician: DASH ARSHAD Performed By: Arash Valenzuela Interpretation Summary Images were not obtained from all of the standard acoustic windows due to the limited scope of the study. The apical views were not obtained due to patient non cooperation. Normal LV size.No LVH.In the parasternal views LV garcia contract normally.In limited views LVEF is greater than 65%. The right ventricle is not well visualized secondary to technical limitations There is no evidence of mitral valve prolapse. Visually no MS or MVO.Trace MR. There is no aortic valvular vegetation. Visually no or AR. There is a trace amount of tricuspid regurgitation Tricuspid regurgitation jet envelope not well defined to measure RV systolic pressure accurately. No pericardial effusion in the limited voews. MMode/2D Measurements & Calculations RVDd: 2.3 cm LVIDd: 5.0 cm FS: 42.2 % Ao root diam: 3.3 cm IVSd: 1.0 cm LVIDs: 2.9 cm EDV(Teich): 118.6 ml Ao root area: 8.5 cm2 LVPWd: 1.0 cm ESV(Teich): 32.0 ml LA dimension: 4.7 cm EF(Teich): 73.0 % Doppler Measurements & Calculations PA V2 max: 100.2 cm/sec PA max P.0 mmHg Left Ventricle Normal LV size.No LVH.In the parasternal views LV garcai contract normally.In limited views LVEF is greater than 65%. Right Ventricle The right ventricle is not well visualized secondary to technical limitations. Atria The left atrial size is normal. Mitral Valve There is no evidence of mitral valve prolapse. Visually no MS or MVO.Trace MR. Aortic Valve There is no aortic valvular vegetation. Visually no or AR. Tricuspid Valve There is a trace amount of tricuspid regurgitation. Tricuspid regurgitation jet envelope not well defined to measure RV systolic pressure accurately. Effusions No pericardial effusion in the limited voews. : DASH ARSHAD Lakshmi
--- NOTE | 2019-06-16 23:19 | CDI QUERY ---
CDI Query CDI Review: Dear Provider: To better reflect your patients severity of illness, morbidity, and resource utilization Please specify and document in the Progress Notes and Discharge Summary if you are monitoring / treating / evaluating any of the following conditions: Query Clinical indicators Please clarify the Principal Diagnosis which prompted this admission and include in your Progress Notes. Anasarca secondary to: Acute on chronic renal failure (CKD IV) Acute on chronic diastolic heart failure Dehydration Unable to determine Other Per H&P: Gross anasarca; pitting edema to BLE, sacrum/buttocks, extending proximally to posterior chest wall (+1 pitting edema to chest wall) Per Nephrology Consult: (1) Anasarca Likely right sided heart failure and a slightly low albumin Per Cardiology Consult: Anasarca and lymphedema: This is unlikely secondary to heart failure, given the fact that all bite limited use the LV ejection fraction is about 65%. There is no significant tricuspid regurgitation in the parasternal short axis view and hence there is no significant pulmonary hypertension. Also the fact that the patient's BUN keeps increasing with diuretics. Hence most likely this is secondary to dehydration. The terms probable, suspected, likely, possible or still to be ruled out may be used if you are unable to determine the exact nature of a condition. Thank you for your consideration, Clinical Documentation Physician Advisors ED Mata RN, BSN RN Office [phone] Office [phone]
[2019-06-17] MEDS: DOPAMINE HCL/DEXTROSE 5%-WATER 800 MG/250 ML RTUINJ IV PRN (01:35)
[2019-06-17 06:29] LABS: ANION GAP 12 (5-19); BLOOD UREA NITROGEN 116 mg/dL (7-20); CALCIUM 8.8 mg/dL (8.4-10.2); CARBON DIOXIDE 21 mmol/L (22-30); CHLORIDE 100 mmol/L (98-107); GLUCOSE 92 mg/dL (75-110); POTASSIUM 4.5 mmol/L (3.6-5.0)
[2019-06-17] MEDS: DOCUSATE SODIUM 100 MG CAPSULE PO SCH (09:13)
[2019-06-17] MEDS: METOPROLOL SUCCINATE 25 MG TAB.SR.24H PO SCH ×2 (09:21→21:38)
[2019-06-17] MEDS: APIXABAN 2.5 MG TABLET PO SCH ×2 (09:21→18:23)
[2019-06-17] MEDS: FAMOTIDINE 20 MG TABLET PO SCH (09:21)
[2019-06-17] MEDS: ASPIRIN 81 MG TABLET, ENT COATED PO SCH (09:21)
[2019-06-17] MEDS: NORMAL SALINE 1000 ML 1,000 ML IV PRN (12:05)
--- NOTE | 2019-06-17 12:24 | PDOC PROGRESS REPORT ---
Subjective Progress Note for:: 06/17/19 Subjective:: Patient is an 83-year-old female with a past medical history significant for advanced dementia (oriented to self only), bedbound status, super morbid obesity, chronic CHF, CKD 4, atrial fibrillation, COPD who was admitted 06/14/2019 for abnormal lab (BUN 119) and profound anasarca. Patient was seen on morning rounds. She was found resting in bed, comfortably, on room air. She is alert and oriented to self today. She is pleasantly confused, but socially appropriate and conversational. States she feels well; denies pain and shortness of breath. Does not answer any other questions and points at the television. She appears comfortable and is not noted to be in any acute distress. Reviewed plan of care with nursing. Reason For Visit: A/CKD, A/C CHF, ANASARCA Physical Exam Vital Signs: Temp Pulse Resp BP Pulse Ox 97.5 F 83 18 116/67 100 06/17/19 07:17 06/17/19 07:17 06/17/19 07:17 06/17/19 07:17 06/17/19 07:17 Intake & Output 06/16/19 06/17/19 06/18/19 06:59 06:59 06:59 Intake Total 1455 2515 1000 Output Total 3371 1936 -1919 1000 Weight 169.6 kg 169.6 kg General appearance: PRESENT: no acute distress, morbidly obese, well-developed, well-nourished, other - Anasarca Head exam: PRESENT: atraumatic, normocephalic Eye exam: PRESENT: conjunctiva pink, EOMI, PERRLA. ABSENT: scleral icterus Ear exam: PRESENT: normal external ear exam Mouth exam: PRESENT: moist, tongue midline Neck exam: ABSENT: carotid bruit, JVD, lymphadenopathy, thyromegaly Respiratory exam: PRESENT: clear to auscultation mariama, symmetrical, unlabored, other - Room air; Difficult to assess secondary to body habitus, position, inspiratory effort. ABSENT: rales, rhonchi, wheezes Cardiovascular exam: PRESENT: RRR. ABSENT: diastolic murmur, rubs, systolic murmur Vascular exam: PRESENT: normal capillary refill GI/Abdominal exam: PRESENT: normal bowel sounds, soft, other - Pannus.Exam limited secondary to body habitus. ABSENT: distended, guarding, rebound, tenderness Rectal exam: PRESENT: deferred Extremities exam: PRESENT: full ROM, +2 edema - BLE, other - Chronic venous stasis changes. ABSENT: calf tenderness, clubbing, pedal edema. ABSENT: calf tenderness, clubbing, pedal edema Neurological exam: PRESENT: alert, awake, oriented to person, CN II-XII grossly intact, other - Baseline mental status. ABSENT: motor sensory deficit Psychiatric exam: PRESENT: appropriate affect, normal mood. ABSENT: homicidal ideation, suicidal ideation Skin exam: PRESENT: dry, intact, warm. ABSENT: cyanosis, rash Results Laboratory Results: 06/16/19 05:02 06/17/19 05:30 06/17/19 05:30 Sodium 133.2 L Potassium 4.5 Chloride 100 Carbon Dioxide 21 L Anion Gap 12 BUN 116 H Creatinine 2.36 H Est GFR ( Amer) 24 L Glucose 92 Calcium 8.8 06/14/19 06/15/19 11:58 05:00 NT-Pro-B Natriuret Pep 1690 H 1730 H Impressions: Renal Ultrasound 06/14/19 13:44 IMPRESSION: Limited exam secondary to body habitus. Left kidney nonvisualized. Right kidney without hydronephrosis. Chest X-Ray 06/14/19 14:28 IMPRESSION: Low lung volumes without evidence of acute cardiopulmonary process. Stable retrocardiac opacity, likely hiatal hernia. Assessment and Plan - Diagnosis (1) Anasarca Is this a current diagnosis for this admission?: Yes Plan: Unable to determine etiology. Improved; decreased lower extremity edema, upper extremity edema has resolved, decreased dense edema to pannus Renal function appears to be at baseline with 2.09 and excellent urinary output upon insertion of Arambula catheter today. Slight elevation with diuresis, though overall stable 2.32-2.33 Evaluation of diastolic CHF as below. LFTs are unremarkable. Albumin 3.0; prealbumin slightly low at 14.9 Have discussed with nephrology and cardiology; will continue dopamine drip Frusemide has been discontinued; nephrology is started IV fluids. Registered dietitian is consulted. Follow up chemistry. Discharge planning and palliative care consultation. (2) Chronic diastolic congestive heart failure Is this a current diagnosis for this admission?: Yes Plan: Chest x-ray clear. proBNP 1690; decreased from last visit of 2400. Last echocardiogram 2018 was poor quality study; unable to assess LVEF or diastolic function; recommended MUGA. Echocardiogram shows LVEF 65% without significant tricuspid regurgitation and no significant pulmonary hypertension. She is admitted to [facility] on continuous cardiac telemetry. Holding lisinopril r/t renal function. Continue home dose Toprol. Continue dopamine gtt. Cardiac diet. Fluid restricted to 1200 Daily weights, strict I&O's Cardiology consultation; discussed with Dr. Melara. Appreciate his assistance. (3) Elevated BUN Is this a current diagnosis for this admission?: Yes Plan: Unchanged; 119-> 113-> 117->116 Unclear etiology. Did not improve with diuresis; likely unrelated to CHF. Evaluation and management as above. Occult stool is negative. Cardiac/low protein diet. Nephrology is consulted. Discussed with AFSHAN Herrera and Dr. Sánchez today. IV fluids per nephrology. Follow-up chemistry. (4) CKD (chronic kidney disease), stage IV Is this a current diagnosis for this admission?: Yes Plan: Followed by Dr. Sánchez; have consulted Creatinine 2.09 at baseline. Excellent urine output; net output ~6.3L Arambula in place for strict monitoring. Avoid nephrotoxic medications as able. Follow-up chemistry. (5) Chronic a-fib Is this a current diagnosis for this admission?: Yes Plan: Continue home dose Eliquis and metoprolol. (6) Do not resuscitate Is this a current diagnosis for this admission?: Yes - Time Time Spent with patient: 25-34 minutes Medications reviewed and adjusted accordingly: Yes Anticipated discharge: SNF
--- NOTE | 2019-06-17 12:26 | Progress Note ---
Provider Note Provider Note: CARDIOLOGY PROGRESS NOTE by Dr. Brionna Vallecillo on 06/17/2019. SUBJECTIVE: The patient appears to be in no acute distress she is lying flat. She denies any chest pain or discomfort. There is no recurrence of atrial fibrillation. There is no ventricular arrhythmia seen on the monitor. There is no chest pain or discomfort. There is no shortness of breath. There is no palpitations. The patient still has some degree of dementia. She moves all 4 extremities. There is no bleeding on Eliquis. PHYSICAL EXAMINATION: The patient is morbidly obese. But in no acute distress. Selected Entries 06/17/19 12:20 Temperature 97.3 F Temperature Axillary Source Pulse Rate 70 Respiratory 20 Rate Blood Pressure 102/50 L Blood Pressure 67 Mean BP Location Right Arm BP Position Supine O2 Sat by Pulse 97 Oximetry Oxygen Delivery Room Air Method General appearance: PRESENT: no acute distress, morbidly obese, well-developed, well-nourished Eye exam: PRESENT: PERRLA. ABSENT: scleral icterus Mouth exam: Mucous membranes of mouth is very dry. Tongue is very dry. Neck exam: PRESENT: other - unable to tell due to body habitus no definite JVD. Neck is supple. Respiratory exam: PRESENT: crackles, rales, wheezes. ABSENT: accessory muscle use, clear to auscultation mariama, rhonchi Cardiovascular exam: PRESENT: +S1, +S2. S1 is of normal intensity. There is no S3 gallop. There is no S4 gallop. There is systolic murmur left sternal border and the apex. There is no rub. GI/Abdominal exam: PRESENT: distended. ABSENT: tenderness Extremities exam: PRESENT: pedal edema, +1 edema. ABSENT: tenderness Musculoskeletal exam: PRESENT: normal inspection. ABSENT: tenderness Neurological exam: PRESENT: alert, awake, oriented x2 ABSENT: oriented to time, oriented to situation. Moves all 4 extremities. Psychiatric exam: PRESENT: appropriate affect Skin exam: PRESENT: dry, intact, warm. The patient's 24-hour intake is 2515 mL, and 24-hour output is 4525 mL Labs- All tests 24 hr 06/17/19 05:30 Sodium 133.2 L Potassium 4.5 Chloride 100 Carbon Dioxide 21 L Anion Gap 12 BUN 116 H Creatinine 2.36 H Est GFR ( Amer) 24 L Est GFR (MDRD) Non-Af 20 L Glucose 92 Calcium 8.8 Renal Ultrasound 06/14/19 13:44 IMPRESSION: Limited exam secondary to body habitus. Left kidney nonvisualized. Right kidney without hydronephrosis. Chest X-Ray 06/14/19 14:28 IMPRESSION: Low lung volumes without evidence of acute cardiopulmonary process. Stable retrocardiac opacity, likely hiatal hernia. IMPRESSION/RECOMMENDATION: 1. Anasarca and lymphedema: This is unlikely secondary to heart failure, given the fact that all bite limited use the LV ejection fraction is about 65%. There is no significant tricuspid regurgitation in the parasternal short axis view and hence there is no significant pulmonary hypertension. Also the fact that the patient's BUN keeps increasing with diuretics. Hence most likely this is secondary to dehydration. 2. Dehydration: Patient clinically appears to be dry. We will stop the patient's diuretics continue the patient's dopamine to keep the blood pressure up and start the patient on IV fluids in the form of normal saline. This has been discussed with nephrology and the attending provider on the case. We will follow the patient closely and watch for any development of heart failure. The patient is creatinine is stable. And static at 2.3. There is no evidence of heart failure the patient is tolerating IV fluids. 3. Chronic kidney disease stage IV: There is element of acute on chronic kidney disease. This is most likely due to overdiuresis. Nephrology following the patient. Would recommend stopping the patient's Lasix as mentioned earlier. 4. Paroxysmal atrial fibrillation. At present patient in sinus rhythm: Continue current medications and Eliquis at renal failure doses. 5. COPD: At present no definite evidence of bronchitis. 6. Morbid obesity. Medications reviewed medications adjusted. Management plan is of high complexity. Medical regimen and management plan discussed at length with attending provider and the video system repairer on the case. 40 minutes spent on the patient with more than 50% of time spent in direct patient care. Will follow.
--- NOTE | 2019-06-17 13:15 | PDOC PROGRESS REPORT ---
Subjective Progress Note for:: 06/17/19 Reason For Visit: This patient was seen today in the hospital. She is got underlying history of CKD stage IV in the background of hypertension and other comorbidities which includes severe morbid obesity progressive dementia and bed bound. She is not able to answer appropriately to her questions as she is rather demented. However she looks to be in no distress as she is laying flat in bed. Labs and medications were reviewed. Discussions were done with the treating nurse as well as with Crystal/hospitalist. Physical Exam Vital Signs: Temp Pulse Resp BP Pulse Ox 97.5 F 83 18 116/67 100 06/17/19 07:17 06/17/19 07:17 06/17/19 07:17 06/17/19 07:17 06/17/19 07:17 Intake & Output 06/16/19 06/17/19 06/18/19 06:59 06:59 06:59 Intake Total 1455 2515 1525 Output Total 3375 4525 1250 Balance -1919 275 Weight 169.6 kg 169.6 kg General appearance: PRESENT: no acute distress Respiratory exam: PRESENT: clear to auscultation mariama, decreased breath sounds. ABSENT: crackles Cardiovascular exam: PRESENT: +S1, +S2 GI/Abdominal exam: PRESENT: distended, normal bowel sounds, soft. ABSENT: ascites - She is got massive pendulous loose folds of skin over her abdomen, organomegaly, tenderness Extremities exam: PRESENT: pedal edema Neurological exam: PRESENT: altered Psychiatric exam: PRESENT: anxious Skin exam: PRESENT: mottled - Venous stasis changes of lower extremities.. ABSENT: cyanosis, dry, erythema, rash Results Laboratory Results: 06/16/19 05:02 06/17/19 05:30 06/17/19 05:30 Sodium 133.2 L Potassium 4.5 Chloride 100 Carbon Dioxide 21 L Anion Gap 12 BUN 116 H Creatinine 2.36 H Est GFR ( Amer) 24 L Glucose 92 Calcium 8.8 06/14/19 06/15/19 11:58 05:00 NT-Pro-B Natriuret Pep 1690 H 1730 H Impressions: Renal Ultrasound 06/14/19 13:44 IMPRESSION: Limited exam secondary to body habitus. Left kidney nonvisualized. Right kidney without hydronephrosis. Chest X-Ray 06/14/19 14:28 IMPRESSION: Low lung volumes without evidence of acute cardiopulmonary process. Stable retrocardiac opacity, likely hiatal hernia. Assessment & Plan - Diagnosis (1) Anasarca Is this a current diagnosis for this admission?: Yes Plan: The anasarca is more limited over the torso as well as lower extremities. This could be more from dependent edema along with associated element of lymphedema. (2) Elevated BUN Is this a current diagnosis for this admission?: Yes Plan: Differentials includes prerenal causes of dehydration/congestive heart failure patient poor renal perfusion another causes which can also include certain drugs and upper GI bleeds.So far evaluations of rule out any possibility of congestive heart failure as a cause. So we are in the process of doing gentle hydration over the next few days and see how she responds to that. Continue normal saline at 100 cc/h. (4) CKD (chronic kidney disease), stage IV Is this a current diagnosis for this admission?: Yes Plan: Baseline creatinine is 2.3 and she is static at that.
[2019-06-18] MEDS: DOPAMINE HCL/DEXTROSE 5%-WATER 800 MG/250 ML RTUINJ IV PRN (05:38)
[2019-06-18 05:54] LABS: HEMATOCRIT 31.6 % (36.0-47.0); HEMOGLOBIN 10.8 g/dL (12.0-15.5); MEAN CORPUSCULAR HEMOGLOBIN 29.1 pg (27.0-33.4); MEAN CORPUSCULAR HGB CONC 34.3 g/dL (32.0-36.0); MEAN CORPUSCULAR VOLUME 85 fl (80-97); PLATELET COUNT 110 10^3/uL (150-450); RED BLOOD COUNT 3.73 10^6/uL (3.72-5.28); RED CELL DISTRIBUTION WIDTH 14.7 % (11.5-14.0)
[2019-06-18 06:21] LABS: ANION GAP 14 (5-19); BLOOD UREA NITROGEN 110 mg/dL (7-20); CALCIUM 8.9 mg/dL (8.4-10.2); CARBON DIOXIDE 21 mmol/L (22-30); CHLORIDE 100 mmol/L (98-107); GLUCOSE 97 mg/dL (75-110); POTASSIUM 4.7 mmol/L (3.6-5.0)
[2019-06-18] MEDS: FAMOTIDINE 20 MG TABLET PO SCH (10:31)
[2019-06-18] MEDS: APIXABAN 2.5 MG TABLET PO SCH ×2 (10:31→17:48)
[2019-06-18] MEDS: METOPROLOL SUCCINATE 25 MG TAB.SR.24H PO SCH ×2 (10:31→21:14)
[2019-06-18] MEDS: DOCUSATE SODIUM 100 MG CAPSULE PO SCH (10:31)
[2019-06-18] MEDS: ASPIRIN 81 MG TABLET, ENT COATED PO SCH (10:31)
--- NOTE | 2019-06-18 15:39 | PDOC PROGRESS REPORT ---
Subjective Progress Note for:: 06/18/19 Subjective:: Patient is an 83-year-old female with a past medical history significant for advanced dementia (oriented to self only), bedbound status, super morbid obesity, chronic CHF, CKD 4, atrial fibrillation, COPD who was admitted 06/14/2019 for abnormal lab (BUN 119) and profound anasarca. Patient was seen on morning rounds. She was found resting in bed, comfortably, on room air. She is alert and oriented to self today. She is pleasantly confused, but socially appropriate and conversational. She complains of left knee pain today. She denies chest pain, palpitations, abdominal pain, nausea and vomiting. She appears comfortable and is not noted to be in any acute distress. Reviewed plan of care with nursing. Reason For Visit: A/CKD, A/C CHF, ANASARCA Physical Exam Vital Signs: Temp Pulse Resp BP Pulse Ox 97.7 F 54 L 20 110/61 96 06/18/19 11:17 06/18/19 14:00 06/18/19 11:17 06/18/19 11:17 06/18/19 11:17 Intake & Output 06/17/19 06/18/19 06/19/19 06:59 06:59 06:59 Intake Total 2515 2555 880 Output Total 4525 3850 700 Balance -2009 -5 180 Weight 169.6 kg 170.6 kg General appearance: PRESENT: no acute distress, hard of hearing, morbidly obese, well-developed, other - Anasarca; increased density/firmness to BLE and pannus Head exam: PRESENT: atraumatic, normocephalic Eye exam: PRESENT: conjunctiva pink, EOMI, PERRLA. ABSENT: scleral icterus Mouth exam: PRESENT: moist, tongue midline Teeth exam: PRESENT: poor dentation Respiratory exam: PRESENT: decreased breath sounds, symmetrical, unlabored, other. ABSENT: rales, rhonchi, wheezes Cardiovascular exam: PRESENT: RRR. ABSENT: diastolic murmur, rubs, systolic murmur Vascular exam: PRESENT: normal capillary refill Rectal exam: PRESENT: deferred Extremities exam: PRESENT: other - +3 edema BLE: Chronic venous stasis changes. ABSENT: calf tenderness, clubbing, pedal edema Neurological exam: PRESENT: alert, awake, oriented to person, CN II-XII grossly intact. ABSENT: motor sensory deficit Psychiatric exam: PRESENT: appropriate affect, normal mood. ABSENT: homicidal ideation, suicidal ideation Skin exam: PRESENT: dry, intact, warm. ABSENT: cyanosis, rash Results Laboratory Results: 06/18/19 05:20 06/18/19 05:20 06/18/19 06/18/19 05:20 05:20 WBC 4.0 RBC 3.73 Hgb 10.8 L Hct 31.6 L MCV 85 MCH 29.1 MCHC 34.3 RDW 14.7 H Plt Count 110 L Sodium 134.6 L Potassium 4.7 Chloride 100 Carbon Dioxide 21 L Anion Gap 14 BUN 110 H Creatinine 2.24 H Est GFR ( Amer) 25 L Glucose 97 Calcium 8.9 06/14/19 06/15/19 11:58 05:00 NT-Pro-B Natriuret Pep 1690 H 1730 H Impressions: Renal Ultrasound 06/14/19 13:44 IMPRESSION: Limited exam secondary to body habitus. Left kidney nonvisualized. Right kidney without hydronephrosis. Chest X-Ray 06/14/19 14:28 IMPRESSION: Low lung volumes without evidence of acute cardiopulmonary process. Stable retrocardiac opacity, likely hiatal hernia. Assessment and Plan - Diagnosis (1) Anasarca Is this a current diagnosis for this admission?: Yes Plan: Unable to determine etiology. Worsened today with increased firm edema to BLE and pannus Renal function appears to be at baseline with 2.09 and excellent urinary output upon insertion of Arambula catheter today. Slight elevation with diuresis, though overall stable 2.32-2.33 Evaluation of diastolic CHF as below. LFTs are unremarkable. Albumin 3.0; prealbumin slightly low at 14.9 Have discussed with nephrology and cardiology; will continue dopamine drip Frusemide has been discontinued; nephrology has started IV fluids. Registered dietitian is consulted. Follow up chemistry. Discharge planning and palliative care consultation. (2) Chronic diastolic congestive heart failure Is this a current diagnosis for this admission?: Yes Plan: Chest x-ray clear. proBNP 1690; decreased from last visit of 2400. Last echocardiogram 2018 was poor quality study; unable to assess LVEF or diastolic function; recommended MUGA. Echocardiogram shows LVEF 65% without significant tricuspid regurgitation and no significant pulmonary hypertension. She is admitted to [facility] on continuous cardiac telemetry. Holding lisinopril r/t renal function. Continue home dose Toprol. Continue dopamine gtt. Cardiac diet. Daily weights, strict I&O's Cardiology consultation. (3) Elevated BUN Is this a current diagnosis for this admission?: Yes Plan: Unchanged; 119-> 113-> 117->116 Unclear etiology. Did not improve with diuresis; likely unrelated to CHF. Evaluation and management as above. Occult stool is negative. Cardiac/low protein diet. Nephrology is consulted. Discussed with AFSHAN Herrera and Dr. Sánchez. IV fluids per nephrology. Follow-up chemistry. (4) CKD (chronic kidney disease), stage IV Is this a current diagnosis for this admission?: Yes Plan: Followed by Dr. Sánchez; have consulted Creatinine 2.09 at baseline. Excellent urine output; net output ~6.1L Arambula in place for strict monitoring. Avoid nephrotoxic medications as able. Follow-up chemistry. (5) Chronic a-fib Is this a current diagnosis for this admission?: Yes Plan: Continue home dose Eliquis and metoprolol. (6) Do not resuscitate Is this a current diagnosis for this admission?: Yes - Time Time Spent with patient: 25-34 minutes Medications reviewed and adjusted accordingly: Yes Anticipated discharge: SNF
[2019-06-19 06:25] LABS: ANION GAP 16 (5-19); BLOOD UREA NITROGEN 107 mg/dL (7-20); CALCIUM 9.1 mg/dL (8.4-10.2); CARBON DIOXIDE 19 mmol/L (22-30); CHLORIDE 99 mmol/L (98-107); GLUCOSE 102 mg/dL (75-110); POTASSIUM 4.9 mmol/L (3.6-5.0)
[2019-06-19] MEDS: DOPAMINE HCL/DEXTROSE 5%-WATER 800 MG/250 ML RTUINJ IV PRN (07:06)
[2019-06-19] MEDS: FAMOTIDINE 20 MG TABLET PO SCH (09:43)
[2019-06-19] MEDS: ASPIRIN 81 MG TABLET, ENT COATED PO SCH (09:43)
[2019-06-19] MEDS: METOPROLOL SUCCINATE 25 MG TAB.SR.24H PO SCH (09:43)
[2019-06-19] MEDS: DOCUSATE SODIUM 100 MG CAPSULE PO SCH (09:44)
[2019-06-19] MEDS: APIXABAN 2.5 MG TABLET PO SCH ×2 (09:44→18:00)
--- NOTE | 2019-06-19 11:39 | Progress Note ---
Provider Note Provider Note: Cardiology PROGRESS NOTE by Dr. Brionna Vallecillo on 06/19/2019. SUBJECTIVE: The patient appears to be stable with no chest pain or discomfort. She denies any shortness of breath. There is no PND orthopnea. There is no recurrence of atrial fibrillation. The patient is bradycardic but with this initially was stable blood pressure. But when the patient's dopamine drip was discontinued the patient's blood pressure dropped and hence the dopamine had to be restarted. There is no bleeding on Eliquis. There is no ventricular arrhythmias seen. There is no TIA CVA symptoms. There is no evidence of heart failure on examination. Due to lack of IV access the patient had triple-lumen catheter placed in the right internal jugular vein. There were no complications. PHYSICAL EXAMINATION: The patient is morbidly obese. In no acute distress. Selected Entries 06/19/19 12:45 Pulse Rate 85 Blood Pressure 115/86 H Blood Pressure 95 Mean Respirations 18/min O2 sats are 95% on room air. General appearance: PRESENT: no acute distress, morbidly obese, well-developed, well-nourished Eye exam: PRESENT: PERRLA. ABSENT: scleral icterus Mouth exam: Mucous membranes of mouth is very dry. Tongue is very dry. Neck exam: PRESENT: other - unable to tell due to body habitus no definite JVD. Neck is supple. Respiratory exam: PRESENT: crackles, rales, wheezes. ABSENT: accessory muscle use, clear to auscultation mariama, rhonchi Cardiovascular exam: PRESENT: +S1, +S2. S1 is of normal intensity. There is no S3 gallop. There is no S4 gallop. There is systolic murmur left sternal border and the apex. There is no rub. GI/Abdominal exam: PRESENT: distended. ABSENT: tenderness Extremities exam: PRESENT: pedal edema, +1 edema. ABSENT: tenderness Musculoskeletal exam: PRESENT: normal inspection. ABSENT: tenderness Neurological exam: PRESENT: alert, awake, oriented x2 ABSENT: oriented to time, oriented to situation. Moves all 4 extremities. Psychiatric exam: PRESENT: appropriate affect Skin exam: PRESENT: dry, intact, warm. The patient's 24-hour intake is 1497 mL, and 24-hour output is 3250 mL Labs- All tests 24 hr 06/19/19 04:51 Sodium 133.7 L Potassium 4.9 Chloride 99 Carbon Dioxide 19 L Anion Gap 16 BUN 107 H Creatinine 1.93 H Est GFR ( Amer) 30 L Est GFR (MDRD) Non-Af 25 L Glucose 102 Calcium 9.1 Renal Ultrasound 06/14/19 13:44 IMPRESSION: Limited exam secondary to body habitus. Left kidney nonvisualized. Right kidney without hydronephrosis. Chest X-Ray 06/14/19 14:28 IMPRESSION: Low lung volumes without evidence of acute cardiopulmonary process. Stable retrocardiac opacity, likely hiatal hernia. Chest X-Ray 06/19/19 00:00 IMPRESSION: PLACEMENT OF CENTRAL LINE IN SATISFACTORY POSITION WITH NO PNEUMOTHORAX. OTHERWISE NO CHANGE IN APPEARANCE OF THE CHEST. IMPRESSION/RECOMMENDATION: 1. Anasarca and lymphedema: This is unlikely secondary to heart failure, given the fact that all bite limited use the LV ejection fraction is about 65%. There is no significant tricuspid regurgitation in the parasternal short axis view and hence there is no significant pulmonary hypertension. 2. Dehydration: Patient clinically appears to be dry. We will stop the patient's diuretics continue the patient's dopamine to keep the blood pressure up and start the patient on IV fluids in the form of normal saline. This has been discussed with nephrology and the attending provider on the case. We will follow the patient closely and watch for any development of heart failure. The patient BUN is decreased to 110 and creatinine is come down to 2.24. 3. Chronic kidney disease stage IV: There is element of acute on chronic kidney disease. This is most likely due to overdiuresis. Nephrology following the patient. Would recommend continuing IV hydration. 4. Paroxysmal atrial fibrillation. At present patient in sinus rhythm: Continue current medications and Eliquis at renal failure doses. 5. COPD: At present no definite evidence of bronchitis. 6. Hypertension by history. At present the patient is hypotensive requiring dopamine drip at small doses. Patient blood pressure dropped when the dopamine was stopped. Note that the patient in the past was on midodrine at home 10 mg p.o. every 8 hours. Hence we will restart the patient on midodrine. 7. Morbid obesity. Medications reviewed medications adjusted. Management plan is of moderate complexity. Medical regimen and management plan discussed at length with attending provider and the tool profiling machine set up operator on the case. 40 minutes spent on the patient with more than 50% of time spent in direct patient care. Will follow.
--- NOTE | 2019-06-19 11:39 | Progress Note ---
Provider Note Provider Note: CARDIOLOGY PROGRESS NOTE by Dr. Brionna Vallecillo on 06/18/2019. Subjective: The patient appears to be comfortable patient. She is still slightly confused but oriented x2. She denies any chest pain or discomfort. There is no shortness of breath. There is no PND orthopnea and the patient is able to lie down flat. There is no arrhythmia seen on the monitor. There is no recurrence of atrial fibrillation. There is no bleeding on Eliquis. There is no TIA or CVA symptoms. PHYSICAL EXAMINATION: The patient is morbidly obese. In no acute distress. Selected Entries 06/18/19 11:17 Temperature 97.7 F Temperature Axillary Source Pulse Rate 67 Respiratory 20 Rate Blood Pressure 110/61 Blood Pressure 77 Mean BP Location Right Arm BP Position Supine O2 Sat by Pulse 96 Oximetry Oxygen Delivery Room Air Method General appearance: PRESENT: no acute distress, morbidly obese, well-developed, well-nourished Eye exam: PRESENT: PERRLA. ABSENT: scleral icterus Mouth exam: Mucous membranes of mouth is very dry. Tongue is very dry. Neck exam: PRESENT: other - unable to tell due to body habitus no definite JVD. Neck is supple. Respiratory exam: PRESENT: crackles, rales, wheezes. ABSENT: accessory muscle use, clear to auscultation mariama, rhonchi Cardiovascular exam: PRESENT: +S1, +S2. S1 is of normal intensity. There is no S3 gallop. There is no S4 gallop. There is systolic murmur left sternal border and the apex. There is no rub. GI/Abdominal exam: PRESENT: distended. ABSENT: tenderness Extremities exam: PRESENT: pedal edema, +1 edema. ABSENT: tenderness Musculoskeletal exam: PRESENT: normal inspection. ABSENT: tenderness Neurological exam: PRESENT: alert, awake, oriented x2 ABSENT: oriented to time, oriented to situation. Moves all 4 extremities. Psychiatric exam: PRESENT: appropriate affect Skin exam: PRESENT: dry, intact, warm. The patient's 24-hour intake is 2555 mL, and 24-hour output is 3850 mL Labs- All tests 24 hr 06/17/19 06/18/19 06/18/19 00:20 05:20 05:20 WBC 4.0 RBC 3.73 Hgb 10.8 L Hct 31.6 L MCV 85 MCH 29.1 MCHC 34.3 RDW 14.7 H Plt Count 110 L Sodium 134.6 L Potassium 4.7 Chloride 100 Carbon Dioxide 21 L Anion Gap 14 BUN 110 H Creatinine 2.24 H Est GFR ( Amer) 25 L Est GFR (MDRD) Non-Af 21 L Glucose 97 Calcium 8.9 COVID-19 Source NASOPHARYNGEAL COVID-19 (JOSE [facility]) NOT DETECTED Renal Ultrasound 06/14/19 13:44 IMPRESSION: Limited exam secondary to body habitus. Left kidney nonvisualized. Right kidney without hydronephrosis. Chest X-Ray 06/14/19 14:28 IMPRESSION: Low lung volumes without evidence of acute cardiopulmonary process. Stable retrocardiac opacity, likely hiatal hernia. IMPRESSION/RECOMMENDATION: 1. Anasarca and lymphedema: This is unlikely secondary to heart failure, given the fact that all bite limited use the LV ejection fraction is about 65%. There is no significant tricuspid regurgitation in the parasternal short axis view and hence there is no significant pulmonary hypertension. 2. Dehydration: Patient clinically appears to be dry. We will stop the patient's diuretics continue the patient's dopamine to keep the blood pressure up and start the patient on IV fluids in the form of normal saline. This has been discussed with nephrology and the attending provider on the case. We will follow the patient closely and watch for any development of heart failure. The patient BUN is decreased to 110 and creatinine is come down to 2.24. 3. Chronic kidney disease stage IV: There is element of acute on chronic kidney disease. This is most likely due to overdiuresis. Nephrology following the patient. Would recommend continuing IV hydration. 4. Paroxysmal atrial fibrillation. At present patient in sinus rhythm: Continue current medications and Eliquis at renal failure doses. 5. COPD: At present no definite evidence of bronchitis. 6. Morbid obesity. Medications reviewed medications adjusted. Management plan is of moderate complexity. Medical regimen and management plan discussed at length with attending provider and the senior operations analyst on the case. 40 minutes spent on the patient with more than 50% of time spent in direct patient care. Will follow.
--- NOTE | 2019-06-19 11:49 | PDOC PROGRESS REPORT ---
Subjective Progress Note for:: 06/19/19 Subjective:: Patient is an 83-year-old female with a past medical history significant for advanced dementia (oriented to self only), bedbound status, super morbid obesity, chronic CHF, CKD 4, atrial fibrillation, COPD who was admitted 06/14/2019 for abnormal lab (BUN 119) and profound anasarca. Patient was seen on morning rounds. She was found resting in bed, comfortably, on room air. She is alert and oriented to self today. She is pleasantly confused, but socially appropriate and conversational. She denies all discomfort today; specifically chest pain, palpitations, ab dominal pain, nausea and vomiting, and knee pain. She appears comfortable and is not noted to be in any acute distress. Reviewed plan of care with nursing. Reason For Visit: A/CKD, A/C CHF, ANASARCA Physical Exam Vital Signs: Temp Pulse Resp BP Pulse Ox 97.3 F 82 18 122/44 L 100 06/19/19 03:07 06/19/19 08:18 06/19/19 08:18 06/19/19 08:18 06/19/19 08:18 Intake & Output 06/18/19 06/19/19 06/20/19 06:59 06:59 06:59 Intake Total 2555 1497 242 Output Total 3850 3250 Balance -1295 -1753 242 Weight 170.6 kg 169 kg General appearance: PRESENT: no acute distress, hard of hearing, morbidly obese, well-developed, well-nourished, other - Anasarca Head exam: PRESENT: atraumatic, normocephalic Eye exam: PRESENT: conjunctiva pink, EOMI, PERRLA. ABSENT: scleral icterus Ear exam: PRESENT: normal external ear exam Mouth exam: PRESENT: moist, tongue midline Teeth exam: PRESENT: poor dentation Respiratory exam: PRESENT: clear to auscultation mariama, decreased breath sounds - throughout, symmetrical, unlabored. ABSENT: rales, rhonchi, wheezes Cardiovascular exam: PRESENT: RRR. ABSENT: diastolic murmur, rubs, systolic murmur Vascular exam: PRESENT: normal capillary refill Extremities exam: PRESENT: other - +3 edema BLE: Chronic venous stasis changes. ABSENT: calf tenderness, clubbing, pedal edema Neurological exam: PRESENT: alert, awake, oriented to person, CN II-XII grossly intact, other - baseline. ABSENT: motor sensory deficit Psychiatric exam: PRESENT: appropriate affect, normal mood. ABSENT: homicidal ideation, suicidal ideation Skin exam: PRESENT: dry, intact, warm. ABSENT: cyanosis, rash Results Laboratory Results: 06/18/19 05:20 06/19/19 04:51 06/19/19 04:51 Sodium 133.7 L Potassium 4.9 Chloride 99 Carbon Dioxide 19 L Anion Gap 16 BUN 107 H Creatinine 1.93 H Est GFR ( Amer) 30 L Glucose 102 Calcium 9.1 06/14/19 06/15/19 11:58 05:00 NT-Pro-B Natriuret Pep 1690 H 1730 H Impressions: Renal Ultrasound 06/14/19 13:44 IMPRESSION: Limited exam secondary to body habitus. Left kidney nonvisualized. Right kidney without hydronephrosis. Chest X-Ray 06/14/19 14:28 IMPRESSION: Low lung volumes without evidence of acute cardiopulmonary process. Stable retrocardiac opacity, likely hiatal hernia. Assessment and Plan - Diagnosis (1) Anasarca Is this a current diagnosis for this admission?: Yes Plan: Unable to determine etiology. Continued firm edema to BLE and pannus Evaluation of diastolic CHF as below. LFTs are unremarkable. Albumin 3.0; prealbumin slightly low at 14.9 Have discussed with nephrology and cardiology; will continue dopamine drip Furosemide has been discontinued; received IVF Registered dietitian is consulted. Follow up chemistry. Discharge planning and palliative care consultation. (2) Chronic diastolic congestive heart failure Is this a current diagnosis for this admission?: Yes Plan: Chest x-ray clear. proBNP 1690; decreased from last visit of 2400. Last echocardiogram 2018 was poor quality study; unable to assess LVEF or d iastolic function; recommended MUGA. Echocardiogram shows LVEF 65% without significant tricuspid regurgitation and no significant pulmonary hypertension. She is admitted to [facility] on continuous cardiac telemetry. Holding lisinopril r/t renal function. Continue home dose Toprol. Continue dopamine gtt. Cardiac diet. Daily weights, strict I&O's Cardiology consultation. (3) Elevated BUN Is this a current diagnosis for this admission?: Yes Plan: Slight improvement; 119-> 113-> 117->116-> 107 Unclear etiology. Did not improve with diuresis; likely unrelated to CHF. Evaluation and management as above. Occult stool is negative. Cardiac/low protein diet. Nephrology is consulted. Appreciate AFSHAN Herrera and Dr. Sánchez' assistance. IV fluids per nephrology. Follow-up chemistry. (4) CKD (chronic kidney disease), stage IV Is this a current diagnosis for this admission?: Yes Plan: Followed by Dr. Sánchez; have consulted Creatinine 2.09 at baseline. Excellent urine output; net output ~9L Arambula in place for strict monitoring. Avoid nephrotoxic medications as able. Follow-up chemistry. (5) Chronic a-fib Is this a current diagnosis for this admission?: Yes Plan: Continue home dose Eliquis and metoprolol. (6) Do not resuscitate Is this a current diagnosis for this admission?: Yes - Time Time Spent with patient: 15-24 minutes Medications reviewed and adjusted accordingly: Yes Anticipated discharge: SNF Within: Other - pending nephrology clearance
[2019-06-19] MEDS: DOPAMINE HCL 800 MG/D5W 250 ML IV PRN (12:20)
[2019-06-19] MEDS ORDERED: NORMAL SALINE 1000 ML 1,000 ML IV ONE (13:00)
[2019-06-19] MEDS: NORMAL SALINE 1000 ML 1,000 ML IV PRN ×2 (13:11→22:14)
--- NOTE | 2019-06-19 15:57 | Operative Report ---
Nonrecallable Operative Report DATE OF SURGERY: 06/19/19 PREOPERATIVE DIAGNOSIS: Chronic diastolic congestive heart failure POSTOPERATIVE DIAGNOSIS: Chronic diastolic congestive heart failure hypotension OPERATION: Right internal jugular central line placement SURGEON: TIANNA SCHMIDT ANESTHESIA: Local TISSUE REMOVED OR ALTERED: None COMPLICATIONS: None ESTIMATED BLOOD LOSS: 5 cc INTRAOPERATIVE FINDINGS: See note PROCEDURE: Procedure was done in the patient's room. After proper timeout site verification the procedure commenced. The right neck and chest were prepped and draped with the chlorhexidine prep. The right internal jugular vein was accessed with a 22 needle after anesthetizin g the skin with 1% lidocaine plain. The needle was then removed and the 16-gauge long needle was placed into the vein. The syringe was removed and a wire was placed into the vein and Advanced into the superior vena cava. Small binta was made in the skin with a 11 blade and a dilator was placed over the wire. The dilator was removed and a triple-lumen catheter was then placed over the wire in position in the superior vena cava. The catheter was then sutured to the neck with 2-0 silk suture. A sterile dressing was applied which completed the procedure. Estimated blood loss was less than 5 cc.
[2019-06-19] MEDS ORDERED: OLANZAPINE INJ/PF 10 MG SDV IM ONE (16:00)
--- NOTE | 2019-06-19 16:17 | RADIOLOGY REPORT (SQ) ---
EXAM DESCRIPTION: CHEST SINGLE VIEW IMAGES COMPLETED DATE/TIME: 06/19/2019 4:06 pm REASON FOR STUDY: central line placement D63.1 ANEMIA IN CHRONIC KIDNEY DISEASE COMPARISON: 06/14/2019. NUMBER OF VIEWS: One view. TECHNIQUE: Single frontal radiographic view of the chest acquired. LIMITATIONS: None. FINDINGS: LUNGS AND PLEURA: No opacities, masses or pneumothorax. No pleural effusion. MEDIASTINUM AND HILAR STRUCTURES: No masses. Contour normal. HEART AND VASCULAR STRUCTURES: Heart enlarged without failure. Normal vasculature. BONES: No acute findings. HARDWARE: Central line, tip at the level of the superior vena cava. OTHER: No other significant finding. IMPRESSION: PLACEMENT OF CENTRAL LINE IN SATISFACTORY POSITION WITH NO PNEUMOTHORAX. OTHERWISE NO C HANGE IN APPEARANCE OF THE CHEST. TECHNICAL DOCUMENTATION: JOB ID: [id number] 2010 [employer]- All Rights Reserved Reading location - IP/workstation name: [email or web address]
[2019-06-19] MEDS ORDERED: MIDODRINE HCL 5 MG TABLET PO ONE (22:00)
[2019-06-19] MEDS ORDERED: METOPROLOL SUCCINATE 25 MG TAB.SR.24H PO SCH (22:00)
[2019-06-20 07:01] LABS: ANION GAP 12 (5-19); BLOOD UREA NITROGEN 95 mg/dL (7-20); CALCIUM 8.8 mg/dL (8.4-10.2); CARBON DIOXIDE 21 mmol/L (22-30); CHLORIDE 102 mmol/L (98-107); GLUCOSE 105 mg/dL (75-110); POTASSIUM 4.6 mmol/L (3.6-5.0)
[2019-06-20] MEDS: MIDODRINE HCL 5 MG TABLET PO SCH ×3 (10:14→17:20)
[2019-06-20] MEDS: ASPIRIN 81 MG TABLET, ENT COATED PO SCH (10:15)
[2019-06-20] MEDS: APIXABAN 2.5 MG TABLET PO SCH ×2 (10:15→17:20)
[2019-06-20] MEDS: FAMOTIDINE 20 MG TABLET PO SCH (10:15)
[2019-06-20] MEDS: DOCUSATE SODIUM 100 MG CAPSULE PO SCH (10:15)
--- NOTE | 2019-06-20 11:31 | PDOC PROGRESS REPORT ---
Subjective Progress Note for:: 06/20/19 Subjective:: Patient has no complaints today. Seems peaceful at rest. She is extremely hard to understand given her enlarged tongue and speech impediment. Reason For Visit: A/CKD, A/C CHF, ANASARCA Physical Exam Vital Signs: Temp Pulse Resp BP Pulse Ox 97.2 F 58 L 16 106/86 H 100 06/20/19 03:04 06/20/19 07:00 06/20/19 03:04 06/20/19 07:38 06/20/19 05:00 Intake & Output 06/19/19 06/20/19 06/21/19 06:59 06:59 06:59 Intake Total 1497 2304 Output Total 3250 3075 Balance -1753 -771 Weight 169 kg 169.1 kg General appearance: PRESENT: no acute distress, cooperative, morbidly obese. ABSENT: severe distress Neck exam: ABSENT: JVD - Hard to appreciate due to body habitus Respiratory exam: PRESENT: decreased breath sounds, symmetrical, unlabored. ABSENT: rales, tachypnea, wheezes Cardiovascular exam: PRESENT: bradycardia, irregular rhythm, +S1, +S2 GI/Abdominal exam: PRESENT: soft. ABSENT: rebound, rigid, tenderness Extremities exam: PRESENT: other - 3+ swelling in the legs both lower extremities. Appears more like lymphedema. Neurological exam: PRESENT: alert, awake, oriented to person, other - Difficult to understand speech Results Laboratory Results: 06/18/19 05:20 06/20/19 05:40 06/20/19 05:40 Sodium 134.6 L Potassium 4.6 Chloride 102 Carbon Dioxide 21 L Anion Gap 12 BUN 95 H Creatinine 1.95 H Est GFR ( Amer) 30 L Glucose 105 Calcium 8.8 06/14/19 06/15/19 11:58 05:00 NT-Pro-B Natriuret Pep 1690 H 1730 H Impressions: Renal Ultrasound 06/14/19 13:44 IMPRESSION: Limited exam secondary to body habitus. Left kidney nonvisualized. Right kidney without hydronephrosis. Chest X-Ray 06/19/19 00:00 IMPRESSION: PLACEMENT OF CENTRAL LINE IN SATISFACTORY POSITION WITH NO PNEUMOTHORAX. OTHERWISE NO CHANGE IN APPEARANCE OF THE CHEST. Assessment and Plan - Diagnosis (1) Anasarca Is this a current diagnosis for this admission?: Yes Plan: Anasarca with lymphedema. Likely related to patient's CKD and superobesity. No evidence of nephrotic syndrome on urinalysis. Albumin 3.0; prealbumin slightly low at 14.9 Diuresis held temporarily due to hypotension and patient is receiving IV fluids and he has been on a dopamine drip. Registered dietitian, discharge planning and palliative care were consulted. Nephrology and cardiology are following. (2) Chronic diastolic congestive heart failure Is this a current diagnosis for this admission?: Yes Plan: Documented history a of HFpEF but does not seem to be in heart failure currently. CXR clear. proBNP 1690; decreased from last visit of 2400. Echocardiogram shows LVEF 65% without significant tricuspid regurgitation and no significant pulmonary hypertension. Hypotensive so holding lisinopril and Toprol-XL. (3) Hypotension Qualifiers: Hypotension type: unspecified hypotension type Qualified Code(s): I95.9 - Hypotension, unspecified Is this a current diagnosis for this admission?: Yes Plan: Possibly secondary to intravascular volume depletion though she still has a lot of third spacing from anasarca. She seems to have been auto-diuresing significantly for the past couple of days off all diuretics with negative fluid balance. Receiving fluid back. Also on dopamine on Midodrine noted. (4) Chronic a-fib Is this a current diagnosis for this admission?: Yes Plan: Continue home dose Eliquis. Holding metoprolol. (5) CKD (chronic kidney disease), stage IV Is this a current diagnosis for this admission?: Yes Plan: Followed by Dr. Sánchez; nephrology on board. Creatinine seems to be improving with IV fluids Creatinine 2.09 at baseline. Excellent urine output; net output ~9L Arambula in place for strict monitoring. Avoid nephrotoxic medications as able. Follow-up chemistry. (6) Do not resuscitate Is this a current diagnosis for this admission?: Yes - Time Time Spent with patient: Less than 15 minutes
--- NOTE | 2019-06-20 14:47 | PDOC PROGRESS REPORT ---
Subjective Progress Note for:: 06/20/19 Subjective:: Patient was laying in her bed at the time of examination. She claims to be doing well. She continues to receive fluids and have great urine output. Output continues to be negative despite being off diuretics. She denies chest pain or SOB. Reason For Visit: A/CKD, A/C CHF, ANASARCA Physical Exam Vital Signs: Temp Pulse Resp BP Pulse Ox 97.2 F 100 16 106/86 H 100 06/20/19 03:04 06/20/19 11:24 06/20/19 03:04 06/20/19 11:24 06/20/19 05:00 Intake & Output 06/19/19 06/20/19 06/21/19 06:59 06:59 06:59 Intake Total 1497 2304 Output Total 3250 3075 Balance -1753 -771 Weight 169 kg 169.1 kg General appearance: PRESENT: no acute distress, well-developed, well-nourished Respiratory exam: PRESENT: clear to auscultation mariama, unlabored. ABSENT: accessory muscle use, crackles, tachypnea, wheezes Cardiovascular exam: PRESENT: +S1, +S2 GI/Abdominal exam: PRESENT: distended, normal bowel sounds, soft. ABSENT: ascites - She is got massive pendulous loose folds of skin over her abdomen, organomegaly, tenderness Neurological exam: PRESENT: alert, awake, oriented to place Psychiatric exam: PRESENT: appropriate affect, normal mood Skin exam: PRESENT: dry, intact, warm. ABSENT: cyanosis Results Laboratory Results: 06/18/19 05:20 06/20/19 05:40 06/20/19 05:40 Sodium 134.6 L Potassium 4.6 Chloride 102 Carbon Dioxide 21 L Anion Gap 12 BUN 95 H Creatinine 1.95 H Est GFR ( Amer) 30 L Glucose 105 Calcium 8.8 06/14/19 06/15/19 11:58 05:00 NT-Pro-B Natriuret Pep 1690 H 1730 H Impressions: Renal Ultrasound 06/14/19 13:44 IMPRESSION: Limited exam secondary to body habitus. Left kidney nonvisualized. Right kidney without hydronephrosis. Chest X-Ray 06/19/19 00:00 IMPRESSION: PLACEMENT OF CENTRAL LINE IN SATISFACTORY POSITION WITH NO PNEUMOTHORAX. OTHERWISE NO CHANGE IN APPEARANCE OF THE CHEST. Assessment & Plan - Diagnosis (1) Anasarca Is this a current diagnosis for this admission?: Yes Plan: Looks be stable/ slightly improved. Patient continues to have negatives I's&O's despite being off diuretics. Continue to monitor closely with her receiving NS. (2) Elevated BUN Is this a current diagnosis for this admission?: Yes Plan: improving slightly with normal saline despite negatives I's and O's. At this time I would continue with the normal saline and not restricting oral intake. Reassess tomorrow with labs. (3) CKD (chronic kidney disease), stage IV Is this a current diagnosis for this admission?: Yes Plan: at baseline creatinine (4) Anemia Plan: improving (5) Acute on chronic diastolic (congestive) heart failure Plan: stable, need to be cautious with IV fluids (7) Hypotension Qualifiers: Hypotension type: unspecified hypotension type Qualified Code(s): I95.9 - Hypotension, unspecified Is this a current diagnosis for this admission?: Yes Plan: still on dopamine and normal saline, midodrine added by cardiology. Previously she was on midodrine 10mg TID when she was in the outpatient setting. BP typically remains in the 90s to 110s systolic.
[2019-06-20] MEDS: DOPAMINE HCL 800 MG/D5W 250 ML IV PRN (22:11)
[2019-06-20] MEDS: NORMAL SALINE 1000 ML 1,000 ML IV PRN (22:13)
[2019-06-20] MEDS ORDERED: METOPROLOL SUCCINATE 25 MG TAB.SR.24H PO SCH (23:02)
[2019-06-20 23:44] LABS: ALBUMIN 3.2 g/dL (3.5-5.0); ALKALINE PHOSPHATASE 84 U/L (38-126); ANION GAP 12 (5-19); ASPARTATE AMINO TRANSFERASE 37 U/L (14-36); BILIRUBIN,DIRECT 0.1 mg/dL (0.0-0.4); BILIRUBIN,TOTAL 0.4 mg/dL (0.2-1.3); BLOOD UREA NITROGEN 95 mg/dL (7-20); CALCIUM 8.9 mg/dL (8.4-10.2); CARBON DIOXIDE 21 mmol/L (22-30); CHLORIDE 103 mmol/L (98-107); GLUCOSE 108 mg/dL (75-110); PHOSPHORUS 4.4 mg/dL (2.5-4.5); POTASSIUM 4.9 mmol/L (3.6-5.0)
[2019-06-21 06:08] LABS: ANION GAP 10 (5-19); BLOOD UREA NITROGEN 90 mg/dL (7-20); CALCIUM 8.8 mg/dL (8.4-10.2); CARBON DIOXIDE 20 mmol/L (22-30); CHLORIDE 104 mmol/L (98-107); GLUCOSE 115 mg/dL (75-110); POTASSIUM 4.7 mmol/L (3.6-5.0)
[2019-06-21] MEDS ORDERED: METOPROLOL SUCCINATE 25 MG TAB.SR.24H PO SCH (10:00)
[2019-06-21] MEDS ORDERED: DILTIAZEM HCL/D5W 125 MG/125 ML RTUINJ IV PRN (13:56)
--- NOTE | 2019-06-21 13:59 | Progress Note ---
Provider Note Provider Note: CARDIOLOGY PROGRESS NOTE by Dr. Brionna Vallecillo on 06/21/2019. OBJECTIVE: The patient last night had an COMMERCIAL ATTORNEY called because her heart rate went down below 40. She also was hypotensive.. She got some atropine and also was given a fluid bolus of 250 mL of normal saline and the dopamine was drip was increased to 5 mcg/kg/min. She was also placed on BiPAP. With this the patient condition improved and went back to baseline. Also her metoprolol was discontinued. Today she is in atrial flutter with fast ventricular response. Her blood pressure is little bit above 100 on IV dopamine. Hence decision has been made to start the patient on a small dose of IV Cardizem infusion. The patient denies any chest pain or discomfort. There is no shortness of breath. She is able to lie down flat. Her leg edema is the same. She is got very good urine output.. There is no bleeding on Eliquis. There is no TIA CVA symptoms. PHYSICAL EXAMINATION: The patient is morbidly obese. Selected Entries 06/21/19 16:49 Temperature 97.4 F Temperature Oral Source Pulse Rate 73 Respiratory 20 Rate Blood Pressure 115/45 L Blood Pressure 68 Mean BP Location Right Arm BP Position Sitting O2 Sat by Pulse 100 Oximetry Oxygen Flow 3.00 Rate Oxygen Delivery Nasal Cannula Method General appearance: PRESENT: no acute distress, morbidly obese, well-developed, well-nourished Eye exam: PRESENT: PERRLA. ABSENT: scleral icterus Mouth exam: Mucous membranes of mouth is very dry. Tongue is very dry. Neck exam: PRESENT: other - unable to tell due to body habitus no definite JVD. Neck is supple. Respiratory exam: PRESENT: crackles, rales, wheezes. ABSENT: accessory muscle use, clear to auscultation mariama, rhonchi Cardiovascular exam: PRESENT: +S1, +S2. S1 is of normal intensity. There is no S3 gallop. There is no S4 gallop. There is systolic murmur left sternal border and the apex. There is no rub. GI/Abdominal exam: PRESENT: distended. ABSENT: tenderness Extremities exam: PRESENT: pedal edema, +1 edema. ABSENT: tenderness Musculoskeletal exam: PRESENT: normal inspection. ABSENT: tenderness Neurological exam: PRESENT: alert, awake, oriented x2 ABSENT: oriented to time, oriented to situation. Moves all 4 extremities. Psychiatric exam: PRESENT: appropriate affect Skin exam: PRESENT: dry, intact, warm. Labs- All tests 24 hr 06/20/19 06/20/19 06/20/19 22:52 23:12 23:12 Sodium 135.7 L Potassium 4.9 Chloride 103 Carbon Dioxide 21 L Anion Gap 12 BUN 95 H Creatinine 1.92 H Est GFR ( Amer) 30 L Est GFR (MDRD) Non-Af 25 L Glucose 108 POC Glucose 121 H Calcium 8.9 Phosphorus 4.4 Magnesium 2.4 H Total Bilirubin 0.4 Direct Bilirubin 0.1 Neonat Total Bilirubin Not Reportable Neonat Direct Bilirubin Not Reportable Neonat Indirect Bili Not Reportable AST 37 H ALT 16 Alkaline Phosphatase 84 Total Protein 7.0 Albumin 3.2 L 06/21/19 04:50 Sodium 134.0 L Potassium 4.7 Chloride 104 Carbon Dioxide 20 L Anion Gap 10 BUN 90 H Creatinine 1.85 H Est GFR ( Amer) 31 L Est GFR (MDRD) Non-Af 26 L Glucose 115 H POC Glucose Calcium 8.8 Phosphorus Magnesium Total Bilirubin Direct Bilirubin Neonat Total Bilirubin Neonat Direct Bilirubin Neonat Indirect Bili AST ALT Alkaline Phosphatase Total Protein Albumin Renal Ultrasound 06/14/19 13:44 IMPRESSION: Limited exam secondary to body habitus. Left kidney nonvisualized. Right kidney without hydronephrosis. Chest X-Ray 06/14/19 14:28 IMPRESSION: Low lung volumes without evidence of acute cardiopulmonary process. Stable retrocardiac opacity, likely hiatal hernia. Chest X-Ray 06/19/19 00:00 IMPRESSION: PLACEMENT OF CENTRAL LINE IN SATISFACTORY POSITION WITH NO PNEUMOTHORAX. OTHERWISE NO CHANGE IN APPEARANCE OF THE CHEST. IMPRESSION/RECOMMENDATION: 1. Episode of bradycardia with hypotension. Last night the patient had an COMMERCIAL ATTORNEY called. Suspect this may be due to patient sleep apnea. She was placed on BiPAP last night and her dopamine was increased to 5 mcg/kg/min. She was also given a bolus of normal saline. At present there is no recurrence. She seems to be comfortable and is off the BiPAP. Her heart rate now is elevated and the patient is now in atrial flutter. 2. Anasarca and lymphedema: This is unlikely secondary to heart failure, given the fact that all bite limited use the LV ejection fraction is about 65%. There is no significant tricuspid regurgitation in the parasternal short axis view and hence there is no significant pulmonary hypertension. 3. Dehydration: Patient clinically appears to be dry. We will stop the deb ent's diuretics continue the patient's dopamine to keep the blood pressure up and start the patient on IV fluids in the form of normal saline. This has been discussed with nephrology and the attending provider on the case. We will follow the patient closely and watch for any development of heart failure. The patient BUN is decreased to 110 and creatinine is come down to 2 4. Chronic kidney disease stage IV: There is element of acute on chronic kidney disease. This is most likely due to overdiuresis. Nephrology following the patient. Would recommend continuing IV hydration. At present renal function is improved and patient now is a CKD stage III. 5. Paroxysmal atrial fibrillation. The patient now in atrial flutter. Note the patient metoprolol was stopped because of bradycardia last night. At present the patient's heart rate is in the 1 30-1 40. Blood pressure is stable on the patient being on dopamine. We will start the patient on a small dose of Cardizem infusion at 2.5 mg/h. 6. COPD: At present no definite evidence of bronchitis. 7. Hypertension by history. At present the patient is hypotensive requiring dopamine drip at small doses. Patient blood pressure dropped when the dopamine was stopped. Note that the patient in the past was on midodrine at home 10 mg p.o. every 8 hours. Hence we will restart the patient on midodrine. 8. Morbid obesity. Medications reviewed. Medications adjusted and added. Medical decision making because of this is of high complexity. 40 minutes spent as patient more than 50% time spent in direct patient care. Medical regimen and management plan discussed with attending provider on the case. Will follow.
[2019-06-21] MEDS: DOCUSATE SODIUM 100 MG CAPSULE PO SCH (14:16)
[2019-06-21] MEDS: ASPIRIN 81 MG TABLET, ENT COATED PO SCH (14:16)
[2019-06-21] MEDS: APIXABAN 2.5 MG TABLET PO SCH ×2 (14:28→17:56)
[2019-06-21] MEDS: MIDODRINE HCL 5 MG TABLET PO SCH ×3 (14:29→17:56)
[2019-06-21] MEDS: FAMOTIDINE 20 MG TABLET PO SCH (14:29)
[2019-06-21] MEDS ORDERED: DILTIAZEM HCL/D5W 125 MG/125 ML RTUINJ IV ONE (14:36)
--- NOTE | 2019-06-21 14:56 | PDOC PROGRESS REPORT ---
Subjective Progress Note for:: 06/21/19 Reason For Visit: A/CKD, A/C CHF, ANASARCA Physical Exam Vital Signs: Temp Pulse Resp BP Pulse Ox 97.7 F 106 H 13 114/45 L 100 06/21/19 08:41 06/21/19 13:00 06/21/19 08:41 06/21/19 13:00 06/21/19 10:15 Intake & Output 06/20/19 06/21/19 06/22/19 06:59 06:59 06:59 Intake Total 2304 1925 Output Total 3075 2024 Balance -771 -100 Weight 169.1 kg 169.8 kg General appearance: PRESENT: no acute distress, cooperative, disheveled, morbidly obese Respiratory exam: PRESENT: decreased breath sounds, symmetrical, unlabored. A BSENT: accessory muscle use, chest wall tenderness, crackles, prolonged expiratory phas, retraction, rhonchi, tachypnea, wheezes Cardiovascular exam: PRESENT: irregular rhythm, tachycardia Pulses: PRESENT: normal carotid pulses Vascular exam: PRESENT: normal capillary refill GI/Abdominal exam: PRESENT: normal bowel sounds, soft. ABSENT: distended, guarding, rebound, tenderness Extremities exam: PRESENT: pedal edema, +2 edema, other - Diffuse anasarca. ABSENT: clubbing Musculoskeletal exam: PRESENT: normal inspection. ABSENT: deformity Neurological exam: PRESENT: awake, oriented to person, oriented to place Psychiatric exam: PRESENT: flat affect Skin exam: PRESENT: dry, warm Results Laboratory Results: 06/18/19 05:20 06/21/19 04:50 06/20/19 06/20/19 06/21/19 23:12 23:12 04:50 Sodium 135.7 L 134.0 L Potassium 4.9 4.7 Chloride 103 104 Carbon Dioxide 21 L 20 L Anion Gap 12 10 BUN 95 H 90 H Creatinine 1.92 H 1.85 H Est GFR ( Amer) 30 L 31 L Glucose 108 115 H Calcium 8.9 8.8 Phosphorus 4.4 Magnesium 2.4 H Total Bilirubin 0.4 AST 37 H Alkaline Phosphatase 84 Total Protein 7.0 Albumin 3.2 L 06/14/19 06/15/19 11:58 05:00 NT-Pro-B Natriuret Pep 1690 H 1730 H Impressions: Renal Ultrasound 06/14/19 13:44 IMPRESSION: Limited exam secondary to body habitus. Left kidney nonvisualized. Right kidney without hydronephrosis. Chest X-Ray 06/19/19 00:00 IMPRESSION: PLACEMENT OF CENTRAL LINE IN SATISFACTORY POSITION WITH NO PNEUMO THORAX. OTHERWISE NO CHANGE IN APPEARANCE OF THE CHEST. Assessment and Plan - Diagnosis (1) Anasarca Is this a current diagnosis for this admission?: Yes Plan: Currently being attributed to renal failure. Heart failure not thought to be contributing much at this time. Her BNP is apparently lower than what she usually runs at baseline. She has had good urine output. Nephrology is consulted. Urology is also on board. (2) Anemia Qualifiers: Anemia type: due to chronic kidney disease Chronic kidney disease stage: stage 3 (moderate) Qualified Code(s): N18.3 - Chronic kidney disease, stage 3 (moderate); D63.1 - Anemia in chronic kidney disease Is this a current diagnosis for this admission?: Yes Plan: Monitoring for now, currently no plan for transfusion (3) CHF (congestive heart failure) Qualifiers: Heart failure type: diastolic Heart failure chronicity: chronic Qualified Code(s): I50.32 - Chronic diastolic (congestive) heart failure Is this a current diagnosis for this admission?: Yes Plan: Not acutely exacerbated, will watch her blood pressure closely. (4) Chronic a-fib Is this a current diagnosis for this admission?: Yes Plan: She had a rapid response last night where she was little bit bradycardic, her metoprolol was held and now her heart rate was in the 100-140 range. Toprol has been resumed. (5) Hypotension Qualifiers: Hypotension type: unspecified hypotension type Qualified Code(s): I95.9 - Hypotension, unspecified Is this a current diagnosis for this admission?: Yes Plan: Currently on a low-dose dobutamine drip, blood pressure stable at this time. Midrin has been started. (6) Acute metabolic encephalopathy Is this a current diagnosis for this admission?: Yes Plan: She woke up and was able to attempt to answer questions this morning. We will monitor her to get a better idea of what her baseline is. - Time Time Spent with patient: 25-34 minutes
--- NOTE | 2019-06-21 15:26 | EKG REPORT ---
SEVERITY:- ABNORMAL ECG - ATRIAL FLUTTER, A-RATE 263 NONSPECIFIC T ABNORMALITIES, LATERAL LEADS : Confirmed by: Brionna Vallecillo MD 21-Jun-2019 15:25:45
--- NOTE | 2019-06-21 18:43 | PDOC PROGRESS REPORT ---
Subjective Progress Note for:: 06/21/19 Subjective:: Patient is seen lying in bed comfortably with BiPAP on. Her speech with the BiPAP is difficult to understand. She is not in any distress at this time though. Her nurse, Sarah told me that EXTRUDER OPERATOR HELPER needs needed to be called last night because of bradycardia and hypotension. She was on dopamine drip yesterday. She continues to be on normal saline. Her urine output for the past 24 hours was 2025 mL with negative fluid balance despite IV fluids. Reason For Visit: A/CKD, A/C CHF, ANASARCA Physical Exam Vital Signs: Temp Pulse Resp BP Pulse Ox 97.7 F 49 L 13 116/67 100 06/21/19 08:41 06/21/19 10:15 06/21/19 08:41 06/21/19 09:00 06/21/19 10:15 Intake & Output 06/20/19 06/21/19 06/22/19 06:59 06:59 06:59 Intake Total 2304 1925 Output Total 3075 5 Balance -771 -100 Weight 169.1 kg 169.8 kg Exam: General appearance: PRESENT: On BiPAP, morbidly obese Head exam: PRESENT: atraumatic, normocephalic Eye exam: PRESENT: conjunctiva pale, PERRLA. ABSENT: scleral icterus Neck exam: ABSENT: JVD Respiratory exam: PRESENT: Normal breath sounds. ABSENT: crackles, rales, rhonchi, unlabored, wheezes Cardiovascular exam: PRESENT: Irregularly irregular rate rhythm -+S1, +S2. ABSENT: diastolic murmur, systolic murmur GI/Abdominal exam: PRESENT: normal bowel sounds, soft. ABSENT: guarding, mass, tenderness Extremities exam: Grade 1-2 bilateral lower extremity edema with concomitant anasarca Neurological exam: PRESENT: alert, awake Skin exam: PRESENT: dry, warm, Cardiovascular exam: PRESENT: +S1, +S2 GI/Abdominal exam: PRESENT: distended, normal bowel sounds, soft. ABSENT: ascites - She is got massive pendulous loose folds of skin over her abdomen, organomegaly, tenderness Results Laboratory Results: 06/18/19 05:20 06/21/19 04:50 06/20/19 06/20/19 06/21/19 23:12 23:12 04:50 Sodium 135.7 L 134.0 L Potassium 4.9 4.7 Chloride 103 104 Carbon Dioxide 21 L 20 L Anion Gap 12 10 BUN 95 H 90 H Creatinine 1.92 H 1.85 H Est GFR ( Amer) 30 L 31 L Glucose 108 115 H Calcium 8.9 8.8 Phosphorus 4.4 Magnesium 2.4 H Total Bilirubin 0.4 AST 37 H Alkaline Phosphatase 84 Total Protein 7.0 Albumin 3.2 L 06/14/19 06/15/19 11:58 05:00 NT-Pro-B Natriuret Pep 1690 H 1730 H Impressions: Renal Ultrasound 06/14/19 13:44 IMPRESSION: Limited exam secondary to body habitus. Left kidney nonvisualized. Right kidney without hydronephrosis. Chest X-Ray 06/19/19 00:00 IMPRESSION: PLACEMENT OF CENTRAL LINE IN SATISFACTORY POSITION WITH NO PNEUMOTHORAX. OTHERWISE NO CHANGE IN APPEARANCE OF THE CHEST. Assessment & Plan - Diagnosis (1) Anasarca Is this a current diagnosis for this admission?: Yes Plan: Contributory factors could possibly be due to mild hypoalbuminemia, morbid obesity, immobility, chronic kidney disease and CHF. Patient appears to be third spacing but intravascularly dry. (2) Elevated BUN Is this a current diagnosis for this admission?: Yes Plan: Patient with good response with gentle IV fluid hydration. BUN is is slowly coming down. Continue current management for now. (3) CKD (chronic kidney disease), stage IV Is this a current diagnosis for this admission?: Yes Plan: Patient's creatinine is is slowly improving with IV fluid hydration better than her usual baseline. No indication for any renal replacement therapy. Continue to monitor. (4) Atrial fibrillation Is this a current diagnosis for this admission?: Yes Plan: On anticoagulation. Beta-pedro currently on hold because of episode of bradycardia last night. (5) Anemia Qualifiers: Anemia type: due to chronic kidney disease Chronic kidney disease stage: stage 3 (moderate) Qualified Code(s): N18.3 - Chronic kidney disease, stage 3 (moderate); D63.1 - Anemia in chronic kidney disease Is this a current diagnosis for this admission?: Yes Plan: Slightly improved. (6) Hyponatremia Is this a current diagnosis for this admission?: Yes Plan: Mild. Likely due to hypervolemic state. (7) Metabolic acidosis Is this a current diagnosis for this admission?: Yes Plan: Stable. (8) CHF (congestive heart failure) Qualifiers: Heart failure type: diastolic Heart failure chronicity: chronic Qualified Code(s): I50.32 - Chronic diastolic (congestive) heart failure Is this a current diagnosis for this admission?: Yes (9) Morbid obesity Is this a current diagnosis for this admission?: Yes - Time Time with patient: 15-25 minutes
[2019-06-21] MEDS: DOPAMINE HCL 800 MG/D5W 250 ML IV PRN (19:19)
[2019-06-21] MEDS: NORMAL SALINE 1000 ML 1,000 ML IV PRN (19:21)
[2019-06-22] MEDS: NORMAL SALINE 1000 ML 1,000 ML IV PRN (04:05)
[2019-06-22 04:42] LABS: ANION GAP 10 (5-19); BLOOD UREA NITROGEN 80 mg/dL (7-20); CALCIUM 8.6 mg/dL (8.4-10.2); CARBON DIOXIDE 22 mmol/L (22-30); CHLORIDE 104 mmol/L (98-107); GLUCOSE 113 mg/dL (75-110); POTASSIUM 4.9 mmol/L (3.6-5.0)
[2019-06-22] MEDS: FAMOTIDINE 20 MG TABLET PO SCH (09:52)
[2019-06-22] MEDS: MIDODRINE HCL 5 MG TABLET PO SCH ×3 (09:52→18:03)
[2019-06-22] MEDS: APIXABAN 2.5 MG TABLET PO SCH ×2 (09:53→18:01)
[2019-06-22] MEDS: DOCUSATE SODIUM 100 MG CAPSULE PO SCH (09:53)
--- NOTE | 2019-06-22 09:55 | PDOC PROGRESS REPORT ---
Subjective Progress Note for:: 06/22/19 Subjective:: Patient currently on low dose Cardizem, on dopamine and bipap. Unfortantly due to her wearing the bipap I could not understand what she was saying. She does not appear to be in distress with the bipap on. Urine output continues to be good. Reason For Visit: A/CKD, A/C CHF, ANASARCA Physical Exam Vital Signs: Temp Pulse Resp BP Pulse Ox 97.6 F 104 H 14 92/54 L 100 06/22/19 03:41 06/22/19 07:00 06/22/19 05:14 06/22/19 08:00 06/22/19 05:14 Intake & Output 06/21/19 06/22/19 06/23/19 06:59 06:59 06:59 Intake Total 1924 2498 Output Total 2024 1450 Balance -100 1048 Weight 169.8 kg 170.4 kg General appearance: PRESENT: no acute distress, well-developed, well-nourished Mouth exam: PRESENT: neck supple Respiratory exam: PRESENT: other - could not listen to her lower lobes due to body habitus and immobility.. ABSENT: crackles, rales, wheezes Cardiovascular exam: PRESENT: +S1, +S2 GI/Abdominal exam: PRESENT: distended, normal bowel sounds, soft. ABSENT: ascites - She is got massive pendulous loose folds of skin over her abdomen, organomegaly, tenderness Extremities exam: PRESENT: pedal edema, other - -trace+ on her lower legs, which is her normal baseline.. ABSENT: +1 edema, +2 edema Neurological exam: PRESENT: alert, awake Results Laboratory Results: 06/18/19 05:20 06/22/19 04:15 06/22/19 04:15 Sodium 136.0 L Potassium 4.9 Chloride 104 Carbon Dioxide 22 Anion Gap 10 BUN 80 H Creatinine 1.82 H Est GFR ( Amer) 32 L Glucose 113 H Calcium 8.6 06/14/19 06/15/19 11:58 05:00 NT-Pro-B Natriuret Pep 1690 H 1730 H Impressions: Renal Ultrasound 06/14/19 13:44 IMPRESSION: Limited exam secondary to body habitus. Left kidney nonvisualized. Right kidney without hydronephrosis. Chest X-Ray 04/26/20 00:00 IMPRESSION: PLACEMENT OF CENTRAL LINE IN SATISFACTORY POSITION WITH NO PNEUMOTHORAX. OTHERWISE NO CHANGE IN APPEARANCE OF THE CHEST. Assessment & Plan - Diagnosis (1) Anasarca Is this a current diagnosis for this admission?: Yes Plan: Looks to be stable at this current time. Will need to monitor closely as her I's&O's were not negative yesterday. She tends to 3rd space easily. (2) Elevated BUN Is this a current diagnosis for this admission?: Yes Plan: Currently trending down, will need to monitor closely to make sure to not throw her into CHF. Will recent bipap addition, will look to get a chest x-ray confirm that she is not building fluid on her lungs. (3) CKD (chronic kidney disease), stage IV Is this a current diagnosis for this admission?: Yes Plan: a little below baseline. Looks to have trended into CKD3. (4) Anemia Qualifiers: Anemia type: due to chronic kidney disease Chronic kidney disease stage: stage 3 (moderate) Qualified Code(s): N18.3 - Chronic kidney disease, stage 3 (moderate); D63.1 - Anemia in chronic kidney disease Is this a current diagnosis for this admission?: Yes Plan: will get cbc tomorrow to see if hemoglobin is still trending up. (5) Acute on chronic diastolic (congestive) heart failure Plan: getting chest x-ray to make sure fluid is not settling in her lungs. (7) Hypotension Qualifiers: Hypotension type: unspecified hypotension type Qualified Code(s): I95.9 - Hypotension, unspecified Is this a current diagnosis for this admission?: Yes Plan: still on dopamine and normal saline, midodrine added by cardiology. Previously she was on midodrine 10mg TID when she was in the outpatient setting. BP typically remains in the 90s to 110s systolic.
[2019-06-22] MEDS: ASPIRIN 81 MG TABLET, ENT COATED PO SCH (10:04)
--- NOTE | 2019-06-22 12:51 | PDOC PROGRESS REPORT ---
Subjective Progress Note for:: 06/22/19 Subjective:: Her heart rate became difficult to control again last night and so Dr. Thacker put her on a low-dose Cardizem drip and her heart rates been okay. She still on a very low-dose dopamine drip. Her ins were greater than her outs yesterday and so I stopped her fluid today. She has been producing a good volume of fairly clear looking urine. She was off BiPAP this morning and was sitting up eating breakfast. Reason For Visit: A/CKD, A/C CHF, ANASARCA Physical Exam Vital Signs: Temp Pulse Resp BP Pulse Ox 97.6 F 74 14 92/52 L 100 06/22/19 03:41 06/22/19 10:00 06/22/19 05:14 06/22/19 10:00 06/22/19 05:14 Intake & Output 06/21/19 06/22/19 06/23/19 06:59 06:59 06:59 Intake Total 1924 2498 Output Total 2024 1450 Balance -100 1048 Weight 169.8 kg 170.4 kg General appearance: PRESENT: no acute distress, cooperative, disheveled, morbidly obese Respiratory exam: PRESENT: decreased breath sounds, symmetrical, unlabored. ABSENT: accessory muscle use, chest wall tenderness, crackles, prolonged expiratory phas, retraction, rhonchi, tachypnea, wheezes Cardiovascular exam: PRESENT: irregular rhythm Pulses: PRESENT: normal carotid pulses Vascular exam: PRESENT: normal capillary refill GI/Abdominal exam: PRESENT: normal bowel sounds, soft. ABSENT: distended, guarding, rebound, tenderness Extremities exam: PRESENT: pedal edema, +2 edema, other - Diffuse anasarca. ABSENT: clubbing Musculoskeletal exam: PRESENT: normal inspection. ABSENT: deformity Neurological exam: PRESENT: awake, oriented to person, oriented to place Psychiatric exam: PRESENT: flat affect Skin exam: PRESENT: dry, warm Results Laboratory Results: 06/18/19 05:20 06/22/19 04:15 06/22/19 04:15 Sodium 136.0 L Potassium 4.9 Chloride 104 Carbon Dioxide 22 Anion Gap 10 BUN 80 H Creatinine 1.82 H Est GFR ( Amer) 32 L Glucose 113 H Calcium 8.6 06/14/19 06/15/19 11:58 05:00 NT-Pro-B Natriuret Pep 1690 H 1730 H Impressions: Renal Ultrasound 06/14/19 13:44 IMPRESSION: Limited exam secondary to body habitus. Left kidney nonvisualized. Right kidney without hydronephrosis. Chest X-Ray 06/19/19 00:00 IMPRESSION: PLACEMENT OF CENTRAL LINE IN SATISFACTORY POSITION WITH NO PNEUMOTHORAX. OTHERWISE NO CHANGE IN APPEARANCE OF THE CHEST. Assessment and Plan - Diagnosis (1) Anasarca Is this a current diagnosis for this admission?: Yes Plan: Currently being attributed to renal failure. Heart failure not thought to be contributing much at this time. Her BNP is apparently lower than what she usually runs at baseline. She has had good urine output. Nephrology is consulted. Cardiology is also on board. (2) Anemia Qualifiers: Anemia type: due to chronic kidney disease Chronic kidney disease stage: stage 3 (moderate) Qualified Code(s): N18.3 - Chronic kidney disease, stage 3 (moderate); D63.1 - Anemia in chronic kidney disease Is this a current diagnosis for this admission?: Yes Plan: Monitoring for now, currently no plan for transfusion (3) CHF (congestive heart failure) Qualifiers: Heart failure type: diastolic Heart failure chronicity: chronic Qualified Code(s): I50.32 - Chronic diastolic (congestive) heart failure Is this a current diagnosis for this admission?: Yes Plan: Not acutely exacerbated, will watch her blood pressure closely. (4) Chronic a-fib Is this a current diagnosis for this admission?: Yes Plan: She had an episode yesterday evening where her heart rate got out of control and she had to be transitioned to a low-dose Cardizem drip. That is keeping her rate in the 80s. Cardiology is following. Were having to balance out her heart rate control with her blood pressure, which typically runs low anyway, and seems to be in what is her usual range but her pressure is being supported by Midrin and low-dose dopamine. (5) Hypotension Qualifiers: Hypotension type: unspecified hypotension type Qualified Code(s): I95.9 - Hypotension, unspecified Is this a current diagnosis for this admission?: Yes Plan: Currently on a low-dose dopamine drip, blood pressure stable at this time. Midrin has been started. (6) Acute metabolic encephalopathy Is this a current diagnosis for this admission?: Yes Plan: She seems to be doing better this morning, I suspect she is back to baseline, t his is resolved - Time Time Spent with patient: 25-34 minutes
--- NOTE | 2019-06-22 14:13 | RADIOLOGY REPORT (SQ) ---
EXAM DESCRIPTION: CHEST SINGLE VIEW IMAGES COMPLETED DATE/TIME: 06/22/2019 1:21 pm REASON FOR STUDY: SOB COMPARISON: 06/19/2019 EXAM PARAMETERS: NUMBER OF VIEWS: One view. TECHNIQUE: Single frontal radiographic view of the chest acquired. RADIATION DOSE: NA LIMITATIONS: None. FINDINGS: LUNGS AND PLEURA: No opacities, masses or pneumothorax. No pleural effusion. MEDIASTINUM AND HILAR STRUCTURES: No masses. Contour normal. HEART AND VASCULAR STRUCTURES: Cardiomegaly. Normal vasculature. BONES: No acute findings. HARDWARE: None in the chest. OTHER: Unchanged position of right central line. IMPRESSION: NO ACUTE RADIOGRAPHIC FINDING IN THE CHEST. TECHNICAL DOCUMENTATION: JOB ID: [id number] 2010 [employer]- All Rights Reserved Reading location - IP/workstation name: [email or web address]
--- NOTE | 2019-06-22 19:05 | Progress Note ---
Provider Note Provider Note: CARDIOLOGY PROGRESS NOTE by Dr. Brionna Vallecillo on 06/22/2019 SUBJECTIVE: The patient off-and-on is bradycardia alternating with tachycardia. The patient is noted to be bradycardic when she goes to sleep. And is found that she is not breathing. Show the patient not only has obstructive sleep apnea she also has an element of central sleep apnea. The patient denies any chest pain discomfort. There is no PND orthopnea. The patient's IV fluids has been discontinued. For the first time the patient's intake is greater than the patient's output. The patient renal functions are better and now the patient's stage III chronic kidney disease. There is no bleeding on Eliquis. There is no TIA CVA symptoms. PHYSICAL EXAMINATION: The patient morbidly obese. At present in no acute distress. Selected Entries 06/21/19 06/21/19 06/21/19 11:42 14:00 15:00 Temperature Source Pulse Rate 61 Respiratory Rate Blood Pressure 123/80 99/56 L Blood Pressure Mean BP Location BP Position O2 Sat by Pulse 100 Oximetry Oxygen Flow Rate Oxygen Delivery Method 06/21/19 16:49 Temperature Oral Source Pulse Rate 73 Respiratory 20 Rate Blood Pressure 115/45 L Blood Pressure 68 Mean BP Location Right Arm BP Position Sitting O2 Sat by Pulse 100 Oximetry Oxygen Flow 3.00 Rate Oxygen Delivery Nasal Cannula Method General appearance: PRESENT: no acute distress, cooperative, disheveled, mor bidly obese Respiratory exam: PRESENT: decreased breath sounds, symmetrical, unlabored. ABSENT: accessory muscle use, chest wall tenderness, crackles, prolonged expiratory phas, retraction, rhonchi, tachypnea, wheezes Cardiovascular exam: PRESENT: irregular rhythm Pulses: PRESENT: normal carotid pulses Vascular exam: PRESENT: normal capillary refill GI/Abdominal exam: PRESENT: normal bowel sounds, soft. ABSENT: distended, guarding, rebound, tenderness Extremities exam: PRESENT: pedal edema, +2 edema, other - Diffuse anasarca. ABSENT: clubbing Musculoskeletal exam: PRESENT: normal inspection. ABSENT: deformity Neurological exam: PRESENT: awake, oriented to person, oriented to place Psychiatric exam: PRESENT: flat affect Skin exam: PRESENT: dry, warm The patient's 24-hour intake is 2498 mL. The patient's 24-hour output is 1450 mL. Labs- All tests 24 hr 0406/22/19 06/22/19 04:15 05:09 15:35 Sodium 136.0 L Potassium 4.9 Chloride 104 Carbon Dioxide 22 Anion Gap 10 BUN 80 H Creatinine 1.82 H Est GFR ( Amer) 32 L Est GFR (MDRD) Non-Af 26 L Glucose 113 H POC Glucose 123 H 126 H Calcium 8.6 Renal Ultrasound 06/14/19 13:44 IMPRESSION: Limited exam secondary to body habitus. Left kidney nonvisualized. Right kidney without hydronephrosis. Chest X-Ray 06/14/19 14:28 IMPRESSION: Low lung volumes without evidence of acute cardiopulmonary process. Stable retrocardiac opacity, likely hiatal hernia. Chest X-Ray 06/19/19 00:00 IMPRESSION: PLACEMENT OF CENTRAL LINE IN SATISFACTORY POSITION WITH NO PNEUMOTHORAX. OTHERWISE NO CHANGE IN APPEARANCE OF THE CHEST. Chest X-Ray 06/22/19 08:50 IMPRESSION: NO ACUTE RADIOGRAPHIC FINDING IN THE CHEST. IMPRESSION/RECOMMENDATION: 1. Episode of bradycardia was associated with dyspnea and said patient not breathing and with a systolic blood pressure dropping into the 40s. When she is awakened her heart rate came up. 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 She may benefit from theophylline but will wait since the patient's heart rate at times is fast. Also will discuss with nephrology regarding adding Diamox. 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 If this continues the patient may require a permanent pacemaker. The patient wants to think about this. The patient is now in atrial flutter. 2. Anasarca and lymphedema: This is unlikely secondary to heart failure, given the fact that all bite limited use the LV ejection fraction is about 65%. There is no significant tricuspid regurgitation in the parasternal short axis view and hence there is no significant pulmonary hypertension. 3. Dehydration: Patient clinically appears to be dry. We will stop the patient's diuretics continue the patient's dopamine to keep the blood pressure up and start the patient on IV fluids in the form of normal saline. This has been discussed with nephrology and the attending provider on the case. We will follow the patient closely and watch for any development of heart failure. The patient BUN is decreased to 110 and creatinine is come down to 2 4. Chronic kidney disease stage IV: There is element of acute on chronic kidney disease. This is most likely due to overdiuresis. Nephrology following the patient. Would recommend continuing IV hydration. At present renal function is improved and patient now is a CKD stage III. 5. Paroxysmal atrial fibrillation. The patient now in atrial flutter. Note the patient metoprolol was stopped because of bradycardia last night. At present the patient's heart rate is in the 1 30-1 40. Blood pressure is stable on the patient being on dopamine. We will start the patient on a small dose of Cardizem infusion at 2.5 mg/h. 6. COPD: At present no definite evidence of bronchitis. 7. Hypertension by history. At present the patient is hypotensive requiring dopamine drip at small doses. Patient blood pressure dropped when the dopamine was stopped. Note that the patient in the past was on midodrine at home 10 mg p.o. every 8 hours. Hence we will restart the patient on midodrine. 8. Morbid obesity. Medications reviewed. Medical regimen and management plan discussed with attending provider on the case. Medical decision making is of moderate to high complexity. 40 minutes spent as patient with more than 50% time spent in direct patient care.
[2019-06-22] MEDS: DOPAMINE HCL 800 MG/D5W 250 ML IV PRN (19:53)
[2019-06-23 06:15] LABS: ANION GAP 8 (5-19); BLOOD UREA NITROGEN 77 mg/dL (7-20); CALCIUM 8.6 mg/dL (8.4-10.2); CARBON DIOXIDE 22 mmol/L (22-30); CHLORIDE 106 mmol/L (98-107); GLUCOSE 118 mg/dL (75-110); POTASSIUM 4.9 mmol/L (3.6-5.0)
--- NOTE | 2019-06-23 08:44 | PDOC PROGRESS REPORT ---
Subjective Progress Note for:: 06/23/19 Subjective:: Patient was seen laying in bed on bipap at the time. She claims to be feeling welll with no SOB. She also denies chest pain. Over the past day she has continued to develop worsening episodes of bradycardia. These episodes include severely decreased bp and unresponsiveness. Reason For Visit: A/CKD, A/C CHF, ANASARCA Physical Exam Vital Signs: Temp Pulse Resp BP Pulse Ox 98.3 F 77 16 120/50 L 99 06/23/19 00:00 06/23/19 06:49 06/23/19 04:18 06/23/19 06:49 06/23/19 06:19 Intake & Output 06/22/19 06/23/19 06/24/19 06:59 06:59 06:59 Intake Total 2498 2450 Output Total 1450 1750 Balance 1048 700 Weight 170.4 kg 175 kg General appearance: PRESENT: no acute distress, well-developed, well-nourished Mouth exam: PRESENT: moist, neck supple Neck exam: ABSENT: JVD, tracheal deviation Cardiovascular exam: PRESENT: +S1, +S2 GI/Abdominal exam: PRESENT: distended, normal bowel sounds, soft. ABSENT: ascites - She is got massive pendulous loose folds of skin over her abdomen, organomegaly, tenderness Extremities exam: PRESENT: pedal edema, +1 edema. ABSENT: tenderness, +2 edema Neurological exam: PRESENT: alert, awake, oriented to person, oriented to place Psychiatric exam: PRESENT: appropriate affect, normal mood Skin exam: PRESENT: dry, intact, warm. ABSENT: cyanosis Results Laboratory Results: 06/18/19 05:20 06/23/19 05:05 06/23/19 05:05 Sodium 136.1 L Potassium 4.9 Chloride 106 Carbon Dioxide 22 Anion Gap 8 BUN 77 H Creatinine 2.05 H Est GFR ( Amer) 28 L Glucose 118 H Calcium 8.6 06/14/19 06/15/19 11:58 05:00 NT-Pro-B Natriuret Pep 1690 H 1730 H Impressions: Renal Ultrasound 06/14/19 13:44 IMPRESSION: Limited exam secondary to body habitus. Left kidney nonvisualized. Right kidney without hydronephrosis. Chest X-Ray 06/22/19 08:50 IMPRESSION: NO ACUTE RADIOGRAPHIC FINDING IN THE CHEST. Assessment & Plan - Diagnosis (1) Anasarca Is this a current diagnosis for this admission?: Yes Plan: looks to be developing to getting worse with a 1+ edema on her legs. Will look to put normal saline on hold for now since her bp is in the 120s systolic and she is now 3rd spacing. Patient also seems to have good oral intake so normal saline may not be needed. (2) Elevated BUN Is this a current diagnosis for this admission?: Yes Plan: Currently trending down, will need to monitor closely to make sure to not throw her into CHF. (3) CKD (chronic kidney disease), stage IV Is this a current diagnosis for this admission?: Yes Plan: a little below baseline. Looks to have trended into CKD3. (4) Anemia Qualifiers: Anemia type: due to chronic kidney disease Chronic kidney disease stage: st age 3 (moderate) Qualified Code(s): N18.3 - Chronic kidney disease, stage 3 (moderate); D63.1 - Anemia in chronic kidney disease Is this a current diagnosis for this admission?: Yes (5) Acute on chronic diastolic (congestive) heart failure Plan: lungs are currently clear (7) Hypotension Qualifiers: Hypotension type: unspecified hypotension type Qualified Code(s): I95.9 - Hypotension, unspecified Is this a current diagnosis for this admission?: Yes Plan: still on dopamine and normal saline, midodrine. Previously she was on midodrine 10mg TID when she was in the outpatient setting. BP typically remains in the 90s to 110s systolic. (8) Bradycardia Plan: patient looks to possibly be developing sick sinus syndrome. Treatment per cardiology.
[2019-06-23] MEDS: ASPIRIN 81 MG TABLET, ENT COATED PO SCH (09:48)
[2019-06-23] MEDS: DOCUSATE SODIUM 100 MG CAPSULE PO SCH (09:48)
[2019-06-23] MEDS: FAMOTIDINE 20 MG TABLET PO SCH (09:48)
[2019-06-23] MEDS: APIXABAN 2.5 MG TABLET PO SCH ×2 (09:48→18:10)
[2019-06-23] MEDS: MIDODRINE HCL 5 MG TABLET PO SCH ×3 (09:49→18:09)
[2019-06-23] MEDS ORDERED: THEOPHYLLINE ANHYDROUS 100 MG TAB.SR.12H PO ONE (10:00)
[2019-06-23] MEDS ORDERED: DOPAMINE HCL/DEXTROSE 5%-WATER 800 MG/250 ML RTUINJ IV ONE (11:27)
[2019-06-23] MEDS: THEOPHYLLINE ANHYDROUS 100 MG TAB.SR.12H PO SCH (11:43)
[2019-06-23] MEDS: ACETAZOLAMIDE 250 MG TABLET PO SCH ×2 (11:43→14:11)
[2019-06-23] MEDS ORDERED: DILTIAZEM HCL/D5W 125 MG/125 ML RTUINJ IV ONE (13:38)
[2019-06-23] MEDS: DILTIAZEM HCL 30 MG TABLET PO SCH ×2 (13:57→22:33)
[2019-06-23] MEDS ORDERED: DILTIAZEM HCL/D5W 125 MG/125 ML RTUINJ IV PRN (14:10)
--- NOTE | 2019-06-23 15:48 | PDOC PROGRESS REPORT ---
Subjective Progress Note for:: 06/23/19 Subjective:: No adverse events overnight. She was on 2 L nasal cannula and was eating breakfast this morning. She was feeling fine had no complaints. Her blood pressures had improved and she was on a very small amount of dopamine, 4 mcg/kg/min. Her heart rate was in the 60s. We turned the dopamine drip off and the patient was awake and alert and then had a syncopal episode when her heart rate dropped and her blood pressure dropped. She had a pause on telemetry. We turned the dopamine back on and put her on BiPAP and she began to wake back up when her heart rate and her blood pressure picked back up. Reason For Visit: A/CKD, A/C CHF, ANASARCA Physical Exam Vital Signs: Temp Pulse Resp BP Pulse Ox 98.3 F 75 16 119/59 L 96 06/23/19 00:00 06/23/19 14:00 06/23/19 04:18 06/23/19 14:00 06/23/19 08:00 Intake & Output 06/22/19 06/23/19 06/24/19 06:59 06:59 06:59 Intake Total 2498 2450 Output Total 1450 1750 Balance 1048 700 Weight 170.4 kg 175 kg General appearance: PRESENT: no acute distress, cooperative, disheveled, morbidly obese Respiratory exam: PRESENT: decreased breath sounds, symmetrical, unlabored. ABSENT: accessory muscle use, chest wall tenderness, crackles, prolonged expiratory phas, retraction, rhonchi, tachypnea, wheezes Cardiovascular exam: PRESENT: irregular rhythm Pulses: PRESENT: normal carotid pulses Vascular exam: PRESENT: normal capillary refill GI/Abdominal exam: PRESENT: normal bowel sounds, soft. ABSENT: distended, guarding, rebound, tenderness Extremities exam: PRESENT: pedal edema, +2 edema, other - Diffuse anasarca. ABSENT: clubbing Musculoskeletal exam: PRESENT: normal inspection. ABSENT: deformity Neurological exam: PRESENT: awake, oriented to person, oriented to place Psychiatric exam: PRESENT: flat affect Skin exam: PRESENT: dry, warm Results Laboratory Results: 06/18/19 05:20 06/23/19 05:05 06/23/19 05:05 Sodium 136.1 L Potassium 4.9 Chloride 106 Carbon Dioxide 22 Anion Gap 8 BUN 77 H Creatinine 2.05 H Est GFR ( Amer) 28 L Glucose 118 H Calcium 8.6 06/14/19 06/15/19 11:58 05:00 NT-Pro-B Natriuret Pep 1690 H 1730 H Impressions: Renal Ultrasound 06/14/19 13:44 IMPRESSION: Limited exam secondary to body habitus. Left kidney nonvisualized. Right kidney without hydronephrosis. Chest X-Ray 06/22/19 08:50 IMPRESSION: NO ACUTE RADIOGRAPHIC FINDING IN THE CHEST. Assessment and Plan - Diagnosis (1) Anasarca Is this a current diagnosis for this admission?: Yes Plan: Currently being attributed to renal failure. Heart failure not thought to be contributing much at this time. Her BNP is apparently lower than what she usually runs at baseline. She has had good urine output. Nephrology is consulted. Cardiology is also on board. She appeared paradoxically volume overloaded but intravascularly volume depleted. (2) Anemia Qualifiers: Anemia type: due to chronic kidney disease Chronic kidney disease stage: stage 3 (moderate) Qualified Code(s): N18.3 - Chronic kidney disease, stage 3 (moderate); D63.1 - Anemia in chronic kidney disease Is this a current diagnosis for this admission?: Yes Plan: Monitoring for now, currently no plan for transfusion (3) CHF (congestive heart failure) Qualifiers: Heart failure type: diastolic Heart failure chronicity: chronic Qualified Code(s): I50.32 - Chronic diastolic (congestive) heart failure Is this a current diagnosis for this admission?: Yes Plan: Not acutely exacerbated, will watch her blood pressure closely. She is paradoxically volume overloaded but had showed some intravascular volume depletion, so we are hydrating her cautiously. (4) Chronic a-fib Is this a current diagnosis for this admission?: Yes Plan: Cardizem drip is been put on hold because we will try to transition her over to oral Cardizem. While the drip is off before the oral Cardizem was started, she had the episode described above. Currently all rate controlling agents remain on hold until her heart rate stabilizes. Cardiology was notified of the episode this morning. (5) Hypotension Qualifiers: Hypotension type: unspecified hypotension type Qualified Code(s): I95.9 - Hypotension, unspecified Is this a current diagnosis for this admission?: Yes (6) Acute metabolic encephalopathy Is this a current diagnosis for this admission?: Yes (7) Syncope, cardiogenic Is this a current diagnosis for this admission?: Yes Plan: She was awake and sitting up in the bed and looking comfortable whenever this happened, and it coincided with a pause on telemetry. We will follow-up on Dr. Melara's recommendations. It seems like while she is on a little bit of dopamine her heart rate stays up as does her blood pressure. - Time Time Spent with patient: 35 or more minutes Total Critical Time (Minutes): 35
--- NOTE | 2019-06-23 17:24 | Progress Note ---
Provider Note Provider Note: CARDIOLOGY PROGRESS NOTE by Dr. Brionna Vallecillo on 06/23/2019. SUBJECTIVE: The patient again had episodes of apnea with bradycardia and hypotension. The patient is back on IV dopamine and the patient is also back on IV Cardizem. At present she denies any chest pain or discomfort. She is pleasantly confused and oriented x2 atrial flutter at present at a controlled ventricular spots. There is no bleeding on Eliquis. There is no TIA CVA symptoms. Physical EXAMINATION: The patient is morbidly obese. At present in no acute distress. Selected Entries 06/23/19 06/23/19 06/23/19 07:41 08:00 12:00 Pulse Rate 68 64 Blood Pressure 91/47 L 118/45 L O2 Sat by Pulse 96 Oximetry Oxygen Delivery Bi-pap Nasal Cannula Method ( includes room air) Fraction of 30 Inspired Oxygen (FIO2) Oxygen Flow 3 Rate General appearance: PRESENT: no acute distress, cooperative, disheveled, morbidly obese Respiratory exam: PRESENT: decreased breath sounds, symmetrical, unlabored. ABSENT: accessory muscle use, chest wall tenderness, crackles, prolonged ex piratory phas, retraction, rhonchi, tachypnea, wheezes Cardiovascular exam: PRESENT: irregular rhythm Pulses: PRESENT: normal carotid pulses Vascular exam: PRESENT: normal capillary refill GI/Abdominal exam: PRESENT: normal bowel sounds, soft. ABSENT: distended, guarding, rebound, tenderness Extremities exam: PRESENT: pedal edema, +2 edema, other - Diffuse anasarca. ABSENT: clubbing Musculoskeletal exam: PRESENT: normal inspection. ABSENT: deformity Neurological exam: PRESENT: awake, oriented to person, oriented to place Psychiatric exam: PRESENT: flat affect Skin exam: PRESENT: dry, warm The patient's 24-hour intake is 2450 mL. The patient's 24-hour output is 1750 mL Labs- All tests 24 hr 06/23/19 06/23/19 06/23/19 05:05 05:05 16:55 Sodium 136.1 L Potassium 4.9 Chloride 106 Carbon Dioxide 22 Anion Gap 8 BUN 77 H Creatinine 2.05 H Est GFR ( Amer) 28 L Est GFR (MDRD) Non-Af 23 L Glucose 118 H POC Glucose 127 H Calcium 8.6 Random Cortisol 12.60 Renal Ultrasound 06/14/19 13:44 IMPRESSION: Limited exam secondary to body habitus. Left kidney nonvisualized. Right kidney without hydronephrosis. Chest X-Ray 06/14/19 14:28 IMPRESSION: Low lung volumes without evidence of acute cardiopulmonary process. Stable retrocardiac opacity, likely hiatal hernia. Chest X-Ray 06/19/19 00:00 IMPRESSION: PLACEMENT OF CENTRAL LINE IN SATISFACTORY POSITION WITH NO PNEUMOTHORAX. OTHERWISE NO CHANGE IN APPEARANCE OF THE CHEST. Chest X-Ray 06/22/19 08:50 IMPRESSION: NO ACUTE RADIOGRAPHIC FINDING IN THE CHEST. IMPRESSION/RECOMMENDATION: 1. Episode of bradycardia was associated with apnea and with a systolic blood pressure dropping into the 40s. When she is awakened her heart rate came up. 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 We will start the patient back on IV Cardizem at 2.5 mg/h and continue patient on dopamine. We will also start the patient on theophylline and a small dose of Diamox.. The patient is now in atrial flutter. 2. Anasarca and lymphedema: This is unlikely secondary to heart failure, given the fact that all bite limited use the LV ejection fraction is about 65%. There is no significant tricuspid regurgitation in the parasternal short axis view and hence there is no significant pulmonary hypertension. 3. Dehydration: Patient clinically appears to be dry. We will stop the patient's diuretics continue the patient's dopamine to keep the blood pressure up and start the patient on IV fluids in the form of normal saline. This has been discussed with nephrology and the attending provider on the case. We will follow the patient closely and watch for any development of heart failure. The patient BUN is decreased to 110 and creatinine is come down to 2 4. Chronic kidney disease stage IV: There is element of acute on chronic kidney disease. This is most likely due to overdiuresis. Nephrology following the patient. Would recommend continuing IV hydration. At present renal function is improved and patient now is a CKD stage III. 5. Paroxysmal atrial fibrillation. The patient now in atrial flutter. Note the patient metoprolol was stopped because of bradycardia last night. At present the patient's heart rate is in the 1 30-1 40. Blood pressure is stable on the patient being on dopamine. We will start the patient on a small dose of Cardizem infusion at 2.5 mg/h. 6. COPD: At present no definite evidence of bronchitis. 7. Hypertension by history. At present the patient is hypotensive requiring dopamine drip at small doses. Patient blood pressure dropped when the dopamine was stopped. Note that the patient in the past was on midodrine at home 10 mg p.o. every 8 hours. Hence we will restart the patient on midodrine. 8. Morbid obesity. Medications reviewed. Medical regimen and management plan discussed with attending provider on the case. Medical decision making is of moderate to high complexity. 40 minutes spent as patient with more than 50% time spent in direct patient care.
[2019-06-24] MEDS: DOPAMINE HCL 800 MG/D5W 250 ML IV PRN ×2 (03:20→17:43)
[2019-06-24] MEDS: DILTIAZEM HCL 30 MG TABLET PO SCH ×3 (05:26→21:22)
[2019-06-24 05:52] LABS: ANION GAP 9 (5-19); BLOOD UREA NITROGEN 68 mg/dL (7-20); CALCIUM 8.6 mg/dL (8.4-10.2); CARBON DIOXIDE 21 mmol/L (22-30); CHLORIDE 107 mmol/L (98-107); GLUCOSE 121 mg/dL (75-110); POTASSIUM 4.8 mmol/L (3.6-5.0)
[2019-06-24] MEDS: APIXABAN 2.5 MG TABLET PO SCH ×2 (10:51→17:41)
[2019-06-24] MEDS: ACETAZOLAMIDE 250 MG TABLET PO SCH (10:51)
[2019-06-24] MEDS: THEOPHYLLINE ANHYDROUS 100 MG TAB.SR.12H PO SCH (10:51)
[2019-06-24] MEDS: ASPIRIN 81 MG TABLET, ENT COATED PO SCH (10:51)
[2019-06-24] MEDS: FAMOTIDINE 20 MG TABLET PO SCH (10:51)
[2019-06-24] MEDS: DOCUSATE SODIUM 100 MG CAPSULE PO SCH (10:51)
[2019-06-24] MEDS: MIDODRINE HCL 5 MG TABLET PO SCH ×3 (10:51→17:41)
--- NOTE | 2019-06-24 14:24 | PDOC PROGRESS REPORT ---
Subjective Progress Note for:: 06/24/19 Subjective:: No adverse events overnight. She was put back on a low-dose Cardizem drip and add dopamine drip and her heart rate and blood pressure have been stable overnight. No chest pain or shortness of breath. She is been eating and drinking without difficulty. She seems to be fairly oblivious to what is going on with her. Reason For Visit: A/CKD, A/C CHF, ANASARCA Physical Exam Vital Signs: Temp Pulse Resp BP Pulse Ox 97.8 F 75 18 99/60 L 100 06/24/19 07:52 06/24/19 13:00 06/24/19 07:52 06/24/19 13:00 06/24/19 11:22 Intake & Output 06/23/19 06/24/19 06/25/19 06:59 06:59 06:59 Intake Total 2450 613 158 Output Total 1750 2150 Balance 700 -1537 158 Weight 175 kg 173 kg General appearance: PRESENT: no acute distress, cooperative, disheveled, morbidly obese Respiratory exam: PRESENT: decreased breath sounds, symmetrical, unlabored. ABSENT: accessory muscle use, chest wall tenderness, crackles, prolonged expiratory phas, retraction, rhonchi, tachypnea, wheezes Cardiovascular exam: PRESENT: irregular rhythm Pulses: PRESENT: normal carotid pulses Vascular exam: PRESENT: normal capillary refill GI/Abdominal exam: PRESENT: normal bowel sounds, soft. ABSENT: distended, guarding, rebound, tenderness Extremities exam: PRESENT: pedal edema, +2 edema, other - Diffuse anasarca. ABSENT: clubbing Musculoskeletal exam: PRESENT: normal inspection. ABSENT: deformity Neurological exam: PRESENT: awake, oriented to person, oriented to place Psychiatric exam: PRESENT: flat affect Skin exam: PRESENT: dry, warm Results Laboratory Results: 06/18/19 05:20 06/24/19 05:20 06/24/19 05:20 Sodium 136.7 L Potassium 4.8 Chloride 107 Carbon Dioxide 21 L Anion Gap 9 BUN 68 H Creatinine 2.03 H Est GFR ( Amer) 28 L Glucose 121 H Calcium 8.6 06/14/19 06/15/19 11:58 05:00 NT-Pro-B Natriuret Pep 1690 H 1730 H Impressions: Renal Ultrasound 06/14/19 13:44 IMPRESSION: Limited exam secondary to body habitus. Left kidney nonvisualized. Right kidney without hydronephrosis. Chest X-Ray 06/22/19 08:50 IMPRESSION: NO ACUTE RADIOGRAPHIC FINDING IN THE CHEST. Assessment and Plan - Diagnosis (1) Anasarca Is this a current diagnosis for this admission?: Yes Plan: Currently being attributed to renal failure. Heart failure not thought to be contributing much at this time. Her BNP is apparently lower than what she usually runs at baseline. She has had good urine output. Nephrology is consulted. Cardiology is also on board. She appeared paradoxically volume overloaded but intravascularly volume depleted. (2) Anemia Qualifiers: Anemia type: due to chronic kidney disease Chronic kidney disease stage: stage 3 (moderate) Qualified Code(s): N18.3 - Chronic kidney disease, stage 3 (moderate); D63.1 - Anemia in chronic kidney disease Is this a current diagnosis for this admission?: Yes Plan: Monitoring for now, currently no plan for transfusion (3) CHF (congestive heart failure) Qualifiers: Heart failure type: diastolic Heart failure chronicity: chronic Qualified Code(s): I50.32 - Chronic diastolic (congestive) heart failure Is this a current diagnosis for this admission?: Yes Plan: Not acutely exacerbated, will watch her blood pressure closely. She is paradoxically volume overloaded but had showed some intravascular volume depletion, so we are hydrating her cautiously. (4) Chronic a-fib Is this a current diagnosis for this admission?: Yes Plan: Cardizem drip has been restarted, along with low-dose dopamine drip. She did not have any pauses on telemetry overnight. Will discuss with cardiology regarding a plan for transitioning her off of IV medications on oral medication s. (5) Hypotension Qualifiers: Hypotension type: unspecified hypotension type Qualified Code(s): I95.9 - Hypotension, unspecified Is this a current diagnosis for this admission?: Yes Plan: Currently on a low-dose dopamine drip, blood pressure stable at this time. Midrin has been started. (6) Acute metabolic encephalopathy Is this a current diagnosis for this admission?: Yes Plan: I suspect she is back to baseline, this is resolved (7) Syncope, cardiogenic Is this a current diagnosis for this admission?: Yes Plan: No pauses overnight, drips were restarted as noted above, we will follow-up on Dr. Melara's recommendations. It seems like while she is on a little bit of dopamine her heart rate stays up as does her blood pressure. - Time Time Spent with patient: 25-34 minutes
--- NOTE | 2019-06-24 21:20 | Progress Note ---
Provider Note Provider Note: CARDIOLOGY PROGRESS NOTE by Dr. Brionna Vallecillo on 06/24/2019 SUBJECTIVE: There is no further episodes of apnea or bradycardia or hypotension. The patient denies any chest pain or discomfort. There is no shortness of breath. There is no ventricle arrhythmia seen on the patient. The patient is in atrial flutter with a controlled ventricular response PHYSICAL EXAMINATION: The patient is morbidly obese in no acute distress. Selected Entries 06/24/19 06/24/19 07:52 08:00 Temperature 97.8 F Temperature Axillary Source Pulse Rate 78 Respiratory 18 Rate Blood Pressure 107/55 L 107/55 L Blood Pressure 72 Mean BP Location Left Arm BP Position Supine O2 Sat by Pulse 100 Oximetry Fraction of 32 Inspired Oxygen (FIO2) Oxygen Flow 3 Rate Oxygen Delivery Bipap Method General appearance: PRESENT: no acute distress, cooperative, disheveled, morbidly obese Respiratory exam: PRESENT: decreased breath sounds, symmetrical, unlabored. ABSENT: accessory muscle use, chest wall tenderness, crackles, prolonged expiratory phas, retraction, rhonchi, tachypnea, wheezes Cardiovascular exam: PRESENT: irregular rhythm Pulses: PRESENT: normal carotid pulses Vascular exam: PRESENT: normal capillary refill GI/Abdominal exam: PRESENT: normal bowel sounds, soft. ABSENT: distended, guarding, rebound, tenderness Extremities exam: PRESENT: pedal edema, +2 edema, other - Diffuse anasarca. ABSENT: clubbing Musculoskeletal exam: PRESENT: normal inspection. ABSENT: deformity Neurological exam: PRESENT: awake, oriented to person, oriented to place Psychiatric exam: PRESENT: flat affect Skin exam: PRESENT: dry, warm The patient's 24-hour intake is 613mL. The patient's 24-hour output is 2150 mL Labs- All tests 24 hr 06/24/19 05:20 Sodium 136.7 L Potassium 4.8 Chloride 107 Carbon Dioxide 21 L Anion Gap 9 BUN 68 H Creatinine 2.03 H Est GFR ( Amer) 28 L Est GFR (MDRD) Non-Af 23 L Glucose 121 H Calcium 8.6 Renal Ultrasound 06/14/19 13:44 IMPRESSION: Limited exam secondary to body habitus. Left kidney nonvisualized. Right kidney without hydronephrosis. Chest X-Ray 06/14/19 14:28 IMPRESSION: Low lung volumes without evidence of acute cardiopulmonary process. Stable retrocardiac opacity, likely hiatal hernia. Chest X-Ray 06/19/19 00:00 IMPRESSION: PLACEMENT OF CENTRAL LINE IN SATISFACTORY POSITION WITH NO PNEUMOTHORAX. OTHERWISE NO CHANGE IN APPEARANCE OF THE CHEST. Chest X-Ray 06/22/19 08:50 IMPRESSION: NO ACUTE RADIOGRAPHIC FINDING IN THE CHEST. IMPRESSION/RECOMMENDATION: 1. Episode of bradycardia was associated with apnea and with a systolic blood pressure dropping into the 40s. When she is awakened her heart rate came up. 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 We will start the patient back on IV Cardizem at 2.5 mg/h and continue patient on dopamine. We will also start the patient on theophylline and a small dose of Diamox.. The patient is now in atrial flutter. 2. Anasarca and lymphedema: This is unlikely secondary to heart failure, given the fact that all bite limited use the LV ejection fraction is about 65%. There is no significant tricuspid regurgitation in the parasternal short axis view and hence there is no significant pulmonary hypertension. 3. Dehydration: Patient clinically appears to be dry. We will stop the patient's diuretics continue the patient's dopamine to keep the blood pressure up and start the patient on IV fluids in the form of normal saline. This has been discussed with nephrology and the attending provider on the case. We will follow the patient closely and watch for any development of heart failure. The patient BUN is decreased to 110 and creatinine is come down to 2 4. Chronic kidney disease stage IV: There is element of acute on chronic kidney disease. This is most likely due to overdiuresis. Nephrology following the patient. Would recommend continuing IV hydration. At present renal function is improved and patient now is a CKD stage III. 5. Paroxysmal atrial fibrillation. The patient now in atrial flutter. We will stop the patient's IV Cardizem drip and place the patient on Cardizem 30 mg p.o. every 8 hours. We will continue the dopamine for now. 6. COPD: At present no definite evidence of bronchitis. 7. Hypertension by history. At present the patient is hypotensive requiring dopamine drip at small doses. Patient blood pressure dropped when the dopamine was stopped. Note that the patient in the past was on midodrine at home 10 mg p.o. every 8 hours. Hence we will restart the patient on midodrine. 8. Morbid obesity. Medications reviewed medical regimen and management plan discussed with attending provider on the case. Medical decision making is of high complexity. 40 minutes spent on patient with more than 50% time spent on direct patient care. Will follow
--- NOTE | 2019-06-24 21:36 | PDOC PROGRESS REPORT ---
Subjective Progress Note for:: 06/24/19 Subjective:: Patient was seen this afternoon laying in bed. At the time she was off the bipap and using a NC. She denies chest pain, SOB, N/V or decreased appetite. Continues to have issues with bradycardia. Urine output continues to be great. Reason For Visit: A/CKD, A/C CHF, ANASARCA Physical Exam Vital Signs: Temp Pulse Resp BP Pulse Ox 97.8 F 77 18 111/37 L 100 06/24/19 07:52 06/24/19 14:00 06/24/19 07:52 06/24/19 14:00 06/24/19 11:22 Intake & Output 06/23/19 06/24/19 06/25/19 06:59 06:59 06:59 Intake Total 2450 613 158 Output Total 1750 2150 Balance 700 -1537 158 Weight 175 kg 173 kg General appearance: PRESENT: no acute distress, well-developed, well-nourished Mouth exam: PRESENT: moist, neck supple Respiratory exam: PRESENT: clear to auscultation mariama. ABSENT: crackles, rales, rhonchi, wheezes Cardiovascular exam: PRESENT: +S1, +S2 GI/Abdominal exam: PRESENT: distended, normal bowel sounds, soft. ABSENT: ascites - She is got massive pendulous loose folds of skin over her abdomen, organomegaly, tenderness Extremities exam: PRESENT: +1 edema. ABSENT: pedal edema, +2 edema Neurological exam: PRESENT: alert, awake, oriented to person Skin exam: PRESENT: dry, intact, warm. ABSENT: cyanosis Results Laboratory Results: 06/18/19 05:20 06/24/19 05:20 06/24/19 05:20 Sodium 136.7 L Potassium 4.8 Chloride 107 Carbon Dioxide 21 L Anion Gap 9 BUN 68 H Creatinine 2.03 H Est GFR ( Amer) 28 L Glucose 121 H Calcium 8.6 06/14/19 06/15/19 11:58 05:00 NT-Pro-B Natriuret Pep 1690 H 1730 H Impressions: Renal Ultrasound 06/14/19 13:44 IMPRESSION: Limited exam secondary to body habitus. Left kidney nonvisualized. Right kidney without hydronephrosis. Chest X-Ray 06/22/19 08:50 IMPRESSION: NO ACUTE RADIOGRAPHIC FINDING IN THE CHEST. Assessment & Plan - Diagnosis (1) Anasarca Is this a current diagnosis for this admission?: Yes Plan: Looks to be stable at this current time. Will need to monitor closely as her. She tends to 3rd space easily. (2) Elevated BUN Is this a current diagnosis for this admission?: Yes Plan: Currently trending down, will need to monitor closely. (3) CKD (chronic kidney disease), stage IV Is this a current diagnosis for this admission?: Yes Plan: a little below baseline. Looks to have trended into CKD3. (4) Anemia Qualifiers: Anemia type: due to chronic kidney disease Chronic kidney disease stage: stage 3 (moderate) Qualified Code(s): N18.3 - Chronic kidney disease, stage 3 (moderate); D63.1 - Anemia in chronic kidney disease Is this a current diagnosis for this admission?: Yes Plan: will get cbc tomorrow to see if hemoglobin is still trending up. (7) Hypotension Qualifiers: Hypotension type: unspecified hypotension type Qualified Code(s): I95.9 - Hypotension, unspecified Is this a current diagnosis for this admission?: Yes Plan: Previously she was on midodrine 10mg TID when she was in the outpatient setting. BP typically remains in the 90s to 110s systolic.
[2019-06-25] MEDS: DILTIAZEM HCL 30 MG TABLET PO SCH ×2 (05:38→15:26)
[2019-06-25 08:13] LABS: HEMATOCRIT 29.4 % (36.0-47.0); HEMOGLOBIN 9.8 g/dL (12.0-15.5); MEAN CORPUSCULAR HEMOGLOBIN 28.7 pg (27.0-33.4); MEAN CORPUSCULAR HGB CONC 33.4 g/dL (32.0-36.0); MEAN CORPUSCULAR VOLUME 86 fl (80-97); PLATELET COUNT 111 10^3/uL (150-450); RED BLOOD COUNT 3.43 10^6/uL (3.72-5.28); RED CELL DISTRIBUTION WIDTH 14.8 % (11.5-14.0); WHITE BLOOD COUNT 4.6 10^3/uL (4.0-10.5)
[2019-06-25 08:31] LABS: ANION GAP 8 (5-19); BLOOD UREA NITROGEN 67 mg/dL (7-20); CALCIUM 8.7 mg/dL (8.4-10.2); CARBON DIOXIDE 21 mmol/L (22-30); CHLORIDE 106 mmol/L (98-107); GLUCOSE 124 mg/dL (75-110); POTASSIUM 4.7 mmol/L (3.6-5.0)
[2019-06-25] MEDS: ACETAZOLAMIDE 250 MG TABLET PO SCH (09:39)
[2019-06-25] MEDS: FAMOTIDINE 20 MG TABLET PO SCH (09:39)
[2019-06-25] MEDS: MIDODRINE HCL 5 MG TABLET PO SCH ×3 (09:40→17:36)
[2019-06-25] MEDS: ASPIRIN 81 MG TABLET, ENT COATED PO SCH (09:40)
[2019-06-25] MEDS: THEOPHYLLINE ANHYDROUS 100 MG TAB.SR.12H PO SCH (09:40)
[2019-06-25] MEDS: DOCUSATE SODIUM 100 MG CAPSULE PO SCH (09:40)
[2019-06-25] MEDS: APIXABAN 2.5 MG TABLET PO SCH ×2 (09:40→17:36)
[2019-06-25] MEDS: DOPAMINE HCL 800 MG/D5W 250 ML IV PRN (09:40)
--- NOTE | 2019-06-25 12:08 | PDOC PROGRESS REPORT ---
Subjective Progress Note for:: 06/25/19 Subjective:: No adverse events overnight. She is on oral Cardizem now and did not have any events on telemetry overnight, but she is still essentially reliant on a dopamine drip to maintain a good blood pressure, in addition to scheduled Midrin. She is eating and drinking without difficulty and denies complaints. Reason For Visit: A/CKD, A/C CHF, ANASARCA Physical Exam Vital Signs: Temp Pulse Resp BP Pulse Ox 98.4 F 77 20 116/56 L 100 06/25/19 08:54 06/25/19 11:00 06/25/19 08:54 06/25/19 11:00 06/25/19 08:54 Intake & Output 06/24/19 06/25/19 06/26/19 06:59 06:59 06:59 Intake Total 613 1206 250 Output Total 2150 1325 Balance -1537 -119 250 Weight 173 kg 174.1 kg General appearance: PRESENT: no acute distress, cooperative, disheveled, morbidly obese Respiratory exam: PRESENT: decreased breath sounds, symmetrical, unlabored. ABSENT: accessory muscle use, chest wall tenderness, crackles, prolonged expiratory phas, retraction, rhonchi, tachypnea, wheezes Cardiovascular exam: PRESENT: irregular rhythm Pulses: PRESENT: normal carotid pulses Vascular exam: PRESENT: normal capillary refill GI/Abdominal exam: PRESENT: normal bowel sounds, soft. ABSENT: distended, guarding, rebound, tenderness Extremities exam: PRESENT: pedal edema, +2 edema, other - Diffuse anasarca. ABSENT: clubbing Musculoskeletal exam: PRESENT: normal inspection. ABSENT: deformity Neurological exam: PRESENT: awake, oriented to person, oriented to place Psychiatric exam: PRESENT: flat affect Skin exam: PRESENT: dry, warm Results Laboratory Results: 06/25/19 08:00 06/25/19 08:00 06/25/19 06/25/19 08:00 08:00 WBC 4.6 RBC 3.43 L Hgb 9.8 L Hct 29.4 L MCV 86 MCH 28.7 MCHC 33.4 RDW 14.8 H Plt Count 111 L Sodium 135.1 L Potassium 4.7 Chloride 106 Carbon Dioxide 21 L Anion Gap 8 BUN 67 H Creatinine 2.07 H Est GFR ( Amer) 28 L Glucose 124 H Calcium 8.7 06/14/19 06/15/19 11:58 05:00 NT-Pro-B Natriuret Pep 1690 H 1730 H Impressions: Renal Ultrasound 06/14/19 13:44 IMPRESSION: Limited exam secondary to body habitus. Left kidney nonvisualized. Right kidney without hydronephrosis. Chest X-Ray 06/22/19 08:50 IMPRESSION: NO ACUTE RADIOGRAPHIC FINDING IN THE CHEST. Assessment and Plan - Diagnosis (1) Anasarca Is this a current diagnosis for this admission?: Yes Plan: Currently being attributed to renal failure. Heart failure not thought to be contributing much at this time. Her BNP is apparently lower than what she usually runs at baseline. She has had good urine output. Nephrology is consulted. Cardiology is also on board. She appeared paradoxically volume overloaded but intravascularly volume depleted. She is now off of IV fluids. (2) Anemia Qualifiers: Anemia type: due to chronic kidney disease Chronic kidney disease stage: stage 3 (moderate) Qualified Code(s): N18.3 - Chronic kidney disease, stage 3 (moderate); D63.1 - Anemia in chronic kidney disease Is this a current diagnosis for this admission?: Yes Plan: Monitoring for now, currently no plan for transfusion (3) CHF (congestive heart failure) Qualifiers: Heart failure type: diastolic Heart failure chronicity: chronic Qualified Code(s): I50.32 - Chronic diastolic (congestive) heart failure Is this a current diagnosis for this admission?: Yes Plan: Not acutely exacerbated, will watch her blood pressure closely. She is paradoxically volume overloaded but had showed some intravascular volume depletion, so we are hydrating her cautiously. This is diastolic heart failure with a preserved ejection fraction. (4) Chronic a-fib Is this a current diagnosis for this admission?: Yes Plan: Cardizem drip has been discontinued, now on oral Cardizem, along with low-dose dopamine drip. She did not have any pauses on telemetry overnight. Will discuss with cardiology regarding a plan for transitioning her off of IV medications on oral medications. (5) Hypotension Qualifiers: Hypotension type: unspecified hypotension type Qualified Code(s): I95.9 - Hypotension, unspecified Is this a current diagnosis for this admission?: Yes Plan: Currently on a low-dose dopamine drip, blood pressure stable at this time. Midrin has been started. The issue now is that her blood pressure seems to be dependent upon the dopamine drip. She is not on very much and will affect her blood pressure in the sense of lowering it, will discuss with cardiology regarding a plan to get her off the dopamine drip. (6) Acute metabolic encephalopathy Is this a current diagnosis for this admission?: Yes Plan: I suspect she is back to baseline, this is resolved (7) Syncope, cardiogenic Is this a current diagnosis for this admission?: Yes Plan: No pauses overnight, on oral Cardizem and dopamine drip, we will follow-up on Dr. Melara's recommendations. It seems like while she is on a little bit of dopamine her heart rate stays up as does her blood pressure. Again, this issue with blood pressure being reliant on the dopamine drip seems to be a difficult issue in the case thus far. - Time Time Spent with patient: 25-34 minutes
[2019-06-25] MEDS ORDERED: THEOPHYLLINE ANHYDROUS 100 MG TAB.SR.12H PO SCH ×2 (14:00→22:00)
[2019-06-25 14:15] LABS: FREE T3 2.74 pg/mL (2.77-5.27); FREE T4 (FREE THYROXINE) 1.63 ng/dL (0.78-2.19)
[2019-06-25 14:28] LABS: THYROID STIMULATING HORMONE 0.51 uIU/mL (0.47-4.68)
[2019-06-25] MEDS: ATENOLOL 50 MG TABLET PO SCH (21:45)
--- NOTE | 2019-06-25 21:52 | Progress Note ---
Provider Note Provider Note: CARDIOLOGY PROGRESS NOTE by Dr. Brionna Vallecillo on 06/25/2019. OBJECTIVE: The patient had several episodes of bradycardia and hypotension when the dopamine drip was discontinued hence dopamine was started back. The patient seems to bear down when she has this heart rate going down and then she passes flatus and subsequently the heart rate comes up on the blood pressure comes up. She is requiring dopamine continuously. Hence it is not clear whether this is simple behavior syncope secondary to bradycardia since the patient when the heart rate goes down she remains unresponsive for short period of time without seizure activity. Subsequently she wakes up and is seems to be mentally back to her usual state. This also raises the possibility that this is vasodepressive syncope hence we will start the patient on a SSRI. We will discontinue the patient's Cardizem p.o. and change it to a atenolol. We will also change the idea the order there 200 p.o. every 12 hours. We will also transfer the patient in the morning and place a temporary transvenous pacemaker wire. The patient may require permanent pacemaker. The other option is to have phrenic nerve pacing. But is really not clear what the etiology of the patient's bradycardia and syncope is due to. PHYSICAL EXAMINATION: The patient is morbidly obese. At present with the patient's heart rate and blood pressure being stable she has no distress. Selected Entries 06/25/19 06/25/19 06/25/19 11:34 12:00 12:49 Temperature 97.9 F Temperature Axillary Source Pulse Rate 80 51 L Respiratory 16 Rate Blood Pressure 115/45 L 71/32 L Blood Pressure 65 45 Mean BP Location Left Arm BP Position Sitting O2 Sat by Pulse 95 Oximetry Oxygen Flow 2.00 Rate Oxygen Delivery Nasal Cannula Method 06/25/19 06/25/19 06/25/19 13:00 13:14 14:00 Temperature Temperature Source Pulse Rate 75 Respiratory Rate Blood Pressure 100/30 L 79/32 L 74/47 L Blood Pressure 56 Mean BP Location BP Position O2 Sat by Pulse Oximetry Oxygen Flow Rate Oxygen Delivery Method 06/25/19 06/25/19 15:00 15:35 Temperature Temperature Source Pulse Rate 64 Respiratory 20 Rate Blood Pressure 94/43 L Blood Pressure 60 Mean BP Location BP Position O2 Sat by Pulse 100 Oximetry Oxygen Flow 2.00 Rate Oxygen Delivery Nasal Cannula Method General appearance: PRESENT: no acute distress, cooperative, disheveled, morbidly obese Respiratory exam: PRESENT: decreased breath sounds, symmetrical, unlabored. ABSENT: accessory muscle use, chest wall tenderness, crackles, prolonged expiratory phas, retraction, rhonchi, tachypnea, wheezes Cardiovascular exam: PRESENT: irregular rhythm Pulses: PRESENT: normal carotid pulses Vascular exam: PRESENT: normal capillary refill GI/Abdominal exam: PRESENT: normal bowel sounds, soft. ABSENT: distended, guarding, rebound, tenderness Extremities exam: PRESENT: pedal edema, +2 edema, other - Diffuse anasarca. ABSENT: clubbing Musculoskeletal exam: PRESENT: normal inspection. ABSENT: deformity Neurological exam: PRESENT: awake, oriented to person, oriented to place Psychiatric exam: PRESENT: flat affect Skin exam: PRESENT: dry, warm The patient's 24-hour intake is 1206 The patient's 24-hour output is 1325 ml. Labs- All tests 24 hr 06/25/19 06/25/19 06/25/19 08:00 08:00 08:00 WBC 4.6 RBC 3.43 L Hgb 9.8 L Hct 29.4 L MCV 86 MCH 28.7 MCHC 33.4 RDW 14.8 H Plt Count 111 L Sodium 135.1 L Potassium 4.7 Chloride 106 Carbon Dioxide 21 L Anion Gap 8 BUN 67 H Creatinine 2.07 H Est GFR ( Amer) 28 L Est GFR (MDRD) Non-Af 23 L Glucose 124 H Calcium 8.7 TSH 0.51 Free T4 1.63 Free T3 pg/mL 2.74 L Renal Ultrasound 06/14/19 13:44 IMPRESSION: Limited exam secondary to body habitus. Left kidney nonvisualized. Right kidney without hydronephrosis. Chest X-Ray 06/14/19 14:28 IMPRESSION: Low lung volumes without evidence of acute cardiopulmonary process. Stable retrocardiac opacity, likely hiatal hernia. Chest X-Ray 06/19/19 00:00 IMPRESSION: PLACEMENT OF CENTRAL LINE IN SATISFACTORY POSITION WITH NO PNEUMOTHORAX. OTHERWISE NO CHANGE IN APPEARANCE OF THE CHEST. Chest X-Ray 06/22/19 08:50 IMPRESSION: NO ACUTE RADIOGRAPHIC FINDING IN THE CHEST. IMPRESSION/RECOMMENDATION: 1. Episodic bradycardia: The patient had another episode of bradycardia was associated with apnea and with a systolic blood pressure dropping into the 40s. She seems to bear down when the heart rate goes down and also passes gas. When she is awakened her heart rate came up. 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 We will start the patient back on IV Cardizem at 2.5 mg/h and continue patient on dopamine. We will also start the patient on theophylline and a small dose of Diamox.. The patient is now in atrial flutter. Hence is not clear the etiology of the patient's bradycardia and hypotension. The patient's TSH and T4 are normal with a mildly low free T3. Hence the patient is not hypothyroid. This raises the possibility whether this is vasodepressor syncope. Hence will change the patient's CT order to 100 mg p.o. every 12 hours. We will also start the patient on Paxil. We will transfer the patient tomorrow to the ICU and place a temporary transvenous pacemaker. We will see if the pacemaker corrects the patient's problems. 2. Anasarca and lymphedema: This is unlikely secondary to heart failure, given the fact that all bite limited use the LV ejection fraction is about 65%. There is no significant tricuspid regurgitation in the parasternal short axis view and hence there is no significant pulmonary hypertension. 3. Dehydration: Patient clinically appears to be dry. We will stop the patient's diuretics continue the patient's dopamine to keep the blood pressure up and start the patient on IV fluids in the form of normal saline. This has been discussed with nephrology and the attending provider on the case. We will follow the patient closely and watch for any development of heart failure. The patient BUN is decreased to 110 and creatinine is come down to 2 4. Chronic kidney disease stage IV: There is element of acute on chronic kidney disease. This is most likely due to overdiuresis. Nephrology following the patient. Would recommend continuing IV hydration. At present renal function is improved and patient now is a CKD stage III. 5. Paroxysmal atrial fibrillation. The patient now in atrial flutter. We will stop the patient's IV Cardizem drip and place the patient on Cardizem 30 mg p.o. every 8 hours. We will continue the dopamine for now. 6. COPD: At present no definite evidence of bronchitis. 7. Hypertension by history. At present the patient is hypotensive requiring dopamine drip at small doses. Patient blood pressure dropped when the dopamine was stopped. Continue the patient's dopamine. 8. Morbid obesity. Medications reviewed medical regimen and management plan discussed with attending provider on the case. Medical decision making is of high complexity. 40 minutes spent on patient with more than 50% time spent on direct patient car e. Will follow
[2019-06-26] MEDS: DOPAMINE HCL 800 MG/D5W 250 ML IV PRN (01:41)
[2019-06-26] MEDS: ACETAMINOPHEN 325 MG TABLET PO PRN (05:05)
[2019-06-26 05:40] LABS: HEMATOCRIT 30.6 % (36.0-47.0); HEMOGLOBIN 10.4 g/dL (12.0-15.5); MEAN CORPUSCULAR HEMOGLOBIN 28.8 pg (27.0-33.4); MEAN CORPUSCULAR VOLUME 85 fl (80-97); PLATELET COUNT 115 10^3/uL (150-450); RED BLOOD COUNT 3.61 10^6/uL (3.72-5.28); RED CELL DISTRIBUTION WIDTH 14.9 % (11.5-14.0); WHITE BLOOD COUNT 4.5 10^3/uL (4.0-10.5)
[2019-06-26 06:06] LABS: ANION GAP 8 (5-19); BLOOD UREA NITROGEN 61 mg/dL (7-20); CALCIUM 8.9 mg/dL (8.4-10.2); CARBON DIOXIDE 21 mmol/L (22-30); CHLORIDE 105 mmol/L (98-107); GLUCOSE 121 mg/dL (75-110); POTASSIUM 4.8 mmol/L (3.6-5.0)
[2019-06-26] MEDS: DOCUSATE SODIUM 100 MG CAPSULE PO SCH (09:19)
[2019-06-26] MEDS: MODAFINIL 100 MG TABLET PO SCH (09:31)
[2019-06-26] MEDS: APIXABAN 2.5 MG TABLET PO SCH ×2 (09:32→17:22)
[2019-06-26] MEDS: ASPIRIN 81 MG TABLET, ENT COATED PO SCH (09:32)
[2019-06-26] MEDS: FAMOTIDINE 20 MG TABLET PO SCH (09:32)
[2019-06-26] MEDS: ATENOLOL 50 MG TABLET PO SCH ×2 (09:32→21:16)
[2019-06-26] MEDS: MIDODRINE HCL 5 MG TABLET PO SCH ×3 (09:32→17:22)
[2019-06-26] MEDS: ACETAZOLAMIDE 250 MG TABLET PO SCH (09:33)
[2019-06-26] MEDS ORDERED: PAROXETINE HCL 20 MG TABLET PO SCH (10:00)
[2019-06-26 13:35] LABS: ARTERIAL BLOOD BASE EXCESS -5.3 mmol/L; ARTERIAL BLOOD FIO2 2L; ARTERIAL BLOOD H2CO3 0.86 mmol/L (1.05-1.35); ARTERIAL BLOOD HCO3 18.2 mmol/L (20-24); ARTERIAL BLOOD PCO2 28.7 mmHg (35-45); ARTERIAL BLOOD PH 7.42 (7.35-7.45); ARTERIAL BLOOD PO2 146.1 mmHg (80-100)
[2019-06-26] MEDS: THEOPHYLLINE ANHYDROUS 100 MG TAB.SR.12H PO SCH (13:42)
--- NOTE | 2019-06-26 17:04 | PDOC PROGRESS REPORT ---
Subjective Subjective:: 06/26/2019 Patient seems to be stable today on dopamine drip. I spoke with Dr. Vallecillo in cardiology who stated he would be stopping this dopamine drip today. Appreciate his help with the case. Hemoglobin rising, cortisol normal. Seems the plan is no longer to send the patient to ICU for transvenous pacing she will instead be continued to be monitored on the floor. Other than generalized fatigue and weakness she has no specific complaints today. Reason For Visit: A/CKD, A/C CHF, ANASARCA Physical Exam Vital Signs: Temp Pulse Resp BP Pulse Ox 97.5 F 74 20 124/46 L 93 06/26/19 11:51 06/26/19 16:00 06/26/19 11:51 06/26/19 16:00 06/26/19 11:51 Intake & Output 06/25/19 06/26/19 06/27/19 06:59 06:59 06:59 Intake Total 1206 1060 858 Output Total 1325 2225 650 Balance -119 -1165 208 Weight 174.1 kg 171.8 kg General appearance: PRESENT: no acute distress, cooperative, morbidly obese, obese Head exam: PRESENT: atraumatic, normocephalic Eye exam: PRESENT: conjunctiva pink Mouth exam: PRESENT: moist Respiratory exam: PRESENT: clear to auscultation mariama. ABSENT: rales, rhonchi, wheezes Cardiovascular exam: PRESENT: RRR. ABSENT: diastolic murmur, rubs, systolic murmur GI/Abdominal exam: PRESENT: normal bowel sounds, soft. ABSENT: distended, guarding, mass, organolmegaly, rebound, tenderness Extremities exam: PRESENT: pedal edema, +2 edema Neurological exam: PRESENT: alert, awake, oriented to person, oriented to place, oriented to time Psychiatric exam: PRESENT: appropriate affect, normal mood Skin exam: PRESENT: dry, intact, warm Results Laboratory Results: 06/26/19 05:25 06/26/19 05:25 06/26/19 06/26/19 06/26/19 05:25 05:25 13:18 WBC 4.5 RBC 3.61 L Hgb 10.4 L Hct 30.6 L MCV 85 MCH 28.8 MCHC 34.0 RDW 14.9 H Plt Count 115 L Carbonic Acid 0.86 L HCO3/H2CO3 Ratio 21:1 ABG pH 7.42 ABG pCO2 28.7 L ABG pO2 146.1 H ABG HCO3 18.2 L ABG O2 Saturation 99.0 H ABG Base Excess -5.3 FiO2 2L Sodium 134.3 L Potassium 4.8 Chloride 105 Carbon Dioxide 21 L Anion Gap 8 BUN 61 H Creatinine 1.98 H Est GFR ( Amer) 29 L Glucose 121 H Calcium 8.9 06/14/19 06/15/19 11:58 05:00 NT-Pro-B Natriuret Pep 1690 H 1730 H Impressions: Renal Ultrasound 06/14/19 13:44 IMPRESSION: Limited exam secondary to body habitus. Left kidney nonvisualized. Right kidney without hydronephrosis. Chest X-Ray 06/22/19 08:50 IMPRESSION: NO ACUTE RADIOGRAPHIC FINDING IN THE CHEST. Assessment and Plan - Diagnosis (1) Anasarca Is this a current diagnosis for this admission?: Yes Plan: Per previous physician: 06/25/2019 "Currently being attributed to renal failure. Heart failure not thought to be contributing much at this time. Her BNP is apparently lower than what she usually runs at baseline. She has had good urine output. Nephrology is consulted. Cardiology is also on board. She appeared paradoxically volume overloaded but intravascularly volume depleted. She is now off of IV fluids." 06/26/2019 Dopamine to be stopped today by Dr. Vallecillo as BP and heart rate seem to have stabilized No plans for placement of transvenous pacer Does not appear nephrology has actually been consulted and given that patient is at her baseline creatinine of approximately 2-2.2 I do not see any reason to consult them at this time (2) Anemia Qualifiers: Anemia type: due to chronic kidney disease Chronic kidney disease stage: stage 3 (moderate) Qualified Code(s): N18.3 - Chronic kidney disease, stage 3 (moderate); D63.1 - Anemia in chronic kidney disease Is this a current diagnosis for this admission?: Yes Plan: Likely due to anemia of chronic disease/CKD Monitoring for now, currently no plan for transfusion (3) CHF (congestive heart failure) Qualifiers: Heart failure type: diastolic Heart failure chronicity: chronic Qualified Code(s): I50.32 - Chronic diastolic (congestive) heart failure Is this a current diagnosis for this admission?: Yes Plan: Not acutely exacerbated Diastolic heart failure with a preserved ejection fraction. Cardiology following, Dr. Vallecillo Cardiac medications continued as BP allows (4) Chronic a-fib Is this a current diagnosis for this admission?: Yes Plan: Cardizem drip has been discontinued, now on oral Cardizem Stopped low-dose dopamine drip (5) Hypotension Qualifiers: Hypotension type: unspecified hypotension type Qualified Code(s): I95.9 - Hypotension, unspecified Is this a current diagnosis for this admission?: Yes Plan: Stopped low-dose dopamine drip Midodrine (6) Syncope, cardiogenic Is this a current diagnosis for this admission?: Yes Plan: No pauses overnight, on oral Cardizem and taken off dopamine drip Telemetry (7) History of DVT (deep vein thrombosis) Is this a current diagnosis for this admission?: Yes Plan: On apixaban prior to admission; oral AC held for possible procedures - Time Time Spent with patient: 15-24 minutes Medications reviewed and adjusted accordingly: Yes - Inpatient Certification Based on my medical assessment, after consideration of the patient's comorbidities, presenting symptoms, or acuity I expect that the services needed warrant INPATIENT care.: Yes I certify that my determination is in accordance with my understanding of Medicare's requirements for reasonable and necessary INPATIENT services [42 CFR 412.3e].: Yes Medical Necessity: Significant Comorbidiites Make Outpatient Treatment Too Risky, Need Close Monitoring Due to Risk of Patient Decompensation, Risk of Complication if Not Cared For in Hospital, Risk of Diagnosis Which Will Require Inpatient Eval/Care/Monitoring
--- NOTE | 2019-06-26 20:14 | Progress Note ---
Provider Note Provider Note: CARDIOLOGY PROGRESS NOTE by Dr. Brionna Vallecillo on 06/26/2019. SUBJECTIVE: The patient again had an episode of a drop in blood pressure but her heart rate remained in the 70s. ABGs done at that time did not show any hypoxia or hypercapnia. The patient was awake although slightly drowsy. But in spite of blood pressure being in the 70s to 89 systolic the heart rate was in the 70s hence a pacemaker would not help the patient's current situation. Also on palpation the patient was awake and alert and seemed to be oriented x2 which is her baseline state and there was a good feel of her pulse when I palpated her brachial artery. This was after the patient's dopamine was decreased to 2.5 mcg/kg/min. In view of this it has been decided that the patient's symptoms may be secondary to her sleep apnea/narcolepsy. Since she was noted at times to be very lethargic when she had the episodes mentioned above with also the patient not breathing. At present the patient is awake alert oriented x2 and in no acute distress. PHYSICAL EXAMINATION: The patient is morbidly obese. Selected Entries 06/26/19 06/26/19 11:00 11:51 Temperature 97.5 F Temperature Axillary Source Pulse Rate 69 Respiratory 20 Rate Blood Pressure 89/67 L 127/67 H Blood Pressure 87 Mean BP Location Right Arm BP Position Sitting O2 Sat by Pulse 93 Oximetry Oxygen Flow 2.00 Rate Oxygen Delivery Nasal Cannula Method General appearance: PRESENT: no acute distress, cooperative, disheveled, morbidly obese Respiratory exam: PRESENT: decreased breath sounds, symmetrical, unlabored. ABSENT: accessory muscle use, chest wall tenderness, crackles, prolonged expiratory phas, retraction, rhonchi, tachypnea, wheezes Cardiovascular exam: PRESENT: irregular rhythm Pulses: PRESENT: normal carotid pulses Vascular exam: PRESENT: normal capillary refill GI/Abdominal exam: PRESENT: normal bowel sounds, soft. ABSENT: distended, guarding, rebound, tenderness Extremities exam: PRESENT: pedal edema, +2 edema, other - Diffuse anasarca. ABSENT: clubbing Musculoskeletal exam: PRESENT: normal inspection. ABSENT: deformity Neurological exam: PRESENT: awake, oriented to person, oriented to place Psychiatric exam: PRESENT: flat affect Skin exam: PRESENT: dry, warm The patient's 24-hour intake is 1060 mL the patient's 24-hour output is 2225 ml. Labs- All tests 24 hr 06/26/19 06/26/19 06/26/19 05:25 05:25 13:18 WBC 4.5 RBC 3.61 L Hgb 10.4 L Hct 30.6 L MCV 85 MCH 28.8 MCHC 34.0 RDW 14.9 H Plt Count 115 L Carbonic Acid 0.86 L HCO3/H2CO3 Ratio 21:1 ABG pH 7.42 ABG pCO2 28.7 L ABG pO2 146.1 H ABG HCO3 18.2 L ABG Total CO2 19.0 L ABG O2 Saturation 99.0 H ABG Base Excess -5.3 FiO2 2L Sodium 134.3 L Potassium 4.8 Chloride 105 Carbon Dioxide 21 L Anion Gap 8 BUN 61 H Creatinine 1.98 H Est GFR ( Amer) 29 L Est GFR (MDRD) Non-Af 24 L Glucose 121 H Calcium 8.9 Renal Ultrasound 06/14/19 13:44 IMPRESSION: Limited exam secondary to body habitus. Left kidney nonvisualized. Right kidney without hydronephrosis. Chest X-Ray 06/14/19 14:28 IMPRESSION: Low lung volumes without evidence of acute cardiopulmonary process. Stable retrocardiac opacity, likely hiatal hernia. Chest X-Ray 06/19/19 00:00 IMPRESSION: PLACEMENT OF CENTRAL LINE IN SATISFACTORY POSITION WITH NO PNEUMOTHORAX. OTHERWISE NO CHANGE IN APPEARANCE OF THE CHEST. Chest X-Ray 06/22/19 08:50 IMPRESSION: NO ACUTE RADIOGRAPHIC FINDING IN THE CHEST. IMPRESSION/RECOMMENDATION: 1. Episodic bradycardia with hypotension. The patient dopamine have been be decreased to 2.5 mg/kg/min. The patient's as per the nurse had hypotension with a blood pressure in the 70s. But his heart rate was not bradycardic and his heart rate was 70. Hence an ABG was sent for at the time of the episode and this showed a pH of 7.42 and a good P CO2 and PO2 levels without any evidence of hypoxia or hypercapnia. Also at that time when he felt the pulse there was a bounding pulse highly suggestive that the blood pressure obtained was false. In view of the lack of bradycardia with the episode of hypotension makes it a condition where a temporary or permanent pacemaker will not help. This most likely secondary to the patient's sleep apnea since the patient was not breathing at that time although her gases were good. Hence would continue the patient Provigil and the patient's Diamox and the patient's daughter. We will stop the patient's dopamine and observe. Clearly the patient has no indication for temporary or permanent pacemaker at this juncture. 2. Anasarca and lymphedema: This is unlikely secondary to heart failure, given the fact that all bite limited use the LV ejection fraction is about 65%. There is no significant tricuspid regurgitation in the parasternal short axis view and hence there is no significant pulmonary hypertension. 3. Dehydration: This is resolved. At present patient is off the IV fluids. 4. Chronic kidney disease stage IV: There is element of acute on chronic kidney disease. This is most likely due to overdiuresis. Nephrology following the patient. Would recommend continuing IV hydration. At present renal function is improved and patient now is a CKD stage III. 5. Paroxysmal atrial fibrillation. The patient now in atrial flutter. In view of the possibility of vasodepressive syncope causing bradycardia and hypotension we will stop the patient's Cardizem and the patient has been started on atenolol at 12.5 mg p.o. every 12 hours. Will increase as tolerated with respect to her blood pressure and heart rate. Will discontinue the dopamine for now. 6. COPD: At present no definite evidence of bronchitis. 7. Hypertension by history. 8. Morbid obesity. Occasions reviewed. Medications adjusted. His dopamine drip has been discontinued. Medical decision making is of high complexity. 40 minutes spent on this patient with more than 50% of time spent in direct patient care. Discussed with attending provider on the case.
[2019-06-27 06:09] LABS: HEMATOCRIT 26.8 % (36.0-47.0); HEMOGLOBIN 9.1 g/dL (12.0-15.5); MEAN CORPUSCULAR HEMOGLOBIN 28.8 pg (27.0-33.4); MEAN CORPUSCULAR HGB CONC 33.9 g/dL (32.0-36.0); MEAN CORPUSCULAR VOLUME 85 fl (80-97); PLATELET COUNT 103 10^3/uL (150-450); RED BLOOD COUNT 3.16 10^6/uL (3.72-5.28); RED CELL DISTRIBUTION WIDTH 15.1 % (11.5-14.0); WHITE BLOOD COUNT 4.3 10^3/uL (4.0-10.5)
[2019-06-27 06:34] LABS: ANION GAP 10 (5-19); BLOOD UREA NITROGEN 60 mg/dL (7-20); CALCIUM 8.5 mg/dL (8.4-10.2); CARBON DIOXIDE 19 mmol/L (22-30); CHLORIDE 105 mmol/L (98-107); GLUCOSE 95 mg/dL (75-110)
[2019-06-27 08:31] LABS: ABSOLUTE RETICS # 0.034 10^6/uL (0.028-0.122); RETICULOCYTE COUNT (AUTO) 1.07 % (0.66-2.85)
[2019-06-27 08:49] LABS: IRON(TIBC) 61.3 ug/dL (37-170)
[2019-06-27] MEDS: DOCUSATE SODIUM 100 MG CAPSULE PO SCH (09:27)
[2019-06-27] MEDS: THEOPHYLLINE ANHYDROUS 100 MG TAB.SR.12H PO SCH (09:34)
[2019-06-27] MEDS: ACETAZOLAMIDE 250 MG TABLET PO SCH (09:34)
[2019-06-27] MEDS: MODAFINIL 100 MG TABLET PO SCH (09:35)
[2019-06-27] MEDS: MIDODRINE HCL 5 MG TABLET PO SCH ×3 (09:35→21:16)
[2019-06-27] MEDS: ATENOLOL 50 MG TABLET PO SCH ×2 (09:35→21:16)
[2019-06-27] MEDS: FAMOTIDINE 20 MG TABLET PO SCH (09:35)
[2019-06-27] MEDS: ASPIRIN 81 MG TABLET, ENT COATED PO SCH (09:36)
[2019-06-27] MEDS: APIXABAN 2.5 MG TABLET PO SCH ×2 (09:36→21:16)
--- NOTE | 2019-06-27 13:46 | PDOC PROGRESS REPORT ---
Subjective Progress Note for:: 06/27/19 Subjective:: 06/26/2019 Patient seems to be stable today on dopamine drip. I spoke with Dr. Vallecillo in cardiology who stated he would be stopping this dopamine drip today. Appchristine arguelles his help with the case. Hemoglobin rising, cortisol normal. Seems the plan is no longer to send the patient to ICU for transvenous pacing she will instead be continued to be monitored on the floor. Other than generalized fatigue and weakness she has no specific complaints today. 06/27/2019 Dr. Vallecillo has discontinued her dopamine drip and her blood pressure/heart rate seemed to be holding steady. She will need to wear her BiPAP nightly and any other time she sleeps. I discussed this with the patient as there was some documentation stating that she had been refusing. We can begin planning her return to her nursing facility provided her vitals remained stable throughout today. She can potentially be discharged tomorrow if there are no setbacks. She has no specific complaints other than generalized fatigue and weakness. Reason For Visit: A/CKD, A/C CHF, ANASARCA Physical Exam Vital Signs: Temp Pulse Resp BP Pulse Ox 97.4 F 74 18 87/58 L 99 06/27/19 13:23 06/27/19 13:19 06/27/19 13:14 06/27/19 13:19 06/27/19 13:14 Intake & Output 06/26/19 06/27/19 06/28/19 06:59 06:59 06:59 Intake Total 1060 1098 Output Total 2225 1500 Balance -1165 -402 Weight 171.8 kg 171.2 kg General appearance: PRESENT: no acute distress, well-developed, well-nourished Head exam: PRESENT: atraumatic, normocephalic Eye exam: PRESENT: conjunctiva pink Mouth exam: PRESENT: moist Teeth exam: PRESENT: poor dentation Respiratory exam: PRESENT: clear to auscultation mariama. ABSENT: rales, rhonchi, wheezes Cardiovascular exam: PRESENT: irregular rhythm. ABSENT: diastolic murmur, rubs, systolic murmur GI/Abdominal exam: PRESENT: normal bowel sounds, soft. ABSENT: distended, guarding, mass, organolmegaly, rebound, tenderness Extremities exam: PRESENT: pedal edema Neurological exam: PRESENT: alert, awake, oriented to person, oriented to place Psychiatric exam: PRESENT: appropriate affect, normal mood Skin exam: PRESENT: dry, intact, warm Results Laboratory Results: 06/27/19 05:50 06/27/19 05:50 06/27/19 06/27/19 06/27/19 05:50 05:50 05:50 WBC 4.3 RBC 3.16 L Hgb 9.1 L Hct 26.8 L MCV 85 MCH 28.8 MCHC 33.9 RDW 15.1 H Plt Count 103 L Retic Count (auto) 1.07 Sodium 134.4 L Potassium 4.0 Chloride 105 Carbon Dioxide 19 L Anion Gap 10 BUN 60 H Creatinine 2.03 H Est GFR ( Amer) 28 L Glucose 95 Calcium 8.5 Iron TIBC % Saturation Ferritin Vitamin B12 Folate 06/27/19 05:50 WBC RBC Hgb Hct MCV MCH MCHC RDW Plt Count Retic Count (auto) Sodium Potassium Chloride Carbon Dioxide Anion Gap BUN Creatinine Est GFR ( Amer) Glucose Calcium Iron 61.3 TIBC 192 L % Saturation 32 Ferritin 136.00 Vitamin B12 811.0 Folate 11.30 06/14/19 06/15/19 11:58 05:00 NT-Pro-B Natriuret Pep 1690 H 1730 H Impressions: Renal Ultrasound 06/14/19 13:44 IMPRESSION: Limited exam secondary to body habitus. Left kidney nonvisualized. Right kidney without hydronephrosis. Chest X-Ray 06/22/19 08:50 IMPRESSION: NO ACUTE RADIOGRAPHIC FINDING IN THE CHEST. Assessment and Plan - Diagnosis (1) Anasarca Is this a current diagnosis for this admission?: Yes Plan: Per previous physician: 06/25/2019 "Currently being attributed to renal failure. Heart failure not thought to be contributing much at this time. Her BNP is apparently lower than what she usually runs at baseline. She has had good urine output. Nephrology is consulted. Cardiology is also on board. She appeared paradoxically volume overloaded but intravascularly volume depleted. She is now off of IV fluids." 06/26/2019 Dopamine to be stopped today by Dr. Vallecillo as BP and heart rate seem to have stabilized No plans for placement of transvenous pacer Does not appear nephrology has actually been consulted and given that patient is at her baseline creatinine of approximately 2-2.2 I do not see any reason to consult them at this time 06/27/2019 Dopamine drip has been stopped and so far patient's BP and heart rate have been stable. We will monitor this for today and if she remains stable we may be able to discharge her back to her nursing facility tomorrow. We will get a required coronavirus test today in anticipation of this transition. (2) Anemia Qualifiers: Qualified Code(s): N18.3 - Chronic kidney disease, stage 3 (moderate); D63.1 - Anemia in chronic kidney disease Is this a current diagnosis for this admission?: Yes (3) CHF (congestive heart failure) Qualifiers: Qualified Code(s): I50.32 - Chronic diastolic (congestive) heart failure Is this a current diagnosis for this admission?: Yes (4) Chronic a-fib Is this a current diagnosis for this admission?: Yes (5) Hypotension Qualifiers: Qualified Code(s): I95.9 - Hypotension, unspecified Is this a current diagnosis for this admission?: Yes (6) Syncope, cardiogenic Is this a current diagnosis for this admission?: Yes (7) History of DVT (deep vein thrombosis) Is this a current diagnosis for this admission?: Yes - Time Time Spent with patient: 15-24 minutes Medications reviewed and adjusted accordingly: Yes Anticipated discharge: Home Within: within 48 hours - Inpatient Certification Based on my medical assessment, after consideration of the patient's c omorbidities, presenting symptoms, or acuity I expect that the services needed warrant INPATIENT care.: Yes I certify that my determination is in accordance with my understanding of Medicare's requirements for reasonable and necessary INPATIENT services [42 CFR 412.3e].: Yes Medical Necessity: Significant Comorbidiites Make Outpatient Treatment Too Risky, Need Close Monitoring Due to Risk of Patient Decompensation, Risk of Complication if Not Cared For in Hospital, Risk of Diagnosis Which Will Require Inpatient Eval/Care/Monitoring
--- NOTE | 2019-06-27 13:48 | PDOC PROGRESS REPORT ---
Subjective Progress Note for:: 06/27/19 Subjective:: Patient was seen laying in her bed at the time of examination. She had a NC with oxygen flowing through it. Despite that she denied being SOB. Urine output continues to be doing well. I's&O's continue to be negative. Reason For Visit: A/CKD, A/C CHF, ANASARCA Physical Exam Vital Signs: Temp Pulse Resp BP Pulse Ox 97.4 F 74 18 87/58 L 99 06/27/19 13:23 06/27/19 13:19 06/27/19 13:14 06/27/19 13:19 06/27/19 13:14 Intake & Output 06/26/19 06/27/19 06/28/19 06:59 06:59 06:59 Intake Total 1060 1098 Output Total 2225 1500 Balance -1165 -402 Weight 171.8 kg 171.2 kg General appearance: PRESENT: no acute distress, well-developed, well-nourished, other - -on oxygen via NC Mouth exam: PRESENT: moist, neck supple Respiratory exam: PRESENT: clear to auscultation mariama. ABSENT: crackles, wheezes Cardiovascular exam: PRESENT: +S1, +S2 GI/Abdominal exam: PRESENT: distended, normal bowel sounds, soft. ABSENT: ascites - She is got massive pendulous loose folds of skin over her abdomen, organomegaly, tenderness Extremities exam: PRESENT: pedal edema, +1 edema. ABSENT: tenderness, +2 edema Musculoskeletal exam: ABSENT: normal inspection, tenderness Neurological exam: PRESENT: alert, awake, oriented to person, oriented to place Psychiatric exam: PRESENT: appropriate affect Skin exam: PRESENT: dry, intact, warm. ABSENT: cyanosis Results Laboratory Results: 06/27/19 05:50 06/27/19 05:50 06/26/19 06/27/19 06/27/19 13:18 05:50 05:50 WBC 4.3 RBC 3.16 L Hgb 9.1 L Hct 26.8 L MCV 85 MCH 28.8 MCHC 33.9 RDW 15.1 H Plt Count 103 L Retic Count (auto) Carbonic Acid 0.86 L HCO3/H2CO3 Ratio 21:1 ABG pH 7.42 ABG pCO2 28.7 L ABG pO2 146.1 H ABG HCO3 18.2 L ABG O2 Saturation 99.0 H ABG Base Excess -5.3 FiO2 2L Sodium 134.4 L Potassium 4.0 Chloride 105 Carbon Dioxide 19 L Anion Gap 10 BUN 60 H Creatinine 2.03 H Est GFR ( Amer) 28 L Glucose 95 Calcium 8.5 Iron TIBC % Saturation Ferritin Vitamin B12 Folate 06/27/19 06/27/19 05:50 05:50 WBC RBC Hgb Hct MCV MCH MCHC RDW Plt Count Retic Count (auto) 1.07 Carbonic Acid HCO3/H2CO3 Ratio ABG pH ABG pCO2 ABG pO2 ABG HCO3 ABG O2 Saturation ABG Base Excess FiO2 Sodium Potassium Chloride Carbon Dioxide Anion Gap BUN Creatinine Est GFR ( Amer) Glucose Calcium Iron 61.3 TIBC 192 L % Saturation 32 Ferritin 136.00 Vitamin B12 811.0 Folate 11.30 06/14/19 06/15/19 11:58 05:00 NT-Pro-B Natriuret Pep 1690 H 1730 H Impressions: Renal Ultrasound 06/14/19 13:44 IMPRESSION: Limited exam secondary to body habitus. Left kidney nonvisualized. Right kidney without hydronephrosis. Chest X-Ray 06/22/19 08:50 IMPRESSION: NO ACUTE RADIOGRAPHIC FINDING IN THE CHEST. Assessment & Plan - Diagnosis (1) Elevated BUN Is this a current diagnosis for this admission?: Yes Plan: Looks to be almost at baseline. BUN has been in the 50s to 60s for the past few years. (2) Hypotension Qualifiers: Hypotension type: unspecified hypotension type Qualified Code(s): I95.9 - Hypotension, unspecified Is this a current diagnosis for this admission?: Yes Plan: recommend increasing midodrine to 15mg TID (3) Metabolic acidosis Is this a current diagnosis for this admission?: Yes Plan: Acetazolamide needs to be stopped due to the her bicarb dropping. Will look to place the medication on hold. (4) Anasarca Is this a current diagnosis for this admission?: Yes Plan: stable (5) CKD (chronic kidney disease), stage IV Is this a current diagnosis for this admission?: Yes Plan: at baseline (6) Anemia Qualifiers: Anemia type: due to chronic kidney disease Chronic kidney disease stage: stage 3 (moderate) Qualified Code(s): N18.3 - Chronic kidney disease, stage 3 (moderate); D63.1 - Anemia in chronic kidney disease Is this a current diagnosis for this admission?: Yes Plan: anemia studies were with in normal limits. At this time I will look to start her on retacrit. (7) Acute on chronic diastolic (congestive) heart failure Plan: stable - Notes Notes: case was discussed with Dr. Sánchez.
--- NOTE | 2019-06-27 15:33 | Progress Note ---
Provider Note Provider Note: Cardiology progress notes by Dr. Brionna Vallecillo on 06/27/2019 SUBJECTIVE: The patient is no further episodes of bradycardia and although there is no severe hypotension her blood pressure is soft in the 90s. And at high 80s but the patient is asymptomatic. She continues to be in atrial flutter. There is no bleeding on Eliquis. There is no TIA CVA symptoms there is no ventricular arrhythmia seen on the monitor. Patient denies any chest pain or shortness of breath or PND or orthopnea. Her leg edema remains the same. The urine output is still good and the output is greater than the intake. PHYSICAL EXAMINATION: The patient is morbidly obese. Selected Entries 06/27/19 06/27/19 08:36 10:00 Pulse Rate 72 Respiratory 16 Rate Blood Pressure 95/58 L Blood Pressure 70 Mean O2 Sat by Pulse 98 Oximetry Oxygen Flow 2.00 Rate Oxygen Delivery Nasal Cannula Method General appearance: PRESENT: no acute distress, cooperative, disheveled, morbidly obese Respiratory exam: PRESENT: decreased breath sounds, symmetrical, unlabored. ABSENT: accessory muscle use, chest wall tenderness, crackles, prolonged expiratory phas, retraction, rhonchi, tachypnea, wheezes Cardiovascular exam: PRESENT: irregular rhythm Pulses: PRESENT: normal carotid pulses Vascular exam: PRESENT: normal capillary refill GI/Abdominal exam: PRESENT: normal bowel sounds, soft. ABSENT: distended, guarding, rebound, tenderness Extremities exam: PRESENT: pedal edema, +2 edema, other - Diffuse anasarca. ABSENT: clubbing Musculoskeletal exam: PRESENT: normal inspection. ABSENT: deformity Neurological exam: PRESENT: awake, oriented to person, oriented to place Psychiatric exam: PRESENT: flat affect Skin exam: PRESENT: dry, warm The patient's 24-hour intake is 1078 mL the patient's 24-hour output is 1500 ml. Labs- All tests 24 hr 06/27/19 06/27/19 06/27/19 05:50 05:50 05:50 WBC 4.3 RBC 3.16 L Hgb 9.1 L Hct 26.8 L MCV 85 MCH 28.8 MCHC 33.9 RDW 15.1 H Plt Count 103 L Reticulocyte # 0.034 Retic Count (auto) 1.07 Sodium 134.4 L Potassium 4.0 Chloride 105 Carbon Dioxide 19 L Anion Gap 10 BUN 60 H Creatinine 2.03 H Est GFR ( Amer) 28 L Est GFR (MDRD) Non-Af 23 L Glucose 95 Calcium 8.5 Iron TIBC % Saturation Ferritin Vitamin B12 Folate SARS-CoV-2 (PCR) 06/27/19 06/27/19 05:50 11:48 WBC RBC Hgb Hct MCV MCH MCHC RDW Plt Count Reticulocyte # Retic Count (auto) Sodium Potassium Chloride Carbon Dioxide Anion Gap BUN Creatinine Est GFR ( Amer) Est GFR (MDRD) Non-Af Glucose Calcium Iron 61.3 TIBC 192 L % Saturation 32 Ferritin 136.00 Vitamin B12 811.0 Folate 11.30 SARS-CoV-2 (PCR) NEGATIVE Renal Ultrasound 06/14/19 13:44 IMPRESSION: Limited exam secondary to body habitus. Left kidney nonvisualized. Right kidney without hydronephrosis. Chest X-Ray 06/14/19 14:28 IMPRESSION: Low lung volumes without evidence of acute cardiopulmonary process. Stable retrocardiac opacity, likely hiatal hernia. Chest X-Ray 06/19/19 00:00 IMPRESSION: PLACEMENT OF CENTRAL LINE IN SATISFACTORY POSITION WITH NO PNEUMOTHORAX. OTHERWISE NO CHANGE IN APPEARANCE OF THE CHEST. Chest X-Ray 06/22/19 08:50 IMPRESSION: NO ACUTE RADIOGRAPHIC FINDING IN THE CHEST. IMPRESSION/RECOMMENDATION: 1. Episodic bradycardia with hypotension. No further episodes of bradycardia or significant hypertension although her blood pressure is slightly soft. She is off the dopamine for mean drip.. 2. Anasarca and lymphedema: This is unlikely secondary to heart failure, given the fact that all bite limited use the LV ejection fraction is about 65%. There is no significant tricuspid regurgitation in the parasternal short axis view and hence there is no significant pulmonary hypertension. 3. Dehydration: This is resolved. At present patient is off the IV fluids. 4. Chronic kidney disease stage IV: There is element of acute on chronic kidney disease. This is most likely due to overdiuresis. Nephrology following the patient. Would recommend continuing IV hydration. At present renal function is improved and patient now is a CKD stage III. 5. Paroxysmal atrial fibrillation. The patient now in atrial flutter. In view of the possibility of vasodepressive syncope causing bradycardia and hypotension we will stop the patient's Cardizem and the patient has been started on atenolol at 12.5 mg p.o. every 12 hours. Will increase as tolerated with respect to her blood pressure and heart rate. Will discontinue the dopamine for now. 6. COPD: At present no definite evidence of bronchitis. 7. Hypertension by history. 8. Morbid obesity. Medications reviewed. Medical management and medical management discussed with attending provider on the case. Medical decision making is now of moderate complexity. 35 minutes spent as patient more than 50% time spent in direct patient care. Will follow.
[2019-06-27] MEDS: ACETAMINOPHEN 325 MG TABLET PO PRN (21:22)
[2019-06-28 09:13] LABS: HEMATOCRIT 24.9 % (36.0-47.0); HEMOGLOBIN 8.4 g/dL (12.0-15.5); MEAN CORPUSCULAR HEMOGLOBIN 28.9 pg (27.0-33.4); MEAN CORPUSCULAR HGB CONC 33.8 g/dL (32.0-36.0); MEAN CORPUSCULAR VOLUME 86 fl (80-97); RED BLOOD COUNT 2.91 10^6/uL (3.72-5.28); RED CELL DISTRIBUTION WIDTH 15.1 % (11.5-14.0); WHITE BLOOD COUNT 3.2 10^3/uL (4.0-10.5)
[2019-06-28 09:37] LABS: ANION GAP 8 (5-19); BLOOD UREA NITROGEN 57 mg/dL (7-20); CALCIUM 8.3 mg/dL (8.4-10.2); CARBON DIOXIDE 18 mmol/L (22-30); CHLORIDE 108 mmol/L (98-107); GLUCOSE 86 mg/dL (75-110); POTASSIUM 3.8 mmol/L (3.6-5.0)
[2019-06-28] MEDS: DOCUSATE SODIUM 100 MG CAPSULE PO SCH (09:37)
[2019-06-28 09:56] LABS: PLATELET COUNT 99 10^3/uL (150-450)
[2019-06-28] MEDS: FAMOTIDINE 20 MG TABLET PO SCH (09:58)
[2019-06-28] MEDS: MIDODRINE HCL 5 MG TABLET PO SCH ×3 (09:58→17:50)
[2019-06-28] MEDS: ASPIRIN 81 MG TABLET, ENT COATED PO SCH (09:58)
[2019-06-28] MEDS: APIXABAN 2.5 MG TABLET PO SCH ×2 (09:58→17:50)
[2019-06-28] MEDS: ATENOLOL 50 MG TABLET PO SCH ×3 (09:58→23:54)
[2019-06-28] MEDS: MODAFINIL 100 MG TABLET PO SCH (09:58)
[2019-06-28] MEDS: THEOPHYLLINE ANHYDROUS 100 MG TAB.SR.12H PO SCH (10:00)
--- NOTE | 2019-06-28 11:50 | PDOC PROGRESS REPORT ---
Subjective Progress Note for:: 06/28/19 Subjective:: Patient was seen laying her bed at the time of examination. She looks to be at baseline. She denies SOB or chest pain at the time of examination. I's&O's continue to be negative. Reason For Visit: A/CKD, A/C CHF, ANASARCA Physical Exam Vital Signs: Temp Pulse Resp BP Pulse Ox 97.6 F 71 16 95/54 L 80 L 06/28/19 04:04 06/28/19 07:03 06/28/19 00:28 06/28/19 07:03 06/28/19 04:06 Intake & Output 06/27/19 06/28/19 06/29/19 06:59 06:59 06:59 Intake Total 1098 720 Output Total 1500 1125 Balance -402 -405 Weight 171.2 kg 171.1 kg General appearance: PRESENT: no acute distress, morbidly obese, well-developed, well-nourished Mouth exam: PRESENT: moist, neck supple Respiratory exam: PRESENT: clear to auscultation mariama. ABSENT: wheezes Cardiovascular exam: PRESENT: +S1, +S2 GI/Abdominal exam: PRESENT: distended, normal bowel sounds, soft. ABSENT: ascites - She is got massive pendulous loose folds of skin over her abdomen, organomegaly, tenderness Extremities exam: PRESENT: pedal edema, +1 edema - /trace+. ABSENT: tenderness, +2 edema Musculoskeletal exam: PRESENT: normal inspection. ABSENT: tenderness Neurological exam: PRESENT: alert, awake, oriented to person, oriented to place Skin exam: PRESENT: dry, intact, warm. ABSENT: cyanosis Results Laboratory Results: 06/28/19 06:33 06/28/19 06:33 06/28/19 06/28/19 06:33 06:33 WBC 3.2 L RBC 2.91 L Hgb 8.4 L Hct 24.9 L MCV 86 MCH 28.9 MCHC 33.8 RDW 15.1 H Plt Count 99 L Sodium 134.3 L Potassium 3.8 Chloride 108 H Carbon Dioxide 18 L Anion Gap 8 BUN 57 H Creatinine 2.08 H Est GFR ( Amer) 27 L Glucose 86 Calcium 8.3 L 06/14/19 06/15/19 11:58 05:00 NT-Pro-B Natriuret Pep 1690 H 1730 H Impressions: Renal Ultrasound 06/14/19 13:44 IMPRESSION: Limited exam secondary to body habitus. Left kidney nonvisualized. Right kidney without hydronephrosis. Chest X-Ray 06/22/19 08:50 IMPRESSION: NO ACUTE RADIOGRAPHIC FINDING IN THE CHEST. Assessment & Plan - Diagnosis (1) Elevated BUN Is this a current diagnosis for this admission?: Yes Plan: Looks to be at baseline. BUN has been in the 50s to 60s for the past few years. (2) Hypotension Qualifiers: Hypotension type: unspecified hypotension type Qualified Code(s): I95.9 - Hypotension, unspecified Is this a current diagnosis for this admission?: Yes Plan: recommend midodrine 15mg TID (3) Metabolic acidosis Is this a current diagnosis for this admission?: Yes Plan: Acetazolamide was stopped, will trend bicarb since stopping. (4) Anasarca Is this a current diagnosis for this admission?: Yes Plan: stable (5) CKD (chronic kidney disease), stage IV Is this a current diagnosis for this admission?: Yes Plan: at baseline (6) Anemia Qualifiers: Anemia type: due to chronic kidney disease Chronic kidney disease stage: stage 3 (moderate) Qualified Code(s): N18.3 - Chronic kidney disease, stage 3 (moderate); D63.1 - Anemia in chronic kidney disease Is this a current diagnosis for this admission?: Yes Plan: started on retacrit 20,000 units yesterday, recommend having the nursing facility on discharge give her it weekly until it is in the 9s for the hemoglobin. (7) Acute on chronic diastolic (congestive) heart failure Plan: stable
--- NOTE | 2019-06-28 13:11 | PDOC TRANSFER SUMMARY ---
Impression - Admit/DC Date/PCP Admission Date/Primary Care Provider: 06/15/19 11:53 GUNJAN LARA Discharge Date: 06/28/19 - Discharge Diagnosis (1) Anasarca Is this a current diagnosis for this admission?: Yes (2) Anemia Is this a current diagnosis for this admission?: Yes (3) CHF (congestive heart failure) Is this a current diagnosis for this admission?: Yes (4) Chronic a-fib Is this a current diagnosis for this admission?: Yes (5) Hypotension Is this a current diagnosis for this admission?: Yes (6) Syncope, cardiogenic Is this a current diagnosis for this admission?: Yes (7) History of DVT (deep vein thrombosis) Is this a current diagnosis for this admission?: Yes - Additional Information Resuscitation Status: Do Not Resuscitate Discharge Diet: As Tolerated, Cardiac Discharge Activity: Activity As Tolerated Referrals: GUNJAN LARA MD [Primary Care Provider] - Follow up as needed Home Medications: Calcitriol [Rocaltrol 0.25 mcg Capsule] 0.25 mcg PO QAM 10/27/18 Docusate Sodium [Colace 100 mg Capsule] 100 mg PO QHS 10/27/18 Multivitamin with Minerals [One Daily Plus Minerals] 1 tab PO QAM 10/27/18 Polyethylene Glycol 3350 [Miralax Powder 17 gm/Packet] 17 gm PO QAM 10/27/18 Apixaban [Eliquis 2.5 mg Tablet] 2.5 mg PO Q12 06/14/19 Endit Cream 1 applic PO ASDIR MDD APPLY EVERY SHIFT 06/14/19 Guaifenesin/Dextromethorphan [Guaifenesin-Dm 100-10 mg/5 ml] 10 ml PO Q4HP PRN 06/14/19 Loperamide HCl [Imodium A-D] 2 mg PO Q2HP PRN 06/14/19 Loperamide HCl [Imodium A-D] 4 mg PO DAILYP PRN 06/14/19 Acetaminophen [Tylenol 325 mg Tablet] 650 mg PO Q6HP PRN tablet 06/28/19 Acetazolamide [Diamox 250 mg Tab] 125 mg PO DAILY tablet 06/28/19 Aspirin [Ecotrin 81 mg EC Tablet] 81 mg PO DAILY tabec 06/28/19 Atenolol [Tenormin 50 mg Tablet] 12.5 mg PO Q12 tablet 06/28/19 Famotidine [Pepcid 20 mg Tablet] 20 mg PO DAILY tablet 06/28/19 Mag Hydrox/Al Hydrox/Simeth [Maalox Plus Susp 30 Udcup] 30 ml PO Q4HP PRN udc 06/28/19 Magnesium Hydroxide [Milk of Magnesia 30 ml Udcup] 30 ml PO HSP PRN udc 06/28/19 Midodrine HCl [Proamatine 5 mg Tablet] 15 mg PO TID tablet 06/28/19 Modafinil [Provigil 100 mg Tablet] 100 mg PO DAILY tablet 06/28/19 Theophylline Anhydrous [Radames-Dur 100 mg Tab.sr] 100 mg PO DAILY tab.sr.12h 06/28/19 History of Present Illiness History of Present Illness: Per admitting physician: "ANTHONY PELLETIER is an 83-year-old female with a past medical history significant for advanced dementia (oriented to self only), bedbound status, super morbid obesity, chronic CHF, CKD 4, atrial fibrillation, COPD who was sent to the emergency department today by her medical surgical tech for abnormal labs. Her BUN has been increasing over the last several weeks despite increased diuresis at SNF. Creatinine remained stable. Evaluation in the emergency department is essentially unremarkable with hypotension (98/57), anemia (Hgb 9.2), mild hyponatremia 131.2, Baseline creatinine 2.09, BUN 119, proBNP 1690 (actually improved from previous visits), albumin 3.0. Prealbumin is pending. Urinalysis is unremarkable. Guaiac negative. Chest x-ray shows chronic changes; no acute CHF. Renal ultrasound shows normal right kidney, unable to visualize left. Attempted abdominal CT; unable to complete test due to body habitus. Last echocardiogram from 2018 was poor quality study due to body habitus with recommendation for MUGA scan. Will ask nuclear medicine to attempt, although, I doubt they will be successful either as the patient could not fit in the CT imaging. Have spoken with cardiovascular lab and requested an echocardiogram if unable to complete MUGA. She is referred to the hospitalist service for admission and management of the above-stated complaints and findings." Hospital Course Hospital Course: Patient admitted for cardiogenic syncope and hypotension due to bradycardic atrial flutter. Cardiology and nephrology were consulted. Patient was briefly placed on a dopamine drip and was weaned off of this as her heart rate and blood pressure stabilized after being placed on midodrine. We believe patient has both central and obstructive sleep apnea and we have put her on BiPAP, see settings below. She must use this anytime she sleeps. Strongly recommend patient be evaluated by hospice at her facility. BIPAP SETTINGS: 30%, 01/2806/26/2019 Patient seems to be stable today on dopamine drip. I spoke with Dr. Vallecillo in cardiology who stated he would be stopping this dopamine drip today. Appreciate his help with the case. Hemoglobin rising, cortisol normal. Seems the plan is no longer to send the patient to ICU for transvenous pacing she will instead be continued to be monitored on the floor. Other than generalized fatigue and weakness she has no specific complaints today. 06/27/2019 Dr. Vallecillo has discontinued her dopamine drip and her blood pressure/heart rate seemed to be holding steady. She will need to wear her BiPAP nightly and any other time she sleeps. I discussed this with the patient as there was some documentation stating that she had been refusing. We can begin planning her return to her nursing facility provided her vitals remained stable throughout today. She can potentially be discharged tomorrow if there are no setbacks. She has no specific complaints other than generalized fatigue and weakness. (1) Anasarca due to CHF Is this a current diagnosis for this admission?: Yes Plan: Per previous physician: 06/25/2019 "Currently being attributed to renal failure. Heart failure not thought to be contributing much at this time. Her BNP is apparently lower than what she usually runs at baseline. She has had good urine output. Nephrology is consulted. Cardiology is also on board. She appeared paradoxically volume overloaded but intravascularly volume depleted. She is now off of IV fluids." 06/26/2019 Dopamine to be stopped today by Dr. Vallecillo as BP and heart rate seem to have stabilized No plans for placement of transvenous pacer Does not appear nephrology has actually been consulted and given that patient is at her baseline creatinine of approximately 2-2.2 I do not see any reason to consult them at this time 06/27/2019 Dopamine drip has been stopped and so far patient's BP and heart rate have been stable. We will monitor this for today and if she remains stable we may be able to discharge her back to her nursing facility tomorrow. We will get a required coronavirus test today in anticipation of this transition. 06/28/2019 Cardiology and nephrology have stated in the notes that patient is overall quite stable and per my discussion with Dr. Vallecillo patient can be discharged back to her nursing facility. I do expect her medical problems to worsen over time and I believe she will be high risk for readmission in the future. I recommend hospice evaluation at her nursing facility. (2) Anemia Qualifiers: Qualified Code(s): N18.3 - Chronic kidney disease, stage 3 (moderate); D63.1 - Anemia in chronic kidney disease Is this a current diagnosis for this admission?: Yes Due to chronic disease/renal disease (3) CHF (congestive heart failure) Qualifiers: Qualified Code(s): I50.32 - Chronic diastolic (congestive) heart failure Is this a current diagnosis for this admission?: Yes Home medications adjusted/continued (4) Chronic a-fib Is this a current diagnosis for this admission?: Yes Controlled on atenolol, continued on low-dose Eliquis (5) Hypotension Qualifiers: Qualified Code(s): I95.9 - Hypotension, unspecified Is this a current diagnosis for this admission?: Yes Resolved (6) Syncope, cardiogenic Is this a current diagnosis for this admission?: Yes Resolved (7) History of DVT (deep vein thrombosis) Is this a current diagnosis for this admission?: Yes On Eliquis Physical Exam Vital Signs: Temp Pulse Resp BP Pulse Ox 97.6 F 71 16 95/54 L 80 L 06/28/19 04:04 06/28/19 07:03 06/28/19 00:28 06/28/19 07:03 06/28/19 04:06 Intake & Output 06/27/19 06/28/19 06/29/19 06:59 06:59 06:59 Intake Total 1098 720 Output Total 1500 1125 Balance -402 -405 Weight 171.2 kg 171.1 kg General appearance: PRESENT: no acute distress, well-developed, well-nourished Head exam: PRESENT: atraumatic, normocephalic Eye exam: PRESENT: conjunctiva pink Mouth exam: PRESENT: moist Respiratory exam: PRESENT: clear to auscultation mariama. ABSENT: rales, rhonchi, wheezes Cardiovascular exam: PRESENT: irregular rhythm. ABSENT: diastolic murmur, rubs, systolic murmur Extremities exam: PRESENT: pedal edema, +1 edema Neurological exam: PRESENT: alert, awake, oriented to person Psychiatric exam: PRESENT: appropriate affect, normal mood Skin exam: PRESENT: dry, intact, warm Results Laboratory Results: WBC 3.2 10^3/uL (4.0-10.5) L 06/28/19 06:33 RBC 2.91 10^6/uL (3.72-5.28) L 06/28/19 06:33 Hgb 8.4 g/dL (12.0-15.5) L 06/28/19 06:33 Hct 24.9 % (36.0-47.0) L 06/28/19 06:33 MCV 86 fl (80-97) 06/28/19 06:33 MCH 28.9 pg (27.0-33.4) 06/28/19 06:33 MCHC 33.8 g/dL (32.0-36.0) 06/28/19 06:33 RDW 15.1 % (11.5-14.0) H 06/28/19 06:33 Plt Count 99 10^3/uL (150-450) L 06/28/19 06:33 Lymph % (Auto) 21.8 % (13-45) 06/14/19 13:35 Sterling % (Auto) 9.5 % (3-13) 06/14/19 13:35 Eos % (Auto) 1.4 % (0-6) 06/14/19 13:35 Baso % (Auto) 0.3 % (0-2) 06/14/19 13:35 Reticulocyte # 0.034 10^6/uL (0.028-0.122) 06/27/19 05:50 Absolute Neuts (auto) 3.1 10^3/uL (1.7-8.2) 06/14/19 13:35 Absolute Lymphs (auto) 1.0 10^3/uL (0.5-4.7) 06/14/19 13:35 Absolute Monos (auto) 0.4 10^3/uL (0.1-1.4) 06/14/19 13:35 Absolute Eos (auto) 0.1 10^3/uL (0.0-0.6) 06/14/19 13:35 Absolute Basos (auto) 0.0 10^3/uL (0.0-0.2) 06/14/19 13:35 Seg Neutrophils % 67.0 % (42-78) 06/14/19 13:35 Platelet Estimate Cancelled 06/14/19 11:58 Retic Count (auto) 1.07 % (0.66-2.85) 06/27/19 05:50 Carbonic Acid 0.86 mmol/L (1.05-1.35) L 06/26/19 13:18 HCO3/H2CO3 Ratio 21:1 06/26/19 13:18 ABG pH 7.42 (7.35-7.45) 06/26/19 13:18 ABG pCO2 28.7 mmHg (35-45) L 06/26/19 13:18 ABG pO2 146.1 mmHg (80-100) H 06/26/19 13:18 ABG HCO3 18.2 mmol/L (20-24) L 06/26/19 13:18 ABG Total CO2 19.0 mmol/L (21-25) L 06/26/19 13:18 ABG O2 Saturation 99.0 % (94-98) H 06/26/19 13:18 ABG Base Excess -5.3 mmol/L 06/26/19 13:18 FiO2 2L 06/26/19 13:18 Sodium 134.3 mmol/L (137-145) L 06/28/19 06:33 Potassium 3.8 mmol/L (3.6-5.0) 06/28/19 06:33 Chloride 108 mmol/L (98-107) H 06/28/19 06:33 Carbon Dioxide 18 mmol/L (22-30) L 06/28/19 06:33 Anion Gap 8 (5-19) 06/28/19 06:33 BUN 57 mg/dL (7-20) H 06/28/19 06:33 Creatinine 2.08 mg/dL (0.52-1.25) H 06/28/19 06:33 Est GFR ( Amer) 27 (>60) L 06/28/19 06:33 Est GFR (MDRD) Non-Af 23 (>60) L 06/28/19 06:33 Glucose 86 mg/dL (75-110) 06/28/19 06:33 POC Glucose 127 mg/dL (70-110) H 06/23/19 16:55 Calcium 8.3 mg/dL (8.4-10.2) L 06/28/19 06:33 Phosphorus 4.4 mg/dL (2.5-4.5) 06/20/19 23:12 Magnesium 2.4 mg/dL (1.6-2.3) H 06/20/19 23:12 Iron 61.3 ug/dL (37-170) 06/27/19 05:50 TIBC 192 ug/dL (250-450) L 06/27/19 05:50 % Saturation 32 % 06/27/19 05:50 Ferritin 136.00 ng/mL (11.1-264.0) 06/27/19 05:50 Total Bilirubin 0.4 mg/dL (0.2-1.3) 06/20/19 23:12 Direct Bilirubin 0.1 mg/dL (0.0-0.4) 06/20/19 23:12 Neonat Total Bilirubin Not Reportable 06/20/19 23:12 Neonat Direct Bilirubin Not Reportable 06/20/19 23:12 Neonat Indirect Bili Not Reportable 06/20/19 23:12 AST 37 U/L (14-36) H 06/20/19 23:12 ALT 16 U/L (<35) 06/20/19 23:12 Alkaline Phosphatase 84 U/L (38-126) 06/20/19 23:12 NT-Pro-B Natriuret Pep 1730 pg/mL (<450) H 06/15/19 05:00 Total Protein 7.0 g/dL (6.3-8.2) 06/20/19 23:12 Albumin 3.2 g/dL (3.5-5.0) L 06/20/19 23:12 Prealbumin 14.9 mg/dL (17.6-36.0) L 06/14/19 14:15 Vitamin B12 811.0 pg/mL (239-931) 06/27/19 05:50 Folate 11.30 ng/mL (>2.76) 06/27/19 05:50 TSH 0.51 uIU/mL (0.47-4.68) 06/25/19 08:00 Free T4 1.63 ng/dL (0.78-2.19) 06/25/19 08:00 Free T3 pg/mL 2.74 pg/mL (2.77-5.27) L 06/25/19 08:00 Random Cortisol 12.60 ug/dL (None Established) 06/23/19 05:05 Urine Color STRAW 06/14/19 12:18 Urine Appearance CLEAR 06/14/19 12:18 Urine pH 5.0 (5.0-9.0) 06/14/19 12:18 Ur Specific Jolon 1.008 06/14/19 12:18 Urine Protein NEGATIVE mg/dL (NEGATIVE) 06/14/19 12:18 Urine Glucose (UA) NEGATIVE mg/dL (NEGATIVE) 06/14/19 12:18 Urine Ketones NEGATIVE mg/dL (NEGATIVE) 06/14/19 12:18 Urine Blood NEGATIVE (NEGATIVE) 06/14/19 12:18 Urine Nitrite NEGATIVE (NEGATIVE) 06/14/19 12:18 Urine Bilirubin NEGATIVE (NEGATIVE) 06/14/19 12:18 Urine Urobilinogen NEGATIVE mg/dL (<2.0) 06/14/19 12:18 Ur Leukocyte Esterase SMALL (NEGATIVE) H 06/14/19 12:18 Urine WBC (Auto) 6 /HPF 06/14/19 12:18 Urine RBC (Auto) 2 /HPF 06/14/19 12:18 Urine Bacteria (Auto) 1+ /HPF 06/14/19 12:18 Squamous Epi Cells Auto 3 /HPF 06/14/19 12:18 Urine Mucus (Auto) RARE /LPF 06/14/19 12:18 Urine Ascorbic Acid NEGATIVE (NEGATIVE) 06/14/19 12:18 POC Stool Occult Blood NEGATIVE (NEGATIVE) 06/14/19 16:54 COVID-19 Source NASOPHARYNGEAL 06/17/19 00:20 COVID-19 (JOSE [facility]IS) NOT DETECTED 06/17/19 00:20 SARS-CoV-2 (PCR) NEGATIVE (NEGATIVE) 06/27/19 11:48 Slides for Path Review Cancelled 06/14/19 11:58 06/14/19 06/15/19 11:58 05:00 NT-Pro-B Natriuret Pep 1690 H 1730 H Impressions: Renal Ultrasound 06/14/19 13:44 IMPRESSION: Limited exam secondary to body habitus. Left kidney nonvisualized. Right kidney without hydronephrosis. Chest X-Ray 06/14/19 14:28 IMPRESSION: Low lung volumes without evidence of acute cardiopulmonary process. Stable retrocardiac opacity, likely hiatal hernia. Chest X-Ray 06/19/19 00:00 IMPRESSION: PLACEMENT OF CENTRAL LINE IN SATISFACTORY POSITION WITH NO PNEUMOTHORAX. OTHERWISE NO CHANGE IN APPEARANCE OF THE CHEST. Chest X-Ray 06/22/19 08:50 IMPRESSION: NO ACUTE RADIOGRAPHIC FINDING IN THE CHEST. Plan Time Spent: Greater than 30 Minutes Stroke Is this a Stroke Patient?: No Acute Heart Failure - Is this a Heart Failure Patient?: Yes Documentation of LVEF assessment?: Yes LVEF < 40%?: No- if no continue to question #3 3. Anticoagulant therapy for permanect/persistent/paraoxysmal Afib or Aflutter: Yes Follow-up Appointment scheduled within 7 days?: Yes
--- NOTE | 2019-06-28 15:51 | Progress Note ---
Provider Note Provider Note: CARDIOLOGY PROGRESS NOTE by Dr. Brionna Vallecillo on 06/28/2019. OBJECTIVE: There is no further episodes of bradycardia or hypotension. Her blood pressure is on the lower side but the patient is asymptomatic. The patient continues to be in atrial flutter with controlled ventricular spots. There is no ventricular arrhythmias. There is no bleeding on Eliquis. There is no TIA CVA symptoms. The patient is being discharged to her alf facility. PHYSICAL EXAMINATION: The patient is morbidly obese. In no acute distress. Selected Entries 06/28/19 06/28/19 06/28/19 12:20 12:31 13:00 Pulse Rate 73 71 Respiratory 16 Rate Blood Pressure 98/58 L 109/62 Blood Pressure 71 77 Mean O2 Sat by Pulse 100 Oximetry Oxygen Flow 2.00 Rate Oxygen Delivery Nasal Cannula Method General appearance: PRESENT: no acute distress, cooperative, disheveled, morbidly obese Respiratory exam: PRESENT: decreased breath sounds, symmetrical, unlabored. ABSENT: accessory muscle use, chest wall tenderness, crackles, prolonged expiratory phas, retraction, rhonchi, tachypnea, wheezes Cardiovascular exam: PRESENT: irregular rhythm Pulses: PRESENT: normal carotid pulses Vascular exam: PRESENT: normal capillary refill GI/Abdominal exam: PRESENT: normal bowel sounds, soft. ABSENT: distended, guarding, rebound, tenderness Extremities exam: PRESENT: pedal edema, +2 edema, other - Diffuse anasarca. ABSENT: clubbing Musculoskeletal exam: PRESENT: normal inspection. ABSENT: deformity Neurological exam: PRESENT: awake, oriented to person, oriented to place Psychiatric exam: PRESENT: flat affect Skin exam: PRESENT: dry, warm The patient's 24-hour intake is 720 mL the patient's 24-hour output is 1125 ml. Labs- All tests 24 hr 06/28/19 06/28/19 06:33 06:33 WBC 3.2 L RBC 2.91 L Hgb 8.4 L Hct 24.9 L MCV 86 MCH 28.9 MCHC 33.8 RDW 15.1 H Plt Count 99 L Sodium 134.3 L Potassium 3.8 Chloride 108 H Carbon Dioxide 18 L Anion Gap 8 BUN 57 H Creatinine 2.08 H Est GFR ( Amer) 27 L Est GFR (MDRD) Non-Af 23 L Glucose 86 Calcium 8.3 L Renal Ultrasound 06/14/19 13:44 IMPRESSION: Limited exam secondary to body habitus. Left kidney nonvisualized. Right kidney without hydronephrosis. Chest X-Ray 06/14/19 14:28 IMPRESSION: Low lung volumes without evidence of acute cardiopulmonary process. Stable retrocardiac opacity, likely hiatal hernia. Chest X-Ray 06/19/19 00:00 IMPRESSION: PLACEMENT OF CENTRAL LINE IN SATISFACTORY POSITION WITH NO PNEUMOTHORAX. OTHERWISE NO CHANGE IN APPEARANCE OF THE CHEST. Chest X-Ray 06/22/19 08:50 IMPRESSION: NO ACUTE RADIOGRAPHIC FINDING IN THE CHEST. IMPRESSION/RECOMMENDATION: 1. Episodic bradycardia with hypotension. No further episodes of bradycardia or significant hypertension although her blood pressure is slightly soft. She is off the dopamine for mean drip.. 2. Anasarca and lymphedema: This is unlikely secondary to heart failure, given the fact that all bite limited use the LV ejection fraction is about 65%. There is no significant tricuspid regurgitation in the parasternal short axis view and hence there is no significant pulmonary hypertension. 3. Dehydration: This is resolved. At present patient is off the IV fluids. 4. Chronic kidney disease stage IV: There is element of acute on chronic kidney disease. This is most likely due to overdiuresis. Nephrology following the patient. Would recommend continuing IV hydration. At present renal function is improved and patient now is a CKD stage III. 5. Paroxysmal atrial fibrillation. The patient now in atrial flutter. Patient is on Modafil, theophylline and small dose of beta-pedro. 6. COPD: At present no definite evidence of bronchitis. 7. Hypertension by history. 8. Morbid obesity. Medications reviewed. Medical management and medical management discussed with attending provider on the case. Medical decision making is now of moderate complexity. 35 minutes spent as patient more than 50% time spent in direct patient care. Cardiac status is stable. Hence will sign off. If the patient desires she can follow-up with me in the office.
[2019-06-28] MEDS: ACETAMINOPHEN 325 MG TABLET PO PRN (22:31)
[2019-06-28] MEDS ORDERED: MIDODRINE HCL 5 MG TABLET PO ONE (23:00)
[2019-06-28] MEDS ORDERED: APIXABAN 2.5 MG TABLET PO ONE (23:00)
[2019-06-29 07:22] LABS: ANION GAP 10 (5-19); BLOOD UREA NITROGEN 55 mg/dL (7-20); CALCIUM 8.4 mg/dL (8.4-10.2); CARBON DIOXIDE 19 mmol/L (22-30); CHLORIDE 106 mmol/L (98-107); GLUCOSE 91 mg/dL (75-110); POTASSIUM 3.7 mmol/L (3.6-5.0)
[2019-06-29 09:26] VITALS: BP 90/54
[2019-06-29] MEDS: DOCUSATE SODIUM 100 MG CAPSULE PO SCH (10:18)
--- NOTE | 2019-06-29 10:36 | PDOC PROGRESS REPORT ---
Subjective Progress Note for:: 06/29/19 Subjective:: 06/26/2019 Patient seems to be stable today on dopamine drip. I spoke with Dr. Vallecillo in cardiology who stated he would be stopping this dopamine drip today. Appchristine arguelles his help with the case. Hemoglobin rising, cortisol normal. Seems the plan is no longer to send the patient to ICU for transvenous pacing she will instead be continued to be monitored on the floor. Other than generalized fatigue and weakness she has no specific complaints today. 06/27/2019 Dr. Vallecillo has discontinued her dopamine drip and her blood pressure/heart rate seemed to be holding steady. She will need to wear her BiPAP nightly and any other time she sleeps. I discussed this with the patient as there was some documentation stating that she had been refusing. We can begin planning her return to her nursing facility provided her vitals remained stable throughout today. She can potentially be discharged tomorrow if there are no setbacks. She has no specific complaints other than generalized fatigue and weakness. 06/29/2019 Patient was discharged yesterday but this was delayed due to facility not setting up her BiPAP. Supposedly, this is been set up today and she can go. She has no new complaints and feels quite well overall. Reason For Visit: A/CKD, A/C CHF, ANASARCA Physical Exam Vital Signs: Temp Pulse Resp BP Pulse Ox 97.4 F 71 16 90/54 L 100 06/29/19 08:29 06/29/19 08:29 06/29/19 08:29 06/29/19 07:00 06/29/19 08:29 Intake & Output 06/28/19 06/29/19 06/30/19 06:59 06:59 06:59 Intake Total 720 1914 Output Total 1125 1950 Balance -405 -36 Weight 171.1 kg 170 kg General appearance: PRESENT: no acute distress, well-developed, well-nourished Head exam: PRESENT: atraumatic, normocephalic Eye exam: PRESENT: conjunctiva pink. ABSENT: scleral icterus Mouth exam: PRESENT: moist Respiratory exam: PRESENT: clear to auscultation mariama. ABSENT: rales, rhonchi, wheezes Cardiovascular exam: PRESENT: irregular rhythm. ABSENT: diastolic murmur, rubs, systolic murmur GI/Abdominal exam: PRESENT: normal bowel sounds, soft. ABSENT: distended, gua rding, mass, organolmegaly, rebound, tenderness Extremities exam: PRESENT: pedal edema, +1 edema Neurological exam: PRESENT: alert, awake, oriented to person Psychiatric exam: PRESENT: appropriate affect, normal mood Skin exam: PRESENT: dry, intact, warm Results Laboratory Results: 06/28/19 06:33 06/29/19 06:20 06/29/19 06:20 Sodium 134.7 L Potassium 3.7 Chloride 106 Carbon Dioxide 19 L Anion Gap 10 BUN 55 H Creatinine 2.07 H Est GFR ( Amer) 28 L Glucose 91 Calcium 8.4 06/14/19 06/15/19 11:58 05:00 NT-Pro-B Natriuret Pep 1690 H 1730 H Impressions: Renal Ultrasound 06/14/19 13:44 IMPRESSION: Limited exam secondary to body habitus. Left kidney nonvisualized. Right kidney without hydronephrosis. Chest X-Ray 06/22/19 08:50 IMPRESSION: NO ACUTE RADIOGRAPHIC FINDING IN THE CHEST. Assessment and Plan - Diagnosis (1) Anasarca Is this a current diagnosis for this admission?: Yes (2) Anemia Qualifiers: Anemia type: due to chronic kidney disease Chronic kidney disease stage: stage 3 (moderate) Qualified Code(s): N18.3 - Chronic kidney disease, stage 3 (moderate); D63.1 - Anemia in chronic kidney disease Is this a current diagnosis for this admission?: Yes (3) CHF (congestive heart failure) Qualifiers: Heart failure type: diastolic Heart failure chronicity: chronic Qualified Code(s): I50.32 - Chronic diastolic (congestive) heart failure Is this a current diagnosis for this admission?: Yes (4) Chronic a-fib Is this a current diagnosis for this admission?: Yes (5) Hypotension Qualifiers: Hypotension type: unspecified hypotension type Qualified Code(s): I95.9 - Hypotension, unspecified Is this a current diagnosis for this admission?: Yes (6) Syncope, cardiogenic Is this a current diagnosis for this admission?: Yes (7) History of DVT (deep vein thrombosis) Is this a current diagnosis for this admission?: Yes - Plan Summary Summary: There are no significant changes since the patient was discharged on 06/28/2019. She will need her BiPAP arranged for her nursing facility and she can be safely discharged there. - Time Time Spent with patient: 15-24 minutes Medications reviewed and adjusted accordingly: Yes Anticipated discharge: SNF
[2019-06-29] MEDS: APIXABAN 2.5 MG TABLET PO SCH (10:44)
[2019-06-29] MEDS: ASPIRIN 81 MG TABLET, ENT COATED PO SCH (10:44)
[2019-06-29] MEDS: FAMOTIDINE 20 MG TABLET PO SCH (10:45)
[2019-06-29] MEDS: MIDODRINE HCL 5 MG TABLET PO SCH (10:45)
[2019-06-29] MEDS: THEOPHYLLINE ANHYDROUS 100 MG TAB.SR.12H PO SCH (10:45)
[2019-06-29] MEDS: MODAFINIL 100 MG TABLET PO SCH (10:45)
[2019-06-30] MEDS ORDERED: ATENOLOL 50 MG TABLET PO SCH (10:00)
== END 2019-06-29 13:30 | DRG 292 ==
LOC: ER 11:52 → EH 16:11 → 3S 17:39 → OBSVTOIN 06-15 11:53
PROVIDERS: ADMIT Internal Medicine; ATTEND Internal Medicine
PROC: B24BZZZ Ultrasonography of Heart with Aorta (ICD-10-PCS; 2019-06-15)
PROC: 02HV33Z Insertion of Infusion Device into Superior Vena Cava, Percutaneous Approach (ICD-10-PCS; principal; 2019-06-19)
PROC: 5A09557 Assistance with Respiratory Ventilation, Greater than 96 Consecutive Hours, Continuous Positive Airway Pressure (ICD-10-PCS; 2019-06-20)
DX: I13.0 Hypertensive heart and chronic kidney disease with heart failure and stage 1 through stage 4 chronic kidney disease, or unspecified chronic kidney disease (principal); N04.9 Nephrotic syndrome with unspecified morphologic changes; I50.32 Chronic diastolic (congestive) heart failure; Z68.44 Body mass index [BMI] 60.0-69.9, adult; E87.1 Hypo-osmolality and hyponatremia; E87.2 Acidosis; N17.9 Acute kidney failure, unspecified; N18.4 Chronic kidney disease, stage 4 (severe); R55 Syncope and collapse; I48.0 Paroxysmal atrial fibrillation; D63.1 Anemia in chronic kidney disease; E66.01 Morbid (severe) obesity due to excess calories; Z74.01 Bed confinement status; I48.91 Unspecified atrial fibrillation; J44.9 Chronic obstructive pulmonary disease, unspecified; Z66 Do not resuscitate; Z79.01 Long term (current) use of anticoagulants; E86.0 Dehydration; F03.90 Unspecified dementia, unspecified severity, without behavioral disturbance, psychotic disturbance, mood disturbance, and anxiety; I95.9 Hypotension, unspecified; R00.1 Bradycardia, unspecified; Z86.718 Personal history of other venous thrombosis and embolism; K21.9 Gastro-esophageal reflux disease without esophagitis; Z90.49 Acquired absence of other specified parts of digestive tract; Z88.6 Allergy status to analgesic agent
CPT/HCPCS: 36415; 36600; 71045; 76770; 80048; 80053; 81001; 82270; 82533; 82607; 82728; 82746; 82803; 82962; 83540; 83550; 83735; 83880; 84100; 84134; 84439; 84443; 84481; 85025; 85027; 85045; 87070; 87635; 93005; 93010; 93308; 94660; 99285; G0378; G0379; J1250; J1265; J1642; J1940; J3490; J7030; P9047

== ENCOUNTER 2019-10-18 10:15 | Outpatient (CLI) | payer MEDICARE, MEDICAID ==
[~2019-10-18 10:15] MED LIST: FERRIC CARBOXYMALTOSE 750 MG in NORMAL SALINE 250 ML IV PRN
[2019-10-18 10:30] VITALS: BP 126/75
== END 2019-10-18 11:30 ==
LOC: II 10:15 → 5TH 10:15 → II 11:30
PROVIDERS: ATTEND Physician Assistant Medical
DX: D50.8 Other iron deficiency anemias (principal)
CPT/HCPCS: 96365; J7050; J1439

== ENCOUNTER 2019-10-25 10:08 | Outpatient (CLI) | payer MEDICARE, MEDICAID ==
[2019-10-25 10:31] VITALS: BP 129/66
[2019-10-25] MEDS ORDERED: FERRIC CARBOXYMALTOSE 750 MG in NORMAL SALINE 250 ML IV PRN (11:09)
== END 2019-10-25 12:15 | disposition home or self-care (01) ==
LOC: II 10:08 → 5TH 10:54 → II 12:15
PROVIDERS: ATTEND Physician Assistant Medical
DX: D50.8 Other iron deficiency anemias (principal)
CPT/HCPCS: 96365; J7050; J1439